=== PATIENT | female | born 1955 | race Caucasian/White ===

== ENCOUNTER → 2021-12-24 12:39 | Outpatient (CLI) | payer MEDICARE, OTHER, SELFPAY ==
--- NOTE | 2021-12-24 12:56 | US_ITS ---
FINAL REPORT CLINICAL HISTORY: VAGINAL BLEEDING FINDINGS: Transvaginal sonographic images of the pelvis were obtained. The uterus measures 6.5 x 4.0 x 3.1 cm. The endometrium measures 9 mm, which is abnormally thickened in a patient this age. No uterine mass is identified. The right ovary is not visualized. The left ovary measures 2.0 cm in length. Normal blood flow seen to the left ovary. There is no evidence of free fluid. IMPRESSION: Right ovary not identified. Abnormally thickened endometrium in a postmenopausal patient. Reviewed, Interpreted and Dictated by Ronny Randhawa III, MD Transcribed by Mansoor Hamilton Authenticated by Ronny Randhawa III, MD on 12/24/2021 02:38:50 PM [facility]
== END ==
PROVIDERS: PCP Family Medicine; Visit Provider Family Medicine
DX: N93.8 Other specified abnormal uterine and vaginal bleeding (principal); Z51.81 Encounter for therapeutic drug level monitoring; Z79.01 Long term (current) use of anticoagulants
CPT/HCPCS: 76830

== ENCOUNTER → 2022-01-28 08:55 | Outpatient (CLI) | payer MEDICARE, OTHER, SELFPAY ==
[2022-01-28 09:31] LABS: Basophils # 0.1 K/mm3 (0-0.2); Eosinophils # 0.2 K/mm3 (0.0-0.4); Eosinophils % 1.7 % (0.1-12.0); Hematocrit 46.6 % (37.0-47.0); Hemoglobin 14.5 g/dL (12.2-16.2); Lymphocytes # 2.5 K/mm3 (0.7-4.5); Lymphocytes % 20.8 % (10-50); Mean Corpuscular HGB Conc 31.2 g/dL (31.8-35.4); Mean Corpuscular Hemoglobin 23.7 pg (27.0-31.2); Mean Corpuscular Volume 75.9 fl (81-99); Mean Platelet Volume 9.2 fl (7.4-10.4); Monocytes # 0.6 K/mm3 (0.1-1.0); Monocytes % 4.8 % (1.7-9.3); Neutrophils # 8.7 K/mm3 (1.8-7.8); Neutrophils % 71.7 % (37.0-80.0); Platelet Count 472 K/mm3 (142-424); Red Blood Count 6.14 M/mm3 (4.20-5.40); Red Cell Distribution Width 18.2 % (11.5-17.5); White Blood Count 12.2 K/mm3 (4.8-10.8)
[2022-01-28 09:59] LABS: Chloride 100 mmol/L (98-107); Potassium 4.7 mmoL/L (3.5-5.1); Sodium 138 mmol/L (136-145)
[2022-01-28 10:01] LABS: Blood Urea Nitrogen 23 mg/dl (7-17); Estimated Glomerular Filt Rate 62 ml/min (>60); GFR (African American) 76 ML/MIN (>60)
[2022-01-28 10:02] LABS: Alanine Aminotransferase 26 U/L (12-78); Albumin Level 4.4 g/dl (3.5-5.0); Albumin/Globulin Ratio 1.2 (1.1-1.8); Alkaline Phosphatase 134 U/L (38-126); Anion Gap 16.7 mEq/L (5-15); Aspartate Amino Transferase 29 U/L (14-36); Bilirubin,Total 0.4 mg/dl (0.2-1.3); Calcium 9.5 mg/dl (8.4-10.2); Carbon Dioxide 26 mmol/L (22.0-30.0); Globulin 3.6 g/dL (1.3-3.2); Glucose 174 mg/dl (74-100)
== END ==
PROVIDERS: PCP Family Medicine; Visit Provider Obstetrics & Gynecology
DX: Z01.812 Encounter for preprocedural laboratory examination; Z20.822 Contact with and (suspected) exposure to COVID-19; N95.0 Postmenopausal bleeding
CPT/HCPCS: 36415; 80053; 85025; C9803; U0003; U0005

== ENCOUNTER 2022-01-30 06:02 | Day surgery (SDC) | payer MEDICARE, OTHER, SELFPAY ==
[2022-01-28 11:47] VITALS: BMI 53.2
[2022-01-30] VITALS (10 sets, daily range): BP systolic 92–146; BP diastolic 57–73; PULSE 107–132; RESP 17–22; TEMP 36.1–36.2; O2SAT 92–99
--- NOTE | 2022-01-30 07:06 | HMH.ANESCL ---
[facility] Anesthesia Checklist - Patient Identification Patient Identification: Arm Band - Structural Data Admitted From: Home Planned Operative Procedure/s: D/C, Hysteroscopy/Myosure Consent for Planned Operative Procedure(s) Verified: Yes - NPO Status Verified Time NPO: 00:00 - Additional verifications Anesthesia Reactions: No Hx Blood Transfusions: No Blood Transfusion Reaction: No - Airway Assessment C-Spine Mobility Assessed: Yes TMJ Mobility Assessed: Yes Dentition: Good Dentition - Neurological Assessment Level of Consciousness: Awake Hx Seizures: Yes (Last sz 2 years ago) Numbness or tingling in extremities: No - Anesthesia Plan Anesthesia Risk discussed: Yes Anesthesia Plan: Verified ASA Class: III Anesthesia Type: General [facility] History I have reviewed the patient's past medical history: Yes Medical History: Reports:: Atrial Fibrillation, Cerebrovascular Accident, Diabetes Mellitus Type 2, Gastroesophageal Reflux Disease(GERD), Hypertension, Seizures Denies:: Cancer, Diabetes Mellitus Type 1, Internal Pacemaker, MRSA *Have you ever received a pneumonia vaccine?: No *Have you received a flu vaccine this season?: Yes Other Medical History: Reports: Hypothyroidism. Denies: Blood Transfusion Reaction Anesthesia experience/problems:: None Other Surgeries: Yes: Cholecystectomy. No: Pacemaker Amputation: No Fractures: No - *Social History Last grade of school completed: High school graduate Smoking Status: Never smoker Alcohol Intake: never Substance Use Type: denies use *Occupational Status:: retired Housing: house Household Members: spouse *Travel in the last 8 weeks: None Family Hx:: Diabetes, Stroke
--- NOTE | 2022-01-30 08:52 | P.PN_ITS ---
[facility] Anesthesia Record Part I Intake, IV Amount: 800 Estimated blood loss (mL): 5 Urine output (mL): 0 Blood Pressure: 93/62 SaO2: 92 Pulse Rate: 108 Respiratory Rate: 17 Temperature: 97.1 F Patient is:: Drowsy, Oral/Nasal airway Stable to PACU at:: 08:48
[2022-01-30 09:29] LABS: POC Glucose,Bedside 184 (70-110)
--- NOTE | 2022-01-30 10:12 | HMH.OPNOTE ---
Date of procedure: 01/30/22 Pre-op Diagnosis:: 1. Postmenopausal bleeding 2. Thickened endometrium 3. Morbid obesity 4. Vulvar lesion Post-op Diagnosis:: Same Procedure performed:: 1. D&C Hysteroscopy 2. Myosure excision of endometrial mass 3. Punch biopsy x 2 left labia majora Surgeon:: Bruna Cam MD Termite Exterminator Helper(s):: None NOVELTY CHAIN MAKER:: Jeannette Springer Anesthesia: GETA Estimated blood loss (mL): 5 Operative findings:: bleeding lesion medial left labia majora plaque lesion lateral left labia majora polypoid mass endometrial cavity proliferative endometrium Operative note:: The patient was taken to the OR and general anesthesia administered without difficulty. She was prepped/draped in lithotomy position. The cervix was stenotic but dilated successfully with pediatric dilators. Hysteroscopic evaluation was performed. A large polypoid mass was visualized within the endometrial cavity protruding from the anterior wall. Proliferative endometrium was visualized throughout the uterine cavity. The Myosure was used to excise the mass and to sample endometrial tissue throughout the cavity. Once this was completed, all instruments were removed from her uterus and vagina. A 4mm punch biopsy was taken from the medial lesion on left labia majora and a 5mm punch biopsy was taken from the lateral lesion on left labia majora. Both biopsy sites were closed with 4-0 monocryl. Monsel's was placed over both biopsy sites because of chronic anticoagulation. She was taken out of lithotomy position, awakened from anesthesia and taken to the PACU in stable condition. All sponge, needle & instrument counts correct. EBL 5cc. Condition: stable Disposition: PACU Specimens:: 1. Endometrial curettings 2. Labial punch biopsy x 2 Complications:: None
[2022-01-30 14:05] LABS: POC Glucose,Bedside 165 (70-110)
[2022-02-05 08:21] VITALS: BP 113/59; PULSE 114; TEMP 36.1
--- NOTE | 2022-02-05 08:21 | HMH.ANESII ---
[facility] Anesthesia Record Part II Discharge Time: 09:18 Destination: Home PACU nurse assessment reviewed?: Yes Patient Condition:: Good Anesthesia Complications:: None Swallowing reflex intact?: Yes Cyanosis?: No Blood Pressure: 113/59 Pulse Rate: 114 Temperature: 97.0 F Mental Status: Alert & Oriented Pain level:: 0 Nausea and/or vomitting:: None Intake, IV Amount: 0
== END 2022-01-30 10:10 | disposition home or self-care (01) ==
LOC: OR 06:03
PROVIDERS: PCP Family Medicine; Visit Provider Obstetrics & Gynecology
DX: N95.0 Postmenopausal bleeding (principal); R93.89 Abnormal findings on diagnostic imaging of other specified body structures; E66.01 Morbid (severe) obesity due to excess calories; N90.89 Other specified noninflammatory disorders of vulva and perineum; E11.9 Type 2 diabetes mellitus without complications; K21.9 Gastro-esophageal reflux disease without esophagitis; I10 Essential (primary) hypertension; I48.91 Unspecified atrial fibrillation; E03.9 Hypothyroidism, unspecified
CPT/HCPCS: 56605; 56606; 58558; 82962; 88305; 88312; J2405

== ENCOUNTER 2022-04-29 13:04 | Outpatient (CLI) | payer MEDICARE, OTHER, SELFPAY ==
[2022-04-29 13:31] LABS: PHA INR Fingerstick 2.7 (0.9-1.1)
== END 2022-04-29 13:34 ==
LOC: LAB 13:07 → ACC 13:16
PROVIDERS: PCP Family Medicine; Visit Provider Family Medicine
DX: Z79.01 Long term (current) use of anticoagulants (principal); Z51.81 Encounter for therapeutic drug level monitoring; I48.91 Unspecified atrial fibrillation
CPT/HCPCS: 85610; G0463

== ENCOUNTER 2022-05-27 12:54 | Outpatient (CLI) | payer MEDICARE, OTHER, SELFPAY ==
[2022-05-27 15:23] LABS: PHA INR Fingerstick 3.2 (0.9-1.1)
== END 2022-05-27 15:28 ==
PROVIDERS: PCP Family Medicine; Visit Provider Family Medicine
DX: Z51.81 Encounter for therapeutic drug level monitoring (principal); Z79.01 Long term (current) use of anticoagulants
CPT/HCPCS: 85610; 99211; G0463

== ENCOUNTER 2022-08-05 11:55 | Outpatient (CLI) | payer MEDICARE, OTHER, SELFPAY ==
[2022-08-05 12:49] LABS: PHA INR Fingerstick 3.2 (0.9-1.1)
== END 2022-08-05 12:51 ==
LOC: ACC 11:56
PROVIDERS: PCP Family Medicine; Visit Provider Family Medicine
DX: Z51.81 Encounter for therapeutic drug level monitoring (principal); Z79.01 Long term (current) use of anticoagulants
CPT/HCPCS: 85610; 99211; G0463

== ENCOUNTER 2022-09-02 12:16 | Outpatient (CLI) | payer MEDICARE, OTHER, SELFPAY ==
[2022-09-02 13:28] LABS: PHA INR Fingerstick 2.2 (0.9-1.1)
== END 2022-09-02 13:30 ==
PROVIDERS: PCP Family Medicine; Visit Provider Family Medicine
DX: Z51.81 Encounter for therapeutic drug level monitoring (principal); Z79.01 Long term (current) use of anticoagulants
CPT/HCPCS: 85610; 99211; G0463

== ENCOUNTER 2022-10-14 12:18 | Outpatient (CLI) | payer MEDICARE, OTHER, SELFPAY ==
[2022-10-14 13:12] LABS: PHA INR Fingerstick 3.5 (0.9-1.1)
== END 2022-10-14 13:14 ==
PROVIDERS: PCP Family Medicine; Visit Provider Family Medicine
DX: Z51.81 Encounter for therapeutic drug level monitoring (principal); Z79.01 Long term (current) use of anticoagulants
CPT/HCPCS: 85610; 99211; G0463

== ENCOUNTER 2022-10-29 11:15 | Outpatient (CLI) | payer MEDICARE, OTHER, SELFPAY ==
[2022-10-29 11:35] LABS: PHA INR Fingerstick 2.1 (0.9-1.1)
== END 2022-10-29 11:36 ==
LOC: ACC 11:16
PROVIDERS: PCP Family Medicine; Visit Provider Family Medicine
DX: Z51.81 Encounter for therapeutic drug level monitoring (principal); Z79.01 Long term (current) use of anticoagulants
CPT/HCPCS: 85610; 99211; G0463

== ENCOUNTER 2022-12-17 11:34 | Outpatient (CLI) | payer MEDICARE, OTHER, SELFPAY ==
[2022-12-17 11:53] LABS: PHA INR Fingerstick 2.2 (0.9-1.1)
== END 2022-12-17 11:54 ==
LOC: ACC 11:35
PROVIDERS: PCP Family Medicine; Visit Provider Family Medicine
DX: Z51.81 Encounter for therapeutic drug level monitoring (principal); Z79.01 Long term (current) use of anticoagulants
CPT/HCPCS: 85610; 99211; G0463

== ENCOUNTER → 2022-12-26 10:53 | Outpatient (CLI) | payer MEDICARE, OTHER, SELFPAY ==
[2022-12-26 11:28] LABS: Hemoglobin A1C 6.9 % (4.0-6.0)
== END ==
PROVIDERS: PCP Family Medicine; Visit Provider Family Medicine
DX: E03.9 Hypothyroidism, unspecified (principal); E11.65 Type 2 diabetes mellitus with hyperglycemia; Z79.4 Long term (current) use of insulin
CPT/HCPCS: 36415; 83036; 84443

== ENCOUNTER 2023-08-12 12:20 | Outpatient (CLI) | payer MEDICARE, OTHER, SELFPAY | END 2023-08-12 23:59 | LOC: RT 12:21 | PROVIDERS: PCP Family Medicine; Visit Provider Nurse Practitioner Family | DX: E11.9 Type 2 diabetes mellitus without complications (principal); E78.5 Hyperlipidemia, unspecified; G47.33 Obstructive sleep apnea (adult) (pediatric); I10 Essential (primary) hypertension; I48.91 Unspecified atrial fibrillation; R00.2 Palpitations; R00.9 Unspecified abnormalities of heart beat; R06.00 Dyspnea, unspecified; R94.31 Abnormal electrocardiogram [ECG] [EKG]; Z79.84 Long term (current) use of oral hypoglycemic drugs | CPT/HCPCS: 93270 ==

== ENCOUNTER 2023-08-24 09:59 | Outpatient (CLI) | payer MEDICARE, OTHER, SELFPAY ==
[2023-08-24 10:23] LABS: PHA INR Fingerstick 2.7 (0.9-1.1)
== END 2023-08-24 10:24 ==
LOC: ACC 10:01
PROVIDERS: PCP Family Medicine; Visit Provider Family Medicine
DX: Z79.01 Long term (current) use of anticoagulants (principal); Z51.81 Encounter for therapeutic drug level monitoring
CPT/HCPCS: 85610; 99211; G0463

== ENCOUNTER 2023-08-27 06:13 | Outpatient (CLI) | payer MEDICARE, OTHER, SELFPAY ==
--- NOTE | 2023-08-27 06:22 | NM_ITS ---
APPROVED REPORT Exam: Nuclear Stress Test Indication: soa..fatigue Patient Location: Outpatient Stress Tech: Francesca Weinberg CT Tech:RACH Mascorro RT(R)(N) Ht: 5 ft 6 in Wt: 310 lbs Bra Size: 52dd HR: 125 bpm BP: 141/86 mmHg BSA: 2.41 m2 Rhythm: Atrial Fibrillation TID: 1.20 BMI: 50.0 History: soa..fatigue Procedure: Patient received 0.4 mg of intravenous Lexiscan, resting heart rate 125 bpm, resting blood pressure 141/86 mmHg, with Lexiscan maximum heart rate achieved was 144 bpm which is 85 % of the maximum predicted heart rate and blood pressure was 149/79 mmHg. With Lexiscan, patient denied any complaint of chest pain. The patient was not able to lay on her abdomen for prone images. Cardiac Stress and Resting SPECT Images: Cardiac Stress and Resting SPECT images were obtained using technetium 99m Myoview 32.6 mCi stress and 10.50 mCi at rest. The patient could not lie on her abdomen. Therefore, prone stress imaging could not be performed. This may affect the diagnostic interpretation of the study findings. Resting and stress imaging in supine positions demonstrate no evidence of fixed or reversible perfusion defects. Of note, the ransient ischemic dilation ratio is at the upper limit of normal (TID 1.20). Gated imaging demonstrates normal global and regional LV systolic function. LVEF is calculated at 57%. Conclusion: No evidence of fixed or reversible perfusion defects. Gated imaging demonstrates normal global and regional LV systolic function. LVEF is calculated at 57%. Of note, the patient's rhythm is AFib/RVR (HR 120s) at baseline prior to initiation of the stress test. She requires additional HR control. Electronically signed by : Donna Mendoza MD 08/29/2023 19:50:38
--- NOTE | 2023-08-27 06:28 | CA_ITS ---
APPROVED REPORT EXAM: Comprehensive 2D, Doppler, and color-flow Echocardiogram Pipeline Gang Supervisor: Yeny Walker CRT Ht: 5 ft 6 in Wt: 307lbs BSA: 2.40 BP: 196/98 mmHg Indications: Shortness of Breath, Diabetes, Palpitations, Hyperlipidemia, Hypertension/HDD 2D Dimensions LA Volume 28.50 mL LA Volume Index 11.60 mL/m2 (M/F) 16-34 M-Mode Dimensions RVDd 2.84 cm (0.9-2.6) LA Diam 3.81 cm (1.9-4.0) LVDd 4.34 cm (3.5-5.7) LVDs 3.03 cm (3.5-5.7) IVSd 1.94 cm (0.6-1.1) PWd 0.78 cm (0.6-1.1) EF (Teich) 57.70% FS 30.20% EDV (Teich) 84.90 mL TAPSE 1.57 (<1.7) ESV (Teich) 35.90 mL LV Diastology MED A' 2.80 cm/s LAT A' 3.30 cm/s Aortic Valve AO Peak GR. 4.90 mmHg Pulmonary Valve PV Peak Velocity 102.0 (50-150 cm/s) Tricuspid Valve TR P. Velocity 104.00 cm/s RAP Estimate 10.00 mmHg RVSP 14.40 mmHg Left Ventricle The left ventricle is normal size. The left ventricular systolic function is normal. The left ventricular ejection fraction is within the normal range. Proximal septal thickening is noted. There is normal LV segmental wall motion. Diastolic function is indeterminate. LVEF is 55%. Right Ventricle The right ventricle is mildly dilated. The right ventricular systolic function is normal. Atria The left atrium is moderately dilated. The right atrium is mildly dilated. The interatrial septum is not well-visualized. Aortic Valve The aortic valve is mildly thickened. There is no aortic valvular stenosis. No aortic regurgitation is present. Mitral Valve The mitral valve leaflets are mildly thickened. No evidence of mitral valve stenosis. Trace mitral regurgitation. Tricuspid Valve The tricuspid valve leaflets are thin and pliable. Trace tricuspid regurgitation. There is insufficient TR jet to estimate RVSP. Pulmonic Valve The pulmonary valve is normal in structure. Trace pulmonic regurgitation. Great Vessels The aortic root is normal in size. The ascending aorta is not well-visualized. IVC is normal in size and collapses >50% with inspiration. Pericardium There is no pericardial effusion. Other Information Study Quality: Fair Conclusion Normal biventricular systolic function. Mild RV dilation. No significant valvular stenosis or regurgitation. Electronically signed by : Donna Mendoza MD 08/30/2023 11:14:52
--- NOTE | 2023-08-27 08:36 | CA_ITS ---
APPROVED REPORT Exam: Pharmacologic Technologist: Francesca Anderson, Ht: 5 ft 6 in Wt: 307 lbs BSA: 2.40 m2 HR: 120 bpm BP: 141/86 mmHg Rhythm: Atrial Fibrillation Medical History Medications: Lisinopril,,,,, Levothyroxine,,,,, Warfarin,,,,, Metoprolol,,,,, Metformin,,,,, INSULIN,,,,, Lansoprazole,,,,, Trazodone,,,,, RoSUVASTATIN,,,,, Cariprazine,,,,, Furosemide,,,,, Levomefolate,,,,, Stress Test Details Test: LEXISCAN Reason for pharmacologic stress test: physical limitation. HR Resting HR: 125 bpm Max Heart Rate (APMHR): 152 bpm Max HR Achieved: 144 bpm Target HR (85% APMHR): 129 bpm % of APMHR: 95 Recovery HR: 110 bpm BP Resting BP: 141.0/86.0 mmHg Max BP: 149.0/79.0 mmHg Recovery BP: 145.0/87.0 mmHg ECG Resting ECG: Afib with RVR, RBBB Stress ECG: No significant ST changes Arrhythmia: None Clinical Exercise duration: 04:00 min Highest Stage Achieved: Exercise capacity: 1.0 METs Stress ECG Conclusion Symptoms: SOA, mild head discomfort. Arrhythmias/Ectopy: None ST-T Changes: No significant ST changes. Conclusion: The patient's rhythm was AFib/RVR at rest. Unremarkable Lexiscan stress. Myoview images reported separately. Test Summary REST . . . . . . . Resting REST 05:40 . . 125 . 141/ 86 . . Stage 1 01:00 . . 115 . . . . Stage 2 01:00 . . 132 . . . . Stage 3 01:00 . . 122 . 142/ 79 . . Stage 4 01:00 . . 114 . 149/ 79 . Stop exercise at 04:00 RECOVERY 01:00 . . 103 . 143/ 83 . . RECOVERY 02:00 . . 115 . 143/ 83 . . RECOVERY 03:00 . . 119 . 145/ 87 . . RECOVERY 03:19 . . 107 . 145/ 87 . . Electronically signed by : Donna Mendoza MD 08/29/2023 19:43:47
[2023-08-27] MEDS: SODIUM CHLORIDE 0.9% 10ML SYR (RAD ONLY) 10 ML IV ×2 (09:35)
[2023-08-27] MEDS: REGADENOSON 0.4MG/5ML SYRINGE 0.400000000000000022 MG IV (09:35)
[2023-08-27] MEDS: ISOTOPE MYOVIEW (PER STUDY) 1 DOSE IV (09:35)
== END 2023-08-27 23:59 ==
LOC: RAD 06:15
PROVIDERS: PCP Family Medicine; Visit Provider Nurse Practitioner Family
DX: E11.9 Type 2 diabetes mellitus without complications (principal); E78.5 Hyperlipidemia, unspecified; G47.33 Obstructive sleep apnea (adult) (pediatric); I10 Essential (primary) hypertension; I48.91 Unspecified atrial fibrillation; R00.2 Palpitations; R00.9 Unspecified abnormalities of heart beat; R06.00 Dyspnea, unspecified; R94.31 Abnormal electrocardiogram [ECG] [EKG]; Z79.4 Long term (current) use of insulin
CPT/HCPCS: 78452; 93017; 93018; 93306; A9502; J2785

== ENCOUNTER 2023-09-27 08:03 | Day surgery (SDC) | payer MEDICARE, OTHER, SELFPAY ==
[2023-09-24 11:02] VITALS: BMI 50.0
--- NOTE | 2023-09-27 08:17 | CA_ITS ---
APPROVED REPORT EXAM: Comprehensive 2D, Doppler, and color-flow Echocardiogram Compensation And Benefits Manager: Gina Ortega RVT Ht: 5 ft 6 in Wt: 306lbs BSA: 2.40 BP: 131/88 mmHg Indications: A-FIB,ABN EKG,HTN,HLD,DM,CARDIOVERSION Procedure After obtaining informed consent, patient underwent transesophageal echo in the [facility]. Type of Sedation : MAC Sedation was administered by Alex PepperR.N.AMiri Sedation start time: 09:50 Case end Time: 10:20 Sedation was achieved intravenously with: Propofol (450 mg) Transesophageal probe was inserted and advanced into esophagus without difficulty by Dr. Boubacar Mendoza. Echo enhancement indication: R/O Thrombus. Echo enhancement agent administered: Definity The VANESSA was performed without complications. Synchronized Cardioversion acheived with 150 Joules after 1 attempt(s). Rhythm following Synchronized Cardioversion: Sinus Bradycardia Throughout the procedure, the blood pressure, pulse oximetry, cardiac rhythm, and rate were monitored. The patient tolerated the procedure without adverse effects. Recovery from conscious sedation was uneventful and vital signs were stable. Left Ventricle The left ventricle is normal size. The left ventricular systolic function is normal. The left ventricular ejection fraction is within the normal range. There is increased LV wall thickness. There is normal LV segmental wall motion. LVEF is 55%. Right Ventricle The right ventricle is mildly dilated. The right ventricular systolic function is normal. Atria The left atrium is dilated. There is no thrombus in the left atrium or the left atrial appendage. Spontaneous contrast is noted in the left atrial appendage. Administration of ultrasound enhancing agent demonstrated no evidence of filling defects with full perfusion into the YUVAL distally. The right atrium is dilated. Interatrial septum is intact without evidence of ASD or PFO. Aortic Valve The aortic valve opens well. The aortic valve is trileaflet. There is no aortic valvular stenosis. Trace aortic regurgitation. Mitral Valve The mitral valve leaflets are mildly thickened. No evidence of mitral valve stenosis. Mild mitral regurgitation. Tricuspid Valve The tricuspid valve leaflets are thin and pliable. Mild tricuspid regurgitation. RVSP is normal. Pulmonic Valve The pulmonary valve is normal in structure. Trace pulmonic regurgitation. Great Vessels The aortic root is normal in size. The ascending aorta is normal in size. Pericardium There is no pericardial effusion. Conclusion Normal biventricular systolic function. Mild RV dilation. Mild MR. Mild TR. There is no thrombus in the left atrium or the left atrial appendage. Spontaneous contrast is noted in the left atrial appendage. Administration of ultrasound enhancing agent demonstrated no evidence of filling defects with full perfusion into the YUVAL distally. Following VANESSA and confirmation of absence of thrombus, the patient underwent 1 DCCV with 150 J, after which she successfully converted to sinus bradycardia (HR 50s). Electronically signed by : Donna Mendoza MD 09/27/2023 11:21:18
[2023-09-27 08:22] VITALS: BP 170/103; PULSE 97; RESP 19; TEMP 36.2; O2SAT 98
--- NOTE | 2023-09-27 08:22 | ECG_ITS ---
APPROVED REPORT Exam: Resting ECG HR:110 bpm ECG Measurements Heart Rate 110 AXES QRSd 145 QRS 11 QT 383 T -23 QTc 448 Conclusion ATRIAL FIBRILLATION WITH RAPID VENTRICULAR RESPONSE INDETERMINATE AXIS RIGHT BUNDLE BRANCH BLOCK [120+ ms QRS DURATION, UPRIGHT V1, 40+ ms S IN I/aVL/V4/V5/V6] MODERATE T-WAVE ABNORMALITY, CONSIDER ANTEROLATERAL ISCHEMIA [-0.1+ mV T-WAVE IN V3-V6] ABNORMAL ECG UNCONFIRMED REPORT Electronically signed by : Avinash Escoto MD 09/28/2023 20:12:58
[2023-09-27] MEDS: LACTATED RINGERS 1000ML 1,000 ML 25 ML IV (08:32)
[2023-09-27 08:39] LABS: Basophils # 0.1 K/mm3 (0-0.2); Basophils % 0.6 % (0.1-2.0); Eosinophils # 0.3 K/mm3 (0.0-0.4); Eosinophils % 2.9 % (0.1-12.0); Hematocrit 40.9 % (37.0-47.0); Hemoglobin 13.1 g/dL (12.2-16.2); Lymphocytes # 1.5 K/mm3 (0.7-4.5); Lymphocytes % 16.8 % (10-50); Mean Corpuscular HGB Conc 31.9 g/dL (31.8-35.4); Mean Corpuscular Hemoglobin 24.1 pg (27.0-31.2); Mean Corpuscular Volume 75.3 fl (81-99); Mean Platelet Volume 8.6 fl (7.4-10.4); Monocytes # 0.4 K/mm3 (0.1-1.0); Monocytes % 4.4 % (1.7-9.3); Neutrophils # 6.8 K/mm3 (1.8-7.8); Neutrophils % 75.3 % (37.0-80.0); Platelet Count 410 K/mm3 (142-424); Red Blood Count 5.43 M/mm3 (4.20-5.40); Red Cell Distribution Width 17.3 % (11.5-17.5)
[2023-09-27 08:42] LABS: POC Glucose,Bedside 129 (70-110)
[2023-09-27 08:48] LABS: Chloride 101 mmol/L (98-107); Potassium 4.4 mmoL/L (3.5-5.1); Sodium 140 mmol/L (136-145)
[2023-09-27 08:50] LABS: Alanine Aminotransferase 28 U/L (12-78); Aspartate Amino Transferase 31 U/L (14-36); Blood Urea Nitrogen 20 mg/dl (7-17); Creatinine Clearance Estimated 50 mL/min (50-200); Estimated Glomerular Filt Rate 55 ml/min (>60); GFR (African American) 67 ML/MIN (>60)
[2023-09-27 08:51] LABS: Albumin Level 4.3 g/dl (3.5-5.0); Alkaline Phosphatase 113 U/L (38-126); Anion Gap 12.4 mEq/L (5-15); Bilirubin,Total 0.4 mg/dl (0.2-1.3); Calcium 8.9 mg/dl (8.4-10.2); Carbon Dioxide 31 mmol/L (22.0-30.0); Globulin 4.1 g/dL (1.3-3.2); Glucose 141 mg/dl (74-100); Total Protein,Serum 8.4 g/dl (6.3-8.2)
[2023-09-27 08:53] LABS: INR 2.58 (0.9-1.1); Prothrombin Time 26.2 seconds (10.1-12.5)
--- NOTE | 2023-09-27 09:02 | P.PNANES_ITS ---
[facility] Disclaimer: The information contained in this section may have been updated after the patient was seen, as this information can be updated by other users. Medical History Abnormal electrocardiogram [ECG] [EKG] Atrial fibrillation Atrial fibrillation with RVR DM2 (diabetes mellitus, type 2) Dyspnea Elevated heart rate with elevated blood pressure and diagnosis of hypertension HLD (hyperlipidemia) HTN (hypertension) Hypertension TOPHER (obstructive sleep apnea) Palpitations Surgical History History of cholecystectomy Family History Other Family history of diabetes mellitus type II Family history of stroke Social History Smoking Status: Never smoker second hand exposure: No alcohol intake: never substance use type: denies use current occupational status: retired Travel in the last 8 weeks: None household members: spouse housing: house caffeine: Yes [facility] Anesthesia Checklist Patient Identification Patient Identification: Arm Band Structural Data Admitted From: Home Planned Operative Procedure/s: VANESSA/Cardioversion Consent for Planned Operative Procedure(s) Verified: Yes Verified Documents: Surgical Consent and History and Physical NPO Status Verified Time NPO: 00:00 Additional verifications Anesthesia Reactions: No Hx Blood Transfusions: No Blood Transfusion Reaction: No Airway Assessment Mallampati Score:: Class II C-Spine Mobility Assessed: Yes TMJ Mobility Assessed: Yes Dentition: Poor Dentition Neurological Assessment Level of Consciousness: Awake and Alert Anesthesia Plan Anesthesia Risk discussed: Yes Anesthesia Plan: Verified ASA Class: III Anesthesia Type: MAC
[2023-09-27 10:10] VITALS: BP 105/58; PULSE 61; RESP 16; TEMP 36.2; O2SAT 96
--- NOTE | 2023-09-27 10:19 | ECG_ITS ---
APPROVED REPORT Exam: Resting ECG HR:58 bpm ECG Measurements Heart Rate 58 AXES NJ 201 P 51 QRSd 130 QRS -22 QT 466 T -12 QTc 464 Conclusion SINUS BRADYCARDIA BORDERLINE LEFT AXIS DEVIATION [QRS AXIS < -20] RIGHT BUNDLE BRANCH BLOCK [120+ ms QRS DURATION, UPRIGHT V1, 40+ ms S IN I/aVL/V4/V5/V6] ABNORMAL ECG UNCONFIRMED REPORT Electronically signed by : Avinash Escoto MD 09/28/2023 20:11:56
[2023-09-27 10:20] VITALS: BP 104/60; PULSE 62; RESP 17; O2SAT 97
[2023-09-27] MEDS: DEFINITY US ECHO CONTRAST 2ML INJ 8 MG IV (10:21)
--- NOTE | 2023-09-27 10:23 | SUR.OPER ---
1005- cardioversion performed by dr. ramirez at 150j. shock was successful at this time. VSS
[2023-09-27 10:30] VITALS: BP 96/55; PULSE 59; RESP 17; O2SAT 96
[2023-09-27 10:40] VITALS: BP 98/52; PULSE 60; RESP 17; O2SAT 97
== END 2023-09-27 10:40 | disposition home or self-care (01) ==
PROVIDERS: PCP Family Medicine; Visit Provider Internal Medicine
DX: I48.20 Chronic atrial fibrillation, unspecified (principal); R94.31 Abnormal electrocardiogram [ECG] [EKG]; Z79.01 Long term (current) use of anticoagulants; Z79.899 Other long term (current) drug therapy; Z79.4 Long term (current) use of insulin; I10 Essential (primary) hypertension; E78.5 Hyperlipidemia, unspecified; E11.9 Type 2 diabetes mellitus without complications; G47.33 Obstructive sleep apnea (adult) (pediatric)
CPT/HCPCS: 80053; 82962; 85025; 85610; 92960; 93005; 93270; 93312; 93319; Q9957

== ENCOUNTER 2023-09-29 09:01 | Inpatient (IN) | payer MEDICARE, OTHER, SELFPAY ==
[2023-09-29] VITALS (11 sets, daily range): BP systolic 108–151; BP diastolic 53–84; PULSE 72–88; RESP 18–20; TEMP 36.4–36.7; O2SAT 2–99; BMI 49.8; BMI 49.7
--- NOTE | 2023-09-29 09:30 | PC.NURSE ---
placed patient on 2L nasal cannula due to patient o2 sats dropping to 88% on RA
--- NOTE | 2023-09-29 09:30 | XR_ITS ---
FINAL REPORT TECHNIQUE: Chest PA & Lateral CLINICAL HISTORY: recent instrumentation, new O2 req COMPARISON: None FINDINGS: 2 views of the chest were performed. The heart size is normal. The mediastinum is within normal limits. There are patchy perihilar airspace infiltrates consistent with acute pneumonia. There are no pleural effusions. There is no pneumothorax. The bony thorax appears intact. IMPRESSION: Acute pneumonia. Reviewed, Interpreted and Dictated by Jacob Garcia MD Transcribed by Josefina Chapman Authenticated and [facility]
--- NOTE | 2023-09-29 09:47 | ED_ITS ---
Discharge Plan Disposition Patient Disposition: Admitted Chief Complaint: Nausea/Vomiting/Diarrhea Prescriptions Prescriptions: No Action lansoprazole 15 mg capsule,delayed release(DR/EC) 15 mg PO DAILY levomefolate calcium 15 mg tablet 15 mg PO DAILY Fetzima 40 mg capsule,extended release 24 hr 40 mg PO DAILY oxcarbazepine 150 mg tablet 150 mg PO BID lisinopril 40 mg tablet 40 mg PO DAILY metformin 1,000 mg tablet 1,000 mg PO BID modafinil 200 mg tablet 200 mg PO DAILY furosemide 40 mg tablet 40 mg PO DAILY Vraylar 4.5 mg capsule 4.5 mg PO DAILY phenytoin sodium extended 100 mg capsule 100 mg PO TID insulin NPH and regular human 100 unit/mL (70-30) insulin pen 55 unit SQ DAILY Rx Instructions: 60 in am, 40 pm rosuvastatin 10 mg tablet 10 mg PO DAILY Patient Comments: TAKE 1 TABLET BY MOUTH DAILY Ozempic 0.25 mg or 0.5 mg (2 mg/3 mL) pen injector 0.25 mg SQ WEEKLY Jardiance 25 mg tablet 25 mg PO DAILY Patient Comments: TAKE 1 TABLET BY MOUTH DAILY warfarin 2 mg tablet 2 mg PO DAILY amiodarone 400 mg tablet 400 mg PO BID 30 Days Qty: 60 2RF (DME) pen needle, diabetic [BD Ultra-Fine Mini Pen Needle] 31 gauge x 3/16 needle See Rx Instructions .ROUTE .MEDSUPPLY Qty: 1200 Rx Instructions: As directed (DME) FreeStyle Jose 2 Sensor Kit See Rx Instructions .ROUTE .MEDSUPPLY Qty: 1 Rx Instructions: As directed levothyroxine 125 mcg tablet 125 mcg PO DAILY metoprolol succinate [Toprol XL] 200 mg tablet extended release 24 hr 200 mg PO BID Qty: 60 5RF Referrals Follow up/Referrals: Emely Sawant APRN [Primary Care Provider] - See instructions Clinical Impressions Clinical Impression: CHF exacerbation, Acute hypoxemic respiratory failure Instructions Patient Instructions: DI for Diarrhea and Traveler's Diarrhea -- Adult, DI for Diarrhea and Traveler's Diarrhea -- Child, DI for Nausea -- Adult, DI for Nausea -- Child Discharge ED Provider: Niko Crain General Adult HPI General Chief complaint: Nausea/Vomiting/Diarrhea Stated complaint: nausea and vomiting Time Seen by Provider: 09/29/23 09:10 Mode of Arrival: Wheelchair Source of Information: Patient Limitations: No Limitations Description of Symptoms (Recalled from ER Triage Doc. by RN): Patient states she had cardioversion performed here on Wednesday and on Wednesday she began to have nausea, vomiting, and epigastric pain states she called Dr Garcia office and was told to come in. They assessed and sent her to ER for evaluation. History of Present Illness HPI narrative: 67-year-old female history hyper centric, hyperlipidemia, with CO currently on warfarin, type 2 diabetes, obstructive sleep apnea not wearing oxygen or mask at night presenting with generalized complaints. Patient states that she had a cardioversion 2 days prior to this visit. She felt okay on Wednesday, on Wednesday, yesterday, she started having nausea vomiting and her abdomen and chest. Denies diaphoresis, worsening shortness of breath, lower extremity swelling, palpitations. Vomiting is nonbloody, nonbilious. She is having more difficulty lying flat secondary to shortness of breath. States that she has no history of lung disease or need for oxygen during the day. Related Data Home Medications Medication Instructions Recorded Confirmed cariprazine 4.5 mg capsule 4.5 mg PO DAILY bipolar 12/29/21 09/27/23 (Vraylar) furosemide 40 mg tablet 40 mg PO DAILY Fluid 12/29/21 09/27/23 insulin NPH-regular 70-30 U-100 55 unit SQ DAILY Diabetes 12/29/21 09/27/23 insulin 100 unit/mL subcutaneous pen lansoprazole 15 mg capsule,delayed 15 mg PO DAILY Reflux/Acid reflux 12/29/21 09/27/23 release levomefolate calcium 15 mg tablet 15 mg PO DAILY schizophrenia 12/29/21 09/27/23 levomilnacipran 40 mg capsule,24 40 mg PO DAILY Depression 12/29/21 09/27/23 hr,extended release (Fetzima) lisinopril 40 mg tablet 40 mg PO DAILY bp 12/29/21 09/27/23 metformin 1,000 mg tablet 1,000 mg PO BID Diabetes 12/29/21 09/27/23 modafinil 200 mg tablet 200 mg PO DAILY stimulant 12/29/21 09/27/23 oxcarbazepine 150 mg tablet 150 mg PO BID bipolar 12/29/21 09/27/23 phenytoin sodium extended 100 mg 100 mg PO TID siezures 12/29/21 09/27/23 capsule levothyroxine 125 mcg tablet 125 mcg PO DAILY tyroid 01/23/22 09/27/23 rosuvastatin 10 mg tablet 10 mg PO DAILY 08/12/23 09/27/23 semaglutide 0.25 mg or 0.5 mg (2 0.25 mg SQ WEEKLY 08/12/23 09/27/23 mg/3 mL) subcutaneous pen injector (Ozempic) empagliflozin 25 mg tablet 25 mg PO DAILY 09/09/23 09/27/23 (Jardiance) warfarin 2 mg tablet 2 mg PO DAILY 09/09/23 09/27/23 flash glucose sensor (FreeStyle #1 ea 09/29/23 09/29/23 Jose 2 Sensor kit) pen needle, diabetic 31 gauge x #1,200 ea 09/29/23 09/29/2310/22 (BD Ultra-Fine Mini Pen Needle) Previous Rx's Medication Instructions Recorded metoprolol succinate 200 mg 200 mg PO BID #60 tabs 08/18/23 tablet,extended release 24 hr (Toprol XL) amiodarone 400 mg tablet 400 mg PO BID 30 days #60 tabs 09/09/23 Allergies Allergy/AdvReac Type Severity Reaction Status Date / Time No Known Allergies Allergy Verified 09/29/23 08:36 [facility] Disclaimer: The information contained in this section may have been updated after the patient was seen, as this information can be updated by other users. Medical History Abnormal electrocardiogram [ECG] [EKG] Atrial fibrillation Atrial fibrillation with RVR DM2 (diabetes mellitus, type 2) Dyspnea Elevated heart rate with elevated blood pressure and diagnosis of hypertension HLD (hyperlipidemia) HTN (hypertension) Hypertension TOPHER (obstructive sleep apnea) Palpitations Surgical History History of cholecystectomy Family History Other Family history of diabetes mellitus type II Family history of stroke Social History Smoking Status: Never smoker second hand exposure: No alcohol intake: never substance use type: denies use current occupational status: retired Travel in the last 8 weeks: None household members: spouse housing: house caffeine: Yes ROS Obtained: Yes All systems reviewed & no additional complaints except as documented Physical Exam General General appearance: alert Neck Neck exam: Present trachea midline Chest Chest inspection: Present normal inspection and symmetric chest wall rise Respiratory Respiratory exam: Present normal lung sounds bilaterally; Absent respiratory distress, wheezes, stridor, accessory muscle use or prolonged expiratory phase Cardiovascular Cardiovascular exam: Present regular rate, normal rhythm and normal heart sounds Abdominal Exam Abdominal exam: Present soft; Absent distention, tenderness or guarding Extremities Exam Extremities exam: Absent edema Neurological Exam Neurological exam: Present alert, oriented X3 and CN II-XII intact Skin Skin exam: Present warm and dry; Absent cyanosis, diaphoresis or pallor Medical Decision Making Medical Records Medical records reviewed: Yes I reviewed the patient's medical records. [place] Inquiry Pt receiving controlled substance: No [place] was queried for this patient: No Vital Signs: 09/29/23 09:02 09/29/23 09:31 Temperature 98.1 F Temperature Source Oral Pulse Rate 88 Pulse Rate [Right] 78 Respiratory Rate 20 20 Blood Pressure 124/65 Blood Pressure [Right Arm] 121/60 Blood Pressure Mean 84 Blood Pressure Mean [Right Arm] 80 02 Sat by Pulse Oximetry 94 L 97 Oxygen Delivery Method Room Air Lab Data Lab Results 09/29/23 09:55: WBC 13.4 H D, RBC 5.02, Hgb 12.0 L, Hct 39.3, MCV 78.3 L, MCH 23.8 L, MCHC 30.5 L, RDW 17.0, Plt Count 396, MPV 7.5, Neut % (Auto) 82.4 H, Lymph % (Auto) 11.9, [place] % (Auto) 4.8, Eos % (Auto) 0.6, Baso % (Auto) 0.3, Neut # (Auto) 11.1 H, Lymph # (Auto) 1.6, [place] # (Auto) 0.7, Eos # (Auto) 0.1, Baso # (Auto) 0.0, PT 32.8 H, INR 3.28 H, APTT 55.7 H, Sodium 136, Potassium 3.9, Chloride 102, Carbon Dioxide 29, Anion Gap 8.9, BUN 21 H, Creatinine 1.10 H , Estimated Creat Clear 46, Estimated GFR 49 L, Est GFR ( Amer) 60, Glucose 185 H, Calcium 8.7, Total Bilirubin 0.7, AST 35, ALT 32, Alkaline Phosphatase 127 H, Troponin I 0.13 H, NT-Pro-B Natriuret Pep 6050 H, Total Protein 8.2, Albumin 4.1, Globulin 4.1 H, Albumin/Globulin Ratio 1.0 L 09/29/23 09:55 09/29/23 09:55 Orders (Tests/Meds): ED MEDICATIONS Generic Name Dose Route Start Last Admin Trade Name Freq PRN Reason Stop Dose Admin Ceftriaxone Sodium 2 gm/ 100 mls @ 200 mls/hr 09/29/23 11:15 Sodium Chloride IV 09/29/23 11:44 ONCE ONE Azithromycin 500 mg/ Sodium 250 mls @ 250 mls/hr 09/29/23 11:15 Chloride IV 10/09/23 11:14 Q24H BERNARDA Discontinued Medications Generic Name Dose Route Start Last Admin Trade Name Freq PRN Reason Stop Dose Admin Aspirin 325 mg 09/29/23 09:34 09/29/23 09:55 Aspirin 325mg Tablet PO 09/29/23 09:35 325 mg ONCE ONE Administration Furosemide 40 mg 09/29/23 10:36 09/29/23 10:54 Furosemide 40mg/4ml Vial IV 09/29/23 10:37 40 mg ONCE ONE Administration Ondansetron HCl 4 mg 09/29/23 10:35 09/29/23 10:54 Ondansetron 4mg/2ml Vial IV 09/29/23 10:36 4 mg ONCE ONE Administration ORDERS Category Date Time Status CXR 2 view (NOT portable) [XR chest 2V] Stat Exams 09/29/23 09:30 Completed POCUS Point of Care (ER Only) Stat Exams 09/29/23 10:16 Ordered Brain Natriuretic Peptide Stat Lab 09/29/23 09:55 Completed CBC w/Auto Diff [Complete Blood Count Auto Diff] Stat Lab 09/29/23 09:55 Completed CMP [Comprehensive Metabolic Panel] Stat Lab 09/29/23 09:55 Completed PT INR [Prothrombin Time INR] Stat Lab 09/29/23 09:55 Completed PTT [Activated Partial Thrombo Time] Stat Lab 09/29/23 09:55 Completed Trop I [Troponin I] Stat Lab 02/21/24 09:55 Completed Troponin I Q3H Lab 09/29/23 12:30 Ordered Troponin I Q3H Lab 09/29/23 15:30 Ordered CA echo doppler complete Stat Y 09/29/23 11:15 Ordered ECG initial [place] Routine Y 09/29/23 10:00 Completed HEART Score History (anamnesis): Slightly suspicious ECG: Non-specific disturbance Age: >65 years Risk factors: 3 or more risk factors Troponin: > 3x normal limit HEART Score: 7 Medical Decision Narrative: 67-year-old female history hyper centric, hyperlipidemia, with CO currently on warfarin, type 2 diabetes, obstructive sleep apnea not wearing oxygen or mask at night presenting with generalized complaints. Patient states that she had a cardioversion 2 days prior to this visit. She felt okay on Wednesday, on Wednesday, yesterday, she started having nausea vomiting and her abdomen and chest. Denies diaphoresis, worsening shortness of breath, lower extremity swelling, palpitations. Vomiting is nonbloody, nonbilious. She is having more difficulty lying flat secondary to shortness of breath. States that she has no history of lung disease or need for oxygen during the day. History was obtained via conversation with patient. On arrival, patient hemodynamically stable, alert, oriented x4, appropriate, GCS 15, moving all extremities spontaneously, pupils equal and reactive to light. Full physical exam performed and significant for well-appearing woman in no acute distress. She is hypoxemic to around 90% on room air at rest. Placed on 4 L nasal cannula. Saturating about 97 on night. Lungs are clear to auscultation bilaterally. No evidence of crepitus in the soft tissues. No extracardiac sounds. No lower extremity edema. Difficult to assess for JVD secondary to habitus. Abdomen is soft, nontender.. Differential includes CHF, ACS, MT, coronary artery dissection, pneumothorax, PE, dissection, pericarditis, myocarditis, pneumothorax, aortic aneurysm, pneumonia, bronchitis, among others. Patient was given 324 mg aspirin, supplemental oxygen for symptomatic management and correction of underlying abnormalities. Workup independently interpreted and significant for mild leukocytosis 13.4 with neutrophilic shift. Hemoglobin 12, platelets normal. INR 3.2, PTT also elevated at 55. Patient has mild HEIDI with creatinine 1.1 and BUN 21. BNP elevated at 6000, initial troponin 0.13. Chest x-ray with pulmonary venous congestion, edematous fissure, mild pulmonary edema. Also concern for right lower lobar pneumonia on lateral view. See radiology read for full review of final results. Independent interpretation of EKG shows normal sinus rhythm with no ST changes concerning for acute ischemia. Patient does have nondiagnostic T wave changes including inversions in V2, 1, aVL. Right bundle branch block morphology with prolonged QRS 114 ms. QT mildly prolonged with QTc 501 ms. Leftward axis. Repeat EKG here in the emergency department sinus rhythm 75 beats a minute with right bundle branch block morphology and T wave inversions V1 through V3. No reciprocal change. CO, QRS, QT intervals within normal limits. Borderline leftward axis. Heart score 7. On reevaluation, given concerns for leukocytosis and pneumonia, she was given ceftriaxone and azithromycin. Also given 40 mg IV Lasix for edematous x-ray and elevated BNP. Hospital medicine was contacted and case was discussed at length, recommended admission for follow-up echo in the setting of new normal sinus rhythm and new CHF. Given patient presentation, workup, history, this most likely represents acute CHF exacerbation in the setting of recent cardioversion with hypoxemic respiratory failure. Because patient high risk for clinical decompensation, deemed appropriate for inpatient admission. Results were relayed to patient who voiced understanding and patient was agreeable to inpatient admission and management. Patient was admitted to the hospital for further definitive management. Critical Care Critical Care Time Critical Care Time: Yes (CV) Attestation: On 09/29/23, the high probability of a clinically significant, sudden or life threatening deterioration of the following system(s) required my full and direct attention, intervention and personal management. The time I documented below is in addition to time spent performing reported procedures but includes the following listed in this critical care notation. Total Time Total Critical Care Time: 45
[2023-09-29] MEDS: ASPIRIN 325MG TABLET 325 MG PO (09:55)
--- NOTE | 2023-09-29 10:00 | ECG_ITS ---
APPROVED REPORT Exam: Resting ECG HR:75 bpm ECG Measurements Heart Rate 75 AXES WV 152 P 51 QRSd 119 QRS -26 QT 453 T 39 QTc 482 Conclusion SINUS RHYTHM BORDERLINE LEFT AXIS DEVIATION [QRS AXIS < -20] LOW QRS VOLTAGE IN PRECORDIAL LEADS [QRS DEFLECTION < 1.0 mV IN CHEST LEADS] RIGHT BUNDLE BRANCH BLOCK [120+ ms QRS DURATION, UPRIGHT V1, 40+ ms S IN I/aVL/V4/V5/V6] ABNORMAL ECG UNCONFIRMED REPORT Electronically signed by : Avinash Escoto MD 09/29/2023 20:35:04
--- NOTE | 2023-09-29 10:13 | PC.NURSE ---
Rounded on Pt to see if there were any needs. Pt had no needs at this time.
[2023-09-29 10:17] LABS: Basophils % 0.3 % (0.1-2.0); Eosinophils # 0.1 K/mm3 (0.0-0.4); Eosinophils % 0.6 % (0.1-12.0); Hematocrit 39.3 % (37.0-47.0); Lymphocytes # 1.6 K/mm3 (0.7-4.5); Lymphocytes % 11.9 % (10-50); Mean Corpuscular HGB Conc 30.5 g/dL (31.8-35.4); Mean Corpuscular Hemoglobin 23.8 pg (27.0-31.2); Mean Corpuscular Volume 78.3 fl (81-99); Mean Platelet Volume 7.5 fl (7.4-10.4); Monocytes # 0.7 K/mm3 (0.1-1.0); Monocytes % 4.8 % (1.7-9.3); Neutrophils # 11.1 K/mm3 (1.8-7.8); Neutrophils % 82.4 % (37.0-80.0); Platelet Count 396 K/mm3 (142-424); Red Blood Count 5.02 M/mm3 (4.20-5.40); White Blood Count 13.4 K/mm3 (4.8-10.8)
[2023-09-29 10:18] LABS: Activated Partial Thrombo Time 55.7 seconds (22.8-30.6); Chloride 102 mmol/L (98-107); INR 3.28 (0.9-1.1); Potassium 3.9 mmoL/L (3.5-5.1); Prothrombin Time 32.8 seconds (10.1-12.5); Sodium 136 mmol/L (136-145)
[2023-09-29 10:20] LABS: Alanine Aminotransferase 32 U/L (12-78); Aspartate Amino Transferase 35 U/L (14-36); Bilirubin,Total 0.7 mg/dl (0.2-1.3); Blood Urea Nitrogen 21 mg/dl (7-17); Creatinine Clearance Estimated 46 mL/min (50-200); Estimated Glomerular Filt Rate 49 ml/min (>60); GFR (African American) 60 ML/MIN (>60)
[2023-09-29 10:21] LABS: Albumin Level 4.1 g/dl (3.5-5.0); Alkaline Phosphatase 127 U/L (38-126); Anion Gap 8.9 mEq/L (5-15); Calcium 8.7 mg/dl (8.4-10.2); Carbon Dioxide 29 mmol/L (22.0-30.0); Globulin 4.1 g/dL (1.3-3.2); Glucose 185 mg/dl (74-100); Total Protein,Serum 8.2 g/dl (6.3-8.2)
[2023-09-29 10:30] LABS: NT Pro Brain Natriuretic Pep. 6050 pg/mL (0-125)
[2023-09-29 10:32] LABS: Troponin I 0.13 ng/ml (0.00-0.034)
[2023-09-29] MEDS: ONDANSETRON 4MG/2ML VIAL 4 MG IV (10:54)
[2023-09-29] MEDS: FUROSEMIDE 40MG/4ML VIAL 40 MG IV (10:54)
--- NOTE | 2023-09-29 11:11 | PC.NURSE ---
ON PHONE WITH HOSPITALIST
--- NOTE | 2023-09-29 11:15 | CA_ITS ---
APPROVED REPORT EXAM: Limited 2D, Doppler, and color-flow Echocardiogram Refrigeration Specialist: ASUNCION Paul, RVS Ht: 5 ft 5 in Wt: 309lbs BSA: 2.38 BP: 124/65 mmHg Indications: Pneumonia, Nausea & vomiting, S/P cardioversion 09/27/23 for Afib, DM, Obesity, HTN, SOA, Abnormal BNP Echo Enhancing Agent Comments: IVC collapses with inspiration 2D Dimensions IVSd 0.68 cm LVEF (Visual) 70.20 % PWd 0.91 cm LA Volume 98.50 mL LVDd 5.21 cm EF AP4 43.20 % LVDs 3.13 cm GL Strain -11.2 % Left Atrium 4.12 cm RVID Base (AP4) 4.34 cm (M/F) 2.5-4.1 M-Mode Dimensions RVDd 2.85 cm (0.9-2.6) LVDd 5.21 cm (3.5-5.7) Ao Diam 3.03 cm (2.0-3.7) LVDs 3.30 cm (3.5-5.7) IVSd 1.08 cm (0.6-1.1) PWd 0.80 cm (0.6-1.1) EF (Teich) 59.60% EPSs 0.36 cm FS 34.43% EDV (Teich) 109.10 mL ESV (Teich) 44.10 mL Other Information Study Quality: Fair Conclusion This is a limited TTE to evaluate for LVEF and acute complications following recent VANESSA/cardioversion. Limited windows were obtained. The left ventricle is normal in size. There is increased LV wall thickness. There is normal LV systolic function. LVEF is 60%. The right ventricle is mildly dilated. There is normal RV systolic function. No pericardial effusions are present. The IVC is small in size and fully collapsible with inspiration. Electronically signed by : Donna Mendoza MD 09/29/2023 12:18:37
--- NOTE | 2023-09-29 11:19 | P.HP_ITS ---
History of Present Illness *Admission Date: 09/29/23 *Reason for visit:: chest pressure, weakness, SOA *History of present illness: Mr. Mendez is a 67-year-old female with history of paroxysmal A-fib. Status post cardioversion on Wednesday with cardiology at [facility]. S wednesday she began to have some nausea, emesis, epigastric discomfort. Came into the cardiology clinic today for evaluation. Assessed her in clinic and sent her to the ER for further management. On arrival to the ER, EKG was obtained showing sinus rhythm. Workup consisting of labs and imaging concerning for CHF exacerbation with BNP greater than 6000, chest imaging concerning for right lower lobe pneumonia versus increased pulmonary vascular congestion. Medicine consulted for admission and further management. Patient treated with 40 mg Lasix in the ER x 1 and ceftriaxone 2 g and azithromycin 500 mg. On evaluation after arriving to the floor. Patient states she had nonbloody/nonbilious emesis yesterday. Denies any fever or chills. No significant shortness of breath. Found to be mildly hypoxic with exertion in the ER. Currently on 2 L nasal cannula oxygen. [facility] Disclaimer: The information contained in this section may have been updated after the patient was seen, as this information can be updated by other users. Medical History Abnormal electrocardiogram [ECG] [EKG] Atrial fibrillation Atrial fibrillation with RVR Bipolar 1 disorder, depressed CVA (cerebral vascular accident) DM2 (diabetes mellitus, type 2) Dyspnea Elevated heart rate with elevated blood pressure and diagnosis of hypertension HLD (hyperlipidemia) HTN (hypertension) Hypertension TOPHER (obstructive sleep apnea) Palpitations Seizures Surgical History History of cholecystectomy Family History Family history of stroke Family history of diabetes mellitus type II Social History Smoking Status: Never smoker second hand exposure: No alcohol intake: never substance use type: denies use current occupational status: retired Travel in the last 8 weeks: None household members: spouse housing: house caffeine: Yes Review of Systems Review of Systems Review of systems (narrative): 14 point review of systems performed, pertinent positives and negatives as per [facility] Meds Home Medications and Allergies Home Medications Medication Instructions Recorded Confirmed Type semaglutide 0.25 mg or 0.5 mg (2 0.5 mg SQ WEEKLY Diabetes 08/12/23 09/29/23 History mg/3 mL) subcutaneous pen injector (Ozempic) warfarin 2 mg tablet 1 mg PO MOWEFRSA Blood Thinner/Afib 09/09/23 09/29/23 History amiodarone 400 mg tablet 400 mg PO BID Heart Rate 09/29/23 09/29/23 History cariprazine 4.5 mg capsule 4.5 mg PO DAILY Mood 09/29/23 09/29/23 History (Vraylar) empagliflozin 25 mg tablet 25 mg PO DAILY Diabetes 09/29/23 09/29/23 History (Jardiance) flash glucose sensor (FreeStyle #1 ea 09/29/23 09/29/23 History Jose 2 Sensor kit) furosemide 40 mg tablet 40 mg PO DAILY Fluid 09/29/23 09/29/23 History insulin NPH-regular 70-30 U-100 35 unit SQ HS Diabetes 09/29/23 09/29/23 History insulin 100 unit/mL subcutaneous pen (Humulin 70/30 U-100 KwikPen) insulin NPH-regular 70-30 U-100 55 unit SQ DAILY Diabetes 09/29/23 09/29/23 History insulin 100 unit/mL subcutaneous pen (Humulin 70/30 U-100 KwikPen) lansoprazole 15 mg capsule,delayed 15 mg PO DAILY Acid Reflux 09/29/23 09/29/23 History release levomefolate calcium 15 mg tablet 15 mg PO DAILY 09/29/23 09/29/23 History levomilnacipran 40 mg capsule,24 40 mg PO DAILY Mood 09/29/23 09/29/23 History hr,extended release (Fetzima) levothyroxine 125 mcg tablet 125 mcg PO DAILY Thyroid 09/29/23 09/29/23 History lisinopril 40 mg tablet 40 mg PO DAILY High Blood Pressure 09/29/23 09/29/23 History melatonin 10 mg tablet 10 mg PO HS PRN Sleep 09/29/23 09/29/23 History metformin 1,000 mg tablet 1,000 mg PO BIDWMEAL 09/29/23 09/29/23 History metoprolol succinate 200 mg 200 mg PO BID Heart Rate 09/29/23 09/29/23 History tablet,extended release 24 hr modafinil 200 mg tablet 200 mg PO DAILY 09/29/23 09/29/23 History oxcarbazepine 150 mg tablet 150 mg PO BID Seizures 09/29/23 09/29/23 History pen needle, diabetic 31 gauge x #1,200 ea 09/29/23 09/29/23 History 3/16 (BD Ultra-Fine Mini Pen Needle) phenytoin sodium extended 100 mg 300 mg PO HS Seizures 09/29/23 09/29/23 History capsule rosuvastatin 10 mg tablet 10 mg PO HS Cholesterol 09/29/23 09/29/23 History sertraline 100 mg tablet 200 mg PO DAILY Mood 09/29/23 09/29/23 History warfarin 2 mg tablet 2 mg PO SUTUTH Blood Thinner/Afib 09/29/23 09/29/23 History New Prescriptions to Start Prescriptions: Allergies Allergy/AdvReac Type Severity Reaction Status Date / Time No Known Allergies Allergy Verified 09/29/23 08:36 Exam Data for Last 24 hours Vital signs and Labs for Last 24 Hours: Temp Pulse Resp BP Pulse Ox O2 Del Method 98.1 F 88 20 124/65 97 Room Air 09/29/23 09:02 09/29/23 09:31 09/29/23 09:31 09/29/23 09:31 09/29/23 09:31 09/29/23 09:02 Laboratory Results - last 24 hr 09/29/23 09:55: WBC 13.4 H D, RBC 5.02, Hgb 12.0 L, Hct 39.3, MCV 78.3 L, MCH 23.8 L, MCHC 30.5 L, RDW 17.0, Plt Count 396, MPV 7.5, Neut % (Auto) 82.4 H, Lymph % (Auto) 11.9, [place] % (Auto) 4.8, Eos % (Auto) 0.6, Baso % (Auto) 0.3, Neut # (Auto) 11.1 H, Lymph # (Auto) 1.6, [place] # (Auto) 0.7, Eos # (Auto) 0.1, Baso # (Auto) 0.0, PT 32.8 H, INR 3.28 H, APTT 55.7 H, Sodium 136, Potassium 3.9, Chloride 102, Carbon Dioxide 29, Anion Gap 8.9, BUN 21 H, Creatinine 1.10 H , Estimated Creat Clear 46, Estimated GFR 49 L, Est GFR ( Amer) 60, Glucose 185 H, Calcium 8.7, Total Bilirubin 0.7, AST 35, ALT 32, Alkaline Phosphatase 127 H, Troponin I 0.13 H, NT-Pro-B Natriuret Pep 6050 H, Total Protein 8.2, Albumin 4.1, Globulin 4.1 H, Albumin/Globulin Ratio 1.0 L I & O for Last 24 hours: Intake & Output 09/26/23 09/27/23 09/28/23 09/29/23 23:59 23:59 23:59 23:59 Weight 140.16 kg Constitutional Constitutional: no acute distress, morbidly obese, chronically ill appearing and cooperative *Routine HEENT Exam Head: Present normocephalic Eye: Present EOMI and PERRL ENT: Present mucous membranes moist *Routine Neck Exam Neck: Present supple; Absent lymphadenopathy *Routine Respiratory Exam Respiratory: Present CTA bilaterally; Absent rhonchi, wheezes or crackles *Routine Cardiovascular Exam Cardiovascular: Present RRR *Routine Abdominal Exam Abdominal: Present soft and normoactive bowel sounds; Absent tenderness *Routine Rectal Exam Rectal:: deferred *Routine Genitalia Exam Genitalia:: deferred *Routine Extremities Exam Extremities: Present edema (trace); Absent cyanosis or clubbing *Routine Skin Exam Skin: Present warm; Absent rash *Routine Neurological Exam Neurological: Present alert, oriented X3 and moving all extremities; Absent altered mental status Assessment and Plan *Assessment and plan (1) (HFpEF) heart failure with preserved ejection fraction: Status: Acute Category: Medical Code(s): I50.30 - Unspecified diastolic (congestive) heart failure (2) Type 2 GA (myocardial infarction): Status: Acute Category: Medical Code(s): I21.A1 - Myocardial infarction type 2 (3) Aspiration pneumonia: Status: Acute Category: Medical Code(s): J69.0 - Pneumonitis due to inhalation of food and vomit (4) DM2 (diabetes mellitus, type 2): Status: Acute Qualifiers: Diabetes mellitus complication status: without complication Diabetes mellitus chcf insulin use: with terminal operator use Qualified Code(s): E11.9 - Type 2 diabetes mellitus without complications; 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 Category: Medical Code(s): E11.9 - Type 2 diabetes mellitus without complications (5) HLD (hyperlipidemia): Status: Acute Qualifiers: Hyperlipidemia type: mixed hyperlipidemia Qualified Code(s): E78.2 - Mixed hyperlipidemia Category: Medical Code(s): E78.5 - Hyperlipidemia, unspecified (6) HTN (hypertension): Status: Acute Qualifiers: Hypertension type: primary hypertension Qualified Code(s): I10 - Essential (primary) hypertension Category: Medical Code(s): I10 - Essential (primary) hypertension (7) Bipolar 1 disorder: Status: Acute Category: Medical Code(s): F31.9 - Bipolar disorder, unspecified (8) TOPHER (obstructive sleep apnea): Status: Acute Category: Medical Code(s): G47.33 - Obstructive sleep apnea (adult) (pediatric) (9) Chronic anticoagulation: Status: Acute Category: Medical Code(s): 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 Presented with weakness, chest discomfort, nausea and vomiting. Admitted for NSTEMI and CHF exacerbation along with concern for concurrent pneumonia. Discussed case with ER physician, request admission for antibiotics, cardiology consult, treatment of pneumonia and CHF exacerbation. Medicine agreed to admit. Cardiology consulted to assist with care. Problems addressed as follows: type II NSTEMI Paroxysmal A-fib - Trending troponins. Cardiology consulted. Appreciate their recommendations. Will consider ischemic workup if patient improves clinically over the coming days. - Heart strain likely type II NSTEMI in the setting of hypoxia and pneumonia. - CT chest with contrast to further evaluate lung pathology. - Continue amiodarone 400 mg twice daily and metoprolol succinate 200 mg twice daily for paroxysmal A-fib. - Continue Lasix 40 mg IV daily - Continue lisinopril 40 mg daily for hypertension Pneumonia: - Chest imaging personally reviewed, concern for right lower lobe consolidation. Continue ceftriaxone 2 g daily and azithromycin 500 mg daily. CBC with elevation of white count at 13.4 K -Repeat CBC, CMP, magnesium ordered for the morning -Continue supplemental oxygen as needed, goal saturation greater 90%. Currently on 2 L. Type 2 diabetes: A1c pending. Continue sliding scale insulin with fingersticks ACHS. Continue home regimen of 70/30 twice daily. Continue Jardiance 25 mg daily Mood disorder: Continue Vraylar 4.5 mg daily, continue Fetzima 40 mg daily, Continue Zoloft 200 mg daily Seizure disorder: Continue oxcarbazepine 150 mg twice daily, phenytoin 300 milligrams nightly Hypothyroidism: Continue levothyroxine 125 mcg daily for thyroid. TSH pending. Class III obesity complicates all aspects of her care Full code Cardiac diet Coumadin, INR goal 2-3. INR 3.3 currently
--- NOTE | 2023-09-29 11:21 | PC.NURSE ---
vascular here for echo
[2023-09-29] MEDS: CEFTRIAXONE SODIUM 2 GM in 0.9 % SODIUM CHLORIDE 100 ML IV (11:41)
[2023-09-29] MEDS: AZITHROMYCIN 500 MG in 0.9 % SODIUM CHLORIDE 250 ML 250 MG IV (12:07)
--- NOTE | 2023-09-29 12:19 | PC.NURSE ---
Report called to JENNIFFER Gooden
--- NOTE | 2023-09-29 12:50 | PC.NURSE ---
pt arrived to floor at this time via stretcher from ED
--- NOTE | 2023-09-29 13:14 | CT_ITS ---
FINAL REPORT TECHNIQUE: Routine axial images were obtained from the lung apices to below the diaphragm following IV contrast administration. Individualized dose reduction techniques using automated exposure control or adjustment of the mA and/or kV according to the patient size were employed. CLINICAL HISTORY: SOA, CP, recent VANESSA COMPARISON: None FINDINGS: There are a few small scattered mediastinal nodes present. No significant hilar or axillary adenopathy is present. No acute lung disease is present. There are small bilateral pleural effusions present, greater on the right than on the left.. No mass lesion is present. There is a renal cyst present in the superior pole of the left kidney. IMPRESSION: Small bilateral pleural effusions are present, larger on the right than on the left. Reviewed, Interpreted and Dictated by Jacob Garcia MD Transcribed by Soheila Sampson Authenticated and [facility]
--- NOTE | 2023-09-29 13:59 | P.CONCA_ITS ---
History of Present Illness History of Present Illness Consult date: 09/29/23 Requesting physician: Deonte Alicea Consult reason: chest pain Chief complaint: chest pain History of present illness: 67-year-old white female established as a new patient with our practice in August of this year. Her history included chronic atrial fibrillation managed with Coumadin and metoprolol for approximately 6 years. She underwent 2D echo and stress test which were both low risk/normal. We discussed options for A-fib treatment and she underwent VANESSA cardioversion on September 27, 2 days ago. This was a successful procedure, no significant findings on VANESSA and she had successful conversion to sinus rhythm. The following day she developed nausea and had numerous rounds of vomiting throughout the day. Last night she had burning chest discomfort as she was trying to sleep at night. She was worked in for an evaluation in our clinic today. On arrival she was in sinus rhythm but having shortness of breath and cough. She was referred to the emergency room for workup. ED workup revealed questionable pneumonia on chest x-ray, white blood cell count 13,000, troponin 0.13, proBNP 6000. She was admitted for further workup. I am seeing her on second floor and she reports she is currently symptom-free although still feeling slightly short of breath over baseline. She denies any known aspiration episodes and denies blood in her emesis. [facility] Disclaimer: The information contained in this section may have been updated after the patient was seen, as this information can be updated by other users. Medical History Abnormal electrocardiogram [ECG] [EKG] Atrial fibrillation Atrial fibrillation with RVR Bipolar 1 disorder, depressed CVA (cerebral vascular accident) DM2 (diabetes mellitus, type 2) Dyspnea Elevated heart rate with elevated blood pressure and diagnosis of hypertension HLD (hyperlipidemia) HTN (hypertension) Hypertension TOPHER (obstructive sleep apnea) Palpitations Seizures Surgical History History of cholecystectomy Family History Other Family history of diabetes mellitus type II Family history of stroke Social History Smoking Status: Never smoker second hand exposure: No alcohol intake: never substance use type: denies use current occupational status: retired Travel in the last 8 weeks: None household members: spouse housing: house caffeine: Yes Review of Systems Constitutional Constitutional: Reports fatigue and Denies weakness Eyes Eyes: Denies loss of vision ENT Ears, Nose, Mouth, and Throat: Denies hearing loss and Denies vertigo *Cardiovascular Cardiovascular: Reports chest pain, Reports dyspnea and Denies syncope *Respiratory Respiratory: Reports cough and Reports dyspnea *Gastrointestinal Gastrointestinal: Denies change in stool character, Denies coffee ground emesis, Denies hematemesis, Denies hematochezia, Reports nausea and Denies vomiting Comments: vomiting *Musculoskeletal Musculoskeletal: Denies muscle weakness Integumentary/Breasts Skin/Breast: Denies changing lesions *Neurologic Neurologic: Denies loss of vision, Denies syncope, Denies vertigo and Denies weakness Endocrine Endocrine: Reports fatigue Exam Data for Last 24 hours Vital signs and Labs for Last 24 Hours: Temp Pulse Resp BP Pulse Ox O2 Del Method O2 Flow Rate 97.6 F 74 18 112/53 L 94 L Nasal Cannula 2 09/29/23 12:50 09/29/23 12:50 09/29/23 12:50 09/29/23 12:50 09/29/23 12:50 09/29/23 12:50 09/29/23 12:50 Laboratory Results - last 24 hr 09/29/23 09:55: WBC 13.4 H D, RBC 5.02, Hgb 12.0 L, Hct 39.3, MCV 78.3 L, MCH 23.8 L, MCHC 30.5 L, RDW 17.0, Plt Count 396, MPV 7.5, Neut % (Auto) 82.4 H, Lymph % (Auto) 11.9, [place] % (Auto) 4.8, Eos % (Auto) 0.6, Baso % (Auto) 0.3, Neut # (Auto) 11.1 H, Lymph # (Auto) 1.6, [place] # (Auto) 0.7, Eos # (Auto) 0.1, Baso # (Auto) 0.0, PT 32.8 H, INR 3.28 H, APTT 55.7 H, Sodium 136, Potassium 3.9, Chloride 102, Carbon Dioxide 29, Anion Gap 8.9, BUN 21 H, Creatinine 1.10 H , Estimated Creat Clear 46, Estimated GFR 49 L, Est GFR ( Amer) 60, Glucose 185 H, Calcium 8.7, Total Bilirubin 0.7, AST 35, ALT 32, Alkaline Phosphatase 127 H, Troponin I 0.13 H, NT-Pro-B Natriuret Pep 6050 H, Total Protein 8.2, Albumin 4.1, Globulin 4.1 H, Albumin/Globulin Ratio 1.0 L I & O for Last 24 hours: Intake & Output 09/26/23 09/27/23 09/28/23 09/29/23 23:59 23:59 23:59 23:59 Weight 309 lb 5 oz Constitutional Constitutional: no acute distress, morbidly obese, obese and cooperative *Routine HEENT Exam Eye: Present PERRL *Routine Respiratory Exam Respiratory: Present CTA bilaterally; Absent accessory muscle use, wheezes or crackles *Routine Cardiovascular Exam Cardiovascular: Present RRR, Normal S1 and Normal S2; Absent murmur, gallop or rubs *Routine Abdominal Exam Abdominal: Present soft; Absent tenderness Comments: Mild epigastric tenderness *Routine Extremities Exam Extremities: Present pulses intact; Absent cyanosis or edema *Routine Skin Exam Skin: Present intact; Absent erythema or wounds *Routine Neurological Exam Neurological: Present alert and oriented X3 Routine Psychiatric Exam Psychiatric: Present cooperative Meds Home Medications and Allergies Home Medications Medication Instructions Recorded Confirmed Type semaglutide 0.25 mg or 0.5 mg (2 0.5 mg SQ WEEKLY Diabetes 08/12/23 09/29/23 History mg/3 mL) subcutaneous pen injector (Ozempic) warfarin 2 mg tablet 1 mg PO MOWEFRSA Blood Thinner/Afib 09/09/23 09/29/23 History amiodarone 400 mg tablet 400 mg PO BID Heart Rate 09/29/23 09/29/23 History cariprazine 4.5 mg capsule 4.5 mg PO DAILY Mood 09/29/23 09/29/23 History (Vraylar) empagliflozin 25 mg tablet 25 mg PO DAILY Diabetes 09/29/23 09/29/23 History (Jardiance) flash glucose sensor (FreeStyle #1 ea 09/29/23 09/29/23 History Jose 2 Sensor kit) furosemide 40 mg tablet 40 mg PO DAILY Fluid 09/29/23 09/29/23 History insulin NPH-regular 70-30 U-100 35 unit SQ HS Diabetes 09/29/23 09/29/23 History insulin 100 unit/mL subcutaneous pen (Humulin 70/30 U-100 KwikPen) insulin NPH-regular 70-30 U-100 55 unit SQ DAILY Diabetes 09/29/23 09/29/23 History insulin 100 unit/mL subcutaneous pen (Humulin 70/30 U-100 KwikPen) lansoprazole 15 mg capsule,delayed 15 mg PO DAILY Acid Reflux 09/29/23 09/29/23 History release levomefolate calcium 15 mg tablet 15 mg PO DAILY 09/29/23 09/29/23 History levomilnacipran 40 mg capsule,24 40 mg PO DAILY Mood 09/29/23 09/29/23 History hr,extended release (Fetzima) levothyroxine 125 mcg tablet 125 mcg PO DAILY Thyroid 09/29/23 09/29/23 History lisinopril 40 mg tablet 40 mg PO DAILY High Blood Pressure 09/29/23 09/29/23 History melatonin 10 mg tablet 10 mg PO HS PRN Sleep 09/29/23 09/29/23 History metformin 1,000 mg tablet 1,000 mg PO BIDWMEAL 09/29/23 09/29/23 History metoprolol succinate 200 mg 200 mg PO BID Heart Rate 09/29/23 09/29/23 History tablet,extended release 24 hr modafinil 200 mg tablet 200 mg PO DAILY 09/29/23 09/29/23 History oxcarbazepine 150 mg tablet 150 mg PO BID Seizures 09/29/23 09/29/23 History pen needle, diabetic 31 gauge x #1,200 ea 09/29/23 09/29/23 History 3/16 (BD Ultra-Fine Mini Pen Needle) phenytoin sodium extended 100 mg 300 mg PO HS Seizures 09/29/23 09/29/23 History capsule rosuvastatin 10 mg tablet 10 mg PO HS Cholesterol 09/29/23 09/29/23 History sertraline 100 mg tablet 200 mg PO DAILY Mood 09/29/23 09/29/23 History warfarin 2 mg tablet 2 mg PO SUTUTH Blood Thinner/Afib 09/29/23 09/29/23 History New Prescriptions to Start Prescriptions: Allergies Allergy/AdvReac Type Severity Reaction Status Date / Time No Known Allergies Allergy Verified 09/29/23 08:36 Assessment and Plan *Assessment and plan (1) Type 2 WV (myocardial infarction): Status: Acute Category: Medical Code(s): I21.A1 - Myocardial infarction type 2 (2) Gastroenteritis: Status: Acute Category: Medical Code(s): K52.9 - Noninfective gastroenteritis and colitis, unspecified (3) Aspiration pneumonia: Status: Acute Category: Medical Code(s): J69.0 - Pneumonitis due to inhalation of food and vomit Plan Type II WV - pt has elevated troponin in the setting of hypoxia/aspiration PNA, but no anginal symptoms and low risk stress test here last month - will trend serial troponin - consider [facility] Aspiration PNA, presumed - vomiting followed by SOA, cough, hypoxia, leukocytosis, and questionable perihilar infiltrate on CXR - antibiotics per primary service - check CT chest with contrast PAF s/p VANESSA/DCCV 09/27 - successful and without complications - pt remains in SR - cont Coumadin, Metoprolol, Amio - check CT chest with contrast to r/o perf DM-II - cont Insulin and Ozempic Morbid Obesity, BMI 49 - complicates all aspects of care - recommend aggressive weight loss via diet/exercise/med therapy CV stable, trend troponin, treat pneumonia, will follow with you.
[2023-09-29] MEDS: IOPAMIDOL-370 (76%);100ML BOTTLE 75 ML IV (15:16)
[2023-09-29] MEDS: SODIUM CHLORIDE 0.9% 10ML SYR (RAD ONLY) 10 ML IV (15:16)
[2023-09-29] MEDS: WARFARIN 1 MG PO (16:39)
[2023-09-29] MEDS: METFORMIN 500MG TABLET 1000 MG PO (16:39)
[2023-09-29 17:15] LABS: POC Glucose,Bedside 168 (70-110)
[2023-09-29 17:28] LABS: Thyroid Stimulating Hormone 1.81 uIU/mL (0.465-4.68)
[2023-09-29 18:24] LABS: Hemoglobin A1C 7.7 % (4.0-6.0)
[2023-09-29 18:24] LABS: Coronavirus 19, PCR Not Detected (NotDetected); Influenza A, PCR Not Detected (NotDetected); Influenza B, PCR Not Detected (NotDetected)
--- NOTE | 2023-09-29 18:59 | PC.NURSE ---
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 PT DOING WELL AT THIS TIME. FAMILY AT BS
[2023-09-29] MEDS: humaLOG MIX 75/25 3ML FLEXPEN 35 UNIT SQ (20:43)
[2023-09-29] MEDS: METOPROLOL SUCCINATE XL 100MG TABLET 200 MG PO (20:44)
[2023-09-29] MEDS: PHENYTOIN 100MG CAPSULE 300 MG PO (20:44)
[2023-09-29] MEDS: PANTOPRAZOLE 40MG TABLET 40 MG PO (20:44)
[2023-09-29] MEDS: ATORVASTATIN 40MG TABLET 40 MG PO (20:45)
[2023-09-29] MEDS: AMIODARONE 200MG TABLET 400 MG PO (20:45)
[2023-09-30] VITALS (11 sets, daily range): BP systolic 112–130; BP diastolic 56–80; PULSE 60–72; RESP 16–19; TEMP 36.5–36.7; O2SAT 94–100; BMI 50.6
--- NOTE | 2023-09-30 04:50 | PC.NURSE ---
Pt is alert and oriented x4, and currently tolerating 2L of O2 and sating at 96%. Pt Pt has wore C-PAP while sleeping and has rested well this shift. No issues noted with rendon, urine is flowing freely. Pt denies pain and needs at this time.
[2023-09-30] MEDS: LEVOTHYROXINE 125MCG (0.125MG) TAB 125 MCG PO (06:31)
[2023-09-30] MEDS: METFORMIN 500MG TABLET 1000 MG PO (06:31)
[2023-09-30 06:40] LABS: Basophils % 0.4 % (0.1-2.0); Eosinophils # 0.3 K/mm3 (0.0-0.4); Hematocrit 36.3 % (37.0-47.0); Hemoglobin 11.1 g/dL (12.2-16.2); Lymphocytes % 19.1 % (10-50); Mean Corpuscular HGB Conc 30.5 g/dL (31.8-35.4); Mean Corpuscular Hemoglobin 23.5 pg (27.0-31.2); Mean Corpuscular Volume 76.8 fl (81-99); Mean Platelet Volume 8.2 fl (7.4-10.4); Monocytes # 0.6 K/mm3 (0.1-1.0); Monocytes % 5.7 % (1.7-9.3); Neutrophils # 7.3 K/mm3 (1.8-7.8); Neutrophils % 71.7 % (37.0-80.0); Platelet Count 352 K/mm3 (142-424); Red Blood Count 4.72 M/mm3 (4.20-5.40); Red Cell Distribution Width 17.5 % (11.5-17.5); White Blood Count 10.2 K/mm3 (4.8-10.8)
[2023-09-30 06:47] LABS: Chloride 104 mmol/L (98-107)
[2023-09-30 06:48] LABS: Potassium 4.1 mmoL/L (3.5-5.1); Sodium 135 mmol/L (136-145)
[2023-09-30 06:50] LABS: Alanine Aminotransferase 18 U/L (12-78); Aspartate Amino Transferase 24 U/L (14-36); Blood Urea Nitrogen 24 mg/dl (7-17); Creatinine Clearance Estimated 36 mL/min (50-200); Estimated Glomerular Filt Rate 37 ml/min (>60); GFR (African American) 45 ML/MIN (>60)
[2023-09-30 06:51] LABS: Albumin Level 3.6 g/dl (3.5-5.0); Alkaline Phosphatase 107 U/L (38-126); Anion Gap 6.1 mEq/L (5-15); Bilirubin,Total 0.3 mg/dl (0.2-1.3); Carbon Dioxide 29 mmol/L (22.0-30.0); Globulin 3.6 g/dL (1.3-3.2); Glucose 167 mg/dl (74-100); Magnesium 1.9 mg/dl (1.6-2.3); Total Protein,Serum 7.2 g/dl (6.3-8.2)
[2023-09-30 09:28] LABS: NT Pro Brain Natriuretic Pep. 5850 pg/mL (0-125)
[2023-09-30] MEDS: VRAYLAR 4.5 MG 4.5 EACH PO (09:33)
[2023-09-30] MEDS: AMIODARONE 200MG TABLET 400 MG PO (09:33)
[2023-09-30] MEDS: METOPROLOL SUCCINATE XL 100MG TABLET 200 MG PO ×2 (09:33→21:11)
[2023-09-30] MEDS: EMPAGLIFLOZIN 10MG TABLET 20 MG PO (09:33)
[2023-09-30] MEDS: MODAFINIL 200 MG 200 EACH PO (09:33)
[2023-09-30] MEDS: SERTRALINE 100MG TABLET 200 MG PO (09:33)
[2023-09-30] MEDS: LISINOPRIL 20MG TABLET 40 MG PO (09:33)
[2023-09-30] MEDS: FETZIMA 40 MG 40 EACH PO (09:33)
--- NOTE | 2023-09-30 09:34 | P.PN_ITS ---
Subjective Subjective Date: 09/30/23 Time: 09:34 Principal diagnosis: acute hypoxic respiratory failure Interval history: No events overnight, good urine output. She remains on 2 L O2 by nasal cannula. CT chest revealed bilateral small effusions. Vital stable. Exam Data for Last 24 hours Vital signs and Labs for Last 24 Hours: Temp Pulse Resp BP Pulse Ox O2 Del Method O2 Flow Rate 98.0 F 70 18 130/65 96 Nasal Cannula 2 09/30/23 07:39 09/30/23 08:00 09/30/23 07:39 09/30/23 07:39 09/30/23 07:39 09/30/23 08:58 09/30/23 08:58 Laboratory Results - last 24 hr 09/29/23 09:55: WBC 13.4 H D, RBC 5.02, Hgb 12.0 L, Hct 39.3, MCV 78.3 L, MCH 23.8 L, MCHC 30.5 L, RDW 17.0, Plt Count 396, MPV 7.5, Neut % (Auto) 82.4 H, Lymph % (Auto) 11.9, [place] % (Auto) 4.8, Eos % (Auto) 0.6, Baso % (Auto) 0.3, Neut # (Auto) 11.1 H, Lymph # (Auto) 1.6, [place] # (Auto) 0.7, Eos # (Auto) 0.1, Baso # (Auto) 0.0, PT 32.8 H, INR 3.28 H, APTT 55.7 H, Sodium 136, Potassium 3.9, Chloride 102, Carbon Dioxide 29, Anion Gap 8.9, BUN 21 H, Creatinine 1.10 H , Estimated Creat Clear 46, Estimated GFR 49 L, Est GFR ( Amer) 60, Glucose 185 H, Hemoglobin A1c 7.7 H, Calcium 8.7, Total Bilirubin 0.7, AST 35, ALT 32, Alkaline Phosphatase 127 H, Troponin I 0.13 H, NT-Pro-B Natriuret Pep 6050 H, Total Protein 8.2, Albumin 4.1, Globulin 4.1 H, Albumin/Globulin Ratio 1.0 L, TSH 1.81 09/29/23 13:23: Troponin I 0.10 H 09/29/23 15:42: SARS-CoV-2 (PCR) Not detected, Influenza A Untype (PCR) Not detected, Influenza Type B (PCR) Not detected 09/29/23 15:54: Troponin I 0.10 H 09/29/23 16:55: POC Glucose 168 H 09/30/23 06:00: WBC 10.2, RBC 4.72, Hgb 11.1 L, Hct 36.3 L, MCV 76.8 L, MCH 23.5 L, MCHC 30.5 L, RDW 17.5, Plt Count 352, MPV 8.2, Neut % (Auto) 71.7, Lymph % (Auto) 19.1, [place] % (Auto) 5.7, Eos % (Auto) 3.0, Baso % (Auto) 0.4, Neut # (Auto) 7.3, Lymph # (Auto) 2.0, [place] # (Auto) 0.6, Eos # (Auto) 0.3, Baso # (Auto) 0.0, Sodium 135 L, Potassium 4.1, Chloride 104, Carbon Dioxide 29, Anion Gap 6.1, BUN 24 H, Creatinine 1.40 H D, Estimated Creat Clear 36, Estimated GFR 37 L, Est GFR ( Amer) 45 L D, Glucose 167 H, Calcium 8.0 L, Magnesium 1.9, Total Bilirubin 0.3, AST 24 D, ALT 18 D, Alkaline Phosphatase 107, NT-Pro-B Natriuret Pep 5850 H, Total Protein 7.2, Albumin 3.6 D, Globulin 3.6 H , Albumin/Globulin Ratio 1.0 L I & O for Last 24 hours: Intake & Output 09/27/23 09/28/23 09/29/23 09/30/23 23:59 23:59 23:59 23:59 Intake Total 830 / 830 Output Total 450 / 450 500 / 500 Balance -450 / -90 330 / 330 Weight 309 lb 5 oz 315 lb 4.8 oz Constitutional Constitutional: no acute distress, morbidly obese and cooperative *Routine HEENT Exam Eye: Present PERRL *Routine Respiratory Exam Respiratory: Present CTA bilaterally; Absent accessory muscle use or wheezes Comments: Mild bilateral crackles *Routine Cardiovascular Exam Cardiovascular: Present RRR, Normal S1 and Normal S2; Absent murmur, gallop or rubs *Routine Abdominal Exam Abdominal: Present soft; Absent tenderness *Routine Extremities Exam Extremities: Present pulses intact; Absent cyanosis or edema *Routine Skin Exam Skin: Present intact; Absent erythema or wounds *Routine Neurological Exam Neurological: Present alert and oriented X3 Routine Psychiatric Exam Psychiatric: Present cooperative Progress Note: A&P Assessment and plan (1) (HFpEF) heart failure with preserved ejection fraction: Status: Acute (2) Type 2 RI (myocardial infarction): Status: Acute (3) Aspiration pneumonia: Status: Acute (4) DM2 (diabetes mellitus, type 2): Status: Acute (5) HLD (hyperlipidemia): Status: Acute (6) HTN (hypertension): Status: Acute (7) Bipolar 1 disorder: Status: Acute (8) TOPHER (obstructive sleep apnea): Status: Acute (9) Chronic anticoagulation: Status: Acute Assessment and Plan Assessment and Plan for All Diagnoses:: Acute HFpEF - pt presented with acute ÁLVAREZ, hypoxia on 2L/min, small bilateral effusions, and probnp 6k - her 2D ECHO 08/2023 was normal, her VANESSA 09/27 was normal, and her limited repeat ECHO in SR here yesterday was normal - she remains in SR - there is no left heart dysfunction at all that I can attribute to her clinical presentation of heart failure. - Ddx: Elevated EDP from Obesity and TOPHER, Ischemia, Amio toxicity - She is on SGLT-2, BB, Diuretics, GLP-1 - Cr rising from 1 to 1.4 but still hypoxic with pulm edema Plan: Cont current meds, recommend right and left heart cath today - check pulm cap wedge pressure and EDP Type II RI - pt has elevated troponin in the setting of hypoxia/aspiration PNA, but no anginal symptoms and low risk stress test here last month - troponin trend is flat 0.1 x3 - she has clinical heart failure with ProBNP 6k, Bilat effusions, acute hypoxia but normal ECHO here - no evidence of reversible ischemia on myoview here 08/2023 - Cont warfarin, statin, DM Control Plan: recommend C Aspiration PNA, presumed - vomiting followed by SOA, cough, hypoxia, leukocytosis, and questionable perihilar infiltrate on CXR - antibiotics per primary service - CT chest indicates small bilateral effusions, not pna - WBC improving, afebrile, only a mild itchy cough, no deep productive coughing Plan: Cont antibiotics, O2, check ProBNP PAF s/p VANESSA/DCCV 09/27 - successful and without complications - pt remains in SR - cont Coumadin, Metoprolol, Amio Plan: reduce Amio to 400 daily DM-II - cont Insulin Jardiance and Ozempic Morbid Obesity, BMI 50 - complicates all aspects of care - recommend aggressive weight loss via diet/exercise/med therapy
[2023-09-30 09:35] LABS: Procalcitonin 0.106 ng/mL (0.0-2.0)
[2023-09-30] MEDS: AZITHROMYCIN 500 MG in 0.9 % SODIUM CHLORIDE 250 ML 250 MG IV (10:26)
[2023-09-30 10:51] LABS: Prothrombin Time 35.8 seconds (10.1-12.5)
--- NOTE | 2023-09-30 11:14 | P.PN_ITS ---
Subjective *Date: 09/30/23 *Time: 14:05 Interval history: Patient feeling little better this morning. Room air sat in the mid 80s. Continues to require oxygen. No fever overnight. Denies any chest pain. Diuresing well. Cardiology evaluating this morning. Medical Exam Vital signs and Labs for Last 24 Hours: Vital Signs Temp Pulse Pulse Resp BP BP Pulse Ox 09/30/23 10:23 09/30/23 08:00 94 L 09/30/23 08:58 09/30/23 08:00 70 09/30/23 07:39 98.0 F 68 18 130/65 96 09/30/23 04:00 65 09/30/23 04:47 09/30/23 04:00 97.8 F 68 16 130/70 96 09/30/23 06:49 09/30/23 03:00 09/30/23 01:00 09/29/23 23:00 09/30/23 00:00 72 09/30/23 00:00 97.7 F 70 16 114/56 L 95 09/29/23 20:00 76 09/29/23 21:00 09/29/23 20:00 2 L 09/29/23 19:43 97.9 F 77 18 109/62 L 96 09/29/23 18:43 09/29/23 16:00 80 09/29/23 17:00 09/29/23 16:01 97.5 F L 75 18 108/53 L 99 09/29/23 12:50 97.6 F 74 18 112/53 L 94 L 09/29/23 12:48 98.1 F 78 20 111/65 O2 Del Method O2 Flow Rate 09/30/23 10:23 Nasal Cannula 2 09/30/23 08:00 Nasal Cannula 2 09/30/23 08:58 Nasal Cannula 2 09/30/23 08:00 09/30/23 07:39 Nasal Cannula 2 09/30/23 04:00 09/30/23 04:47 Room Air 09/30/23 04:00 Nasal Cannula 2 09/30/23 06:49 Nasal Cannula 2 09/30/23 03:00 Nasal Cannula 2 09/30/23 01:00 Nasal Cannula 2 09/29/23 23:00 Nasal Cannula 2 09/30/23 00:00 02/22/24 00:00 Nasal Cannula 2 09/29/23 20:00 09/29/23 21:00 Nasal Cannula 2 09/29/23 20:00 Nasal Cannula 09/29/23 19:43 Nasal Cannula 2 09/29/23 18:43 Nasal Cannula 2 09/29/23 16:00 09/29/23 17:00 Nasal Cannula 2 09/29/23 16:01 Nasal Cannula 2.5 09/29/23 12:50 Nasal Cannula 2 09/29/23 12:48 Nasal Cannula 2 Intake and Output 09/29/23 09/30/23 09/30/23 23:59 07:59 15:59 Intake Total 830 / 1080 250 / 1080 Output Total 450 / 450 500 / 500 0 / 500 Balance -450 / -90 330 / 580 250 / 580 Intake: Intake, Oral Amount 830 / 830 Intake, Total IV Amount 250 / 250 Azithromycin 500 mg In 0.9 % 250 / 250 Sodium Chloride 250 ml @ 250 mls/hr IV Q24H [facility] Rx#:[id number] Output: Output, Urine Amount 450 / 450 500 / 500 0 / 500 Other: Number of Voids 3 Number of Unmeasured Voids 3 0 0 Number of Bowel Movements 0 Weight 143.018 kg Patient Weight 09/30/23 23:59 Weight 143.018 kg Laboratory Results - last 24 hr 09/29/23 09:55: Hemoglobin A1c 7.7 H, TSH 1.81 09/29/23 13:23: Troponin I 0.10 H 09/29/23 15:42: SARS-CoV-2 (PCR) Not detected, Influenza A Untype (PCR) Not det ected, Influenza Type B (PCR) Not detected 09/29/23 15:54: Troponin I 0.10 H 09/29/23 16:55: POC Glucose 168 H 09/30/23 06:00: WBC 10.2, RBC 4.72, Hgb 11.1 L, Hct 36.3 L, MCV 76.8 L, MCH 23.5 L, MCHC 30.5 L, RDW 17.5, Plt Count 352, MPV 8.2, Neut % (Auto) 71.7, Lymph % (Auto) 19.1, [place] % (Auto) 5.7, Eos % (Auto) 3.0, Baso % (Auto) 0.4, Neut # (Auto) 7.3, Lymph # (Auto) 2.0, [place] # (Auto) 0.6, Eos # (Auto) 0.3, Baso # (Auto) 0.0, Sodium 135 L, Potassium 4.1, Chloride 104, Carbon Dioxide 29, Anion Gap 6.1, BUN 24 H, Creatinine 1.40 H D, Estimated Creat Clear 36, Estimated GFR 37 L, Est GFR ( Amer) 45 L D, Glucose 167 H, Calcium 8.0 L, Magnesium 1.9, Total Bilirubin 0.3, AST 24 D, ALT 18 D, Alkaline Phosphatase 107, NT-Pro-B Natriuret Pep 5850 H, Total Protein 7.2, Albumin 3.6 D, Globulin 3.6 H , Albumin/Globulin Ratio 1.0 L, Procalcitonin 0.106 09/30/23 10:31: PT 35.8 H, INR 3.60 H I & O for Labs for Last 24 Hours: Intake & Output 09/27/23 09/28/23 09/29/23 09/30/23 23:59 23:59 23:59 23:59 Intake Total 1080 / 1080 Output Total 450 / 450 500 / 500 Balance -450 / -90 580 / 580 Weight 140.302 kg 143.018 kg Constitutional: Present no acute distress, morbidly obese, chronically ill appearing and cooperative Head: Present atraumatic and normocephalic ENT: Present normal exam Neck: Present normal inspection Respiratory: Present crackles (Fine in bilateral bases) and normal respiratory effort; Absent rhonchi or wheezes Cardiac: Present Reg Rate and Rhythm GI: Present soft and normal bowel sounds; Absent distention or tenderness Extremities: Present normal inspection and full ROM; Absent tenderness or edema Skin: Present intact; Absent erythema Neuro: Present Grossly Intact, alert, awake, oriented x 3 and moves all extremities Assessment and Plan *Assessment and plan (1) (HFpEF) heart failure with preserved ejection fraction: Status: Acute Category: Medical Code(s): I50.30 - Unspecified diastolic (congestive) heart failure (2) Type 2 [place] (myocardial infarction): Status: Acute Category: Medical Code(s): I21.A1 - Myocardial infarction type 2 (3) Aspiration pneumonia: Status: Acute Category: Medical Code(s): J69.0 - Pneumonitis due to inhalation of food and vomit (4) DM2 (diabetes mellitus, type 2): Status: Acute Qualifiers: Diabetes mellitus long-term insulin use: with long term care administrator use Diabetes mellitus complication status: without complication Qualified Code(s): E11.9 - Type 2 diabetes mellitus without complications; Z79.4 - buttermaker continuous churn (current) use of insulin Category: Medical Code(s): E11.9 - Type 2 diabetes mellitus without complications (5) HLD (hyperlipidemia): Status: Acute Qualifiers: Hyperlipidemia type: mixed hyperlipidemia Qualified Code(s): E78.2 - Mixed hyperlipidemia Category: Medical Code(s): E78.5 - Hyperlipidemia, unspecified (6) HTN (hypertension): Status: Acute Qualifiers: Hypertension type: primary hypertension Qualified Code(s): I10 - Essential (primary) hypertension Category: Medical Code(s): I10 - Essential (primary) hypertension (7) Bipolar 1 disorder: Status: Acute Category: Medical Code(s): F31.9 - Bipolar disorder, unspecified (8) TOPHER (obstructive sleep apnea): Status: Acute Category: Medical Code(s): G47.33 - Obstructive sleep apnea (adult) (pediatric) (9) Chronic anticoagulation: Status: Acute Category: Medical Code(s): Z79.01 - buttermaker continuous churn (current) use of anticoagulants Plan 67-year-old female with recent cardioversion for paroxysmal A-fib. Presented with weakness, chest discomfort, nausea and vomiting. Admitted for NSTEMI and CHF exacerbation along with concern for concurrent pneumonia. Discussed case with ER physician, request admission for antibiotics, cardiology consult, treatment of pneumonia and CHF exacerbation. Medicine agreed to admit. Cardiology consulted to assist with care. Imaging reassuring the patient does not have pneumonia but does appear to have some CHF. Needs further evaluation. Continues to require inpatient management. Problems addressed as follows: type II NSTEMI Paroxysmal A-fib - Trending troponins. Cardiology consulted, recommends proceeding with right and left heart cath to evaluate heart function. Will hold Coumadin today and provide FFP with plan for heart cath in the morning. - Heart strain likely type II NSTEMI in the setting of hypoxia and pneumonia. - CT chest with contrast to further evaluate lung pathology. No focal consolidation but does have small effusions bilaterally. - Echo obtained on preliminary read of normal EF and no significant valvular disease or diastolic dysfunction. - Continue amiodarone 400 mg twice daily and metoprolol succinate 200 mg twice daily for paroxysmal A-fib. - Continue Lasix 40 mg IV daily - Continue lisinopril 40 mg daily for hypertension Acute hypoxemic respiratory failure: -Chest x-ray suspicious for pneumonia, CT with no pneumonia but does have effusions. Discontinue antibiotics. White cell count normalized at 10.2. Repeat CBC, CMP, magnesium ordered for the morning -Continue supplemental oxygen as needed, goal saturation greater 90%. Currently on 2 L. Type 2 diabetes: A1c 7.7. Continue sliding scale insulin with fingersticks ACHS. Continue home regimen of 70/30 twice daily. Continue Jardiance 25 mg daily Mood disorder: Continue Vraylar 4.5 mg daily, continue Fetzima 40 mg daily, Continue Zoloft 200 mg daily Seizure disorder: Continue oxcarbazepine 150 mg twice daily, phenytoin 300 milligrams nightly Hypothyroidism: Continue levothyroxine 125 mcg daily for thyroid. TSH pending. Class III obesity complicates all aspects of her care Full code Cardiac diet Holding coumadin. FFP x 4, INR 3.6, repeat INR in morning
--- NOTE | 2023-09-30 14:45 | PC.NURSE ---
Javid's office states patient is to get FFP'S one hour before catheterization. Procedure is scheduled for 11:00 am.
[2023-09-30] MEDS: FUROSEMIDE 40MG/4ML VIAL 40 MG IV (14:58)
[2023-09-30] MEDS: ATORVASTATIN 40MG TABLET 40 MG PO (21:11)
[2023-09-30] MEDS: PHENYTOIN 100MG CAPSULE 300 MG PO (21:11)
[2023-09-30] MEDS: PANTOPRAZOLE 40MG TABLET 40 MG PO (21:11)
[2023-10-01] VITALS (41 sets, daily range): BP systolic 110–190; BP diastolic 54–95; PULSE 58–73; RESP 15–24; TEMP 36.2–36.8; O2SAT 90–100; BMI 50.5
--- NOTE | 2023-10-01 | IR_ITS ---
APPROVED REPORT Patient Location: Inpatient Senior [employer] Plan Administrator: RACH Nix RT (R) PROCEDURES Right heart catheterization Left heart catheterization Left ventriculogram Selective coronary angiogram INDICATION New onset congestive heart failure, Pulmonary hypertension, Elevated troponin Informed consent was obtained prior to the procedure. COMPLICATIONS None Estimated Blood Loss: Less than 10 mls TECHNIQUE One percent lidocaine was used to anesthetize the right anterior aspect of the right wrist. The right radial artery was accessed via the Seldinger technique and a 6 [place] hydrophilic sheath was placed in the right radial artery. Following this one percent lidocaine was used to anesthetize the right anterior aspect of the right neck. The right internal jugular vein was accessed via the Seldinger technique and a 7 Dutch sheath was placed in the right internal jugular vein. Following this an arterial cocktail was administered using 5000U heparin, 2.5 mg verapamil, 1mg Lidocaine and 800mcg nitroglycerin into the right radial sheath. A papa catheter was used to perform left heart catheterization left ventriculogram and selective coronary angiography while a [place] catheter was used to perform right heart catheterization. Saturations were obtained in the pulmonary artery and right atrium. At the end of the procedure the arterial sheath was removed good hemostasis was achieved using Traclet band. Patient was transferred to the postop holding area in stable condition for venous sheath removal. ANGIOGRAPHIC RESULTS The left main artery Normal The left anterior descending artery Mild diffuse 10% luminal irregularities The circumflex artery Mild 10% diffuse luminal irregularities The right coronary artery Dominant with mild diffuse 10% luminal irregularities The [place] ventriculogram reveals Normal 65% The left ventricular end-diastolic pressure 25 mmHg Right atrial pressure 15 mmHg Right ventricular pressure 60/15 mmHg Pulmonary artery pressure 55/30 mmHg Pulmonary occlusion pressure 25 mmHg Right atrial saturation 57% Pulmonary artery saturation 56% Aortic saturation 96% Hemoglobin 11.5 Cardiac output 5 L/min Cardiac index 2.1 IMPRESSION Mild luminal irregularities all of which are nonflow limiting Normal ejection fraction Moderate to severe pulmonary hypertension Hemodynamics consistent with left-sided diastolic dysfunction with HFpEF PLAN 1. Recommend increasing diuresis 2. Treatment of HFpEF 3. Recommend sleep study 4. Consider outpatient cardiac MRI Electronically signed by : Abram Hua MD 10/01/2023 12:59:17
--- NOTE | 2023-10-01 04:22 | PC.NURSE ---
held HS insulin r/t NPO at midnight (fsbs 161 per CGM)
[2023-10-01] MEDS: LEVOTHYROXINE 125MCG (0.125MG) TAB 125 MCG PO (06:01)
[2023-10-01 06:47] LABS: Basophils # 0.1 K/mm3 (0-0.2); Basophils % 0.6 % (0.1-2.0); Eosinophils # 0.4 K/mm3 (0.0-0.4); Hemoglobin 11.5 g/dL (12.2-16.2); Lymphocytes # 1.5 K/mm3 (0.7-4.5); Lymphocytes % 17.7 % (10-50); Mean Corpuscular HGB Conc 30.3 g/dL (31.8-35.4); Mean Corpuscular Hemoglobin 23.4 pg (27.0-31.2); Mean Corpuscular Volume 77.3 fl (81-99); Mean Platelet Volume 7.9 fl (7.4-10.4); Monocytes # 0.4 K/mm3 (0.1-1.0); Monocytes % 5.1 % (1.7-9.3); Neutrophils # 6.2 K/mm3 (1.8-7.8); Neutrophils % 72.5 % (37.0-80.0); Platelet Count 326 K/mm3 (142-424); Red Blood Count 4.92 M/mm3 (4.20-5.40); Red Cell Distribution Width 17.5 % (11.5-17.5); White Blood Count 8.6 K/mm3 (4.8-10.8)
[2023-10-01 07:00] LABS: Chloride 103 mmol/L (98-107); Potassium 4.1 mmoL/L (3.5-5.1); Sodium 138 mmol/L (136-145)
[2023-10-01 07:02] LABS: Alanine Aminotransferase 25 U/L (12-78); Aspartate Amino Transferase 67 U/L (14-36); Blood Urea Nitrogen 25 mg/dl (7-17); Creatinine Clearance Estimated 46 mL/min (50-200); Estimated Glomerular Filt Rate 49 ml/min (>60); GFR (African American) 60 ML/MIN (>60)
[2023-10-01 07:03] LABS: Albumin Level 3.7 g/dl (3.5-5.0); Albumin/Globulin Ratio 0.9 (1.1-1.8); Alkaline Phosphatase 112 U/L (38-126); Anion Gap 10.1 mEq/L (5-15); Bilirubin,Total 0.5 mg/dl (0.2-1.3); Calcium 8.5 mg/dl (8.4-10.2); Carbon Dioxide 29 mmol/L (22.0-30.0); Globulin 3.9 g/dL (1.3-3.2); Glucose 179 mg/dl (74-100); INR 3.19 (0.9-1.1); Prothrombin Time 31.9 seconds (10.1-12.5); Total Protein,Serum 7.6 g/dl (6.3-8.2)
[2023-10-01] MEDS: FETZIMA 40 MG 40 EACH PO (07:55)
[2023-10-01] MEDS: MODAFINIL 200 MG 200 EACH PO (07:55)
[2023-10-01] MEDS: VRAYLAR 4.5 MG 4.5 EACH PO (07:55)
[2023-10-01] MEDS: AMIODARONE 200MG TABLET 400 MG PO (07:56)
[2023-10-01] MEDS: METOPROLOL SUCCINATE XL 100MG TABLET 200 MG PO ×2 (07:56→20:32)
[2023-10-01] MEDS: SERTRALINE 100MG TABLET 200 MG PO (07:56)
[2023-10-01] MEDS: LISINOPRIL 20MG TABLET 40 MG PO (07:57)
[2023-10-01] MEDS: FUROSEMIDE 40MG/4ML VIAL 40 MG IV ×2 (08:54→15:45)
--- NOTE | 2023-10-01 11:12 | PC.NURSE ---
COURTESY TECH NOTE; ASSISTED PT TO CHAIR FROM SHOWER, REAPPLIED TELEMETRY, ASSISTED PT TO GET DRESSED. NURSE NOTIFIED OF REDNESS IN PT PERINEAL AREA. CALL LIGHT WITHIN REACH, NO FURTHER REQUESTS AT THIS TIME Felicita EVANS, JENNIFER
[2023-10-01] MEDS: diphenhydrAMINE 50MG/ML VIAL 50 MG IV (12:18)
[2023-10-01] MEDS: VERAPAMIL 2.5MG/ML 2ML VIAL 2.5 MG IV (12:18)
[2023-10-01] MEDS: NITROGLYCERIN 800MCG/8ML SYR (CATH LAB) 800 MCG IA (12:18)
[2023-10-01] MEDS: LIDOCAINE 1% 10ML MDV 20 ML IJ (12:18)
[2023-10-01] MEDS: HEPARIN 1,000 UNITS/ML 10ML VIAL (CATH LAB) 10000 UNIT IV (12:19)
[2023-10-01] MEDS: 0.9 % SODIUM CHLORIDE 500 ML 25 ML IV (12:19)
[2023-10-01] MEDS: HEPARIN 1,000 UNITS/500ML NS (CATH LAB) 3000 UNIT IV (12:19)
[2023-10-01] MEDS: MIDAZOLAM HCL 1MG/1ML 5ML VIAL 1 MG IV (12:19)
[2023-10-01] MEDS: FENTANYL 100MCG/2ML VIAL 50 MCG IV (12:20)
[2023-10-01] MEDS: IOPAMIDOL-370 (76%);100ML BOTTLE 40 ML IV (13:20)
[2023-10-01 13:21] LABS: CATHL Arterial O2 SAT 56.2 % (90-100); CATHL Venous O2 SAT 57.1 % (75-80)
[2023-10-01 13:55] LABS: Hematocrit 31.9 % (37.0-47.0)
[2023-10-01 14:44] LABS: Hemoglobin 10.1 g/dL (12.2-16.2)
--- NOTE | 2023-10-01 17:14 | PC.NURSE ---
non adherent dressing and tegaderm placed to right wrist.
--- NOTE | 2023-10-01 18:14 | P.PN_ITS ---
Subjective *Date: 10/01/23 *Time: 18:14 Interval history: Did well overnight, weaned to room air this morning. N.p.o. for heart cath. INR still elevated but receiving FFP today. Cardiology assisting with care. No active bleeding. Denies any chest pain. Feeling somewhat better. Diuresing somewhat well. -1/2 L in the past 24 hours. Medical Exam Vital signs and Labs for Last 24 Hours: Vital Signs Temp Pulse Pulse Resp BP BP Pulse Ox 10/01/23 17:25 10/01/23 16:55 97.9 F 60 18 136/67 98 10/01/23 16:00 60 10/01/23 15:55 97.9 F 58 L 16 112/60 100 10/01/23 15:25 97.9 F 58 L 16 135/58 L 98 10/01/23 14:55 97.9 F 64 16 142/64 H 98 10/01/23 15:34 10/01/23 14:25 97.9 F 68 16 142/73 H 98 10/01/23 13:55 97.9 F 66 16 160/95 H 98 10/01/23 13:40 97.9 F 65 16 145/72 H 98 10/01/23 13:25 97.9 F 65 16 137/59 L 98 10/01/23 13:10 97.9 F 73 16 148/87 H 90 L 10/01/23 12:26 97.6 F 65 15 156/82 H 96 10/01/23 12:21 97.5 F L 68 15 139/81 96 10/01/23 12:16 97.6 F 67 15 137/78 95 10/01/23 12:11 97.4 F L 67 15 157/80 H 96 10/01/23 11:59 97.2 F L 62 15 170/89 H 99 10/01/23 11:53 97.3 F L 65 16 185/84 H 97 10/01/23 11:38 97.5 F L 64 15 190/84 H 96 10/01/23 11:33 97.3 F L 65 18 122/87 96 10/01/23 11:28 97.9 F 64 16 122/78 96 10/01/23 11:23 97.8 F 63 16 140/65 96 10/01/23 11:20 97.8 F 62 16 133/61 96 10/01/23 11:15 97.9 F 62 16 123/86 96 10/01/23 11:07 97.9 F 63 16 142/59 H 96 10/01/23 11:02 97.9 F 63 16 134/55 L 96 10/01/23 10:45 97.8 F 65 16 128/72 100 10/01/23 10:30 98.2 F 62 16 139/65 100 10/01/23 10:15 98.2 F 61 16 131/54 L 100 10/01/23 10:10 98.2 F 63 16 133/64 100 10/01/23 10:05 98.2 F 60 16 120/57 L 100 10/01/23 10:57 97.9 F 62 16 125/66 96 10/01/23 10:55 97.9 F 63 16 113/70 100 10/01/23 10:13 10/01/23 08:00 70 10/01/23 10:00 98.2 F 62 16 117/55 L 100 10/01/23 09:35 98.2 F 65 16 110/64 98 10/01/23 08:00 97.6 F 62 24 127/73 95 10/01/23 07:34 100 10/01/23 07:32 10/01/23 06:38 10/01/23 04:00 60 10/01/23 04:00 97.7 F 63 16 141/68 H 95 10/01/23 03:00 10/01/23 01:00 10/01/23 00:00 70 09/30/23 20:03 60 10/01/23 00:00 97.8 F 69 18 122/72 96 09/30/23 23:00 09/30/23 20:00 100 09/30/23 21:00 09/30/23 19:54 97.7 F 66 18 112/62 100 O2 Del Method O2 Flow Rate 10/01/23 17:25 Nasal Cannula 2 10/01/23 16:55 Nasal Cannula 2 10/01/23 16:00 10/01/23 15:55 Nasal Cannula 2 10/01/23 15:25 Nasal Cannula 2 10/01/23 14:55 Nasal Cannula 2 10/01/23 15:34 Nasal Cannula 2 10/01/23 14:25 Nasal Cannula 2 10/01/23 13:55 Nasal Cannula 2 10/01/23 13:40 Nasal Cannula 2 10/01/23 13:25 Room Air 10/01/23 13:10 Room Air 10/01/23 12:26 10/01/23 12:21 10/01/23 12:16 10/01/23 12:11 10/01/23 11:59 10/01/23 11:53 10/01/23 11:38 10/01/23 11:33 10/01/23 11:28 10/01/23 11:23 10/01/23 11:20 10/01/23 11:15 10/01/23 11:07 10/01/23 11:02 10/01/23 10:45 10/01/23 10:30 10/01/23 10:15 10/01/23 10:10 10/01/23 10:05 10/01/23 10:57 10/01/23 10:55 10/01/23 10:13 Room Air 10/01/23 08:00 10/01/23 10:00 10/01/23 09:35 10/01/23 08:00 Room Air 10/01/23 07:34 Nasal Cannula 1 10/01/23 07:32 Nasal Cannula 1 10/01/23 06:38 Room Air 10/01/23 04:00 10/01/23 04:00 Nasal Cannula 1 10/01/23 03:00 Nasal Cannula 1 10/01/23 01:00 Nasal Cannula 1 10/01/23 00:00 09/30/23 20:03 10/01/23 00:00 Nasal Cannula 1 09/30/23 23:00 Nasal Cannula 1 09/30/23 20:00 Nasal Cannula 1 09/30/23 21:00 Nasal Cannula 1 09/30/23 19:54 Nasal Cannula Intake and Output 10/01/23 10/01/23 10/01/23 07:59 15:59 23:59 Intake Total 120 / 1339 1219 / 1339 Output Total 925 / 925 Balance 120 / 414 294 / 414 Intake: Intake, Oral Amount 120 / 120 Intake (Blood Product) Amt 1219 / 1219 Fresh Frozen Plasma Unit 251 / 251 [id number] Fresh Frozen Plasma Unit 311 / 311 [id number] Fresh Frozen Plasma Unit 321 / 321 [id number] Fresh Frozen Plasma Unit 336 / 336 [id number] Output: Output, Urine Amount 925 / 925 Other: Number of Bowel Movements 1 1 Weight 142.791 kg Patient Weight 10/01/23 23:59 Weight 142.791 kg Laboratory Results - last 24 hr 09/30/23 13:58: Blood Type O Positive 10/01/23 06:30: WBC 8.6, RBC 4.92, Hgb 11.5 L, Hct 38.0, MCV 77.3 L, MCH 23.4 L, MCHC 30.3 L, RDW 17.5, Plt Count 326, MPV 7.9, Neut % (Auto) 72.5, Lymph % (Auto) 17.7, [facility] [facility] % (Auto) 5.1, Eos % (Auto) 4.0, Baso % (Auto) 0.6, Neut # (Auto) 6.2, Lymph # (Auto) 1.5, [facility] # (Auto) 0.4, Eos # (Auto) 0.4, Baso # (Auto) 0.1, PT 31.9 H, INR 3.19 H, Sodium 138, Potassium 4.1, Chloride 103, Carbon Dioxide 29, Anion Gap 10.1, BUN 25 H, Creatinine 1.10 H D, Estimated Creat Clear 46, Estimated GFR 49 L, Est GFR ( Amer) 60 D, Glucose 179 H, Calcium 8.5, Magnesium 2.0, Total Bilirubin 0.5, AST 67 H D, ALT 25 D, Alkaline Phosphatase 112, Total Protein 7.6, Albumin 3.7, Globulin 3.9 H, Albumin/Globulin Ratio 0.9 L 10/01/23 12:30: ABG O2 Sat (Measured) 56.2 L, POC VBG O2 Sat (Marcelino) 57.1 L 10/01/23 13:36: Hgb 10.1 L D, Hct 31.9 L I & O for Labs for Last 24 Hours: Intake & Output 09/28/23 09/29/23 09/30/23 10/01/23 23:59 23:59 23:59 23:59 Intake Total 1320 / 1440 1339 / 1339 Output Total 450 / 450 1400 / 1400 925 / 925 Balance -450 / -90 -80 / 40 414 / 414 Weight 140.302 kg 143.018 kg 142.791 kg Constitutional: Present no acute distress, morbidly obese, chronically ill appearing and cooperative Head: Present atraumatic and normocephalic ENT: Present normal exam Neck: Present normal inspection Respiratory: Present crackles (Fine in bilateral bases) and normal respiratory effort; Absent rhonchi or wheezes Cardiac: Present Reg Rate and Rhythm GI: Present soft and normal bowel sounds; Absent distention or tenderness Extremities: Present normal inspection and full ROM; Absent tenderness or edema Skin: Present intact; Absent erythema Neuro: Present Grossly Intact, alert, awake, oriented x 3 and moves all extremities Assessment and Plan *Assessment and plan (1) (HFpEF) heart failure with preserved ejection fraction: Status: Acute Category: Medical Code(s): I50.30 - Unspecified diastolic (congestive) heart failure (2) Type 2 WA (myocardial infarction): Status: Acute Category: Medical Code(s): I21.A1 - Myocardial infarction type 2 (3) Aspiration pneumonia: Status: Acute Category: Medical Code(s): J69.0 - Pneumonitis due to inhalation of food and vomit (4) DM2 (diabetes mellitus, type 2): Status: Acute Qualifiers: Diabetes mellitus intermediate insulin use: with assistant terminal manager use Diabetes mellitus complication status: without complication Qualified Code(s): E11.9 - Type 2 diabetes mellitus without complications; Z79.4 - long term care social worker (current) use of insulin Category: Medical Code(s): E11.9 - Type 2 diabetes mellitus without complications (5) HLD (hyperlipidemia): Status: Acute Qualifiers: Hyperlipidemia type: mixed hyperlipidemia Qualified Code(s): E78.2 - Mixed hyperlipidemia Category: Medical Code(s): E78.5 - Hyperlipidemia, unspecified (6) HTN (hypertension): Status: Acute Qualifiers: Hypertension type: primary hypertension Qualified Code(s): I10 - Essential (primary) hypertension Category: Medical Code(s): I10 - Essential (primary) hypertension (7) Bipolar 1 disorder: Status: Acute Category: Medical Code(s): F31.9 - Bipolar disorder, unspecified (8) TOPHER (obstructive sleep apnea): Status: Acute Category: Medical Code(s): G47.33 - Obstructive sleep apnea (adult) (pediatric) (9) Chronic anticoagulation: Status: Acute Category: Medical Code(s): Z79.01 - long term care social worker (current) use of anticoagulants Plan 67-year-old female with recent cardioversion for paroxysmal A-fib. Presented with weakness, chest discomfort, nausea and vomiting. Admitted for NSTEMI and CHF exacerbation along with concern for concurrent pneumonia. Discussed case with ER physician, request admission for antibiotics, cardiology consult, treatment of pneumonia and CHF exacerbation. Medicine agreed to admit. Cardiology consulted to assist with care. Imaging reassuring the patient does not have pneumonia but does appear to have some CHF. Cardiology evaluating with right and left heart cath today. Will need monitoring overnight for bleeding and to monitor INR. Problems addressed as follows: type II NSTEMI Paroxysmal A-fib Heart failure with preserved ejection fraction Pulmonary hypertension -Cardiology consulted. Discussed case this morning. Will proceed with left and right heart cath. Holding Coumadin and treating with FFP. Right heart cath showed elevated diastolic pressures. Concern for pulmonary hypertension. Continue diuresis. - Heart strain likely type II NSTEMI in the setting of hypoxia and heart strain - Echo obtained on preliminary read of normal EF and no significant valvular disease or diastolic dysfunction. - Continue amiodarone 400 mg twice daily and metoprolol succinate 200 mg twice daily for paroxysmal A-fib. - Continue Lasix 40 mg IV twice daily - Continue lisinopril 40 mg daily for hypertension Acute hypoxemic respiratory failure: -Chest x-ray suspicious for pneumonia, CT with no pneumonia but does have effusions. Discontinue antibiotics. White cell count normalized at 8.6. Repeat CBC, CMP, magnesium ordered for the morning -Continue supplemental oxygen as needed, goal saturation greater 90%. Currently on 2l Type 2 diabetes: A1c 7.7. Continue sliding scale insulin with fingersticks ACHS. Continue home regimen of 70/30 twice daily. Continue Jardiance 25 mg daily Mood disorder: Continue Vraylar 4.5 mg daily, continue Fetzima 40 mg daily, Continue Zoloft 200 mg daily Seizure disorder: Continue oxcarbazepine 150 mg twice daily, phenytoin 300 milligrams nightly Hypothyroidism: Continue levothyroxine 125 mcg daily for thyroid. TSH pending. Class III obesity complicates all aspects of her care Full code Cardiac diet Holding coumadin. INR 3.2. repeat INR in morning
--- NOTE | 2023-10-01 18:20 | PC.NURSE ---
Aox 4, up with assistance times one, right wrist non adherent and tegaderm dressing c/d/i, right chest dressing gauze and tegaderm c/d/i, got 4 units of FFP'S today.
[2023-10-01] MEDS: humaLOG 100 UNITS/ML 3ML VIAL (SSI) SQ (20:30)
[2023-10-01] MEDS: humaLOG MIX 75/25 3ML FLEXPEN 35 UNIT SQ (20:31)
[2023-10-01] MEDS: PANTOPRAZOLE 40MG TABLET 40 MG PO (20:32)
[2023-10-01] MEDS: ATORVASTATIN 40MG TABLET 40 MG PO (20:32)
[2023-10-01] MEDS: PHENYTOIN 100MG CAPSULE 300 MG PO (20:32)
[2023-10-01] MEDS: NYSTATIN TOPICAL POWDER 30GM TP (20:44)
[2023-10-02] VITALS: BP 121/57; PULSE 60; PULSE 61; RESP 18; TEMP 36.8; O2SAT 98
[2023-10-02 04:00] VITALS: BP 120/63; PULSE 60; PULSE 61; RESP 18; TEMP 36.9; O2SAT 95; BMI 51.0
--- NOTE | 2023-10-02 05:13 | PC.NURSE ---
radial and intrajugular post op cath site dsg c/d/i - no complications. weaned from 2LNC to RA
--- NOTE | 2023-10-02 05:30 | PC.NURSE ---
urinary catheter removed - patient ambulated to toilet to void and bm
[2023-10-02] MEDS: LEVOTHYROXINE 125MCG (0.125MG) TAB 125 MCG PO (06:34)
[2023-10-02] MEDS: humaLOG 100 UNITS/ML 3ML VIAL (SSI) SQ (06:34)
[2023-10-02 08:00] VITALS: BP 135/53; PULSE 60; PULSE 66; RESP 16; TEMP 36.8; O2SAT 98
[2023-10-02] MEDS: SERTRALINE 100MG TABLET 200 MG PO (08:09)
[2023-10-02] MEDS: EMPAGLIFLOZIN 10MG TABLET 20 MG PO (08:10)
[2023-10-02] MEDS: LISINOPRIL 20MG TABLET 40 MG PO (08:10)
[2023-10-02] MEDS: AMIODARONE 200MG TABLET 400 MG PO (08:10)
--- NOTE | 2023-10-02 08:10 | EXP.DC.SUM ---
General Admission date:: 09/29/23 Discharge date: 10/02/23 HPI HPI HPI: Mr. Mendez is a 67-year-old female with history of paroxysmal A-fib. Status post cardioversion on Wednesday with cardiology at [facility]. Starting Wednesday she began to have some nausea, emesis, epigastric discomfort. Came into the cardiology clinic today for evaluation. Assessed her in clinic and sent her to the ER for further management. On arrival to the ER, EKG was obtained showing sinus rhythm. Workup consisting of labs and imaging concerning for CHF exacerbation with BNP greater than 6000, chest imaging concerning for right lower lobe pneumonia versus increased pulmonary vascular congestion. Medicine consulted for admission and further management. Patient treated with 40 mg Lasix in the ER x 1 and ceftriaxone 2 g and azithromycin 500 mg. On evaluation after arriving to the floor. Patient states she had nonbloody/nonbilious emesis yesterday. Denies any fever or chills. No significant shortness of breath. Found to be mildly hypoxic with exertion in the ER. Currently on 2 L nasal cannula oxygen. Hospital Course Hospital Course Hospital Course: 67-year-old female with recent cardioversion for paroxysmal A-fib. Presented with weakness, chest discomfort, nausea and vomiting. Admitted for NSTEMI and CHF exacerbation along with concern for concurrent pneumonia. Discussed case with ER physician, request admission for antibiotics, cardiology consult, treatment of pneumonia and CHF exacerbation. Medicine agreed to admit. Cardiology consulted to assist with care. Imaging reassuring the patient does not have pneumonia but does appear to have some CHF. Cardiology performed right and left heart cath on 10/01. No stents needed, does have diastolic dysfunction however. Monitored overnight after procedure. Continue diuresis. Stable to discharge home on room air. Needs close follow-up with PCP and cardiology. Problems addressed during hospitalization as follows: type II NSTEMI Paroxysmal A-fib Heart failure with preserved ejection fraction Pulmonary hypertension -Cardiology consulted. Appreciate their assistance in care. Taken for left and right heart cath on 10/01. Found to have mild luminal irregularities with no flow-limiting disease. Normal ejection fraction. Moderate to severe pulmonary hypertension. Findings consistent with diastolic dysfunction and heart failure with preserved ejection fraction. Elevation in troponin likely type II NSTEMI in the setting of hypoxia and heart strain. Echocardiogram was also obtained confirming preserved ejection fraction and no significant valvular disease. Continue amiodarone 400mg twice daily, metoprolol succinate 200 mg twice daily for her paroxysmal A-fib. Remained in sinus rhythm during admission. Treated with Lasix 40 mg IV twice daily during admission, transition to 40 mg p.o. twice daily at discharge to continue to address fluid management given her diastolic dysfunction. Continue lisinopril 40 mg daily for hypertension. Will add spironolactone daily for additional diuretic benefit. Would additionally recommend outpatient sleep study as she has a history of sleep apnea and does not wear her CPAP currently. Will refer to pulmonology for further management and evaluation. Her sleep apnea complicates her diastolic dysfunction. Acute hypoxemic respiratory failure: -Chest x-ray suspicious for pneumonia, CT with no pneumonia but does have effusions. Discontinued antibiotics as her white cell count remained normal and she improved with diuresis. Weaned to room air by day of discharge. Type 2 diabetes: A1c 7.7. Continue sliding scale insulin with fingersticks ACHS during admission. Resume home regimen at discharge. Continue home regimen of 70/30 twice daily. Continue Jardiance 25 mg daily Mood disorder: Continue Vraylar 4.5 mg daily, continue Fetzima 40 mg daily, Continue Zoloft 200 mg daily Seizure disorder: Continue oxcarbazepine 150 mg twice daily, phenytoin 300 milligrams nightly Hypothyroidism: Continue levothyroxine 125 mcg daily for thyroid. TSH pending. Class III obesity complicates all aspects of her care Stable for discharge home. Spent 30 minutes in discharge counseling, documentation, chart review, and direct care with patient. Exam Data for Last 24 hours Vital signs and Labs for Last 24 Hours: Temp Pulse Resp BP Pulse Ox O2 Del Method O2 Flow Rate 98.4 F 61 18 120/63 95 Room Air 1 10/02/23 04:00 10/02/23 04:00 10/02/23 04:00 10/02/23 04:00 10/02/23 04:00 10/02/23 06:21 10/02/23 00:00 Laboratory Results - last 24 hr 09/30/23 13:58: Blood Type O Positive 10/01/23 12:30: ABG O2 Sat (Measured) 56.2 L, POC VBG O2 Sat (Marcelino) 57.1 L 10/01/23 13:36: Hgb 10.1 L D, Hct 31.9 L I & O for Last 24 hours: Intake & Output 09/29/23 09/30/23 10/01/23 10/02/23 23:59 23:59 23:59 23:59 Intake Total 1320 / 1440 1819 / 2059 240 / 240 Output Total 450 / 450 1400 / 1400 2425 / 2425 575 / 575 Balance -450 / -90 -80 / 40 -606 / -366 -335 / -335 Weight 140.302 kg 143.018 kg 142.791 kg 144.242 kg Constitutional Constitutional: no acute distress, morbidly obese, chronically ill appearing and cooperative *Routine HEENT Exam Head: Present normocephalic Eye: Present EOMI and PERRL ENT: Present mucous membranes moist *Routine Neck Exam Neck: Present supple; Absent lymphadenopathy Comments: Right IJ access site clean dry and intact. No active bleeding. *Routine Respiratory Exam Respiratory: Present CTA bilaterally; Absent rhonchi, wheezes or crackles *Routine Cardiovascular Exam Cardiovascular: Present RRR *Routine Abdominal Exam Abdominal: Present soft and normoactive bowel sounds; Absent tenderness *Routine Rectal Exam Patient deferred: visual exam *Routine Exam Patient deferred: external exam *Routine Extremities Exam Extremities: Present edema (Trace in ankles); Absent cyanosis or clubbing *Routine Skin Exam Skin: Present warm; Absent rash *Routine Neurological Exam Neurological: Present alert, oriented X3 and moving all extremities; Absent altered mental status Results Data Completed and Pending Labs on day of discharge: Labs from last 24 hours 10/01/23 10/01/23 09/30/23 13:36 12:30 13:58 Hgb 10.1 L D Hct 31.9 L ABG O2 Sat (Measured) 56.2 L POC VBG O2 Sat (Marcelino) 57.1 L Blood Type O Positive DS: Diagnosis Discharge Diagnosis (1) (HFpEF) heart failure with preserved ejection fraction: Status: Acute Code(s): I50.30 - Unspecified diastolic (congestive) heart failure (2) Type 2 FL (myocardial infarction): Status: Acute Code(s): I21.A1 - Myocardial infarction type 2 (3) Aspiration pneumonia: Status: Acute Code(s): J69.0 - Pneumonitis due to inhalation of food and vomit (4) DM2 (diabetes mellitus, type 2): Status: Acute Code(s): E11.9 - Type 2 diabetes mellitus without complications Qualifiers: Diabetes mellitus complication status: without complication Diabetes mellitus buttermaker insulin use: with buttermaker use Qualified Code(s): E11.9 - Type 2 diabetes mellitus without complications; Z79.4 - [facility] (current) use of insulin (5) HLD (hyperlipidemia): Status: Acute Code(s): E78.5 - Hyperlipidemia, unspecified Qualifiers: Hyperlipidemia type: mixed hyperlipidemia Qualified Code(s): E78.2 - Mixed hyperlipidemia (6) HTN (hypertension): Status: Acute Code(s): I10 - Essential (primary) hypertension Qualifiers: Hypertension type: primary hypertension Qualified Code(s): I10 - Essential (primary) hypertension (7) Bipolar 1 disorder: Status: Acute Code(s): F31.9 - Bipolar disorder, unspecified (8) TOPHER (obstructive sleep apnea): Status: Acute Code(s): G47.33 - Obstructive sleep apnea (adult) (pediatric) (9) Chronic anticoagulation: Status: Acute Code(s): Z79.01 - [facility] (current) use of anticoagulants Meds Home Medications and Allergies Home Medications Medication Instructions Recorded Confirmed Type semaglutide 0.25 mg or 0.5 mg (2 0.5 mg SQ WEEKLY Diabetes 08/12/23 09/29/23 History mg/3 mL) subcutaneous pen injector (Ozempic) warfarin 2 mg tablet 1 mg PO MOWEFRSA Blood Thinner/Afib 09/09/23 09/29/23 History amiodarone 400 mg tablet 400 mg PO BID Heart Rate 09/29/23 09/29/23 History cariprazine 4.5 mg capsule 4.5 mg PO DAILY Mood 09/29/23 09/29/23 History (Vraylar) empagliflozin 25 mg tablet 25 mg PO DAILY Diabetes 09/29/23 09/29/23 History (Jardiance) flash glucose sensor (FreeStyle #1 ea 09/29/23 09/29/23 History Jose 2 Sensor kit) insulin NPH-regular 70-30 U-100 35 unit SQ HS Diabetes 09/29/23 09/29/23 History insulin 100 unit/mL subcutaneous pen (Humulin 70/30 U-100 KwikPen) insulin NPH-regular 70-30 U-100 55 unit SQ DAILY Diabetes 09/29/23 09/29/23 History insulin 100 unit/mL subcutaneous pen (Humulin 70/30 U-100 KwikPen) lansoprazole 15 mg capsule,delayed 15 mg PO DAILY Acid Reflux 09/29/23 09/29/23 History release levomefolate calcium 15 mg tablet 15 mg PO DAILY 09/29/23 09/29/23 History levomilnacipran 40 mg capsule,24 40 mg PO DAILY Mood 09/29/23 09/29/23 History hr,extended release (Fetzima) levothyroxine 125 mcg tablet 125 mcg PO DAILY Thyroid 09/29/23 09/29/23 History lisinopril 40 mg tablet 40 mg PO DAILY High Blood Pressure 09/29/23 09/29/23 History melatonin 10 mg tablet 10 mg PO HS PRN Sleep 09/29/23 09/29/23 History metformin 1,000 mg tablet 1,000 mg PO BIDWMEAL 09/29/23 09/29/23 History metoprolol succinate 200 mg 200 mg PO BID Heart Rate 09/29/23 09/29/23 History tablet,extended release 24 hr modafinil 200 mg tablet 200 mg PO DAILY 09/29/23 09/29/23 History oxcarbazepine 150 mg tablet 150 mg PO BID Seizures 09/29/23 09/29/23 History pen needle, diabetic 31 gauge x #1,200 ea 09/29/23 09/29/23 History 3/16 (BD Ultra-Fine Mini Pen Needle) phenytoin sodium extended 100 mg 300 mg PO HS Seizures 09/29/23 09/29/23 History capsule rosuvastatin 10 mg tablet 10 mg PO HS Cholesterol 09/29/23 09/29/23 History sertraline 100 mg tablet 200 mg PO DAILY Mood 09/29/23 09/29/23 History warfarin 2 mg tablet 2 mg PO SUTUTH Blood Thinner/Afib 09/29/23 09/29/23 History furosemide 40 mg tablet 40 mg PO BIDL Fluid 30 days #60 10/02/23 Rx tabs spironolactone 25 mg tablet 25 mg PO DAILY 30 days #30 tabs 10/02/23 Rx New Prescriptions to Start Prescriptions: furosemide Deonte Alicea spironolactone Deonte Alicea Allergies Allergy/AdvReac Type Severity Reaction Status Date / Time No Known Allergies Allergy Verified 09/29/23 08:36 Discharge Plan Disposition Patient Disposition: Home, Self-Care Condition: Fair Discharge Order Discharge Orders: Discharge Order (Routine); Ordered 10/02/23 Ordered By: Deonte Alicea Follow up Plan Follow up with: Abram Hua MD [Staff Physician] - 10/07/23 2:30 pm Dang Wheatley MD [Physician] - Enter time for follow up Avinash Buck MD [Referring] - 10/07/23 11:15 am (arrive 15 early for paperwork) Prescriptions/Medication Reconciliation: New spironolactone 25 mg tablet 25 mg PO DAILY 30 Days Qty: 30 0RF Continued Ozempic 0.25 mg or 0.5 mg (2 mg/3 mL) pen injector 0.5 mg SQ WEEKLY warfarin 2 mg tablet 1 mg PO MOWEFRSA (DME) pen needle, diabetic [BD Ultra-Fine Mini Pen Needle] 31 gauge x 3/16 needle See Rx Instructions .ROUTE .MEDSUPPLY Qty: 1200 Rx Instructions: As directed (DME) FreeStyle Jose 2 Sensor Kit See Rx Instructions .ROUTE .MEDSUPPLY Qty: 1 Rx Instructions: As directed oxcarbazepine 150 mg tablet 150 mg PO BID Patient Comments: TAKE 1 TABLET BY MOUTH TWICE DAILY metoprolol succinate 200 mg tablet extended release 24 hr 200 mg PO BID Patient Comments: TAKE 1 TABLET BY MOUTH TWICE DAILY sertraline 100 mg tablet 200 mg PO DAILY Patient Comments: TAKE 2 TABLETS BY MOUTH DAILY phenytoin sodium extended 100 mg capsule 300 mg PO HS Patient Comments: TAKE 3 CAPSULES BY MOUTH EVERY NIGHT modafinil 200 mg tablet 200 mg PO DAILY Patient Comments: TAKE 1 TABLET BY MOUTH EVERY MORNING amiodarone 400 mg tablet 400 mg PO BID Patient Comments: TAKE 1 TABLET BY MOUTH TWICE DAILY levothyroxine 125 mcg tablet 125 mcg PO DAILY Patient Comments: TAKE 1 TABLET BY MOUTH DAILY lansoprazole 15 mg capsule,delayed release(DR/EC) 15 mg PO DAILY Patient Comments: TAKE 1 CAPSULE BY MOUTH DAILY lisinopril 40 mg tablet 40 mg PO DAILY Patient Comments: TAKE 1 TABLET BY MOUTH DAILY rosuvastatin 10 mg tablet 10 mg PO HS Patient Comments: TAKE 1 TABLET BY MOUTH DAILY Humulin 70/30 U-100 KwikPen 100 unit/mL (70-30) insulin pen 55 unit SQ DAILY Patient Comments: ADMINISTER 55UNITS UNDER THE SKIN IN THE MORNING AND 35UNITS IN THE EVENING Humulin 70/30 U-100 KwikPen 100 unit/mL (70-30) insulin pen 35 unit SQ HS Patient Comments: ADMINISTER 55UNITS UNDER THE SKIN IN THE MORNING AND 35UNITS IN THE EVENING Fetzima 40 mg capsule,extended release 24 hr 40 mg PO DAILY Patient Comments: TAKE 1 CAPSULE BY MOUTH DAILY Jardiance 25 mg tablet 25 mg PO DAILY Patient Comments: TAKE 1 TABLET BY MOUTH DAILY Vraylar 4.5 mg capsule 4.5 mg PO DAILY Patient Comments: TAKE 1 CAPSULE BY MOUTH DAILY warfarin 2 mg tablet 2 mg PO SUTUTH Patient Comments: TAKE 1 TABLET BY MOUTH ONCE DAILY levomefolate calcium 15 mg Tablet 15 mg PO DAILY melatonin 10 mg Tablet 10 mg PO HS PRN (Reason: Sleep) metformin 1,000 mg Tablet 1,000 mg PO BIDWMEAL Changed furosemide 40 mg tablet 40 mg PO BIDL 30 Days Qty: 60 0RF Patient Comments: TAKE 1 TABLET BY MOUTH DAILY Problem Reconciliation Problems Reviewed?: Yes Patient Discharge Instructions ACTIVITY: Continue current activity DIET: continue same diet Patient Instructions: DI for Heart Failure, DI for Aspiration Pneumonia, DI for Cardiac Catheterization, DI for Surgical Site Infection, Coumadin Vitamin K/ Diet, Catheter-Associated Urinary Tract Infection Providers Primary Care Provider: Emely Sawant Admit Provider: Deonte Alicea Attending Provider: Deonte Alicea
[2023-10-02] MEDS: METOPROLOL SUCCINATE XL 100MG TABLET 200 MG PO (08:11)
[2023-10-02] MEDS: FETZIMA 40 MG 40 EACH PO (08:12)
[2023-10-02] MEDS: MODAFINIL 200 MG 200 EACH PO (08:12)
[2023-10-02] MEDS: FUROSEMIDE 40MG/4ML VIAL 40 MG IV (08:12)
[2023-10-02] MEDS: VRAYLAR 4.5 MG 4.5 EACH PO (08:12)
[2023-10-02 08:13] LABS: Chloride 100 mmol/L (98-107)
[2023-10-02 08:14] LABS: Potassium 3.8 mmoL/L (3.5-5.1); Sodium 136 mmol/L (136-145)
[2023-10-02 08:16] LABS: Alanine Aminotransferase 25 U/L (12-78); Alkaline Phosphatase 113 U/L (38-126); Aspartate Amino Transferase 48 U/L (14-36); Bilirubin,Total 0.6 mg/dl (0.2-1.3); Blood Urea Nitrogen 25 mg/dl (7-17); Creatinine Clearance Estimated 50 mL/min (50-200); Estimated Glomerular Filt Rate 55 ml/min (>60); GFR (African American) 67 ML/MIN (>60)
[2023-10-02 08:17] LABS: Albumin Level 3.9 g/dl (3.5-5.0); Anion Gap 6.8 mEq/L (5-15); Calcium 8.4 mg/dl (8.4-10.2); Carbon Dioxide 33 mmol/L (22.0-30.0); Globulin 3.8 g/dL (1.3-3.2); Glucose 194 mg/dl (74-100); Total Protein,Serum 7.7 g/dl (6.3-8.2)
[2023-10-02 08:18] LABS: Magnesium 1.7 mg/dl (1.6-2.3)
[2023-10-02] MEDS: humaLOG MIX 75/25 3ML FLEXPEN 55 UNIT SQ (08:18)
[2023-10-02 08:20] LABS: INR 1.84 (0.9-1.1); Prothrombin Time 19.1 seconds (10.1-12.5)
[2023-10-02] MEDS: NYSTATIN TOPICAL POWDER 30GM TP (08:24)
[2023-10-02 08:53] LABS: Basophils % 0.2 % (0.1-2.0); Eosinophils # 0.4 K/mm3 (0.0-0.4); Eosinophils % 4.1 % (0.1-12.0); Hematocrit 35.2 % (37.0-47.0); Hemoglobin 10.9 g/dL (12.2-16.2); Lymphocytes # 1.4 K/mm3 (0.7-4.5); Lymphocytes % 15.7 % (10-50); Mean Corpuscular HGB Conc 30.8 g/dL (31.8-35.4); Mean Corpuscular Hemoglobin 23.9 pg (27.0-31.2); Mean Corpuscular Volume 77.5 fl (81-99); Mean Platelet Volume 8.9 fl (7.4-10.4); Monocytes # 0.5 K/mm3 (0.1-1.0); Monocytes % 5.4 % (1.7-9.3); Neutrophils # 6.7 K/mm3 (1.8-7.8); Neutrophils % 74.5 % (37.0-80.0); Platelet Count 329 K/mm3 (142-424); Red Blood Count 4.54 M/mm3 (4.20-5.40); Red Cell Distribution Width 17.6 % (11.5-17.5)
--- NOTE | 2023-10-04 14:38 | SW/DCPLANNER ---
Follow up phone call: patient stated that she is doing well at home just tired. I did receive an order from MD to resume home health services. Patient is agreeable w/ resuming home health services w/ [facility]. Patient information/order has been faxed at this time.
== END 2023-10-02 11:14 | disposition home health service (06) | DRG 177 ==
LOC: ER 11:22 → 2ND 12:56
PROVIDERS: Internal Medicine; Physician Assistant; Admitting Provider Internal Medicine Adolescent Medicine; Emergency Provider Emergency Medicine; PCP Nurse Practitioner; Visit Provider Internal Medicine Adolescent Medicine
PROC: 4A023N8 Measurement of Cardiac Sampling and Pressure, Bilateral, Percutaneous Approach (ICD-10-PCS; principal; 2023-10-01 10:30)
DX: J69.0 Pneumonitis due to inhalation of food and vomit (principal); I21.A1 Myocardial infarction type 2; I50.33 Acute on chronic diastolic (congestive) heart failure; J96.01 Acute respiratory failure with hypoxia; Z68.43 Body mass index [BMI] 50.0-59.9, adult; I11.0 Hypertensive heart disease with heart failure; E11.9 Type 2 diabetes mellitus without complications; Z79.4 Long term (current) use of insulin; G47.33 Obstructive sleep apnea (adult) (pediatric); E78.5 Hyperlipidemia, unspecified; Z86.73 Personal history of transient ischemic attack (TIA), and cerebral infarction without residual deficits; F31.9 Bipolar disorder, unspecified; Z79.01 Long term (current) use of anticoagulants; I48.0 Paroxysmal atrial fibrillation; Z79.85 Long-term (current) use of injectable non-insulin antidiabetic drugs; E66.9 Obesity, unspecified; E03.9 Hypothyroidism, unspecified
CPT/HCPCS: 36415; 51702; 71046; 71260; 80053; 82810; 82962; 83036; 83735; 83880; 84145; 84443; 84484; 85014; 85018; 85025; 85610; 85730; 86900; 86901; 87636; 93005; 93308; 93460; 99152; 99291; C1725; C1760; C1769; C1894; J0456; J0696; J1644; J2405; P9017; Q9967

== ENCOUNTER 2023-10-05 10:04 | Outpatient (CLI) | payer MEDICARE, OTHER, SELFPAY ==
[2023-10-05 11:04] LABS: PHA INR Fingerstick 3.4 (0.9-1.1)
== END 2023-10-05 11:11 ==
LOC: ACC 10:05
PROVIDERS: PCP Family Medicine; Visit Provider Family Medicine
DX: Z79.01 Long term (current) use of anticoagulants (principal); Z51.81 Encounter for therapeutic drug level monitoring; I48.91 Unspecified atrial fibrillation
CPT/HCPCS: 85610; 99211; G0463

== ENCOUNTER 2023-10-13 14:48 | Outpatient (CLI) | payer MEDICARE, OTHER, SELFPAY ==
[2023-10-13 15:24] LABS: INR 2.71 (0.9-1.1); Prothrombin Time 27.4 seconds (10.1-12.5)
[2023-10-13 15:36] LABS: Basophils # 0.1 K/mm3 (0-0.2); Basophils % 0.7 % (0.1-2.0); Eosinophils # 0.6 K/mm3 (0.0-0.4); Eosinophils % 5.6 % (0.1-12.0); Hematocrit 42.9 % (37.0-47.0); Hemoglobin 12.8 g/dL (12.2-16.2); Lymphocytes # 2.4 K/mm3 (0.7-4.5); Lymphocytes % 21.2 % (10-50); Mean Corpuscular Hemoglobin 23.5 pg (27.0-31.2); Mean Corpuscular Volume 78.4 fl (81-99); Mean Platelet Volume 8.3 fl (7.4-10.4); Monocytes # 0.4 K/mm3 (0.1-1.0); Monocytes % 3.7 % (1.7-9.3); Neutrophils # 7.8 K/mm3 (1.8-7.8); Neutrophils % 68.9 % (37.0-80.0); Platelet Count 393 K/mm3 (142-424); Red Blood Count 5.46 M/mm3 (4.20-5.40); Red Cell Distribution Width 17.7 % (11.5-17.5); White Blood Count 11.3 K/mm3 (4.8-10.8)
[2023-10-13 15:43] LABS: Anion Gap 18.3 mEq/L (5-15); Blood Urea Nitrogen 24 mg/dl (7-17); Calcium 9.1 mg/dl (8.4-10.2); Carbon Dioxide 28 mmol/L (22.0-30.0); Chloride 96 mmol/L (98-107); Estimated Glomerular Filt Rate 55 ml/min (>60); GFR (African American) 67 ML/MIN (>60); Glucose 182 mg/dl (74-100); Potassium 4.3 mmoL/L (3.5-5.1); Sodium 138 mmol/L (136-145)
== END 2023-10-13 23:59 ==
PROVIDERS: PCP Family Medicine; Visit Provider Internal Medicine
DX: I25.10 Atherosclerotic heart disease of native coronary artery without angina pectoris (principal); I27.20 Pulmonary hypertension, unspecified; I21.A1 Myocardial infarction type 2; I50.30 Unspecified diastolic (congestive) heart failure; I50.9 Heart failure, unspecified; I10 Essential (primary) hypertension; G47.33 Obstructive sleep apnea (adult) (pediatric); E11.9 Type 2 diabetes mellitus without complications; Z79.4 Long term (current) use of insulin; E78.2 Mixed hyperlipidemia; I48.20 Chronic atrial fibrillation, unspecified; R53.83 Other fatigue; Z79.899 Other long term (current) drug therapy
CPT/HCPCS: 36415; 80048; 85025; 85610

== ENCOUNTER 2023-10-27 09:11 | Outpatient (CLI) | payer MEDICARE, OTHER, SELFPAY ==
[2023-10-27 11:08] LABS: PHA INR Fingerstick 2.2 (0.9-1.1)
== END 2023-10-27 11:38 ==
LOC: ACC 09:12
PROVIDERS: PCP Family Medicine; Visit Provider Family Medicine
DX: Z51.81 Encounter for therapeutic drug level monitoring (principal); Z79.01 Long term (current) use of anticoagulants; I48.91 Unspecified atrial fibrillation
CPT/HCPCS: 85610; 99211; G0463

== ENCOUNTER → 2023-11-09 20:19 | Outpatient (CLI) | payer MEDICARE, OTHER, SELFPAY | PROVIDERS: PCP Family Medicine; Visit Provider Internal Medicine Pulmonary Disease | DX: R06.83 Snoring (principal); G47.30 Sleep apnea, unspecified | CPT/HCPCS: 95810 ==

== ENCOUNTER 2023-11-17 13:53 | Outpatient (CLI) | payer MEDICARE, OTHER, SELFPAY ==
[2023-11-17 14:10] LABS: Basophils # 0.1 K/mm3 (0-0.2); Basophils % 1.1 % (0.1-2.0); Eosinophils # 0.4 K/mm3 (0.0-0.4); Eosinophils % 4.8 % (0.1-12.0); Hematocrit 39.2 % (37.0-47.0); Hemoglobin 12.1 g/dL (12.2-16.2); Lymphocytes # 1.7 K/mm3 (0.7-4.5); Lymphocytes % 19.5 % (10-50); Mean Corpuscular HGB Conc 30.8 g/dL (31.8-35.4); Mean Corpuscular Hemoglobin 23.8 pg (27.0-31.2); Mean Corpuscular Volume 77.3 fl (81-99); Mean Platelet Volume 8.5 fl (7.4-10.4); Monocytes # 0.3 K/mm3 (0.1-1.0); Neutrophils # 6.1 K/mm3 (1.8-7.8); Neutrophils % 70.6 % (37.0-80.0); Platelet Count 336 K/mm3 (142-424); Red Blood Count 5.07 M/mm3 (4.20-5.40); Red Cell Distribution Width 17.9 % (11.5-17.5); White Blood Count 8.6 K/mm3 (4.8-10.8)
[2023-11-17 14:42] LABS: Chloride 98 mmol/L (98-107); Potassium 4.5 mmoL/L (3.5-5.1); Sodium 135 mmol/L (136-145)
[2023-11-17 14:44] LABS: Alanine Aminotransferase 20 U/L (12-78); Aspartate Amino Transferase 29 U/L (14-36); Bilirubin,Unconjugated 0.1 mg/dL (0.0-1.1); Blood Urea Nitrogen 32 mg/dl (7-17); Estimated Glomerular Filt Rate 41 ml/min (>60); GFR (African American) 49 ML/MIN (>60)
[2023-11-17 14:45] LABS: Albumin Level 3.9 g/dl (3.5-5.0); Alkaline Phosphatase 142 U/L (38-126); Anion Gap 13.5 mEq/L (5-15); Bilirubin,Direct 0.4 mg/dl (0.0-0.4); Bilirubin,Indirect 0.1 mg/dL (0.0-0.9); Bilirubin,Total 0.5 mg/dl (0.2-1.3); Calcium 8.9 mg/dl (8.4-10.2); Carbon Dioxide 28 mmol/L (22.0-30.0); Cholesterol 179 mg/dl (140-200); Glucose 183 mg/dl (74-100); Magnesium 2.2 mg/dl (1.6-2.3); Total Protein,Serum 7.2 g/dl (6.3-8.2); Triglycerides 115 mg/dl (30-150); VLDL Cholesterol 23 mg/dL (0-40)
[2023-11-17 14:46] LABS: Chol/HDL Ratio 1.7 (1-3.5); HDL Cholesterol 105 mg/dl (40-60)
[2023-11-17 14:57] LABS: Direct LDL Cholesterol 45.78 mg/dL (100-129)
[2023-11-17 14:58] LABS: Free T4 (Free Thyroxine) 1.75 ng/dl (0.78-2.19)
[2023-11-17 15:12] LABS: Thyroid Stimulating Hormone 2.14 uIU/mL (0.465-4.68)
== END 2023-11-17 23:59 | disposition home or self-care (01) ==
LOC: LAB 13:54
PROVIDERS: PCP Family Medicine; Visit Provider Internal Medicine
DX: R06.09 Other forms of dyspnea; R06.00 Dyspnea, unspecified; R00.1 Bradycardia, unspecified; R53.83 Other fatigue; I27.20 Pulmonary hypertension, unspecified; I25.10 Atherosclerotic heart disease of native coronary artery without angina pectoris; I21.A1 Myocardial infarction type 2; I50.9 Heart failure, unspecified; I10 Essential (primary) hypertension; G47.33 Obstructive sleep apnea (adult) (pediatric); E11.9 Type 2 diabetes mellitus without complications; Z79.4 Long term (current) use of insulin; E78.2 Mixed hyperlipidemia; I48.20 Chronic atrial fibrillation, unspecified; K21.9 Gastro-esophageal reflux disease without esophagitis
CPT/HCPCS: 36415; 80048; 80061; 80076; 83735; 84439; 84443; 85025

== ENCOUNTER 2023-12-06 11:00 | Outpatient (CLI) | payer MEDICARE, OTHER, SELFPAY ==
[2023-12-06 13:47] LABS: PHA INR Fingerstick 2.7 (0.9-1.1)
== END 2023-12-06 14:13 ==
LOC: ACC 11:02
PROVIDERS: PCP Family Medicine; Visit Provider Family Medicine
DX: Z79.01 Long term (current) use of anticoagulants (principal); I48.91 Unspecified atrial fibrillation; Z51.81 Encounter for therapeutic drug level monitoring
CPT/HCPCS: 85610; 99211; G0463

== ENCOUNTER 2023-12-29 14:45 | Outpatient (CLI) | payer MEDICARE, OTHER, SELFPAY ==
[2023-12-29 15:17] LABS: Basophils # 0.1 K/mm3 (0-0.2); Basophils % 0.8 % (0.1-2.0); Eosinophils # 0.2 K/mm3 (0.0-0.4); Eosinophils % 2.1 % (0.1-12.0); Hematocrit 36.8 % (37.0-47.0); Hemoglobin 11.3 g/dL (12.2-16.2); Lymphocytes # 1.6 K/mm3 (0.7-4.5); Lymphocytes % 14.6 % (10-50); Mean Corpuscular HGB Conc 30.6 g/dL (31.8-35.4); Mean Corpuscular Hemoglobin 23.3 pg (27.0-31.2); Mean Corpuscular Volume 76.2 fl (81-99); Mean Platelet Volume 8.5 fl (7.4-10.4); Monocytes # 0.4 K/mm3 (0.1-1.0); Neutrophils # 8.6 K/mm3 (1.8-7.8); Neutrophils % 78.4 % (37.0-80.0); Platelet Count 380 K/mm3 (142-424); Red Blood Count 4.82 M/mm3 (4.20-5.40); Red Cell Distribution Width 18.3 % (11.5-17.5)
[2023-12-29 16:40] LABS: Chloride 102 mmol/L (98-107); Sodium 135 mmol/L (136-145)
[2023-12-29 16:43] LABS: Blood Urea Nitrogen 30 mg/dl (7-17); Calcium 8.9 mg/dl (8.4-10.2); Carbon Dioxide 22 mmol/L (22.0-30.0); Estimated Glomerular Filt Rate 45 ml/min (>60); GFR (African American) 54 ML/MIN (>60); Glucose 141 mg/dl (74-100)
[2023-12-29 17:13] LABS: Thyroid Stimulating Hormone 3.15 uIU/mL (0.465-4.68)
== END 2023-12-29 23:59 | disposition home or self-care (01) ==
LOC: LAB 14:46
PROVIDERS: PCP Family Medicine; Visit Provider Internal Medicine
DX: R00.1 Bradycardia, unspecified (principal); R53.83 Other fatigue; I27.20 Pulmonary hypertension, unspecified; I25.10 Atherosclerotic heart disease of native coronary artery without angina pectoris; I21.A1 Myocardial infarction type 2; Z79.899 Other long term (current) drug therapy; Z51.81 Encounter for therapeutic drug level monitoring; Z79.01 Long term (current) use of anticoagulants; I48.91 Unspecified atrial fibrillation
CPT/HCPCS: 80048; 84443; 85025

== ENCOUNTER 2024-01-17 09:57 | Outpatient (CLI) | payer MEDICARE, OTHER, SELFPAY ==
[2024-01-17 11:29] LABS: PHA INR Fingerstick 2.4 (0.9-1.1)
== END 2024-01-17 11:31 ==
LOC: ACC 09:59
PROVIDERS: PCP Family Medicine; Visit Provider Family Medicine
DX: Z51.81 Encounter for therapeutic drug level monitoring (principal); Z79.01 Long term (current) use of anticoagulants; I48.91 Unspecified atrial fibrillation
CPT/HCPCS: 85610; 99211; G0463

== ENCOUNTER 2024-03-08 10:01 | Outpatient (CLI) | payer MEDICARE, OTHER, SELFPAY ==
[2024-03-08 10:47] LABS: PHA INR Fingerstick 2.1 (0.9-1.1)
== END 2024-03-08 10:49 ==
LOC: ACC 10:01
PROVIDERS: PCP Family Medicine; Visit Provider Family Medicine
DX: Z79.01 Long term (current) use of anticoagulants (principal); I48.91 Unspecified atrial fibrillation
CPT/HCPCS: 85610; 99211; G0463

== ENCOUNTER 2024-04-19 10:00 | Outpatient (CLI) | payer MEDICARE, OTHER, SELFPAY ==
[2024-04-19 13:14] LABS: PHA INR Fingerstick 1.9 (0.9-1.1)
[2024-04-19 15:05] LABS: Basophils # 0.1 K/mm3 (0-0.2); Basophils % 0.9 % (0.1-2.0); Eosinophils # 0.1 K/mm3 (0.0-0.4); Eosinophils % 0.7 % (0.1-12.0); Hematocrit 38.4 % (37.0-47.0); Hemoglobin 11.4 g/dL (12.2-16.2); Lymphocytes % 16.4 % (10-50); Mean Corpuscular HGB Conc 29.7 g/dL (31.8-35.4); Mean Corpuscular Hemoglobin 23.1 pg (27.0-31.2); Mean Platelet Volume 9.3 fl (7.4-10.4); Monocytes # 0.5 K/mm3 (0.1-1.0); Monocytes % 4.1 % (1.7-9.3); Neutrophils # 9.5 K/mm3 (1.8-7.8); Neutrophils % 77.9 % (37.0-80.0); Platelet Count 469 K/mm3 (142-424); Red Blood Count 4.92 M/mm3 (4.20-5.40); Red Cell Distribution Width 19.6 % (11.5-17.5); White Blood Count 12.1 K/mm3 (4.8-10.8)
[2024-04-19 15:46] LABS: Alanine Aminotransferase 39 U/L (12-78); Albumin Level 4.2 g/dl (3.5-5.0); Alkaline Phosphatase 149 U/L (38-126); Anion Gap 21.6 mEq/L (5-15); Aspartate Amino Transferase 35 U/L (14-36); Bilirubin,Direct 0.4 mg/dl (0.0-0.4); Bilirubin,Total 0.4 mg/dl (0.2-1.3); Blood Urea Nitrogen 48 mg/dl (7-17); Calcium 9.2 mg/dl (8.4-10.2); Carbon Dioxide 19 mmol/L (22.0-30.0); Chloride 103 mmol/L (98-107); Cholesterol 201 mg/dl (140-200); Estimated Glomerular Filt Rate 32 ml/min (>60); GFR (African American) 39 ML/MIN (>60); Glucose 200 mg/dl (74-100); Potassium 5.6 mmoL/L (3.5-5.1); Sodium 138 mmol/L (136-145); Total Protein,Serum 7.9 g/dl (6.3-8.2); Triglycerides 142 mg/dl (30-150); VLDL Cholesterol 28 mg/dL (0-40)
[2024-04-19 15:57] LABS: Chol/HDL Ratio 1.5 (1-3.5); HDL Cholesterol 131 mg/dl (40-60)
[2024-04-19 15:59] LABS: Direct LDL Cholesterol 38.29 mg/dL (100-129)
[2024-04-19 16:06] LABS: Free T4 (Free Thyroxine) 1.76 ng/dl (0.78-2.19)
[2024-04-19 16:21] LABS: Thyroid Stimulating Hormone 1.32 uIU/mL (0.465-4.68)
== END 2024-04-19 14:13 ==
LOC: ACC 10:03
PROVIDERS: Internal Medicine; PCP Family Medicine; Visit Provider Family Medicine
DX: Z79.01 Long term (current) use of anticoagulants (principal); I25.10 Atherosclerotic heart disease of native coronary artery without angina pectoris; I10 Essential (primary) hypertension; I48.91 Unspecified atrial fibrillation
CPT/HCPCS: 36415; 80048; 80061; 80076; 84439; 84443; 85025; 85610; 99211; G0463

== ENCOUNTER 2024-04-28 12:52 | Outpatient (CLI) | payer MEDICARE, OTHER, SELFPAY ==
[2024-04-28 13:25] LABS: Chloride 99 mmol/L (98-107); Potassium 5.1 mmoL/L (3.5-5.1); Sodium 136 mmol/L (136-145)
[2024-04-28 13:28] LABS: Blood Urea Nitrogen 54 mg/dl (7-17); Estimated Glomerular Filt Rate 32 ml/min (>60); GFR (African American) 39 ML/MIN (>60)
[2024-04-28 13:29] LABS: Anion Gap 23.1 mEq/L (5-15); Calcium 9.4 mg/dl (8.4-10.2); Carbon Dioxide 19 mmol/L (22.0-30.0); Glucose 200 mg/dl (74-100)
== END 2024-04-28 23:59 | disposition home or self-care (01) ==
LOC: LAB 12:54
PROVIDERS: PCP Family Medicine; Visit Provider Physician Assistant
DX: E87.5 Hyperkalemia (principal)
CPT/HCPCS: 36415; 80048

== ENCOUNTER 2024-05-19 10:56 | Outpatient (CLI) | payer MEDICARE, OTHER, SELFPAY ==
[2024-05-19 12:08] LABS: Chloride 107 mmol/L (98-107); Potassium 5.5 mmoL/L (3.5-5.1); Sodium 138 mmol/L (136-145)
[2024-05-19 12:10] LABS: Blood Urea Nitrogen 48 mg/dl (7-17)
[2024-05-19 12:11] LABS: Anion Gap 18.5 mEq/L (5-15); Calcium 9.6 mg/dl (8.4-10.2); Carbon Dioxide 18 mmol/L (22.0-30.0); Estimated Glomerular Filt Rate 34 ml/min (>60); GFR (African American) 42 ML/MIN (>60); Glucose 164 mg/dl (74-100)
[2024-05-19 14:22] LABS: PHA INR Fingerstick 1.6 (0.9-1.1)
== END 2024-05-19 15:00 ==
LOC: ACC 10:57
PROVIDERS: Internal Medicine; PCP Family Medicine; Visit Provider Family Medicine
DX: I25.10 Atherosclerotic heart disease of native coronary artery without angina pectoris (principal); Z79.01 Long term (current) use of anticoagulants; I48.91 Unspecified atrial fibrillation
CPT/HCPCS: 36415; 80048; 85610; 99211; G0463

== ENCOUNTER 2024-06-09 10:43 | Outpatient (CLI) | payer MEDICARE, OTHER, SELFPAY ==
[2024-06-09 12:08] LABS: PHA INR Fingerstick 2.2 (0.9-1.1)
== END 2024-06-09 23:59 | disposition home or self-care (01) ==
LOC: ACC 10:44
PROVIDERS: PCP Family Medicine; Visit Provider Family Medicine
DX: I48.91 Unspecified atrial fibrillation (principal); Z79.01 Long term (current) use of anticoagulants
CPT/HCPCS: 85610; 99211; G0463

== ENCOUNTER 2024-11-16 14:52 | Outpatient (CLI) | payer MEDICARE, OTHER, SELFPAY ==
[2024-11-16 16:11] LABS: Basophils # 0.1 K/mm3 (0-0.2); Basophils % 0.6 % (0.1-2.0); Eosinophils # 0.1 K/mm3 (0.0-0.4); Eosinophils % 0.8 % (0.1-12.0); Hematocrit 39.5 % (37.0-47.0); Hemoglobin 11.6 g/dL (12.2-16.2); Lymphocytes % 7.5 % (10-50); Mean Corpuscular HGB Conc 29.4 g/dL (31.8-35.4); Mean Corpuscular Hemoglobin 21.6 pg (27.0-31.2); Mean Corpuscular Volume 73.4 fl (81-99); Mean Platelet Volume 9.9 fl (7.4-10.4); Monocytes # 0.6 K/mm3 (0.1-1.0); Neutrophils # 11.9 K/mm3 (1.8-7.8); Neutrophils % 86.2 % (37.0-80.0); Nucleated Red Blood Cells # 0 10^3/uL; Nucleated Red Blood Cells % 0 %; Platelet Count 473 K/mm3 (142-424); Red Blood Count 5.38 M/mm3 (4.20-5.40); Red Cell Distribution Width 19.9 % (11.5-17.5); Red Cell Distribution Width-SD 51.1 fL; White Blood Count 13.8 K/mm3 (4.8-10.8)
[2024-11-16 16:35] LABS: Albumin Level 4.6 g/dl (3.5-5.0)
[2024-11-16 16:36] LABS: Chloride 101 mmol/L (98-107); Potassium 5.3 mmoL/L (3.5-5.1); Sodium 138 mmol/L (136-145)
[2024-11-16 16:38] LABS: Alanine Aminotransferase 75 U/L (12-78); Anion Gap 23.3 mEq/L (5-15); Aspartate Amino Transferase 77 U/L (14-36); Bilirubin,Unconjugated 0.2 mg/dL (0.0-1.1); Blood Urea Nitrogen 30 mg/dl (7-17); Carbon Dioxide 19 mmol/L (22.0-30.0); Estimated Glomerular Filt Rate 41 ml/min (>60); GFR (African American) 49 ML/MIN (>60)
[2024-11-16 16:39] LABS: Alkaline Phosphatase 180 U/L (38-126); Bilirubin,Direct 0.1 mg/dl (0.0-0.4); Bilirubin,Indirect 0.2 mg/dL (0.0-0.9); Bilirubin,Total 0.3 mg/dl (0.2-1.3); Calcium 9.9 mg/dl (8.4-10.2); Cholesterol 181 mg/dl (140-200); Glucose 238 mg/dl (74-100); Magnesium 1.8 mg/dl (1.6-2.3); Total Protein,Serum 8.4 g/dl (6.3-8.2); Triglycerides 150 mg/dl (30-150); VLDL Cholesterol 30 mg/dL (0-40)
[2024-11-16 16:51] LABS: Free T4 (Free Thyroxine) 1.41 ng/dl (0.78-2.19)
[2024-11-16 16:54] LABS: Chol/HDL Ratio 1.3 (1-3.5); Direct LDL Cholesterol < 30.00 mg/dL (100-129); HDL Cholesterol 136 mg/dl (40-60)
== END 2024-11-16 23:59 | disposition home or self-care (01) ==
LOC: RT 14:53
PROVIDERS: PCP Family Medicine; Visit Provider Internal Medicine
DX: R00.0 Tachycardia, unspecified (principal); I48.20 Chronic atrial fibrillation, unspecified; I10 Essential (primary) hypertension; I25.10 Atherosclerotic heart disease of native coronary artery without angina pectoris; R94.31 Abnormal electrocardiogram [ECG] [EKG]; R53.83 Other fatigue; E78.5 Hyperlipidemia, unspecified
CPT/HCPCS: 36415; 80048; 80061; 80076; 83735; 84439; 84443; 85025; 93270

== ENCOUNTER 2024-12-27 14:13 | Outpatient (CLI) | payer MEDICARE, OTHER, SELFPAY ==
--- NOTE | 2024-12-27 14:30 | CA_ITS ---
APPROVED REPORT EXAM: Comprehensive 2D, Doppler, and color-flow Echocardiogram Chemistry Intern: Gina Ortega RVT Ht: 5 ft 6 in Wt: 299lbs BSA: 2.37 BP: 161/93 mmHg Indications: ABN EKG,A-FIB,CAD,TOPHER,HTN,HLD,FATIGUE,ÁLVAREZ,DM 2D Dimensions IVSd 1.09 cm F: 0.6-1.0 LVEF (Visual) 69.20 % PWd 0.80 cm F: 0.6 - 1.0 LA Volume 60.10 mL LVDd 5.07 cm F: 3.9 - 5.3 LA Volume Index 25.25 mL/m2 (M/F) 16-34 LVDs 3.09 cm F: 2.2 - 3.5 M-Mode Dimensions LA Diam 3.94 cm (1.9-4.0) TAPSE 2.24 (<1.7) LV Diastology E Decel Time 210 (160-240 msec) E/A Ratio 0.9 Aortic Valve NOAH Index 0.86 cm2/m2 AoV Peak Chris. 219.0 (50-130 cm/s) AO Peak GR. 19.20 mmHg AO Mean GR. 11.00 (<5 mmHg) AO VTI 42.3 (18-25 cm) NOAH (VTI) 2.10 (2.5-4.5 cm2) Mitral Valve MV E Max Chris. 99.0 (40-130 cm/s) MV A Velocity 115.0 (40-130 cm/s) E/A Ratio 0.86 MV PHT 62.0 ms Pulmonary Valve PV Peak Velocity 181.0 (50-150 cm/s) Left Ventricle The left ventricle is normal size. The left ventricular systolic function is normal. The left ventricular ejection fraction is within the normal range. There is increased LV wall thickness. There is normal LV segmental wall motion. Diastolic function is indeterminate. LVEF is 60%. Right Ventricle Right ventricle is mildly dilated. The right ventricular systolic function is normal. Atria Left atrium is mildly dilated. Right atrium is mildly dilated. There is no Doppler evidence of interatrial shunt. Aortic Valve Aortic valve is mildly thickened. There is no hemodynamically significant aortic valvular stenosis. Trace aortic regurgitation. Mitral Valve The mitral valve is normal in structure. No evidence of mitral valve stenosis. Trace mitral regurgitation. Tricuspid Valve Tricuspid valve is grossly normal in structure and function. Trace tricuspid regurgitation. There is insufficient TR jet to estimate RVSP. Pulmonic Valve The pulmonary valve is normal in structure. Trace pulmonic regurgitation. Great Vessels The aortic root is not well-visualized. IVC is normal in size and collapses >50% with inspiration. Pericardium There is no pericardial effusion. Other Information Study Quality: Fair Conclusion Normal biventricular systolic function (LVEF 60%). Mild RV dilation. Mild biatrial dilation. No significant valvular stenosis or regurgitation. Electronically signed by : Donna Mendoza MD 01/04/2025 00:35:00
== END 2024-12-27 23:59 | disposition home or self-care (01) ==
LOC: RT 14:14
PROVIDERS: PCP Family Medicine; Visit Provider Internal Medicine
DX: I11.9 Hypertensive heart disease without heart failure (principal); I25.10 Atherosclerotic heart disease of native coronary artery without angina pectoris; R94.31 Abnormal electrocardiogram [ECG] [EKG]; I27.20 Pulmonary hypertension, unspecified; E78.5 Hyperlipidemia, unspecified; I48.91 Unspecified atrial fibrillation; G47.33 Obstructive sleep apnea (adult) (pediatric); E11.9 Type 2 diabetes mellitus without complications
CPT/HCPCS: 93306

== ENCOUNTER 2025-02-05 09:42 | Outpatient (CLI) | payer MEDICARE, OTHER, SELFPAY ==
--- NOTE | 2025-02-05 09:44 | MM_ITS ---
PROCEDURE INFORMATION: Exam: Bilateral Screening 3D Mammography Exam date and time: 02/05/2025 10:05 AM Age: 69 years old Clinical indication: Screening examination TECHNIQUE: Imaging protocol: Bilateral Screening tomosynthesis and 2D mammography including computer-aided detection (CAD) when performed. COMPARISON: No relevant prior studies available. FINDINGS: MAMMOGRAPHY: Breast composition: The breasts are almost entirely fatty. Mass: None. Architectural distortion: None. Calcifications: No suspicious calcifications. Asymmetric density: None. Skin thickening: None. Axillary adenopathy: None. IMPRESSION: No mammographic evidence of malignancy. Annual screening is recommended unless otherwise clinically indicated. ASSESSMENT: BI-RADS Category 1: Negative.
== END 2025-02-05 23:59 | disposition home or self-care (01) ==
LOC: RAD 09:43
PROVIDERS: PCP Family Medicine; Visit Provider Family Medicine
DX: Z12.31 Encounter for screening mammogram for malignant neoplasm of breast (principal); R92.313 Mammographic fatty tissue density, bilateral breasts
CPT/HCPCS: 77063; 77067

== ENCOUNTER 2025-02-05 13:52 | Outpatient (RCR) | payer MEDICARE, OTHER, SELFPAY | END 2025-02-05 23:59 | disposition home or self-care (01) | LOC: PT 13:52 | PROVIDERS: PCP Family Medicine; Visit Provider Family Medicine | DX: R26.89 Other abnormalities of gait and mobility (principal) | CPT/HCPCS: 97162 ==

== ENCOUNTER 2025-02-26 20:30 | Inpatient (IN) | payer MEDICARE, OTHER, SELFPAY ==
--- OUTSIDE RECORDS SUMMARY | 2025-01-11 09:00 | XMS_ITS | Encounter Summary ---
Author Organization [facility] Address [address] [place] [address] Care Team Providers Care Slate Handler Name Role Phone Avinash Buck MD Primary Care Provider + Reason for Referral * Diagnostic Imaging (Routine) - Authorized Specialty Diagnoses / Procedures Referred By Contac t Referred To Contact Diagnoses Encounter for screening mammogram for malignant neoplasm of breast Procedures Mammo Screening Digital Tomosynthesis Bilateral With CAD Avinash Buck MD [facility] [place] [address] Phone: tel: fax: [facility] [address] [address] Phone: tel: fax: Referral ID Status Reason Start Date Expiration Date V isits Requested Visits Authorized [id number] Authorized 01/11/2025 04/12/2026 1 1 * Physical Therapy (Routine) - Closed Specialty Diagnoses / Procedures Referred By Contac t Referred To Contact Physical Therapy Diagnoses Fall in home, initial encounter Functional gait abnormality Procedures MD OFFICE/OUTPATIENT NEW MODERATE MDM 45 MINUTES Avinash Buck MD [facility] [address] [place] [address] Phone: tel: fax: [facility] [address] [facility] [address] [place] [address] Phone: tel: fax: Referral ID Status Reason Start Date Expiration Date V isits Requested Visits Authorized [id number] Closed Specialty Services Required 01/11/2025 04/12/2026 1 1 Reason for Visit * Reason Comments Follow-up Diabetes Encounter Details Date Type Department Care Team (Late st Contact Info) Description 01/11/2025 9:00 AM EDT Office Visit [facility] [address] [place] [address] Avinash Buck MD [address] [place] [address] Type 2 diabetes mellitus with hyperglycemia, with long-term current use of insulin (Primary Dx); Essential hypertension; BMI 50.0-59.9, adult; Fall in home, initial encounter; Functional gait abnormality; Encounter for screening mammogram for malignant neoplasm of breast; Obstructive sleep apnea of adult Social History Tobacco Use Types Packs/Day Years Used Date Smoking Tobacco: Never Smokeless Tobacco: Never Alcohol Use Standard Drinks/Week Comments Never 0 (1 standard drink = 0.6 oz pur e alcohol) PHQ-2 Answer Date Recorded Retired PHQ-9: Brief Depression Severity Measure Score 18 07/05/2023 PHQ-2 Answer Date Recorded Patient Health Questionnaire-2 Score 0 10/13/2024 Comments Unknown Sex and Gender Information Value Date Recorded Sex Assigned at Female 10/03/2024 7:48 AM EST Legal Sex Female 11:07 AM EDT Gender Identity Not on file Sexual Orientation Not on file documented as of this encounter Last Filed Vital Signs Vital Sign Reading Time Taken Comments Blood Pressure 130/60 01/11/2025 8:59 AM EDT Pulse 74 01/11/2025 8:59 AM EDT Temperature 36.4 C (97.5 F) 01/11/2025 8:59 AM EDT Respiratory Rate 24 01/11/2025 8:59 AM EDT Oxygen Saturation 99% 01/11/2025 8:59 AM EDT Inhaled Oxygen Concentration - - Weight 141 kg (311 lb 6.4 oz) 01/11/2025 8:59 AM EDT Height 167.6 cm (5' 6 ) 01/11/2025 8:59 AM EDT Body Mass Index 50.26 01/11/2025 8:59 AM EDT documented in this encounter Progress Notes * Avinash Buck MD - 01/11/2025 9:00 AM EDT Images from the original note were not included. Chief Complaint Patient presents with Follow-up Diabetes Subjective Jodee Mendez is a 69 y.o. who presents for chronic care. She reports stable health. She did have 1 fall recently when she fell out of bed. Her has purchased a lift for these scenarios and was able to get her back to her feet without having to call EMS. Regarding her diabetes glucose log was reviewed today. Patient had 3 hypoglycemic event earlier in the week although she does not recall any specific change that may have led to these events. She is otherwise taking her medicines as prescribed. For her atrial fibrillation she is now on surveillance visits with [facility] cardiology every 6 months The following portions of the patient's history were reviewed and updated as appropriate: allergies, current medications, past family history, past medical history, past social history, past surgicalhistory, and problem list. Review of Systems Objective Vital Signs: BP 130/60 Pulse 74 Temp 97.5 ??F (36.4 ??C) Resp 24 Ht 167.6 cm (66 ) Wt (!) 141 kg (311 lb 6.4 oz) SpO2 99% BMI 50.26 kg/m?? Physical Exam Constitutional: Appearance: Normal appearance. HENT: Head: Normocephalic and atraumatic. Right Ear: Tympanic membrane and ear canal normal. Left Ear: Tympanic membrane and ear canal normal. Nose: Nose normal. Mouth/Throat: Mouth: Mucous membranes are moist. Pharynx: Oropharynx is clear. Eyes: Conjunctiva/sclera: Conjunctivae normal. Cardiovascular: Rate and Rhythm: Normal rate and regular rhythm. Heart sounds: Normal heart sounds. No murmur heard. Pulmonary: Effort: Pulmonary effort is normal. No respiratory distress. Breath sounds: Normal breath sounds. Musculoskeletal: Cervical back: Normal range of motion and neck supple. No tenderness. Lymphadenopathy: Cervical: No cervical adenopathy. Skin: General: Skin is warm and dry. Neurological: Mental Status: She is alert. Psychiatric: Mood and Affect: Mood normal. Result Review The following data was reviewed by: Avinash Buck MD on 01/11/2025: A1C Last 3 Results 07/04/2024 08:21 10/13/2024 11:21 01/11/2025 09:09 HGBA1C Last 3 Results Hemoglobin A1C 7.40 8.4 7.4 Data reviewed : Box Storage Worker notes [facility] Cardiology 01/09/25, Labs [facility]-11/16/24 CBC, CMP, TSH, LDL Assessment and Plan Diagnoses and all orders for this visit: 1. Type 2 diabetes mellitus with hyperglycemia, with long-term current use of insulin (Primary) Comments: Control has improved. Continue current medications without changes. Reassess in 3 months Orders: - POC Glycosylated Hemoglobin (Hb A1C) 2. Essential hypertension Comments: Stay well. No change in medications. Reassess every 3 months 3. BMI 50.0-59.9, adult 4. Fall in home, initial encounter Comments: Order for physical therapy Orders: - Ambulatory Referral to Physical Therapy for Evaluation & Treatment 5. Functional gait abnormality - Ambulatory Referral to Physical Therapy for Evaluation & Treatment 6. Encounter for screening mammogram for malignant neoplasm of breast Comments: Mammogram will be arranged Orders: - Mammo Screening Digital Tomosynthesis Bilateral With CAD; Future 7. Obstructive sleep apnea of adult Overview: On CPAP and Modafinil Orders: - modafinil (PROVIGIL) 200 MG tablet; Take 1 tablet by mouth Every Morning. Dispense: 90 tablet; Refill: 1 Follow Up Return in about 3 months (around 04/13/2025) for Next scheduled follow up. Patient was given instructions and counseling regarding her condition or for health maintenance advice. Please see specific information pulled into the AVS if appropriate. documented in this encounter Plan of Treatment Upcoming Encounters Date Type Department Care Team (Late st Contact Info) Description 05/01/2025 10:45 AM EDT Office Visit [facility] [address] [place] [address] Avinash Buck MD [address] [facility] [place] [address] documented as of this encounter Procedures Procedure Name Priority Date/Time Associated Diagnosis Comments POCT GLYCOSYLATED HEMOGLOBIN (HGB A1C) Routine 01/11/2025 9:09 AM EDT Type 2 diabetes mellitus with hyperglycemia, with long-term current use of insulin documented in this encounter Results * Mammo Screening Digital Tomosynthesis Bilateral With CAD (02/05/2025) Anatomical Region Laterality Modality Breast N/A Mammography Avinash Buck MD IMG MAMMOGRAPHY ORDERABL ES Final Result * (ABNORMAL) POC Glycosylated Hemoglobin (Hb A1C) (01/11/2025 9:09 AM EDT) Hemoglobin A1C 7.4(A) 4.5 - 5.7 % [facility] Lot Number [id number] [facility] Expiration Date 09/25/2026 [facility] Blood 01/11/2025 9:09 AM EDT Avinash Buck MD POINT OF CARE TEST ORDER SHAYE Final Result [facility]
[address] [place] [address], documented in this encounter Visit Diagnoses Diagnosis Type 2 diabetes mellitus with hyperglycemia, with long-term current use of insulin- Primary Essential hypertension Unspecified essential hypertension BMI 50.0-59.9, adult Fall in home, initial encounter Functional gait abnormality Encounter for screening mammogram for malignant neoplasm of breast Obstructive sleep apnea of adult documented in this encounter Care Teams Slate Handler Relationship Specialty Start Date End Date Avinash Buck MD [address] [place] [address] PCP - General Family Medicine 12/01/21 documented as of this encounter
--- OUTSIDE RECORDS SUMMARY | 2025-01-11 09:00 | XMS_ITS | Encounter Summary ---
Author Organization [facility] Address [address] [place] [address] Care Team Providers Care Key Account Executive Name Role Phone Avinash Buck MD Primary Care Provider + Reason for Referral * Diagnostic Imaging (Routine) - Authorized Specialty Diagnoses / Procedures Referred By Contac t Referred To Contact Diagnoses Encounter for screening mammogram for malignant neoplasm of breast Procedures Mammo Screening Digital Tomosynthesis Bilateral With CAD Avinash Buck MD [address] [address] Phone: tel: fax: [facility] [address] [address] Phone: tel: fax: Referral ID Status Reason Start Date Expiration Date V isits Requested Visits Authorized [id number] Authorized 01/11/2025 04/12/2026 1 1 * Physical Therapy (Routine) - Closed Specialty Diagnoses / Procedures Referred By Contac t Referred To Contact Physical Therapy Diagnoses Fall in home, initial encounter Functional gait abnormality Procedures ND OFFICE/OUTPATIENT NEW MODERATE MDM 45 MINUTES Avinash Buck MD [facility] [place] [address] Phone: tel: fax: [facility] [address] [facility] [address] [place] [address] Phone: tel: fax: Referral ID Status Reason Start Date Expiration Date V isits Requested Visits Authorized [id number] Closed Specialty Services Required 01/11/2025 04/12/2026 1 1 Reason for Visit * Reason Comments Follow-up Diabetes Encounter Details Date Type Department Care Team (Late st Contact Info) Description 01/11/2025 9:00 AM EDT Office Visit [facility] [address] [facility] [place] [address] Avinash Buck MD [address] [place] [address] Type 2 diabetes mellitus with hyperglycemia, [...] she is now on surveillance visits with [facility] cardiology every 6 months The following [...] A1C 7.40 8.4 7.4 Data reviewed : Commercial Credit Head notes [facility] Cardiology 01/09/25, Labs [facility]-11/16/24 CBC, CMP, TSH, LDL Assessment and Plan [...] Description 05/01/2025 10:45 AM EDT Office Visit [facility] [address] [facility] [place] [address] Avinash Buck MD [address] [facility] [address] documented as of this encounter [...] Hemoglobin A1C 7.4(A) 4.5 - 5.7 % [facility] Lot Number [id number] [facility] Expiration Date 09/25/2026 [facility] Blood 01/11/2025 9:09 AM EDT Avinash Buck MD POINT OF CARE TEST ORDER SHAYE Final Result [facility]
[address] [place] [address], documented in this encounter Visit Diagnoses Diagnosis Type 2 diabetes mellitus with hyperglycemia, with long-term current use of insulin- Primary Essential hypertension Unspecified essential hypertension BMI 50.0-59.9, adult Fall in home, initial encounter Functional gait abnormality Encounter for screening mammogram for malignant neoplasm of breast Obstructive sleep apnea of adult documented in this encounter Care Teams Key Account Executive Relationship Specialty Start Date End Date Avinash Buck MD [address] [place] [address] PCP - General Family Medicine 12/01/21 documented as of this encounter
--- OUTSIDE RECORDS SUMMARY | 2025-02-06 08:15 | XMS_ITS | Encounter Summary ---
Author Organization [facility] Address [address] [place] [phone] Care Team Providers Care Oral And Maxillofacial Surgery Resident Name Role Phone Avinash Buck MD Primary Care Provider + Reason for Visit * Reason Comments Restless Legs Syndrome Hypoglycemia At night Encounter Details Date Type Department Care Team (Late st Contact Info) Description 02/06/2025 8:15 AM EDT Office Visit [facility] [address] [facility] [place] [place] [address] Avinash Buck MD 210 [facility] [address] Restless legs syndrome (Primary Dx); Type 2 diabetes mellitus with hypoglycemia without coma, with long-term current use of insulin; Bipolar disorder, in partial remission, most recent episode hypomanic; Microcytic anemia Social History Tobacco Use Types Packs/Day Years [...] Sign Reading Time Taken Comments Blood Pressure 146/76 02/06/2025 8:09 AM EDT Pulse 80 02/06/2025 8:09 AM EDT Temperature 36.4 C (97.5 F) 02/06/2025 8:09 AM EDT Respiratory Rate 18 02/06/2025 8:09 AM EDT Oxygen Saturation - - Inhaled Oxygen Concentration - - Weight 142 kg (312 lb) 02/06/2025 8:09 AM EDT Height 167.6 cm (5' 6 ) 02/06/2025 8:09 AM EDT Body Mass Index 50.36 02/06/2025 8:09 AM EDT documented in this encounter Progress Notes * Avinash Buck MD - 02/06/2025 8:15 AM EDT Chief Complaint Patient presents with Restless Legs Syndrome Hypoglycemia At night Subjective Jodee Mendez is a 69 y.o. who presents for new onset of restless legs over the last month. Patient has a history of iron deficiency. Labs in November did show a microcytic anemia. Approximately 1month ago she also had Tiadylt ER added to her medication regimen. While she has a history of iron deficiency she does not recall restless leg symptoms being associated. She denies any abnormal movements noticeable during the day Patient takes Vraylar for bipolar disorder and her has noticed some breakthrough danielle symptoms such as increased talkativeness, excess spending, hyperactivity. Concerns also raised by both the patient and her regarding hypoglycemia that has been occurring at night Patient has also recently had dental work with more procedures planned to allow for proper fitting dentures. She is currently using Lovenox injections prescribed by her manager product marketing while Eliquis is being held. The following portions of the patient's history were reviewed and updated as appropriate: allergies, current medications, past family history, past medical history, past social history, past surgicalhistory, and problem list. Review of Systems Objective Vital Signs: BP 146/76 Pulse 80 Temp 97.5 ??F (36.4 ??C) Resp 18 Ht 167.6 cm (66 ) Wt (!) 142 kg (312 lb) BMI 50.36 kg/m?? Physical Exam Vitals reviewed. Constitutional: Appearance: Normal appearance. Neurological: General: No focal deficit present. Mental Status: She is alert. Result Review Assessment and Plan Diagnoses and all orders for this visit: 1. Restless legs syndrome (Primary) Comments: Rule out RICHARD as cause. May need reduction in Vraylar if ID is not present. TSH will also be monitored. Orders: - CBC (No Diff) - Iron Profile w/o Ferritin - Ferritin - TSH Rfx On Abnormal To Free T4 2. Type 2 diabetes mellitus with hypoglycemia without coma, with long-term current use of insulin Comments: Side effect of treatmen. Reducet nighttime dose of insulin to 20 units. Contact office for hypo or hyperglycemia 3. Bipolar disorder, in partial remission, most recent episode hypomanic Comments: Vraylar is decreased may require additional mood stabilizer versus closer monitoring for worsening danielle Orders: - TSH Rfx On Abnormal To Free T4 4. Microcytic anemia - CBC (No Diff) - Iron Profile w/o Ferritin - Ferritin Follow Up No follow-ups on file. Patient was given instructions and counseling regarding her condition or for health maintenance advice. Please see specific information pulled into the AVS if appropriate. documented in this encounter Plan of Treatment Upcoming Encounters Date Type Department Care Team (Late st Contact Info) Description 05/01/2025 10:45 AM EDT Office Visit [facility] [address] [facility] [place] [address] Avinash Buck MD 210 [facility] [place] [address] documented as of this encounter Procedures Procedure Name Priority Date/Time Associated Diagnosis Comments TSH RFX ON ABNORMAL TO FREE T4 Routine 02/06/2025 8:32 AM EDT Restless legs syndrome Bipolar disorder, in partial remission, most recent episode hypomanic IRON PROFILE Routine 02/06/2025 8:32 AM EDT Restless legs syndrome Microcytic anemia CBC (NO DIFF) Routine 02/06/2025 8:32 AM EDT Restless legs syndrome Microcytic anemia FERRITIN Routine 02/06/2025 8:32 AM EDT Restless legs syndrome Microcytic anemia documented in this encounter Results * TSH Rfx On Abnormal To Free T4 (02/06/2025 8:32 AM EDT) TSH 1.750 0.270 - 4.200 uIU/mL [facility] Blood 02/06/2025 8:32 AM EDT 02/06/2025 Narrative [facility] (AMBULATORY) - 02/07/2025 3:07 AM EDT Performed at: [address] [place] [id number] Senior J2Ee Developer: Ishmael Munoz MD, Phone: [phone] Patient Fasting: Y Avinash Buck MD LAB BLOOD ORDERABLES Fin al Result Performing Organization Address [facility] Co de Phone Number [facility] (AMBULATORY) [address] [place] [address], [facility] [address] [place] [address], [place] [phone] * Ferritin (02/06/2025 8:32 AM EDT) Pathologist [facility] Ferritin 19.20 13.00 - 150.00 ng/mL [facility] Comment:Results may be false ly decreased if patient taking Biotin. Blood 02/06/2025 8:32 AM EDT 02/06/2025 Narrative [facility] ([facility]ORY) - 02/07/2025 3:07 AM EDT Performed at: [address] [place] [address] [address] [place], [place] [id number] Senior J2Ee Developer: Ishmael Munoz MD, Phone: [phone] Patient Fasting: Y Avinash Buck MD LAB BLOOD ORDERABLES Fin al Result Performing Organization Address City/[facility]/ZIP Co de Phone Number [facility] (AMBULATORY) [address] [place] [address], [facility] [address] [place] [address], * (ABNORMAL) Iron Profile w/o Ferritin (02/06/2025 8:32 AM EDT) Pathologist [facility] TIBC 519 mcg/dL [facility] UIBC 498(H) 112 - 346 mcg/dL [facility] Iron 21(L) 37 - 145 mcg/dL [facility] Iron Saturation 4(L) 20 - 50 % [facility] Blood 02/06/2025 8:32 AM EDT 02/06/2025 Narrative [facility] (AM[facility]ORY) - 02/07/2025 3:07 AM EDT Performed at: [address] [place] [address] [id number] Senior J2Ee Developer: Ishmael Munoz MD, Phone: [phone] Patient Fasting: Y Avinash Buck MD LAB BLOOD ORDERABLES Fin al Result [facility] (AMBULATORY) [address] [place] [address], [facility] [address] [place] [address], * (ABNORMAL) CBC (No Diff) (02/06/2025 8:32 AM EDT) Pathologist [facility] WBC 9.97 3.40 - 10.80 10*3/mm3 [facility] RBC 4.36 3.77 - 5.28 10*6/mm3 [facility] Hemoglobin 9.0(L) 12.0 - 15.9 g/dL [facility] Hematocrit 32.2(L) 34.0 - 46.6 % [facility] MCV 73.9(L) 79.0 - 97.0 fL [facility] MCH 20.6(L) 26.6 - 33.0 pg [facility] MCHC 28.0(L) 31.5 - 35.7 g/dL [facility] RDW 17.3(H) 12.3 - 15.4 % [facility] Platelets 453(H) 140 - 450 10*3/mm3 [facility] Blood 02/06/2025 8:32 AM EDT 02/06/2025 Narrative [facility] ([facility]ORY) - 02/07/2025 3:07 AM EDT Performed at: [address] [place] [address] [place], [place] [id number] Senior J2Ee Developer: Ishmael Munoz MD, Phone: [phone] Patient Fasting: Y Avinash Buck MD LAB BLOOD ORDERABLES Fin al Result [facility] ([facility]ORY) [address] [place] [address], [facility] [address] [place] [address], documented in this encounter Visit Diagnoses Diagnosis Restless legs syndrome- Primary Restless legs syndrome (RLS) Type 2 diabetes mellitus with hypoglycemia without coma, with long-term current use of insulin Bipolar disorder, in partial remission, most recent episode hypomanic Microcytic anemia Unspecified iron deficiency anemia documented in this encounter Care Teams Oral And Maxillofacial Surgery Resident Relationship Specialty Start Date End Date Avinash Buck MD [address] [place] [address] PCP - General Family Medicine 12/01/21 documented as of this encounter
--- OUTSIDE RECORDS SUMMARY | 2025-02-06 08:15 | XMS_ITS | Encounter Summary ---
Author Organization [facility] Address [address] [place] [id number] Care Team Providers Care Supervisor Tank House Name Role Phone Avinash Buck MD Primary Care Provider + Reason for Visit * Reason Comments Restless Legs Syndrome Hypoglycemia At night Encounter Details Date Type Department Care Team (Late st Contact Info) Description 02/06/2025 8:15 AM EDT Office Visit [facility] [address] [facility] [place] [address] Avinash Buck MD [address] [place] [address] Restless legs syndrome (Primary Dx); [...] currently using Lovenox injections prescribed by her surveyor hydrographic while Eliquis is being held. The following [...] Description 05/01/2025 10:45 AM EDT Office Visit [facility] [address] [facility] [place] [address] Avinash Buck MD [address] [facility] [place] [address] documented as of [...] - 02/07/2025 3:07 AM EDT Performed at: [address] [place] [id number] Cardiac Catheterization Technician: Ishmael Munoz MD, Phone: [phone] Patient Fasting: Y Avinash Buck MD LAB BLOOD ORDERABLES Fin al Result Performing Organization Address [facility] Co de Phone Number [facility] (AMBULATORY) [address] [place] [address], [facility] [address] [place] [address], [place] [phone] * Ferritin (02/06/2025 8:32 AM EDT) Pathologist [facility] Ferritin 19.20 13.00 - 150.00 ng/mL [facility] Comment:Results may be false ly decreased if patient taking Biotin. Blood 02/06/2025 8:32 AM EDT 02/06/2025 Narrative [facility] ([facility]) - 02/07/2025 3:07 AM EDT Performed at: [address] [place] [address] [address] [place], [place] [id number] Cardiac Catheterization Technician: Ishmael Munoz MD, Phone: [phone] Patient Fasting: Y Avinash Buck MD LAB BLOOD ORDERABLES Fin al Result Performing Organization Address City/[facility]/ZIP Co de Phone Number [facility] (AMBULATORY) [address] [place] [address], [facility] [address] [place] [address], * (ABNORMAL) Iron Profile w/o Ferritin (02/06/2025 8:32 AM EDT) Pathologist [facility] TIBC 519 mcg/dL [facility] UIBC 498(H) 112 - 346 mcg/dL [facility] Iron 21(L) 37 - 145 mcg/dL [facility] Iron Saturation 4(L) 20 - 50 % [facility] Blood 02/06/2025 8:32 AM EDT 02/06/2025 Narrative [facility] (AMB[facility]ORY) - 02/07/2025 3:07 AM EDT Performed at: [address] [place] [id number] Cardiac Catheterization Technician: Ishmael Munoz MD, Phone: [phone] Patient Fasting: Y Avinash Buck MD LAB BLOOD ORDERABLES Fin al Result [facility] (AMBULATORY) [address] [place] [address], [facility] [address] [place] [address], * (ABNORMAL) CBC (No Diff) (02/06/2025 8:32 AM EDT) Pathologist [facility] WBC 9.97 3.40 - 10.80 10*3/mm3 [facility] [...] 02/07/2025 3:07 AM EDT Performed at: [address] [place] [address] [place], [place] [id number] Cardiac Catheterization Technician: Ishmael Munoz MD, Phone: [phone] Patient Fasting: Y Avinash Buck MD LAB BLOOD ORDERABLES Fin al Result [facility] ([facility]BUL[facility]ORY) [address] [place] [address], [facility] [address] [place] [address], documented in this encounter Visit Diagnoses Diagnosis Restless legs syndrome- Primary Restless legs syndrome (RLS) Type 2 diabetes mellitus with hypoglycemia without coma, with long-term current use of insulin Bipolar disorder, in partial remission, most recent episode hypomanic Microcytic anemia Unspecified iron deficiency anemia documented in this encounter Care Teams Supervisor Tank House Relationship Specialty Start Date End Date Avinash Buck MD [address] [place] [address] PCP - General Family Medicine 12/01/21 documented as of this encounter
[2025-02-26] VITALS (8 sets, daily range): BP systolic 101–161; BP diastolic 45–78; PULSE 85–138; RESP 16–28; TEMP 36.7; O2SAT 91–99; BMI 50.0
--- NOTE | 2025-02-26 21:23 | ECG_ITS ---
APPROVED REPORT Exam: Resting ECG HR:125 bpm ECG Measurements Heart Rate 125 AXES QRSd 140 QRS -53 QT 363 T -6 QTc 437 Conclusion ATRIAL FIBRILLATION WITH RAPID VENTRICULAR RESPONSE LEFT AXIS DEVIATION [QRS AXIS < -30] RIGHT BUNDLE BRANCH BLOCK [120+ ms QRS DURATION, UPRIGHT V1, 40+ ms S IN I/aVL/V4/V5/V6] ABNORMAL ECG UNCONFIRMED REPORT Electronically signed by : ARIES FLYNN, 02/28/2025 01:22:08
--- OUTSIDE RECORDS SUMMARY | 2025-02-26 21:29 | XMS_ITS | Encounter Summary ---
[facility] Organization [facility] Address [address] [place] [phone] Care Team Providers Care Veterinary Epidemiologist Name Role Phone Avinash Buck MD Primary Care Provider + Reason for Visit * Reason Onset Date Comments Med Refill 01/22/2025 Encounter Details Date Type Department Care Team (Late st Contact Info) Description 01/22/2025 Refill [facility] 210 [facility] [place] [address] Avinash Buck MD 210 [facility] [place] [address] Type 2 diabetes mellitus with hyperglycemia, with long-term current use of insulin Social History Tobacco Use Types Packs/Day Years [...] on file documented as of this encounter Plan of Treatment Upcoming Encounters Date Type Department Care Team (Late st Contact Info) Description 05/01/2025 10:45 AM EDT Office [facility] MED[facility] 210 [facility] [place] [address] Avinash Buck MD [address] [place] [address] documented as of this encounter Visit Diagnoses Diagnosis Type 2 diabetes mellitus with hyperglycemia, with long-term current use of insulin documented in this encounter Care Teams Veterinary Epidemiologist Relationship Specialty Start Date End Date Avinash Buck MD [address] [place] [address] PCP - General Family Medicine 12/01/21 documented as of this encounter
--- OUTSIDE RECORDS SUMMARY | 2025-02-26 21:29 | XMS_ITS | Encounter Summary ---
Author Organization [facility] Address [address] [place] [phone] Care Team Providers Care Facilities Manager Name Role Phone Avinash Buck MD Primary Care Provider + Encounter Details Date Type Department Care Team (Latest Contact Info) Description 01/11/2025 Travel Social History Tobacco Use Types Packs/Day Years [...] Description 05/01/2025 10:45 AM EDT Office Visit [facility] [address] [place] [address] Avinash Buck MD [address] [place] [address] documented as of this encounter Visit Diagnoses Not on filedocumented in this encounter Care Teams Facilities Manager Relationship Specialty Start Date End Date Avinash Buck MD [address] [place] [address] PCP - General Family Medicine 12/01/21 documented as of this encounter
--- OUTSIDE RECORDS SUMMARY | 2025-02-26 21:29 | XMS_ITS | Encounter Summary ---
[facility] Address [address] [place] [id number] Care Team Providers Care Narrative Writer Name Role Phone Avinash Buck MD Primary Care Provider + Reason for Visit * Reason Onset Date Comments Med Refill 01/19/2025 Encounter Details Date Type Department Care Team (Late st Contact Info) Description 01/19/2025 Refill [facility] 210 [facility] [place] [address] Avinash Buck MD 210 [facility] [place] [address] Type 2 diabetes mellitus with [...] Description 05/01/2025 10:45 AM EDT Office Visit [facility] MED[facility] 210 [facility] [place] [address] Avinash Buck MD [address] [place] [address] documented as of this encounter Visit Diagnoses Diagnosis Type 2 diabetes mellitus with hyperglycemia, with long-term current use of insulin documented in this encounter Care Teams Narrative Writer Relationship Specialty Start Date End Date Avinash Buck MD [address] [place] [address] PCP - General Family Medicine 12/01/21 documented as of this encounter
--- OUTSIDE RECORDS SUMMARY | 2025-02-26 21:29 | XMS_ITS | Encounter Summary ---
[facility] Address [address] [place] [address] Care Team Providers Care Manager Cath Lab Name Role Phone Avinash Buck MD Primary Care Provider + Reason for Visit * Reason Onset Date Comments Med Refill 02/19/2025 Encounter Details Date Type Department Care Team (Late st Contact Info) Description 02/19/2025 Refill [facility] MEDICINE 210 [facility] [place] [address] Avinash Buck MD 210 [facility] [place] [address] Seizure disorder Social History Tobacco Use Types Packs/Day Years [...] Description 05/01/2025 10:45 AM EDT Office Visit [facility] MEDICINE [address] [facility] [place] [address] Avinash Buck MD [address] [place] [address] documented as of this encounter Visit Diagnoses Diagnosis Seizure disorder Unspecified epilepsy without mention of intractable epilepsy documented in this encounter Care Teams Manager Cath Lab Relationship Specialty Start Date End Date Avinash Buck MD [address] [place] [address] PCP - General Family Medicine 12/01/21 documented as of this encounter
--- OUTSIDE RECORDS SUMMARY | 2025-02-26 21:29 | XMS_ITS | Encounter Summary ---
Author Organization [facility] Address [address] [place] [address] Care Team Providers Care Gas Systems Worker Name Role Phone Avinash Buck MD Primary Care Provider + Reason for Visit * Reason Onset Date Comments Med Refill 02/19/2025 Encounter Details Date Type Department Care Team (Late st Contact Info) Description 02/19/2025 Refill [facility] MEDICINE 210 [facility] [place] [address] Avinash Buck MD 210 [facility] [place] [address] Obstructive sleep apnea of adult Social History [...] Description 05/01/2025 10:45 AM EDT Office Visit [facility] MEDICINE [address] [facility] [place] [address] Avinash Buck MD [address] [place] [address] documented as of this encounter Visit Diagnoses Diagnosis Obstructive sleep apnea of adult documented in this encounter Care Teams Gas Systems Worker Relationship Specialty Start Date End Date Avinash Buck MD [address] [place] [address] PCP - General Family Medicine 12/01/21 documented as of this encounter
--- OUTSIDE RECORDS SUMMARY | 2025-02-26 21:29 | XMS_ITS | Encounter Summary ---
[facility] Organization [facility] Address [address] [place] [id number] Care Team Providers Care Corsage Maker Name Role Phone Avinash Buck MD Primary Care Provider + Encounter Details Date Type Department Care Team (Late Contact Info) Description 02/07/2025 Results Follow-Up [facility] MEDICINE [address] [facility] [place] [address] Avinash Buck MD [address] [place] [address] Social History Tobacco Use Types Packs/Day Years [...] Encounters Date Type Department Care Team (Late Contact Info) Description 05/01/2025 10:45 AM EDT Office Visit [facility] MEDICINE [address] [place] [place] [address] Avinash Buck MD [address] [place] [address] Scheduled Orders Name Type Priority Associated Diagnoses Orde r Schedule CBC (No Diff) Lab Routine Iron deficiency anemia, unspecified iron deficiency anemia type Expected: 03/23/2025 (Approximate), Expires: 05/10/2026 documented as of this encounter Visit Diagnoses Diagnosis Iron deficiency anemia, unspecified iron deficiency anemia type- Primary documented in this encounter Care Teams Corsage Maker Relationship Specialty Start Date End Date Avinash Buck MD [address] [place] [address] PCP - General Family Medicine 12/01/21 documented as of this encounter
--- OUTSIDE RECORDS SUMMARY | 2025-02-26 21:29 | XMS_ITS | Clinical Summary ---
Author Organization [facility] Address [address] [place] [address] Care Team Providers Care Collator Operator Name Role Phone Avinash Buck MD Primary Care Provider + Allergies No known active allergies Medications amiodarone (PACERONE) 200 MG tablet Take 0.5 tablets by mouth Daily. Active s-cldsixqgclcv-ba gae (DEPLIN) 15-90.314 MG capsule capsule Take 1 capsule by mouth Daily. 90 capsule 11 024 Active Continuous Glucose Sensor (FreeStyle Jose 2 Sensor) miscIndications:T ype 2 diabetes mellitus with hyperglycemia, with long-term current use of insulin,Long-term insulin use Use 1 each Every 14 (Fourteen) Days. 6 each 4 024 Active Fetzima 40 MG capsule sustained-release 24 hr Take 40 mg by mouth Daily. 30 capsule 11 024 Active lansoprazole (PREVACID) 30 MG capsuleIndication s:Gastroesophagea l reflux disease without esophagitis Take 1 capsule by mouth Daily. 90 capsule 3 024 Active apixaban (ELIQUIS) 5 MG tablet tabletIndications :Permanent atrial fibrillation Take 1 tablet by mouth Every 12 (Twelve) Hours. 180 tablet 3 024 Active rosuvastatin (CRESTOR) 10 MG tabletIndications :Hypercholesterol emia Take 1 tablet by mouth Daily. 90 tablet 3 025 Active traZODone (DESYREL) 50 MG tabletIndications :Type 2 diabetes mellitus with hyperglycemia, with long-term current use of insulin TAKE 1 TABLET BY MOUTH EVERY NIGHT 90 tablet 3 025 Active levothyroxine (SYNTHROID, LEVOTHROID) 125 MCG tabletIndications :Acquired hypothyroidism Take 1 tablet by mouth Daily. 90 tablet 3 025 Active B-D UF III MINI PEN NEEDLES 31G X 5 MM miscIndications:T ype 2 diabetes mellitus with hyperglycemia, with long-term current use of insulin,Long-term insulin use USE DIRECTED TWICE DAILY 100 each 3 025 Active Vraylar 4.5 MG capsule capsuleIndication s:Mood disorder TAKE 1 CAPSULE BY MOUTH DAILY 90 capsule 3 025 Active Jardiance 25 MG tablet tabletIndications :Type 2 diabetes mellitus with hyperglycemia, with long-term current use of insulin TAKE 1 TABLET BY MOUTH DAILY 90 tablet 2 025 Active lisinopril (PRINIVIL,ZESTRIL ) 40 MG tabletIndications :Essential hypertension TAKE 1 TABLET BY MOUTH DAILY 90 tablet 1 025 Active Tiadylt ER 120 MG 24 hr capsule Take 1 capsule by mouth Daily. 025 Active amLODIPine (NORVASC) 10 MG tablet Take 1 tablet by mouth Daily. Active phenytoin ER (DILANTIN) 100 MG capsuleIndication s:Seizure disorder TAKE 3 CAPSULES BY MOUTH EVERY NIGHT 90 capsule 3 025 Active HumuLIN 70/30 KwikPen (70-30) 100 UNIT/ML suspension pen-injectorIndic ations:Type 2 diabetes mellitus with hyperglycemia, with long-term current use of insulin ADMINISTER 55 UNITS IN THE MORNING, 20 UNITS AT NOON, 30 UNITS IN THE EVENING 30 mL 3 025 Active metFORMIN (GLUCOPHAGE) 1000 MG tabletIndications :Type 2 diabetes mellitus with hyperglycemia, with long-term current use of insulin Take 1 tablet by mouth 2 (Two) Times a Day. 180 tablet 3 025 Active ferrous sulfate 325 (65 FE) MG tabletIndications :Iron deficiency anemia, unspecified iron deficiency anemia type Take 1 tablet by mouth Daily With Breakfast. 90 tablet 025 Active torsemide (DEMADEX) 20 MG tablet TAKE 1 TABLET BY MOUTH DAILY 90 tablet 025 Active modafinil (PROVIGIL) 200 MG tabletIndications :Obstructive sleep apnea of adult Take 1 tablet by mouth Every Morning. 90 tablet 1 025 Active OXcarbazepine (TRILEPTAL) 150 MG tabletIndications :Seizure disorder Take 1 tablet by mouth 2 (Two) Times a Day. 180 tablet 3 025 Active sertraline (ZOLOFT) 100 MG tablet Take 2 tablets by mouth Daily. 180 tablet 3 025 Active sertraline (ZOLOFT) 100 MG tablet Take 2 tablets by mouth Daily. 180 tablet 3 024 2024 Discontinued(R eorder) OXcarbazepine (TRILEPTAL) 150 MG tabletIndications :Seizure disorder TAKE 1 TABLET BY MOUTH TWICE DAILY 180 tablet 3 025 2024 Discontinued(R eorder) torsemide (DEMADEX) 20 MG tablet TAKE 1 TABLET BY MOUTH DAILY 90 tablet 025 2024 Discontinued modafinil (PROVIGIL) 200 MG tabletIndications :Obstructive sleep apnea of adult Take 1 tablet by mouth Every Morning. 90 tablet 1 025 2024 Discontinued(R eorder) Active Problems Problem Noted Date Diagnosed Date Hammertoe of second toe of right foot 04/03/2024 History of cardioversion 10/07/2023 Type 2 diabetes mellitus wit h hyperglycemia, with long-term current use of insulin 12/01/2021 Assessment & Plan (10/13/2024 11:36 AM EST): Orders: POCT glycated hemoglobin, total POC Albumin/Creatinine Ratio Urine Lipid Panel Comprehensive Metabolic Panel Assessment & Plan (07/04/2024 9:52 AM EST): Control is improving. Assess A1c. If A1c is not at goal the midday dose of insulin will be increased. Reassess in 3 months. Declining renal function may require adjustment of other medications such as metformin and would reduce effectiveness of empagliflozin. Assessment & Plan (09/23/2023 2:04 PM EST): Diabetes is worsening. Continue current treatment regimen. Diabetes will be reassessed in 3 months No medication change will be made. With cardioversion patient should be able to tolerate activity better and plans for cardiac rehabilitation. Increase exercise should improve glycemic control. Reassess in 3 months Assessment & Plan (09/24/2022 10:35 AM EST): Diabetes is improving with treatment. Reminded to bring in blood sugar diary at next visit. Discussed foot care. Medication changes per orders. Decrease insulin dosing by 5 units in both the morning and nighttime dosing. Make gradual increases in Ozempic with goal to take 0.25 mg weekly Diabetes will be reassessed in 3 months. Assessment & Plan (07/16/2022 11:23 AM EST): Diabetes is unchanged. Medication changes per orders. Diabetes will be reassessed 6 weeks. Patient seems to be very sensitive to the Ozempic and her dose will be reduced further to approximately 0.125 mg (9 clicks on the Ozempic pen). This dosage adjustment will be made to try to reduce GI side effects as patient does seem to be responding to the medication. Continue use of CGM and if hypoglycemic events persist after 2 weeks on this new, lower dose of Ozempic we will have patient reduce her insulin. Return in 6 weeks Assessment & Plan (06/04/2022 11:37 AM EDT): Diabetes is worsening. Medication changes per orders. Diabetes will be reassessed 6 weeks.. Patient will start Ozempic. Discontinue Glyxambi. Start Jardiance 25 mg Assessment & Plan (03/04/2022 11:44 AM EDT): Diabetes is worsening. Continue current treatment regimen. Dietary recommendations for ADA diet. Cause Analyst referral. Diabetes will be reassessed in 3 months. intermediate designer current use of anticoagulant Assessment & Plan (10/13/2024 11:36 AM EST): Assessment & Plan (12/15/2021 9:31 AM EDT): INR if office was Obstructive sleep apnea of adult 12/01/2021 Overview (12/01/2021): On CPAP and Modafinil Assessment & Plan (10/13/2024 11:36 AM EST): GERD without esophagitis 12/01/2021 Acquired hypothyroidism 12/01/2021 Assessment & Plan (10/13/2024 11:36 AM EST): Orders: TSH Assessment & Plan (09/24/2022 10:35 AM EST): TSH ordered for surveillance Bipolar disorder in full remission 12/01/2021 Essential hypertension 12/01/2021 Assessment & Plan (10/13/2024 11:36 AM EST): Assessment & Plan (07/04/2024 9:53 AM EST): Patient was asked to check her blood pressure more frequently and her will send results of home monitoring Assessment & Plan (09/23/2023 2:04 PM EST): Hypertension is stable and controlled Continue current treatment regimen. Blood pressure will be reassessed in 3 months. Assessment & Plan (09/24/2022 10:36 AM EST): Hypertension is unchanged. Continue current treatment regimen. Blood pressure will be reassessed in 3 months Patient to monitor blood pressure at home daily. Assessment & Plan (03/04/2022 11:45 AM EDT): Hypertension is unchanged. Continue current treatment regimen. Dietary sodium restriction. Blood pressure will be reassessed in 3 months. Permanent atrial fibrillation 12/01/2021 Assessment & Plan (07/04/2024 9:53 AM EST): I have advised discussion of transition to DOAC with cardiology although made the patient and her aware these may be cost prohibitive depending on insurance coverage. Seizure disorder 12/01/2021 Overview (12/01/2021): Last Seizure 2018 Assessment & Plan (10/13/2024 11:36 AM EST): Assessment & Plan (09/24/2022 10:36 AM EST): Stable. Dilantin level ordered Morbid (severe) obesity due to excess calories 0 12/01/2021 Assessment & Plan (10/13/2024 1:04 PM EST): Patient's (Body mass index is 48.65 kg/m .) indicates that they are morbidly/severely obese (BMI > 40 or > 35 with obesity - related health condition) with health conditions that include obstructive sleep apnea, hypertension, and diabetes mellitus . Weight is improving with lifestyle modifications. BMI is above average; BMI management plan is completed. We discussed portion control and increasing exercise. Assessment & Plan (06/04/2022 11:36 AM EDT): Patient's (Body mass index is 52.48 kg/m .) indicates that they are morbidly obese (BMI > 40 or > 35 with obesity - related health condition) with health conditions that include hypertension and diabetes mellitus . Weight is unchanged. BMI is is above average; BMI management plan is completed. We discussed portion control, increasing exercise and pharmacologic options including Ozempic. Patient was given a sample of Ozempic to start and will return in 6 weeks BMI 50.0-59.9, adult 12/01/2021 Encounters Date Type Department Care Team Description 02/26/2025 [facility] FAMILY MEDICINE [address] [place] [address] Avinash Buck MD 02/19/2025 [facility] FAMILY MEDICINE [address] [place] [address] Avinash Buck MD Seizure disorder [facility] [address] [place] [address] Avinash Buck MD Obstructive sleep apnea of adult 02/16/2025 Telephone [facility] MEDICINE [address] [address] Avinash Buck MD 02/12/2025 Refill [facility] MEDICINE [address] [place] [address] Avinash Buck MD 02/08/2025 Results Follow-Up [facility] MEDICINE [address] [place], [place] [address] Avinash Buck MD 02/07/2025 Results Follow-Up [facility] MEDICINE [address] [place] [address] Avinash Buck MD 02/06/2025 8:15 AM EDT Office Visit [facility] MED[facility]INE [address] [place] [address] Avinash Buck MD Restless legs syndrome (Primary Dx); Type 2 diabetes mellitus with hypoglycemia without coma, with long-term current use of insulin; Bipolar disorder, in partial remission, most recent episode hypomanic; Microcytic anemia 02/06/2025 Travel 01/22/2025 Refill [facility] [address] [place] [address] Avinash Buck MD Type 2 diabetes mellitus with hyperglycemia, with long-term current use of insulin 01/19/2025 Refill [facility] [address] [place] [address] Avinash Buck MD Type 2 diabetes mellitus with hyperglycemia, with long-term current use of insulin 01/15/2025 Refill [facility] [address] [place] [address] Avinash Buck MD Seizure disorder 01/15/2025 Refill [facility] [address] [place] [address] Avinash Buck MD Seizure disorder 01/11/2025 9:00 AM EDT Office Visit [facility] [address] [place] [address] Avinash Buck MD Type 2 diabetes mellitus with hyperglycemia, with long-term current use of insulin (Primary Dx); Essential hypertension; BMI 50.0-59.9, adult; Fall in home, initial encounter; Functional gait abnormality; Encounter for screening mammogram for malignant neoplasm of breast; Obstructive sleep apnea of adult 01/11/2025 Travel 12/19/2024 Refill [facility] [address] [place] [address] Avinash Buck MD Type 2 diabetes mellitus with hyperglycemia, with long-term current use of insulin; Essential hypertension 11/30/2024 Telephone [facility] [address] [place] [address] Avinash Buck MD Prior Authorization (Modafinil ) 11/28/2024 Refill [facility] [address] [place] [address] Avinash Buck MD Mood disorder from Last 3 Months Immunizations Immunization Administration Dates Next Due Fluzone High-Dose 65+YRS 07/04/2024 Fluzone High-Dose 65+yrs 07/05/2023,06/04/2022 Pneumococcal Conjugate 20-Valent (PCV20) 022 Td (TDVAX) 06/27/1991 Family History Medical History Relation Name Comments Diabetes Brother Tiago Zenon Hyperlipidemia Brother Tiago Zenon Diabetes Father Deonte Zenon Stroke Father Deonte Zenon Depression Mother Christianne Zenon Diabetes Mother Christianne Zenon Hyperlipidemia Mother Christianne Zenon Stroke Mother Christianne Zenon Thyroid disease Mother Christianne Zenon Relation Name Status Comments Brother Tiago Zenon Father Deonte Zenon Mother Christianne Zenon Social History Tobacco Use Types Packs/Day Years Used Date Smoking Tobacco: Never Smokeless Tobacco: Never Tobacco Cessation:Counseling Given: Not Answered Alcohol Use Standard Drinks/Week Comments Never 0 [...] on file Sexual Orientation Not on file Last Filed Vital Signs Vital Sign Reading Time Taken Comments Blood Pressure 146/76 02/06/2025 8:09 AM EDT Pulse 80 02/06/2025 8:09 AM EDT Temperature 36.4 C (97.5 F) 02/06/2025 8:09 AM EDT Respiratory Rate 18 02/06/2025 8:09 AM EDT Oxygen Saturation 99% 01/11/2025 8:59 AM EDT Inhaled Oxygen Concentration - - Weight 142 kg (312 lb) 02/06/2025 8:09 AM EDT Height 167.6 cm (5' 6 ) 02/06/2025 8:09 AM EDT Body Mass Index 50.36 02/06/2025 8:09 AM EDT Plan of Treatment Upcoming Encounters Date Type Department Care Team (Late st Contact Info) Description 05/01/2025 10:45 AM EDT Office Visit [facility] [address] [facility] [place] [address] Avinash Buck MD [address] [facility] [place] [address] Health Maintenance Due Date Last Done Comments DXA SCAN 1954 COLOGUARD 01/01/2000 COLON CANCER SCREENING 5 YEA R SIGMOIDOSCOPY 01/01/2000 CT COLONOGRAPHY 01/01/2000 FECAL OCCULT BLOOD TEST 01/01/2000 FIT Testing (1 year) 01/01/2000 TDAP/TD VACCINES (2 - Tdap) 06/27/2001 06/27/1991 ZOSTER VACCINE (1 of 2) 2004 HEPATITIS C SCREENING 12/01/2021 COVID-19 Vaccine (1 - 2023-2 5 season) 2024 DIABETIC EYE EXAM 01/10/2025 01/11/2024, , 05/12/2021, Additional history exists INFLUENZA VACCINE 05/09/2025 07/04/2024, , 06/04/2022, Additional history exists HEMOGLOBIN A1C 07/13/2025 01/11/2025, 03/0 02/2025, 07/04/2024, Additional history exists ANNUAL WELLNESS VISIT 10/13/2025 10/13/2024 , 10/13/2024, 07/05/2023, Additional history exists LIPID PANEL 10/13/2025 10/13/2024, 04/09, 11/17/2023, Additional history exists URINE MICROALBUMIN-CREATININ E RATIO (uACR) 10/13/2025 10/13/2024 DIABETIC FOOT EXAM 01/25/2026 01/25/2025, 0 01/16/2025, 10/16/2024, Additional history exists COLONOSCOPY 08/10/2026 08/10/2016 COLORECTAL CANCER SCREENING 08/10/2026 MAMMOGRAM 02/05/2027 02/05/2025 Pneumococcal Vaccine 50+ Completed 06/04/2022 Procedures Procedure Name Priority Date/Time Associated Diagnosis Comments TSH RFX ON ABNORMAL TO FREE T4 Routine 02/06/2025 8:32 AM EDT Restless legs syndrome Bipolar disorder, in partial remission, most recent episode hypomanic FERRITIN Routine 02/06/2025 8:32 AM EDT Restless legs syndrome Microcytic anemia IRON PROFILE Routine 02/06/2025 8:32 AM EDT Restless legs syndrome Microcytic anemia CBC (NO DIFF) Routine 02/06/2025 8:32 AM EDT Restless legs syndrome Microcytic anemia MAMMO SCREENING DIGITAL TOMOSYNTHESIS BILATERAL W CAD Routine 02/05/2025 Encounter for screening mammogram for malignant neoplasm of breast SCANNED - FOOT EXAM 01/25/2025 SCANNED - FOOT EXAM 01/16/2025 POCT GLYCOSYLATED HEMOGLOBIN (HGB A1C) Routine 01/11/2025 9:09 AM EDT Type 2 diabetes mellitus with hyperglycemia, with long-term current use of insulin POC ALBUMIN/CREATININE RATIO Routine 10/13/2024 11:38 AM EST Type 2 diabetes mellitus with hyperglycemia, with long-term current use of insulin LIPID PANEL Routine 10/13/2024 11:37 AM EST Type 2 diabetes mellitus with hyperglycemia, with long-term current use of insulin from Last 3 Months or Most Recently Relevant to Health Maintenance Results * TSH Rfx On Abnormal To Free T4 (02/06/2025 8:32 AM EDT) TSH 1.750 0.270 - 4.200 uIU/mL [facility] Blood 02/06/2025 8:32 AM EDT 02/06/2025 Narrative [facility] (AMBULATORY) - 02/07/2025 3:07 AM EDT Performed at: [address] [place] [id number] Lump Room Supervisor: Ishmael Munoz MD, Phone: [phone] Patient Fasting: Y us Avinash Buck MD LAB BLOOD ORDERABLES Fin al Result [facility] (AMBULATORY) [address] [place] [address], [place] [phone] [facility] [address] [place] [address], [place] [phone] * (ABNORMAL) Iron Profile w/o Ferritin (02/06/2025 8:32 AM EDT) TIBC 519 mcg/dL [facility] UIBC 498(H) 112 - 346 mcg/dL [facility] Iron 21(L) 37 - 145 mcg/dL [facility] Iron Saturation 4(L) 20 - 50 % [facility] Blood 02/06/2025 8:32 AM EDT 02/06/2025 Narrative [facility] (AMBULATORY) - 02/07/2025 3:07 AM EDT Performed at: [address] [place] [address] [address] [place], [place] [id number] Lump Room Supervisor: Ishmael Munoz MD, Phone: [phone] Patient Fasting: Y Avinash Buck MD LAB BLOOD ORDERABLES Fin al Result Performing Organization Address [facility]/ZIP Co de Phone Number [facility] (AMBULATORY) [address] [place] [address], [place] [phone] [facility] [address] [place] [address], [place] [phone] * (ABNORMAL) CBC (No Diff) (02/06/2025 8:32 AM EDT) [facility] WBC 9.97 3.40 - 10.80 10*3/mm3 [facility] [...] - 02/07/2025 3:07 AM EDT Performed at: [address] [place] [address] [address] [place], [place] [id number] Lump Room Supervisor: Ishmael Munoz MD, Phone: [phone] Patient Fasting: Y Avinash Buck MD LAB BLOOD ORDERABLES Fin al Result Performing Organization Address City/[facility]/ZIP Co de Phone Number [facility] (AMBULATORY) [address] [place] [address], [place] [phone] [facility] [address] [place] [address], * Ferritin (02/06/2025 8:32 AM EDT) Ferritin 19.20 13.00 - 150.00 ng/mL [facility] Comment:Results may be false ly decreased if patient taking Biotin. Blood 02/06/2025 8:32 AM EDT 02/06/2025 Narrative [facility] (AMBULATORY) - 02/07/2025 3:07 AM EDT Performed at: [address] [place] [id number] Lump Room Supervisor: Ishmael Munoz MD, Phone: [phone] Patient Fasting: Y Avinash Buck MD LAB BLOOD ORDERABLES Fin al Result [facility] (AMBULATORY) [address] [place] [address], [facility] [address] [place] [address], * Mammo Screening Digital Tomosynthesis Bilateral With CAD (02/05/2025) Anatomical Region Laterality Modality Breast N/A Mammography Avinash Buck MD IMG MAMMOGRAPHY ORDERABL ES Final Result * FOOT EXAM SCANNED (01/25/2025) Avinash Buck MD CHART REVIEW TABS Fin al Result * FOOT EXAM SCANNED (01/16/2025) Avinash Buck MD CHART REVIEW TABS Fin al Result * (ABNORMAL) POC Glycosylated Hemoglobin (Hb A1C) (01/11/2025 9:09 AM EDT) Hemoglobin A1C 7.4(A) 4.5 - 5.7 % [facility] Lot Number [id number] [facility] Expiration Date 09/25/2026 [facility] Blood 01/11/2025 9:09 AM EDT Avinash Buck MD POINT OF CARE TEST ORDER SHAYE Final Result [facility]
[address] [place] [address], * (ABNORMAL) POC Albumin/Creatinine Ratio Urine (10/13/2024 11:38 AM EST) POC ALBUMIN, URINE 30 mg/L POC CREATININE, URINE 50 mg/dL POC Urine Albumin Creatinine Ratio 30-300 mg/g <30 Comment:abnormal Lot Number [id number] Expiration Date 05/08/2025 Urine 10/13/2024 11:3 8 AM EST Avinash Buck MD POINT OF CARE TEST ORDER SHAYE Final Result * Lipid Panel (10/13/2024 11:37 AM EST) Total Cholesterol 180 100 - 199 mg/dL [facility] Triglycerides 111 0 - 149 mg/dL [facility] HDL Cholesterol 113 >39 mg/dL [facility] VLDL Cholesterol Matt 19 5 - 40 mg/dL [facility] LDL Chol Calc (NIH) 48 0 - 99 mg/dL [facility] Blood 10/13/2024 11:3 7 AM EST 10/13/2024 Narrative [facility] (AM[facility]UL[facility]ORY) - 10/14/2024 9:10 AM EST Performed at: 01 - [address] [id number] Lump Room Supervisor: Jonathan Oh PhD, Phone: [phone] Patient Fasting: Y Avinash Buck MD LAB BLOOD ORDERABLES Fin al Result [facility] (AMBULATORY) [address] [place] [id number], [facility] [address] [place] [address], from Last 3 Months or Most Recently Relevant to Health Maintenance Insurance MEDICARE A & B Member Subscriber Plan / Payer ( fective 2019-Present) Name:Mary Mendeznn Alana Member ID:[id number] Relation to Subscriber:Self Name:Jodee Mendeze Subscriber ID:[id number] Payer ID:[id number] Group ID:Not on file Type:Not on file Address: [facility] [id number] COMMERCIAL Advance Directives Documents on File Type Date Recorded Patient Commercial Intern Expl anation LIVING WILL - SCAN 09/28/2023 12:24 PM DANIEL GORDON, 09/07/2023 Care Teams Collator Operator Relationship Specialty Start Date End Date Avinash Buck MD [address] [place] [address] PCP - General Family Medicine 12/01/21
--- OUTSIDE RECORDS SUMMARY | 2025-02-26 21:29 | XMS_ITS | Encounter Summary ---
[facility] Organization [facility] Address [address] [place] [address] Care Team Providers Care Hasher Operator Name Role Phone Avinash Buck MD Primary Care Provider + Reason for Visit * Reason Onset Date Comments Med Refill 01/07/2024 Encounter Details Date Type Department Care Team (Late st Contact Info) Description 01/07/2024 Refill [facility] MEDICINE [address] [facility] [address] Avinash Buck MD 210 [facility] [place] [address] Gastroesophageal reflux disease without esophagitis Social History Tobacco Use Types Packs/Day Years Used Date Smoking Tobacco: Never Smokeless Tobacco: Never Alcohol Use Standard Drinks/Week Comments Never 0 (1 standard drink = 0.6 oz pur e alcohol) PHQ-2 Answer Date Recorded Retired PHQ-9: Brief Depression Severity Measure Score 18 07/05/2023 PHQ-2 Answer Date Recorded Retired PHQ-9: Brief Depression Severity Measure Score 18 07/05/2023 Comments Unknown Sex and Gender Information Value Date Recorded Sex Assigned at Female 10/03/2024 7:48 AM EST Legal Sex Female 11:07 AM EDT Gender Identity Not on file Sexual Orientation Not on file documented as of this encounter Plan of Treatment Upcoming Encounters Date Type Department Care Team (Late st Contact Info) Description 05/01/2025 10:45 AM EDT Office Visit [facility] MED[facility] [address] [facility] [place] [address] Avinash Buck MD [address] [place] [address] documented as of this encounter Visit Diagnoses Diagnosis Gastroesophageal reflux disease without esophagitis Esophageal reflux documented in this encounter Additional Health Concerns Assessment Noted Time PHQ-2 Depression Total Score: 2 07/05/20 23 2:06 PM EST documented as of this encounter Care Teams Hasher Operator Relationship Specialty Start Date End Date Avinash Buck MD [address] [place] [address] PCP - General Family Medicine 12/01/21 documented as of this encounter
--- OUTSIDE RECORDS SUMMARY | 2025-02-26 21:29 | XMS_ITS | Encounter Summary ---
[facility] [address] [place] [id number] Care Team Providers Care Terrapin Fisher Name Role Phone Avinash Buck MD Primary Care Provider + Encounter Details Date Type Department Care Team (Late st Contact Info) Description 10/16/2024 Results Follow-Up [facility] MED[facility]INE [address] [facility] [place] [address] Avinash Buck MD [address] [place] [address] Social History Tobacco Use Types [...] Description 05/01/2025 10:45 AM EDT Office Visit [facility] [address] [place] [address] Avinash Buck MD [address] [place] [address] documented as of this encounter Visit Diagnoses Not on filedocumented in this encounter Care Teams Terrapin Fisher Relationship Specialty Start Date End Date Avinash Buck MD [address] [place] [address] PCP - General Family Medicine 12/01/21 documented as of this encounter
--- OUTSIDE RECORDS SUMMARY | 2025-02-26 21:29 | XMS_ITS | Encounter Summary ---
[facility] Address [address] [place] [id number] Care Team Providers Care General Intern Name Role Phone Avinash Buck MD Primary Care Provider + Reason for Visit * Reason Onset Date Comments Med Refill 02/26/2025 Encounter Details Date Type Department Care Team (Late st Contact Info) Description 02/26/2025 Refill [facility] [address] [facility] [place] [address] Avinash Buck MD [address] [facility] [place] [place] [address] Social History Tobacco Use Types [...] Description 05/01/2025 10:45 AM EDT Office Visit [facility] [address] [place] [address] Avinash Buck MD [address] [place] [facility] [address] documented as of this encounter Visit Diagnoses Not on filedocumented in this encounter Care Teams General Intern Relationship Specialty Start Date End Date Avinash Buck MD [address] [place] [address] PCP - General Family Medicine 12/01/21 documented as of this encounter
--- OUTSIDE RECORDS SUMMARY | 2025-02-26 21:29 | XMS_ITS | Encounter Summary ---
[facility] [address] [place] [phone] Care Team Providers Care Environmental Department Manager Name Role Phone Avinash Buck MD Primary Care Provider + Reason for Visit * Reason Comments Med Refill Encounter Details Date Type Department Care Team (Late Contact Info) Description 01/15/2025 Refill [facility] MEDICINE [address] [place] [address] Avinash Buck MD [address] [place] [address] Seizure disorder Social History Tobacco Use [...] Description 05/01/2025 10:45 AM EDT Office Visit [facility] MEDICINE [address] [place] [address] Avinash Buck MD [address] [place] [address] documented as of this encounter Visit Diagnoses Diagnosis Seizure disorder Unspecified epilepsy without mention of intractable epilepsy documented in this encounter Care Teams Environmental Department Manager Relationship Specialty Start Date End Date Avinash Buck MD [address] [place] [address] PCP - General Family Medicine 12/01/21 documented as of this encounter
--- OUTSIDE RECORDS SUMMARY | 2025-02-26 21:29 | XMS_ITS | Encounter Summary ---
[facility] Address [address] [place] [address] Care Team Providers Care Keeper Head Name Role Phone Avinash Buck MD Primary Care Provider + Reason for Visit * Reason Onset Date Comments Med Refill 01/15/2025 Encounter Details Date Type Department Care Team (Late st Contact Info) Description 01/15/[address] [facility] MED[facility] [address] [facility] [place] [address] Avinash Buck MD 210 [facility] [place] [address] Seizure disorder Social History Tobacco [...] Visit [facility] [address] [facility] [place] [address] Avinash Buck MD [address] [place] [address] documented as of this encounter Visit Diagnoses Diagnosis Seizure disorder Unspecified epilepsy without mention of intractable epilepsy documented in this encounter Care Teams Keeper Head Relationship Specialty Start Date End Date Avinash Buck MD [address] [place] [address] PCP - General Family Medicine 12/01/21 documented as of this encounter
--- OUTSIDE RECORDS SUMMARY | 2025-02-26 21:30 | XMS_ITS | Encounter Summary ---
[facility] Address [address] [place] [phone] Care Team Providers Care Client Relationship Manager Name Role Phone Avinash Buck MD Primary Care Provider + Encounter Details Date Type Department Care Team (Late st Contact Info) Description 02/16/[address] [facility] [address] [place] [address] Avinash Buck MD [address] [place] [address] Social History Tobacco Use Types [...] on file documented as of this encounter Miscellaneous Notes * Telephone Encounter - Leticia Garibay MA - 02/16/2025 4:56 PM EDT We have faxed this before but it needs to be reprinted and signed with a wet signature and refaxed. * Telephone Encounter - Kourtney Lozano RegSched Rep - 02/16/2025 4:00 PM EDT Caller: [facility] - [phone] - [phone] FX Relationship: Pharmacy Best call back number: [phone] What is the best time to reach you: ANYTIME Who are you requesting to speak with (clinical staff, provider, specific staff member): CLINICAL STAFF What was the call regarding: CLINIC PHARMACY SAYS THAT THEY DID NOT RECEIVE THE DIABETES MANAGEMENTEXAM NOTE. THEY WOULD LIKE TO HAVE THIS BE SENT TO THEM. Is it okay if the provider responds through MyChart: NO documented in this encounter Plan of Treatment Upcoming Encounters Date Type Department Care Team (Late st Contact Info) Description 05/01/2025 10:45 AM EDT Office Visit [facility] [address] [place] [phone] Avinash Buck MD [address] [place] [address] documented as of this encounter Visit Diagnoses Not on filedocumented in this encounter Care Teams Client Relationship Manager Relationship Specialty Start Date End Date Avinash Buck MD [address] [place] [address] PCP - General Family Medicine 12/01/21 documented as of this encounter
--- OUTSIDE RECORDS SUMMARY | 2025-02-26 21:30 | XMS_ITS | Encounter Summary ---
Author Organization [facility] Address [address] [place] [phone] Care Team Providers Care Hay Chopper Name Role Phone Avinash Buck MD Primary Care Provider + Encounter Details Date Type Department Care Team (Latest Contact Info) Description 02/06/2025 Travel Social History Tobacco Use Types Packs/Day [...] 10:45 AM EDT Office Visit [facility] [address] [place] [address] Avinash Buck MD [address] [place] [address] documented as of this encounter Visit Diagnoses Not on filedocumented in this encounter Care Teams Hay Chopper Relationship Specialty Start Date End Date Avinash Buck MD [address] [place] [address] PCP - General Family Medicine 12/01/21 documented as of this encounter
--- OUTSIDE RECORDS SUMMARY | 2025-02-26 21:30 | XMS_ITS | Encounter Summary ---
[facility] [address] [place] [phone] Care Team Providers Care Hotel Baggage Handler Name Role Phone Avinash Buck MD Primary Care Provider + Reason for Visit * Reason Comments Med Refill Encounter Details Date Type Department Care Team (Late st Contact Info) Description 02/12/2025 Refill [facility] MEDICINE [address] [place] [address] Avinash Buck MD [address] [place] [address] Social History Tobacco Use Types Packs/Day [...] Description 05/01/2025 10:45 AM EDT Office Visit [facility] MEDICINE [address] [place] [address] Avinash Buck MD [address] [place] [address] documented as of this encounter Visit Diagnoses Not on filedocumented in this encounter Care Teams Hotel Baggage Handler Relationship Specialty Start Date End Date Avinash Buck MD [address] [place] [address] PCP - General Family Medicine 12/01/21 documented as of this encounter
--- OUTSIDE RECORDS SUMMARY | 2025-02-26 21:30 | XMS_ITS | Encounter Summary ---
[facility] Address [address] [place] [phone] Care Team Providers Care Bundle Helper Name Role Phone Avinash Buck MD Primary Care Provider + Encounter Details Date Type Department Care Team (Late Contact Info) Description 02/08/2025 Results Follow-Up [facility] MEDICINE [address] [facility] [place] [address] Avinash Buck MD [address] [place] [address] Social History Tobacco Use Types [...] Description 05/01/2025 10:45 AM EDT Office Visit [facility] MEDICINE [address] [place] [address] Avinash Buck MD [address] [place] [address] documented as of this encounter Visit Diagnoses Not on filedocumented in this encounter Care Teams Bundle Helper Relationship Specialty Start Date End Date Avinash Buck MD [address] [place] [address] PCP - General Family Medicine 12/01/21 documented as of this encounter
--- NOTE | 2025-02-26 22:22 | CT_ITS ---
PROCEDURE INFORMATION: Exam: CTA Abdomen and Pelvis With Contrast Exam date and time: 02/26/2025 10:48 PM Age: 69 years old Clinical indication: Injury or trauma; Additional info: Fall on anticoagulants back pain TECHNIQUE: Imaging protocol: Computed tomographic angiography of the abdomen and pelvis with contrast. Exam focused on the arteries. 3D rendering (Not supervised by radiologist): MIP and/or 3D reconstructed images were created by the technologist. Radiation optimization: All CT scans at this facility use at least one of these dose optimization techniques: automated exposure control; mA and/or kV adjustment per patient size (includes targeted exams where dose is matched to clinical indication); or iterative reconstruction. Contrast material: ISOVUE; Contrast volume: 80 ml; Contrast route: INTRAVENOUS (IV); COMPARISON: CT BONY PELVIS 02/26/2025 10:43 PM FINDINGS: Diaphragm: Small hiatal hernia Aorta: No abdominal aortic aneurysm or dissection. Celiac trunk and mesenteric arteries: Patent proximal NASIR. Patent SMA. Patent celiac trunk Renal arteries: Patent renal arteries Right iliac arteries: Patent right iliac arteries. Left iliac arteries: Patent left iliac arteries. Veins: Patent IVC Liver: See Spleen finding. Gallbladder and biliary ducts: Cholecystectomy Pancreas: No ductal dilation. Spleen: Calcified granulomas spleen and liver Adrenal glands: Bilateral adrenal thickening Kidneys and ureters: Renal scarring. Several renal cysts and too small to characterize renal hypodensities. Nonobstructing nephrolithiasis. Stomach and bowel: Large amount of stool in the colon. Appendix: The appendix is not identified, but there is no pericecal inflammatory changes. Intraperitoneal space: No evidence of pneumoperitoneum. Lymph nodes: No lymphadenopathy by size criteria Urinary bladder: Fluid in the urinary bladder. Reproductive: The uterus is present. Bones/joints: Degenerative changes. Soft tissues: Mild subcutaneous edema predominantly posteriorly. IMPRESSION: Large amount of stool in the colon. No evidence of acute traumatic injury in the abdomen/pelvis.
--- NOTE | 2025-02-26 22:22 | CT_ITS ---
PROCEDURE INFORMATION: Exam: CT Lumbar Spine Without Contrast Exam date and time: 02/26/2025 10:41 PM Age: 69 years old Clinical indication: Injury or trauma; Additional info: Fall midline tender TECHNIQUE: Imaging protocol: Computed tomography of the lumbar spine without contrast. Radiation optimization: All CT scans at this facility use at least one of these dose optimization techniques: automated exposure control; mA and/or kV adjustment per patient size (includes targeted exams where dose is matched to clinical indication); or iterative reconstruction. COMPARISON: CT LUMBAR SPINE WO CON 02/26/2025 10:41 PM FINDINGS: Bones/joints: Visualized vertebral body heights are preserved. Soft tissues: Please refer to separate CT abdomen/pelvis report for additional findings. IMPRESSION: Visualized vertebral body heights are preserved. If symptoms persist or spinal cord compression or nerve root compression is a concern clinically, correlation with MRI is necessary.
--- NOTE | 2025-02-26 22:22 | CT_ITS ---
PROCEDURE INFORMATION: Exam: CT Pelvis Without Contrast, Skeleton Exam date and time: 02/26/2025 10:43 PM Age: 69 years old Clinical indication: Injury or trauma; Additional info: Fall low spine and si tender b/l TECHNIQUE: Imaging protocol: Computed tomography of the pelvis without contrast. Exam focused on the skeleton. Radiation optimization: All CT scans at this facility use at least one of these dose optimization techniques: automated exposure control; mA and/or kV adjustment per patient size (includes targeted exams where dose is matched to clinical indication); or iterative reconstruction. COMPARISON: CT LUMBAR SPINE WO CON 02/26/2025 10:41 PM FINDINGS: Reproductive: The uterus is present. Urinary bladder: Fluid in the urinary bladder. Bones/joints: Old appearing deformity of the right inferior pubic ramus Soft tissues: Unremarkable. IMPRESSION: No evidence of acute fracture.
--- NOTE | 2025-02-26 22:22 | CT_ITS ---
PROCEDURE INFORMATION: Exam: CT Thoracic Spine Without Contrast Exam date and time: 02/26/2025 10:37 PM Age: 69 years old Clinical indication: Injury or trauma; Additional info: Low t spine tender fall TECHNIQUE: Imaging protocol: Computed tomography of the thoracic spine without contrast. Radiation optimization: All CT scans at this facility use at least one of these dose optimization techniques: automated exposure control; mA and/or kV adjustment per patient size (includes targeted exams where dose is matched to clinical indication); or iterative reconstruction. COMPARISON: CT THORACIC SPINE WO CON 02/26/2025 10:37 PM FINDINGS: Bones/joints: Visualized vertebral body heights are preserved. Soft tissues: Please refer to separate CT chest report for additional findings. IMPRESSION: Visualized vertebral body heights are preserved. If symptoms persist or spinal cord compression or nerve root compression is a concern clinically, correlation with MRI is necessary.
--- NOTE | 2025-02-26 22:25 | HMH.EDGENADL ---
Discharge Plan Disposition Patient Disposition: Admitted Clinical Impressions Clinical Impression: Atrial fibrillation with rapid ventricular response Discharge ED Provider: Ike Zhang General Adult HPI <Wil Waldron MD - Last Filed: 02/26/25 23:31> General Chief complaint: Back Pain/Injury Stated complaint: AO 02/26/251909 Injury back,SOA,Fast Heart Rate Time Seen by Provider: 02/26/25 21:30 Mode of Arrival: Wheelchair Source of Information: Patient and Relative Description of Symptoms (Recalled from ER Triage Doc. by RN): patient states she fell walking out of the bathroom tonight and hurt her lower back. denies hitting her head or LOC. Heart rate is elevated. History of Present Illness HPI narrative: Patient is 6-year-old female past medical history of paroxysmal atrial fibrillation on anticoagulation who presents emergency department for evaluation of traumatic injury sustained in a fall. Patient slipped in her bathroom falling on her lower back complaining of low back pain and sacral pain. Denies hitting her head, no chest pain no abdominal pain, no extremity pain. No neck pain. Patient does have slight shortness of breath without cough or other infectious symptoms. Please note that above description of symptoms, in this electronic medical record under categorization of recalled from ER triage doctor by RN are reflective of an initial nursing assessment, however, is not reflective of my full history and physical exam that was personally taken and clarified. Consequentially, this preceding description of symptoms, which may include the patient's categorized chief complaint in the EMR, do not reflect my personal clinical impression, and the ultimate description of history of present illness and patient stated complaints should be deferred to this section of the note. Unless stated otherwise or congruent with this section of the note, additional signs, symptoms, or incongruence should be interpreted as inaccurate with my clinical impression. Related Data Home Medications ?Medication ?Instructions ?Recorded ?Confirmed cariprazine 4.5 mg capsule 4.5 mg PO DAILY Mood 09/29/23 02/27/25 (Vraylar) empagliflozin 25 mg tablet 25 mg PO DAILY Diabetes 09/29/23 02/27/25 (Jardiance) flash glucose sensor (FreeStyle #1 ea 09/29/23 02/27/25 Jose 2 Sensor kit) insulin NPH-regular 70-30 U-100 55 unit SQ HS Diabetes 09/29/23 02/27/25 insulin 100 unit/mL subcutaneous pen (Humulin 70/30 U-100 KwikPen) levomefolate calcium 15 mg tablet 15 mg PO DAILY 09/29/23 02/27/25 levomilnacipran 40 mg capsule,24 40 mg PO DAILY Mood 09/29/23 02/27/25 hr,extended release (Fetzima) levothyroxine 125 mcg tablet 125 mcg PO DAILY Thyroid 09/29/23 02/27/25 lisinopril 40 mg tablet 40 mg PO DAILY High Blood Pressure 09/29/23 02/27/25 metformin 1,000 mg tablet 1,000 mg PO BIDWMEAL 09/29/23 02/27/25 modafinil 200 mg tablet 200 mg PO DAILY 09/29/23 02/27/25 oxcarbazepine 150 mg tablet 150 mg PO BID Seizures 09/29/23 02/27/25 pen needle, diabetic 31 gauge x #1,200 ea 09/29/23 02/27/2510/22 (BD Ultra-Fine Mini Pen Needle) phenytoin sodium extended 100 mg 300 mg PO HS Seizures 09/29/23 02/27/25 capsule rosuvastatin 10 mg tablet 10 mg PO HS Cholesterol 09/29/23 02/27/25 sertraline 100 mg tablet 200 mg PO BID Mood 09/29/23 02/27/25 lansoprazole 30 mg capsule,delayed 30 mg PO DAILY 10/13/23 02/27/25 release insulin NPH-regular 70-30 U-100 20 unit SQ .Lunch 12/29/23 02/27/25 insulin 100 unit/mL subcutaneous pen (Humulin 70/30 U-100 KwikPen) insulin NPH-regular 70-30 U-100 20 unit SQ QPM Diabetes 04/19/24 02/27/25 insulin 100 unit/mL subcutaneous pen (Humulin 70/30 U-100 KwikPen) trazodone 50 mg tablet 50 mg PO HS PRN Sleep 04/19/24 02/27/25 apixaban 5 mg tablet (Eliquis) 5 mg PO BID 10/17/24 02/27/25 diltiazem HCl 120 mg capsule,24 120 mg PO DAILY 02/27/25 02/27/25 hr,extended release (Tiadylt ER) ferrous sulfate 325 mg (65 mg 325 mg PO DAILY 02/27/25 02/27/25 iron) tablet (FeroSul) torsemide 20 mg tablet 20 mg PO DAILY 02/27/25 02/27/25 Previous Rx's ?Medication ?Instructions ?Recorded amiodarone 100 mg tablet 100 mg PO DAILY #30 tabs 10/17/24 amlodipine 5 mg tablet (Norvasc) 5 mg PO DAILY #30 tabs 02/13/25 Allergies Allergy/AdvReac Type Severity Reaction Status Date / Time No Known Allergies Allergy Verified 01/16/25 10:57 [facility] <Wil Waldron MD - Last Filed: 02/26/25 23:31> [facility] Disclaimer: The information contained in this section may have been updated after the patient was seen, as this information can be updated by other users. Medical History (Updated 02/27/25 @ 03:45 by Ike Zhang MD) Morbid obesity Abnormal electrocardiogram [ECG] [EKG] Tachycardia Hyperkalemia Encounter for pre-operative cardiovascular clearance Daytime somnolence Dyspnea Pulmonary hypertension Coronary artery disease CVA (cerebral vascular accident) Seizures Bipolar 1 disorder, depressed Hypertension Atrial fibrillation with RVR TOPHER (obstructive sleep apnea) Elevated heart rate with elevated blood pressure and diagnosis of hypertension Palpitations DM2 (diabetes mellitus, type 2) HLD (hyperlipidemia) HTN (hypertension) Atrial fibrillation Vulvar lesion Post-menopausal bleeding Vulvar bleeding Surgical History History of cholecystectomy Family History Other Family history of diabetes mellitus type II Family history of stroke Social History Smoking Status: Never smoker second hand exposure: No alcohol intake: never substance use type: denies use current occupational status: retired Travel in the last 8 weeks?: None household members: spouse housing: house caffeine: Yes Have you lived/traveled outside [place] in past 30 days?: No Contact w/someone who lives/traveled outside US past 30 days?: No Exposure to someone with infectious disease in past 14 days?: No Do you have a fever (greater than 100.4 F or 38 C)?: No Have you tested positive for COVID-19?: No Exposed to someone with COVID-19 in past 14 days?: No Do you have a sore throat?: No Do you have a cough?: No Do you have any weakness?: No Do you have any diarrhea?: No Are you experiencing any unusual bleeding?: No Do you have any muscle aches/pain?: No Do you have any abdominal pain?: No Are you experiencing loss of taste or smell?: No Other Medical History Have you received the Flu Vaccine for this season: No Have you received the Pneumonia Vaccine: Yes <Wil Waldron MD - Last Filed: 02/26/25 23:31> ROS Obtained: Yes Systems reviewed as appropriate & no additional complaints except as documented Physical Exam <Wil Waldron MD - Last Filed: 02/26/25 23:31> General General appearance: alert and in no apparent distress Head Head exam: atraumatic and normocephalic Eye Eye exam: Present PERRL and EOMI ENT ENT exam: Present mucous membranes moist Neck Neck exam: Present normal inspection Chest Chest inspection: Present normal inspection and symmetric chest wall rise Respiratory Respiratory exam: Present normal lung sounds bilaterally; Absent respiratory distress Cardiovascular Cardiovascular exam: Present tachycardia and irregular rhythm Abdominal Exam Abdominal exam: Present soft; Absent tenderness Extremities Exam Extremities exam: Present normal inspection Back Exam Back exam: Present other (Midline low thoracic tenderness, midline lumbar tenderness, bilateral sacroiliac tenderness.) Neurological Exam Neurological exam: Present alert Psychiatric Psychiatric exam: Present normal affect Skin Skin exam: Present warm and dry Medical Decision Making <Wil Waldron MD - Last Filed: 02/26/25 23:31> Medical Records Screening: Per USPSTF and CDC recommendations, given the prevalence of disease in our region, it is our hospital?s policy to screen for HIV and viral Hepatitis for all patients aged 18 and over and those with ongoing risk factors. [place] Inquiry Pt receiving controlled substance: No Vital Signs: 02/26/25 21:17 02/26/25 21:20 02/26/25 21:31 Temperature 98.1 F Temperature Source Oral Pulse Rate 128 H 116 H Pulse Rate [Left] 125 H Respiratory Rate 18 20 Blood Pressure 161/64 H 139/62 Blood Pressure [Right Arm] 161/64 H Blood Pressure Mean 72 67 Blood Pressure Mean [Right Arm] 96 Blood Pressure Source Blood Pressure Source [Right Arm] Automatic Cuff Blood Pressure Position [Right Arm] Sitting 02 Sat by Pulse Oximetry 98 98 97 Oxygen Delivery Method Room Air Room Air Room Air 02/26/25 22:00 02/26/25 22:15 02/26/25 22:57 Temperature Temperature Source Pulse Rate 85 126 H 138 H Pulse Rate [Left] Respiratory Rate 16 16 28 H Blood Pressure 101/70 L 129/78 Blood Pressure [Right Arm] Blood Pressure Mean 80 90 Blood Pressure Mean [Right Arm] Blood Pressure Source Blood Pressure Source [Right Arm] Blood Pressure Position [Right Arm] 02 Sat by Pulse Oximetry 98 99 97 Oxygen Delivery Method 02/26/25 23:01 02/26/25 23:31 02/27/25 00:01 Temperature Temperature Source Pulse Rate 131 H 108 H 119 H Pulse Rate [Left] Respiratory Rate 19 19 17 Blood Pressure 109/45 L 102/54 L 117/66 Blood Pressure [Right Arm] Blood Pressure Mean 66 76 Blood Pressure Mean [Right Arm] Blood Pressure Source Blood Pressure Source [Right Arm] Blood Pressure Position [Right Arm] 02 Sat by Pulse Oximetry 94 L 91 L Oxygen Delivery Method 02/27/25 00:26 02/27/25 00:32 02/27/25 01:00 Temperature Temperature Source Pulse Rate 127 H 119 H 118 H Pulse Rate [Left] Respiratory Rate 20 17 20 Blood Pressure 134/54 L 134/54 L Blood Pressure [Right Arm] Blood Pressure Mean Blood Pressure Mean [Right Arm] Blood Pressure Source Automatic Cuff Blood Pressure Source [Right Arm] Blood Pressure Position [Right Arm] 02 Sat by Pulse Oximetry 98 96 Oxygen Delivery Method Room Air Room Air 02/27/25 01:20 02/27/25 02:41 Temperature 98.5 F Temperature Source Oral Pulse Rate 124 H 114 H Pulse Rate [Left] Respiratory Rate 20 18 Blood Pressure 119/67 123/69 Blood Pressure [Right Arm] Blood Pressure Mean Blood Pressure Mean [Right Arm] Blood Pressure Source Automatic Cuff Blood Pressure Source [Right Arm] Blood Pressure Position [Right Arm] 02 Sat by Pulse Oximetry 98 Oxygen Delivery Method Room Air Room Air Lab Data Lab Results 02/26/25 21:47: WBC 13.4 H, RBC 5.59 H, Hgb 11.4 L, Hct 40.0, MCV 71.6 L, MCH 20.4 L, MCHC 28.5 L, RDW 19.6 H, Plt Count 485 H, MPV 10.8 H, Neut % (Auto) 85.4 H, Lymph % (Auto) 7.9 L, [place] % (Auto) 4.6, Eos % (Auto) 0.1, Baso % (Auto) 0.7, Neut # (Auto) 11.4 H, Lymph # (Auto) 1.1, [place] # (Auto) 0.6, Eos # (Auto) 0.0, Baso # (Auto) 0.1, Sodium 138, Potassium 4.3, Chloride 99, Carbon Dioxide 19 L, Anion Gap 24.3 H, BUN 38 H, Creatinine 1.50 H, Estimated Creat Clear 33, Estimated GFR 34 L, Est GFR ( Amer) 42 L, Glucose 249 H, Calcium 10.3 H, Total Bilirubin 0.6, AST 58 H, ALT 57, Alkaline Phosphatase 128 H, Total Protein 9.6 H, Albumin 5.3 H, Globulin 4.3 H, Albumin/Globulin Ratio 1.2 02/27/25 00:44: VBG pH 7.25 L, VBG pCO2 50.4, VBG pO2 43.5 H, VBG HCO3 21.8 L, VBG Total CO2 23.3, VBG O2 Saturation 74.1 H, VBG Base Excess -5.5 L, VBG Lactic Acid 3.3 H 02/26/25 21:47 02/26/25 21:47 Orders (Tests/Meds): ED MEDICATIONS Generic Name Dose Route Start Last Admin Trade Name Freq PRN Reason Stop Dose Admin Acetaminophen 650 mg 02/27/25 02:28 Acetaminophen 325mg Tab PO 03/29/25 02:27 Q4HP PRN Fever or Mild Pain (1-3) Enoxaparin Sodium 40 mg 02/27/25 09:00 Enoxaparin 40mg/0.4ml Syringe SUBCUT 03/29/25 08:59 DAILY BERNARDA Insulin Human Lispro 0 unit 02/27/25 06:00 Humalog 100 Units/Ml 10ml Vial (Ssi) SUBCUT 03/29/25 05:59 ACHS BERNARDA Protocol Morphine Sulfate 4 mg 02/27/25 03:11 Morphine 4mg/Ml Syringe IV 03/29/25 03:10 Q2HP PRN Chest Pain Ondansetron HCl 4 mg 02/27/25 02:28 Ondansetron 4mg/2ml Vial IV 03/29/25 02:27 Q8HP PRN Nausea Pantoprazole Sodium 40 mg 02/27/25 21:00 Pantoprazole 40mg Tablet PO 03/29/25 20:59 HS BERNARDA Discontinued Medications Generic Name Dose Route Start Last Admin Trade Name Belkis PRN Reason Stop Dose Admin Acetaminophen 1,000 mg 02/26/25 22:22 02/26/25 22:55 Acetaminophen 500mg Tab PO 02/26/25 22:23 1,000 mg ONCE ONE Administration Amlodipine Besylate 5 mg 02/27/25 00:17 02/27/25 00:23 Amlodipine 5mg Tablet PO 02/27/25 00:18 5 mg ONCE ONE Administration Diltiazem HCl 120 mg 02/27/25 00:17 02/27/25 00:23 Diltiazem Er 120mg Capsule PO 02/27/25 00:18 120 mg ONCE ONE Administration Diltiazem HCl 20 mg 02/27/25 01:16 02/27/25 01:24 Diltiazem 25mg/5ml Vial IV 02/27/25 01:17 20 mg ONCE ONE Administration Lactated Ringer's 500 mls @ 999 mls/hr 02/27/25 00:18 02/27/25 00:23 Lactated Ringer's 500ml IV 02/27/25 00:48 999 mls/hr .Q31M ONE Administration Iopamidol 80 ml 02/26/25 22:55 02/26/25 22:57 Iopamidol-370 (76%);100ml Bottle IV 02/26/25 22:56 80 ml ONCE ONE Administration Methocarbamol 1,000 mg 02/26/25 22:24 02/26/25 22:55 Methocarbamol 500mg Tablet PO 02/26/25 22:25 1,000 mg ONCE ONE Administration Morphine Sulfate 4 mg 02/26/25 22:22 02/26/25 22:56 Morphine 4mg/Ml Syringe IV 02/26/25 22:23 4 mg ONCE ONE Administration Ondansetron HCl 4 mg 02/26/25 22:22 02/26/25 22:56 Ondansetron 4mg/2ml Vial IV 02/26/25 22:23 4 mg ONCE ONE Administration Oxycodone HCl 5 mg 02/26/25 23:25 02/26/25 23:29 Oxycodone 5mg Immediate Release Tablet PO 02/26/25 23:26 5 mg ONCE ONE Administration Sodium Chloride 50 ml 02/26/25 22:55 02/26/25 22:57 0.9 % Sodium Chloride 50 Ml Vial IV 02/26/25 22:56 50 ml ONCE ONE Administration Sodium Chloride 10 ml 02/26/25 22:55 02/26/25 22:57 Sodium Chloride 0.9% 10ml Syr (Rad Only) IV 02/26/25 22:56 10 ml ONCE ONE Administration ORDERS Category Date Time Status CT angio abd/pel - TRAUMA Stat Cat Scan 02/26/25 22:[address] bony pelvis Stat Cat Scan 02/26/25 22:[address] chest wo con Stat Cat Scan 02/26/25 22:[address] lumbar spine wo con Stat Cat Scan 02/26/25 22:[address] thoracic spine wo con Stat Cat Scan 02/26/25 22:22 Completed CBC w/Auto Diff [Complete Blood Count Auto Diff] Stat Lab 02/26/25 21:47 Completed CMP [Comprehensive Metabolic Panel] Stat Lab 02/26/25 21:47 Completed VBG [Venous Blood Gas] Stat RT 02/27/25 00:44 Completed ECG Data Tracing #1: Independently interpreted by me rate is 125, rhythm is irregular, axis is leftward deviated, no ST elevation in anatomical contiguous leads, right bundle branch block. QTc 437 Medical Decision Narrative: In summary patient is 6-year-old female past medical history described above who presents emergency department for evaluation of traumatic injury sustained in a fall. Patient is hemodynamically stable nontoxic-appearing arrival, afebrile. Patient does have waxing waning heart rate with atrial fibrillation which is known to her with intermittent rapid ventricular response which I suspect may be due to secondary to pain therefore acute rate control medications were considered but will be deferred at this time. Workup from a trauma survey will be conducted with hematologic labs, CT of the chest without contrast, CT T and L-spine as well as bony pelvis. Initial inventions include multimodal pain control. CT imaging pending at time of transfer of care to the oncoming physician, Dr. Zhang. <Ike Zhang MD - Last Filed: 02/27/25 03:45> Vital Signs: 02/26/25 21:17 02/26/25 21:20 02/26/25 21:31 Temperature 98.1 F Temperature Source Oral Pulse Rate 128 H 116 H Pulse Rate [Left] 125 H Respiratory Rate 18 20 Blood Pressure 161/64 H 139/62 Blood Pressure [Right Arm] 161/64 H Blood Pressure Mean 72 67 Blood Pressure Mean [Right Arm] 96 Blood Pressure Source Blood Pressure Source [Right Arm] Automatic Cuff Blood Pressure Position [Right Arm] Sitting 02 Sat by Pulse Oximetry 98 98 97 Oxygen Delivery Method Room Air Room Air Room Air 02/26/25 22:00 02/26/25 22:15 02/26/25 22:57 Temperature Temperature Source Pulse Rate 85 126 H 138 H Pulse Rate [Left] Respiratory Rate 16 16 28 H Blood Pressure 101/70 L 129/78 Blood Pressure [Right Arm] Blood Pressure Mean 80 90 Blood Pressure Mean [Right Arm] Blood Pressure Source Blood Pressure Source [Right Arm] Blood Pressure Position [Right Arm] 02 Sat by Pulse Oximetry 98 99 97 Oxygen Delivery Method 02/26/25 23:01 02/26/25 23:31 02/27/25 00:01 Temperature Temperature Source Pulse Rate 131 H 108 H 119 H Pulse Rate [Left] Respiratory Rate 19 19 17 Blood Pressure 109/45 L 102/54 L 117/66 Blood Pressure [Right Arm] Blood Pressure Mean 66 76 Blood Pressure Mean [Right Arm] Blood Pressure Source Blood Pressure Source [Right Arm] Blood Pressure Position [Right Arm] 02 Sat by Pulse Oximetry 94 L 91 L Oxygen Delivery Method 02/27/25 00:26 02/27/25 00:32 02/27/25 01:00 Temperature Temperature Source Pulse Rate 127 H 119 H 118 H Pulse Rate [Left] Respiratory Rate 20 17 20 Blood Pressure 134/54 L 134/54 L Blood Pressure [Right Arm] Blood Pressure Mean Blood Pressure Mean [Right Arm] Blood Pressure Source Automatic Cuff Blood Pressure Source [Right Arm] Blood Pressure Position [Right Arm] 02 Sat by Pulse Oximetry 98 96 Oxygen Delivery Method Room Air Room Air 02/27/25 01:20 02/27/25 02:41 Temperature 98.5 F Temperature Source Oral Pulse Rate 124 H 114 H Pulse Rate [Left] Respiratory Rate 20 18 Blood Pressure 119/67 123/69 Blood Pressure [Right Arm] Blood Pressure Mean Blood Pressure Mean [Right Arm] Blood Pressure Source Automatic Cuff Blood Pressure Source [Right Arm] Blood Pressure Position [Right Arm] 02 Sat by Pulse Oximetry 98 Oxygen Delivery Method Room Air Room Air Lab Data Lab Results 02/26/25 21:47: WBC 13.4 H, RBC 5.59 H, Hgb 11.4 L, Hct 40.0, MCV 71.6 L, MCH 20.4 L, MCHC 28.5 L, RDW 19.6 H, Plt Count 485 H, MPV 10.8 H, Neut % (Auto) 85.4 H, Lymph % (Auto) 7.9 L, [place] % (Auto) 4.6, Eos % (Auto) 0.1, Baso % (Auto) 0.7, Neut # (Auto) 11.4 H, Lymph # (Auto) 1.1, [place] # (Auto) 0.6, Eos # (Auto) 0.0, Baso # (Auto) 0.1, Sodium 138, Potassium 4.3, Chloride 99, Carbon Dioxide 19 L, Anion Gap 24.3 H, BUN 38 H, Creatinine 1.50 H, Estimated Creat Clear 33, Estimated GFR 34 L, Est GFR ( Amer) 42 L, Glucose 249 H, Calcium 10.3 H, Total Bilirubin 0.6, AST 58 H, ALT 57, Alkaline Phosphatase 128 H, Total Protein 9.6 H, Albumin 5.3 H, Globulin 4.3 H, Albumin/Globulin Ratio 1.2 02/27/25 00:44: VBG pH 7.25 L, VBG pCO2 50.4, VBG pO2 43.5 H, VBG HCO3 21.8 L, VBG Total CO2 23.3, VBG O2 Saturation 74.1 H, VBG Base Excess -5.5 L, VBG Lactic Acid 3.3 H Orders (Tests/Meds): ED MEDICATIONS Generic Name Dose Route Start Last Admin Trade Name Freq PRN Reason Stop Dose Admin Acetaminophen 650 mg 02/27/25 02:28 Acetaminophen 325mg Tab PO 03/29/25 02:27 Q4HP PRN Fever or Mild Pain (1-3) Enoxaparin Sodium 40 mg 02/27/25 09:00 Enoxaparin 40mg/0.4ml Syringe SUBCUT 03/29/25 08:59 DAILY [facility] Insulin Human Lispro 0 unit 02/27/25 06:00 Humalog 100 Units/Ml 10ml Vial (Ssi) SUBCUT 03/29/25 05:59 ACHS BERNARDA Protocol Morphine Sulfate 4 mg 02/27/25 03:11 Morphine 4mg/Ml Syringe IV 03/29/25 03:10 Q2HP PRN Chest Pain Ondansetron HCl 4 mg 02/27/25 02:28 Ondansetron 4mg/2ml Vial IV 03/29/25 02:27 Q8HP PRN Nausea Pantoprazole Sodium 40 mg 02/27/25 21:00 Pantoprazole 40mg Tablet PO 03/29/25 20:59 HS BERNARDA Discontinued Medications Generic Name Dose Route Start Last Admin Trade Name Freq PRN Reason Stop Dose Admin Acetaminophen 1,000 mg 02/26/25 22:22 02/26/25 22:55 Acetaminophen 500mg Tab PO 02/26/25 22:23 1,000 mg ONCE ONE Administration Amlodipine Besylate 5 mg 02/27/25 00:17 02/27/25 00:23 Amlodipine 5mg Tablet PO 02/27/25 00:18 5 mg ONCE ONE Administration Diltiazem HCl 120 mg 02/27/25 00:17 02/27/25 00:23 Diltiazem Er 120mg Capsule PO 02/27/25 00:18 120 mg ONCE ONE Administration Diltiazem HCl 20 mg 02/27/25 01:16 02/27/25 01:24 Diltiazem 25mg/5ml Vial IV 02/27/25 01:17 20 mg ONCE ONE Administration Lactated Ringer's 500 mls @ 999 mls/hr 02/27/25 00:18 02/27/25 00:23 Lactated Ringer's 500ml IV 02/27/25 00:48 999 mls/hr .Q31M ONE Administration Iopamidol 80 ml 02/26/25 22:55 02/26/25 22:57 Iopamidol-370 (76%);100ml Bottle IV 02/26/25 22:56 80 ml ONCE ONE Administration Methocarbamol 1,000 mg 02/26/25 22:24 02/26/25 22:55 Methocarbamol 500mg Tablet PO 02/26/25 22:25 1,000 mg ONCE ONE Administration Morphine Sulfate 4 mg 02/26/25 22:22 02/26/25 22:56 Morphine 4mg/Ml Syringe IV 02/26/25 22:23 4 mg ONCE ONE Administration Ondansetron HCl 4 mg 02/26/25 22:22 02/26/25 22:56 Ondansetron 4mg/2ml Vial IV 02/26/25 22:23 4 mg ONCE ONE Administration Oxycodone HCl 5 mg 02/26/25 23:25 02/26/25 23:29 Oxycodone 5mg Immediate Release Tablet PO 02/26/25 23:26 5 mg ONCE ONE Administration Sodium Chloride 50 ml 02/26/25 22:55 02/26/25 22:57 0.9 % Sodium Chloride 50 Ml Vial IV 02/26/25 22:56 50 ml ONCE ONE Administration Sodium Chloride 10 ml 02/26/25 22:55 02/26/25 22:57 Sodium Chloride 0.9% 10ml Syr (Rad Only) IV 02/26/25 22:56 10 ml ONCE ONE Administration ORDERS Category Date Time Status CT angio abd/pel - TRAUMA Stat Cat Scan 02/26/25 22:[address] bony pelvis Stat Cat Scan 02/26/25 22:[address] chest wo con Stat Cat Scan 02/26/25 22:[address] lumbar spine wo con Stat Cat Scan 02/26/25 22:[address] thoracic spine wo con Stat Cat Scan 02/26/25 22:22 Completed CBC w/Auto Diff [Complete Blood Count Auto Diff] Stat Lab 02/26/25 21:47 Completed CMP [Comprehensive Metabolic Panel] Stat Lab 02/26/25 21:47 Completed VBG [Venous Blood Gas] Stat RT 02/27/25 00:44 Completed Medical Decision Narrative: In summary patient is 69-year-old female past medical history described above who presents emergency department for evaluation of traumatic injury sustained in a fall. Patient is hemodynamically stable nontoxic-appearing arrival, afebrile. Patient does have waxing waning heart rate with atrial fibrillation which is known to her with intermittent rapid ventricular response which I suspect may be due to secondary to pain therefore acute rate control medications were considered but will be deferred at this time. Workup from a trauma survey will be conducted with hematologic labs, CT of the chest without contrast, CT T and L-spine as well as bony pelvis. Initial inventions include multimodal pain control. CT imaging pending at time of transfer of care to the oncoming physician, Dr. Zhang. Leatha VILLEGAS: I assumed care of the patient at the time of handoff from the prior provider. On reassessment patient remains in A-fib with RVR. Rate is anywhere between 110 and 135. In speaking with the family, they report that she has been more weak and feeling bad over the last week or so. No specific fever, cough, urinary symptoms. Laboratory results were independently interpreted by me, white count of 13.4, metabolic acidosis noted on VBG with mildly elevated lactate. Patient does have an elevated anion gap, though it has been elevated every time she has been seen here in the last year. Renal function at baseline. Mildly elevated LFTs. CT imaging was independently interpreted by me and showed no evidence of acute traumatic injuries, specifically no spinal fracture, no intra-abdominal bleeding etc. Patient was initiated on IV fluids, home rate control medications and IV diltiazem to see if we could get her rate improved. We were unsuccessful. I had an interactive discussion with the hospitalist regarding admission. We discussed the possibility of DKA, the patient was not started on the DKA protocol in the ER. Critical Care <Wil Waldron MD - Last Filed: 02/26/25 23:31> Critical Care Time Critical Care Time: No
[2025-02-26 22:29] LABS: Hematocrit 40.0 % (37.0-47.0); Hemoglobin 11.4 g/dL (12.2-16.2); Immature Granulocytes % 1.3 %; Mean Corpuscular HGB Conc 28.5 g/dL (31.8-35.4); Mean Corpuscular Hemoglobin 20.4 pg (27.0-31.2); Mean Corpuscular Volume 71.6 fl (81-99); Nucleated Red Blood Cells % 0 %; Platelet Count 485 K/mm3 (142-424); Red Blood Count 5.59 M/mm3 (4.20-5.40); Red Cell Distribution Width-SD 48.0 fL; White Blood Count 13.4 K/mm3 (4.8-10.8)
--- NOTE | 2025-02-26 22:33 | CT_ITS ---
PROCEDURE INFORMATION: Exam: CT Chest Without Contrast; Diagnostic Exam date and time: 02/26/2025 10:39 PM Age: 69 years old Clinical indication: Injury or trauma; Additional info: Fall posterior trauma TECHNIQUE: Imaging protocol: Diagnostic computed tomography of the chest without contrast. Radiation optimization: All CT scans at this facility use at least one of these dose optimization techniques: automated exposure control; mA and/or kV adjustment per patient size (includes targeted exams where dose is matched to clinical indication); or iterative reconstruction. COMPARISON: CT CHEST W CON 09/29/2023 2:13 PM FINDINGS: Thyroid: Several thyroid nodules including 1.4 cm nodule on the left and 0.7 cm partially calcified nodule on the right. Lungs: Probable atelectatic changes. Pleural spaces: No pneumothorax. Heart: No pericardial effusion. Lymph nodes: No lymphadenopathy by size criteria. Vasculature: No thoracic aortic aneurysm. MildCoronary artery calcifications. Diaphragm: Small hiatal hernia Bones/joints: No acute fracture. Soft tissues: Grossly unremarkable. Upper abdomen: Please refer to separate CT abdomen/pelvis report for additional findings. IMPRESSION: 1. No pneumothorax. 2. Several thyroid nodules including 1.4 cm nodule on the left and 0.7 cm partially calcified nodule on the right. Recommend sonographic correlation. COMMENTS: Consistent with the [employer]'s Incidental Findings Committee white paper (J Am Bobby Radiol 2015): In patients aged 35 years and older with an incidental thyroid nodule equal to or greater than 1.[address], MRI or extrathyroidal US, further evaluation with dedicated thyroid US is recommended for patients with normal life expectancy and without comorbidities. For smaller nodules without suspicious features, no further evaluation or follow up is recommended.
[2025-02-26 22:37] LABS: Alanine Aminotransferase 57 U/L (12-78); Albumin Level 5.3 g/dl (3.5-5.0); Albumin/Globulin Ratio 1.2 (1.1-1.8); Alkaline Phosphatase 128 U/L (38-126); Anion Gap 24.3 mEq/L (5-15); Aspartate Amino Transferase 58 U/L (14-36); Bilirubin,Total 0.6 mg/dl (0.2-1.3); Blood Urea Nitrogen 38 mg/dl (7-17); Calcium 10.3 mg/dl (8.4-10.2); Carbon Dioxide 19 mmol/L (22.0-30.0); Chloride 99 mmol/L (98-107); Creatinine Clearance Estimated 33 mL/min (50-200); Creatinine,Serum 1.50 mg/dl (0.52-1.04); Estimated Glomerular Filt Rate 34 ml/min (>60); GFR (African American) 42 ML/MIN (>60); Globulin 4.3 g/dL (1.3-3.2); Glucose 249 mg/dl (74-100); Potassium 4.3 mmoL/L (3.5-5.1); Sodium 138 mmol/L (136-145); Total Protein,Serum 9.6 g/dl (6.3-8.2)
[2025-02-26] MEDS: ACETAMINOPHEN 500MG TAB 1000 MG PO (22:55)
[2025-02-26] MEDS: METHOCARBAMOL 500MG TABLET 1000 MG PO (22:55)
[2025-02-26] MEDS: ONDANSETRON 4MG/2ML VIAL 4 MG IV (22:56)
[2025-02-26] MEDS: MORPHINE 4MG/ML SYRINGE 4 MG IV (22:56)
[2025-02-26] MEDS: IOPAMIDOL-370 (76%);100ML BOTTLE 80 ML IV (22:57)
[2025-02-26] MEDS: 0.9 % SODIUM CHLORIDE 50 ML VIAL IV (22:57)
[2025-02-26] MEDS: SODIUM CHLORIDE 0.9% 10ML SYR (RAD ONLY) 10 ML IV (22:57)
[2025-02-26] MEDS: OXYCODONE 5MG IMMEDIATE RELEASE TABLET 5 MG PO (23:29)
[2025-02-27] VITALS (13 sets, daily range): BP systolic 97–147; BP diastolic 54–69; PULSE 110–127; RESP 16–24; TEMP 36.3–36.9; O2SAT 93–98; BMI 48.1; BMI 47.6
[2025-02-27] MEDS: RINGERS SOLUTION,LACTATED 500 ML 999 ML IV (00:23)
[2025-02-27] MEDS: dilTIAZem ER 120MG CAPSULE 120 MG PO (00:23)
[2025-02-27] MEDS: AMLODIPINE 5MG TABLET 5 MG PO (00:23)
[2025-02-27 01:19] LABS: VBG PH 7.25 mmol/L (7.31-7.41)
[2025-02-27 01:20] LABS: VBG HCO3 21.8 mmol/L (23-30); VBG PCO2 50.4 mmol/L (35-51); VBG PO2 43.5 mmol/L (28-40)
[2025-02-27 01:21] LABS: Lactate Venous 3.3 mmol/L (0.4-2.0)
--- NOTE | 2025-02-27 02:35 | CA_ITS ---
APPROVED REPORT EXAM: Limited 2D Echocardiogram Neurosurgical Nurse Practitioner: Nathaly Martinez RCS, RVS Ht: 5 ft 6 in Wt: 310lbs BSA: 2.41 BP: 123/69 mmHg Indications: Afib w/ RVR, DM, HTN, HLD, SOA, History of CVA 2D Dimensions LA Volume 73.90 mL LA Volume Index 29.90 mL/m2 (M/F) 16-34 M-Mode Dimensions RVDd 2.48 cm (0.9-2.6) LA Diam 6.09 cm (1.9-4.0) LVDd 4.51 cm (3.5-5.7) LVDs 2.78 cm (3.5-5.7) IVSd 1.24 cm (0.6-1.1) PWd 1.24 cm (0.6-1.1) EF (Teich) 68.80% EPSs 0.28 cm FS 38.40% EDV (Teich) 92.90 mL ESV (Teich) 29.00 mL Other Information Study Quality: Fair Conclusion This is a limited TTE to evaluate for LV systolic function. Millimeters were obtained. The left ventricle is normal in size. There is increased LV wall thickness. There is normal global LV systolic function. LVEF is 60%. The right ventricle is mildly dilated with normal RV function. Biatrial dilation is present. No evidence of pericardial effusion. Electronically signed by : Donna Mendoza MD 02/27/2025 23:27:36
--- NOTE | 2025-02-27 03:13 | P.HP_ITS ---
<Statement entered by Deonte Alicea MD - 02/27/25 15:50> Rounded on patient after nurse practitioner. Personally examined and interviewed patient. Agree with exam findings and care plan as documented. Morning labs showed white count of 9.4, hemoglobin stable at 10.2. Kidney function with slight bump, BUN 43, creatinine 1.9. A1c 2 months ago of 7.4 per review from patient's MyChart microphone. Discussed case with cardiology, recommend increasing amiodarone to 200 mg daily. Will monitor for improved rate control. If not improved by morning, consider cardioversion. Discussed case at length cardiology today. Repeat CBC, CMP, magnesium for the morning. Patient hemodynamically stable at this time. Resumed home meds for extensive psych conditions. History of Present Illness *Admission Date: 02/27/25 *Reason for visit:: Falling at home found to be in A-fib RVR *History of present illness: This 69-year-old woman comes in after falling at home.. Patient and family are unsure if she fell from weakness or just slipping /catching her foot. Patient was found to be in atrial fibs RVR upon arrival. She gives a history of being in atrial for about 2 years ago and requiring an ablation.. Patient is also noted to being diabetic and has the Results Scorecard jose 2 sensor kit. She notes that there has been many changes in her medications over the past 3 weeks. That her doctor was attempting to control blood pressure because she felt heart rate. Patient was noted to be on anticoagulation at home. Review of old records found that patient has coronary artery disease, normal ejection fraction on the last echo, pulmonary hypertension. Also noting that the patient has listed 2 seizure medications. Presently patient has a slightly elevated white count mild anemia. Patient has impressive list of home medications, very extensive. After speaking with the ER provider do agree to place the patient into monitor tonight and have cardiology consult, evaluate atrial fibs with his rapid ventricular response. Evaluate all the medications she is on plan to what she needs to be able to return home. [facility] Disclaimer: The information contained in this section may have been updated after the patient was seen, as this information can be updated by other users. Medical History (Updated 02/27/25 @ 12:24 by Cassie Liz APRN) Chronic heart failure with preserved ejection fraction (HFpEF) Morbid obesity Abnormal electrocardiogram [ECG] [EKG] Tachycardia Hyperkalemia Encounter for pre-operative cardiovascular clearance Daytime somnolence Dyspnea Pulmonary hypertension Coronary artery disease CVA (cerebral vascular accident) Seizures Bipolar 1 disorder, depressed Hypertension Atrial fibrillation with RVR TOPHER (obstructive sleep apnea) Elevated heart rate with elevated blood pressure and diagnosis of hypertension Palpitations DM2 (diabetes mellitus, type 2) HLD (hyperlipidemia) HTN (hypertension) Atrial fibrillation Vulvar lesion Post-menopausal bleeding Vulvar bleeding Surgical History History of cholecystectomy Family History Other Family history of diabetes mellitus type II Family history of stroke Social History Smoking Status: Never smoker second hand exposure: No alcohol intake: never substance use type: denies use current occupational status: retired Travel in the last 8 weeks?: None household members: spouse housing: house caffeine: Yes Have you lived/traveled outside US in past 30 days?: No Contact w/someone who lives/traveled outside US past 30 days?: No Exposure to someone with infectious disease in past 14 days?: No Do you have a fever (greater than 100.4 F or 38 C)?: No Have you tested positive for COVID-19?: No Exposed to someone with COVID-19 in past 14 days?: No Do you have a sore throat?: No Do you have a cough?: No Do you have any weakness?: No Do you have any diarrhea?: No Are you experiencing any unusual bleeding?: No Do you have any muscle aches/pain?: No Do you have any abdominal pain?: No Are you experiencing loss of taste or smell?: No Other Medical History Have you received the Flu Vaccine for this season: No Have you received the Pneumonia Vaccine: No Review of Systems Review of Systems Review of systems:: pertinent systems reviewed and negative unless documented below Constitutional Constitutional: Reports as per HPI Eyes Eyes: Reports as per HPI Comments: Patient denies any changes in vision ENT Ears, Nose, Mouth, and Throat: Reports as per HPI *Cardiovascular Cardiovascular: Reports as per HPI Comments: Patient denies any chest pain or shortness of breath *Respiratory Respiratory: Reports as per HPI *Gastrointestinal Gastrointestinal: Reports as per HPI *Genitourinary Genitourinary: Reports as per HPI *Musculoskeletal Musculoskeletal: Reports as per HPI Comments: Fell at home in the bathroom Integumentary/Breasts Skin/Breast: Reports as per HPI Comments: Noted old scar to anterior aspect of right lower storm *Neurologic Neurologic: Reports as per HPI Comments: Per patient and family patient is at her baseline no signs of neurologic deficit Endocrine Endocrine: Reports as per HPI Hematologic/Lymphatic Hematologic/Lymphatic: Reports as per HPI Allergic/Immunologic Allergic/Immunologic: Reports as per HPI Meds Home Medications and Allergies Home Medications ?Medication ?Instructions ?Recorded ?Confirmed ?Type cariprazine 4.5 mg capsule 4.5 mg PO DAILY 09/29/23 History (Vraylar) empagliflozin 25 mg tablet 25 mg PO DAILY 09/29/23 History (Jardiance) flash glucose sensor (FreeStyle #1 ea 09/29/23 5 History Jose 2 Sensor kit) insulin NPH-regular 70-30 U-100 55 unit SQ HS Diabetes 09/29/23 02/27/25 History insulin 100 unit/mL subcutaneous pen (Humulin 70/30 U-100 KwikPen) levomefolate calcium 15 mg tablet 15 mg PO DAILY 09/2902/27/25 History levomilnacipran 40 mg capsule,24 40 mg PO DAILY 02/27/25 History hr,extended release (Fetzima) levothyroxine 125 mcg tablet 125 mcg PO DAILY 09/29/23 02/27/25 History lisinopril 40 mg tablet 40 mg PO DAILY 09/29/2302/07 History metformin 1,000 mg tablet 1,000 mg PO BIDWMEAL 4 02/27/25 History modafinil 200 mg tablet 200 mg PO DAILY 09/29/23 History oxcarbazepine 150 mg tablet 150 mg PO BID Seizures 02/27/25 History pen needle, diabetic 31 gauge x #1,200 ea 09/29/23 History 3/16 (BD Ultra-Fine Mini Pen Needle) phenytoin sodium extended 100 mg 300 mg PO HS Seizures 09/29/23 02/27/25 History capsule rosuvastatin 10 mg tablet 10 mg PO HS Cholesterol 09/1002/27/25 History sertraline 100 mg tablet 200 mg PO BID 09/29/2302/27 History lansoprazole 30 mg capsule,delayed 30 mg PO DAILY 01/3002/27/25 History release insulin NPH-regular 70-30 U-100 20 unit SQ .Lunch 12/0802/27/25 History insulin 100 unit/mL subcutaneous pen (Humulin 70/30 U-100 KwikPen) insulin NPH-regular 70-30 U-100 20 unit SQ QPM Diabete s 04/19/24 02/27/25 History insulin 100 unit/mL subcutaneous pen (Humulin 70/30 U-100 KwikPen) trazodone 50 mg tablet 50 mg PO HS PRN Sleep 02/27/25 History amiodarone 100 mg tablet 100 mg PO DAILY #30 tabs 07/0302/27/25 Rx apixaban 5 mg tablet (Eliquis) 5 mg PO BID 10/17/24 History amlodipine 5 mg tablet (Norvasc) 5 mg PO DAILY #30 tab s 02/13/25 02/27/25 Rx diltiazem HCl 120 mg capsule,24 120 mg PO DAILY 02/27/25 History hr,extended release (Tiadylt ER) ferrous sulfate 325 mg (65 mg 325 mg PO DAILY 02/27/25 02/27/25 History iron) tablet (FeroSul) torsemide 20 mg tablet 20 mg PO DAILY 02/27/2502/07 History New Prescriptions to Start Prescriptions: Allergies Allergy/AdvReac Type Severity Reaction Status Date / Time No Known Allergies Allergy Verified 01/16/25 10:57 Exam Data for Last 24 hours Vital signs and Labs for Last 24 Hours: Temp Pulse Resp BP Pulse Ox O2 Del Method 98.5 F 114 H 18 123/69 98 Room Air 02/27/25 02:41 02/27/25 02:41 02/27/25 02:41 02/27/25 02:41 02/27/25 01:20 02/27/25 02:41 Laboratory Results - last 24 hr 02/26/25 21:47: WBC 13.4 H, RBC 5.59 H, Hgb 11.4 L, Hct 40.0, MCV 71.6 L, MCH 20.4 L, MCHC 28.5 L, RDW 19.6 H, Plt Count 485 H, MPV 10.8 H, Neut % (Auto) 85.4 H, Lymph % (Auto) 7.9 L, Overton % (Auto) 4.6, Eos % (Auto) 0.1, Baso % (Auto) 0.7, Neut # (Auto) 11.4 H, Lymph # (Auto) 1.1, Overton # (Auto) 0.6, Eos # (Auto) 0.0, Baso # (Auto) 0.1, Sodium 138, Potassium 4.3, Chloride 99, Carbon Dioxide 19 L, Anion Gap 24.3 H, BUN 38 H, Creatinine 1.50 H, Estimated Creat Clear 33, Estimated GFR 34 L, Est GFR ( Amer) 42 L, Glucose 249 H, Calcium 10.3 H, Total Bilirubin 0.6, AST 58 H, ALT 57, Alkaline Phosphatase 128 H, Total Protein 9.6 H, Albumin 5.3 H, Globulin 4.3 H, Albumin/Globulin Ratio 1.2 02/27/25 00:44: VBG pH 7.25 L, VBG pCO2 50.4, VBG pO2 43.5 H, VBG HCO3 21.8 L, VBG Total CO2 23.3, VBG O2 Saturation 74.1 H, VBG Base Excess -5.5 L, VBG Lactic Acid 3.3 H I & O for Last 24 hours: Intake & Output 02/24/25 02/25/25 02/26/25 02/27/25 05:59 05:59 05:59 05:59 Weight 310 lb Radiology Reports for the Last 24 Hours: Thyroid: Several thyroid nodules including 1.4 cm nodule on the left and 0.7 cm partially calcified nodule on the right. Lungs: Probable atelectatic changes. Pleural spaces: No pneumothorax. Heart: No pericardial effusion. Lymph nodes: No lymphadenopathy by size criteria. Vasculature: No thoracic aortic aneurysm. MildCoronary artery calcifications. Diaphragm: Small hiatal hernia Bones/joints: No acute fracture. Soft tissues: Grossly unremarkable. Constitutional Constitutional: mild distress, morbidly obese, chronically ill appearing and cooperative *Routine HEENT Exam Head: Present normocephalic and atraumatic Eye: Present EOMI, PERRL and normal accommodation ENT: Present mucous membranes moist *Routine Neck Exam Neck: Present supple and full ROM Comments: Patient had fallen at home but there is no sign of injury to back pelvis neck at this time *Routine Respiratory Exam Respiratory: Present decreased breath sounds, CTA bilaterally, normal respiratory effort, able to speak in complete sentences and symmetric chest movement *Routine Cardiovascular Exam Cardiovascular: Present RRR, Normal S1 and irregularly irregular *Routine Abdominal Exam Abdominal: Present soft and normoactive bowel sounds Comments: No tenderness upon palpation of the abdomen *Routine Rectal Exam Rectal:: deferred *Routine Genitalia Exam Genitalia:: deferred *Routine Extremities Exam Extremities: Present normal capillary refill Comments: Normal capillary refill to all extremities is able to move arms and legs without any difficulty. Noting old scarring to anterior storm right side but no signs of abnormal bruising found.. *Routine Skin Exam Skin: Present intact, dry and warm Comments: No abnormal ecchymosis found *Routine Neurological Exam Neurological: Present alert, oriented X3, CN II-XII intact, normal tone, vision grossly intact and hearing grossly intact Comments: There is no unilateral weakness or any other obvious neurological deficit H&P: Result Impressions 1. Atrial fibs with RVR, has had this by history unsure when has been back in atrial fibs compared to normal sinus 2. Fell at home question slipped in bathroom versus fell because of weakness unknown 3. Polypharmacy, multiple medications that the patient is on with information that medication dosages have been being adjusted over the past 3 weeks Imaging and Cardiology CT scan - chest: Status: image reviewed by me Additional comments: Thyroid: Several thyroid nodules including 1.4 cm nodule on the left and 0.7 cm partially calcified nodule on the right. Lungs: Probable atelectatic changes. Pleural spaces: No pneumothorax. Heart: No pericardial effusion. Lymph nodes: No lymphadenopathy by size criteria. Vasculature: No thoracic aortic aneurysm. MildCoronary artery calcifications. Diaphragm: Small hiatal hernia Bones/joints: No acute fracture. Soft tissues: Grossly unremarkable. Assessment and Plan *Assessment and plan (1) Atrial fibrillation with rapid ventricular response: Status: Acute Category: Medical Code(s): I48.91 - Unspecified atrial fibrillation (2) DKA (diabetic ketoacidosis): Qualifiers: Diabetes mellitus complication detail: without coma Diabetes mellitus type: type 2 Qualified Code(s): E11.10 - Type 2 diabetes mellitus with ketoaci dosis without coma Category: Medical Code(s): E11.10 - Type 2 diabetes mellitus with ketoacidosis without coma (3) Fall: Status: Acute Qualifiers: Encounter type: initial encounter Qualified Code(s): W19.XXXA - Unspecified fall, initial encounter Category: Medical Code(s): W19.XXXA - Unspecified fall, initial encounter (4) Tachycardia: Status: Acute Category: Medical Code(s): R00.0 - Tachycardia, unspecified (5) TOPHER (obstructive sleep apnea): Status: Acute Category: Medical Code(s): G47.33 - Obstructive sleep apnea (adult) (pediatric) (6) Morbid obesity: Status: Acute Category: Medical Code(s): E66.01 - Morbid (severe) obesity due to excess calories Plan 1. Patient will be placed on the floor continue to on raisin separator operator and also O2 sat monitoring., Will check with family to see if she uses CPAP at home if so would continue here patient continues in atrial fibs she is on chronic anticoagulation at home plan to continue present dose. Cardiology consult for evaluation of atrial fibs with the RVR and recent adjustments in medication per family and patient. 2. Status post fall that does not appear to have caused any fractures or head injury. But will continue to monitor for any change in mentation. 3. Diabetes mellitus will continue to try to adjust medications as needed to keep blood sugars in a reasonable level. 4. Morbid obesity weight greater than 300 pounds, will continue diabetic diet
--- NOTE | 2025-02-27 04:00 | P.EN_ITS ---
Problem: Patient lying in bed. Noticing O2 saturations below 90. On room air talked with patient about this been CPAP she says she is supposed to be on it but just does not wear it. Also noting heart rate sometimes getting above 120. Have ordered Cardizem IV 20 mg to be repeated since it was given in the ER Exam: Patient is awake and alert but is a poor historian. As far as her m edications he is in no distress at this time O2 saturations going from 89 up to 9495 while I am speaking with her. Noting that blood pressure though has decreased to was systolic below 100 after the patient was left alone and resting. Plan: Was going to give Cardizem 20 mg IV but with the blood pressure being soft and the systolic dropping below 100 at times we will hold on that right now. Heart rate settling down around 110. Patient has received an extended release Cardizem in the ER will give that time to see if will help keep the heart rate down. Patient is able to talk some about her medicine but she is does not have full control of what her medicines are for she knows that she is on Eliquis for as a blood thinner.. Also noting patient on multiple theatric meds including antiseizure medication that I believe is for mood stabilization as I can find no history of seizure in the patient. Presently will hold medications at this time as long as heart rate remains below 130. And blood pressure remained stable. Oxygen has been added to the patient to help keep her O2 sats up if she goes to sleep.
[2025-02-27 04:44] LABS: Reflex Lactic Add Lactic Reflex
--- NOTE | 2025-02-27 05:17 | PC.NURSE ---
patient home medications are in the [facility] wardrobe manager office to be packaged by pharmacy - patient reports no bm since 02/22, states she takes a fiber tablet at home, hospitalist notified - patient was placed on 1L NC by SAHRA Macias r/t desat 89% while asleep (hx TOPHER), otherwise room air at baseline - BA placed on patient r/t fall at home tonight. A&Ox4. afib 110-120's, Gilberto ordered dilt IVP, this rn checked pt BP 96/55 notified hospitalist before proceeding, ordered to hold dilt for now.
--- NOTE | 2025-02-27 05:25 | PC.NURSE ---
medication verified by pharmacy bottles and patient's and daughter at bedside
[2025-02-27 05:51] LABS: Lactic Acid Follow Up (RFLX 1) 1.6 mmol/L (0.7-2.1)
[2025-02-27] MEDS: humaLOG 100 UNITS/ML 10ML VIAL (SSI) SUBCUT ×3 (05:59→21:51)
[2025-02-27 06:46] LABS: POC Glucose,Bedside 198 (70-110)
--- OUTSIDE RECORDS SUMMARY | 2025-02-27 07:35 | XMS_ITS | Encounter Summary ---
Author Organization [facility] Address [address] [id number] Care Team Providers Care Chemical Analytical Sampler Name Role Phone Avinash Buck MD Primary Care Provider + Reason for Visit * Reason Onset Date Comments Med Refill 02/26/2025 Encounter Details Date Type Department Care Team (Late st Contact Info) Description 02/26/2025 Refill [facility] [address] [facility] [place] [address] Avinash Buck MD [address] [facility] [place] [address] Social History Tobacco Use Types [...] Description 05/01/2025 10:45 AM EDT Office Visit [facility] [address] [place] [address] Avinash Buck MD [address] [place] [address] documented as of this encounter Visit Diagnoses Not on filedocumented in this encounter Care Teams Chemical Analytical Sampler Relationship Specialty Start Date End Date Avinash Buck MD [address] [place] [address] PCP - General Family Medicine 12/01/21 documented as of this encounter
--- OUTSIDE RECORDS SUMMARY | 2025-02-27 07:35 | XMS_ITS | Encounter Summary ---
[facility] Address [address] [place] [id number] Care Team Providers Care Distribution District Supervisor Name Role Phone Avinash Buck MD Primary Care Provider + Reason for Visit * Reason Onset Date Comments Med Refill 01/22/2025 Encounter Details Date Type Department Care Team (Late st Contact Info) Description 01/22/2025 Refill [facility] [address] [facility] [place] [address] Avinash Buck MD [address] [facility] [place] [address] Type 2 diabetes mellitus with [...] Description 05/01/2025 10:45 AM EDT Office Visit [facility] [address] [facility] [place] [address] Avinash Buck MD [address] [place] [address] documented as of this encounter Visit Diagnoses Diagnosis Type 2 diabetes mellitus with hyperglycemia, with long-term current use of insulin documented in this encounter Care Teams Distribution District Supervisor Relationship Specialty Start Date End Date Avinash Buck MD [address] [place] [address] PCP - General Family Medicine 12/01/21 documented as of this encounter
--- OUTSIDE RECORDS SUMMARY | 2025-02-27 07:35 | XMS_ITS | Encounter Summary ---
Author Organization [facility] Address [address] [place] [id number] Care Team Providers Care Casing Operator Name Role Phone Avinash Buck MD [...] 05/01/2025 10:45 [address] EDT [address] [facility] [address] [place] [address] Avinash Buck MD [address] [place] [address] documented as of this encounter Visit Diagnoses Not on filedocumented in this encounter Care Teams Casing Operator Relationship Specialty Start Date End Date Avinash Buck MD [address] [place] [address] PCP - General Family Medicine 12/01/21 documented as of this encounter
--- OUTSIDE RECORDS SUMMARY | 2025-02-27 07:35 | XMS_ITS | Encounter Summary ---
[facility] Address [address] [place] [address] Care Team Providers Care Preschool Director Name Role Phone Avinash Buck MD Primary Care Provider + Reason for Visit * Reason Onset Date Comments Med Refill 01/15/2025 Encounter Details Date Type Department Care Team (Late st Contact Info) Description 01/15/2025 Refill [facility] [address] [facility] [place] [address] Avinash Buck MD [address] [facility] [place] [address] Seizure disorder Social History Tobacco [...] Visit [facility] [address] [facility] [place] [address] Avinash Buck MD [address] [place] [address] documented as of this encounter Visit Diagnoses Diagnosis Seizure disorder Unspecified epilepsy without mention of intractable epilepsy documented in this encounter Care Teams Preschool Director Relationship Specialty Start Date End Date Avinash Buck MD [address] [place] [address] PCP - General Family Medicine 12/01/21 documented as of this encounter
--- OUTSIDE RECORDS SUMMARY | 2025-02-27 07:35 | XMS_ITS | Clinical Summary ---
Author Organization [facility] Address [address] [place] [address] Care Team Providers Care Ceramic Chemist Name Role Phone Avinash Buck MD Primary Care Provider + Allergies No known active allergies Medications amiodarone (PACERONE) 200 MG tablet Take 0.5 tablets by mouth Daily. Active d-cibamxdrhntn-hk gae (DEPLIN) 15-90.314 MG capsule capsule Take [...] treatment regimen. Dietary recommendations for ADA diet. Gym Instructor referral. Diabetes will be reassessed in 3 months. 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 Assessment & Plan [...] Date Type Department Care Team Description 02/26/2025 [facility] FAMILY MEDICINE [address] [place] [address] Avinash Buck MD 02/19/2025 [facility] FAMILY MEDICINE [address] [address] Avinash Buck MD Seizure disorder [facility] [address] [address] Avinash Buck MD Obstructive sleep apnea of adult 02/16/2025 Telephone [facility] FAMILY MEDICINE [address] [address] Avinash Buck MD 02/12/2025 Refill [facility] FAMILY MEDICINE [address] [place] [address] Avinash Buck MD 02/08/2025 Results Follow-Up [facility] FAMILY MEDICINE [address] [place], [place] [address] Avinash Buck MD 02/07/2025 Results Follow-Up [facility] FAMILY MEDICINE [address] [place] [address] Avinash Buck MD 02/06/2025 8:15 AM EDT Office Visit [facility] FAMILY MEDICINE [address] [place] [address] Avinash Buck MD Restless legs syndrome (Primary Dx); Type 2 diabetes mellitus with hypoglycemia without coma, with long-term current use of insulin; Bipolar disorder, in partial remission, most recent episode hypomanic; Microcytic anemia 02/06/2025 Travel 01/22/2025 Refill [facility] FAMILY MEDICINE [address] [place] [address] Avinash Buck MD Type 2 diabetes mellitus with hyperglycemia, with long-term current use of insulin 01/19/2025 Refill [facility] FAMILY MEDICINE [address] [place] [address] Avinash Buck MD Type 2 diabetes mellitus with hyperglycemia, with long-term current use of insulin 01/15/2025 Refill [facility] FAMILY MEDICINE [address] [address] Avinash Buck MD Seizure disorder 01/15/2025 Refill [facility] FAMILY MEDICINE [address] [address] Avinash Buck MD Seizure disorder 01/11/2025 9:00 AM EDT Office Visit [facility] FAMILY MEDICINE [address] [place], [place] [address] Avinash Buck MD Type 2 diabetes mellitus with hyperglycemia, with long-term current use of insulin (Primary Dx); Essential hypertension; BMI 50.0-59.9, adult; Fall in home, initial encounter; Functional gait abnormality; Encounter for screening mammogram for malignant neoplasm of breast; Obstructive sleep apnea of adult 01/11/2025 Travel 12/19/2024 Refill [facility] FAMILY MEDICINE [address] [place], [place] [address] Avinash Buck MD Type 2 diabetes mellitus with hyperglycemia, with long-term current use of insulin; Essential hypertension 11/30/2024 Telephone [facility] FAMILY MEDICINE [address] [place] [address] Avinash Buck MD Prior Authorization (Modafinil ) 11/28/2024 Refill [facility] FAMILY MEDICINE [address] [place] [address] Avinash Buck MD Mood disorder from Last [...] Description 05/01/2025 10:45 AM EDT Office Visit [facility] FAMILY MEDICINE 210 [facility] [place] [address] Avinash Buck MD 210 [facility] [place] [address] Health Maintenance Due Date Last [...] 02/06/2025 8:32 AM EDT 02/06/2025 Narrative [facility] [employer] (AMBULATORY) - 02/07/2025 3:07 AM EDT Performed at: [address] [place] [address] [id number] Railcar Mechanic: Ishmael Munoz MD, Phone: [phone] Patient Fasting: Y us Avinash Buck MD LAB BLOOD ORDERABLES Fin al Result [facility] [employer] (AMBULATORY) [address] [place] [address], [place] [phone] [facility] [address] [place] [address], [place] [phone] * (ABNORMAL) Iron Profile w/o Ferritin (02/06/2025 8:32 AM EDT) TIBC 519 mcg/dL [facility] UIBC 498(H) 112 - 346 mcg/dL [facility] Iron 21(L) 37 - 145 mcg/dL [facility] Iron Saturation 4(L) 20 - 50 % [facility] Blood 02/06/2025 8:32 AM EDT 02/06/2025 Narrative [facility] (AMBULATORY) - 02/07/2025 3:07 AM EDT Performed at: [address] [place] [address] [address] [place], [place] [phone] Railcar Mechanic: Ishmael Munoz MD, Phone: [phone] Patient Fasting: Y Avinash Buck MD LAB BLOOD ORDERABLES Fin al Result Performing Organization Address [facility]/ZIP Co de Phone Number [facility] (AMBULATORY) [address] [place] [address], [place] [phone] [facility] [address] [place] [address], [place] [phone] * (ABNORMAL) CBC (No Diff) (02/06/2025 8:32 AM EDT) [facility] WBC 9.97 3.40 - 10.80 10*3/mm3 [...] - 02/07/2025 3:07 AM EDT Performed at: [address] [place] [address] [address] [place], [place] [id number] Railcar Mechanic: Ishmael Munoz MD, Phone: [phone] Patient Fasting: Y Avinash Buck MD LAB BLOOD ORDERABLES Fin al Result Performing Organization Address [facility]/ZIP Co de Phone Number [facility] (AMBULATORY) [address] [place] [address], [place] [phone] [facility] [address] [place] [address], * Ferritin (02/06/2025 8:32 AM EDT) Ferritin 19.20 13.00 - 150.00 ng/mL [facility] Comment:Results may be false ly decreased if patient taking Biotin. Blood 02/06/2025 8:32 AM EDT 02/06/2025 Narrative [facility] (AMBULATORY) - 02/07/2025 3:07 AM EDT Performed at: [address] [place] [address] [id number] Railcar Mechanic: Ishmael Munoz MD, Phone: [phone] Patient Fasting: Y Avinash Buck MD LAB BLOOD ORDERABLES Fin al Result [facility] (AMBULATORY) [address] [place] [address], [facility] [address] [place] [address], * Mammo Screening Digital Tomosynthesis Bilateral With [...] Hemoglobin A1C 7.4(A) 4.5 - 5.7 % [facility] Lot Number [id number] [facility] Expiration Date 09/25/2026 [facility] Blood 01/11/2025 9:09 AM EDT Avinash Buck MD POINT OF CARE TEST ORDER SHAYE Final Result [facility]
[address] [place] [address], * (ABNORMAL) POC Albumin/Creatinine Ratio Urine (10/13/2024 [...] 9:10 AM EST Performed at: 01 - [address] [id number] Railcar Mechanic: Jonathan Oh PhD, Phone: [phone] Patient Fasting: Y Avinash Buck MD LAB BLOOD ORDERABLES Fin al Result [facility] (AMBULATORY) [address] [place] [address], [facility] [address] [place] [address], from Last 3 Months or Most Recently Relevant to Health Maintenance Insurance MEDICARE A & B Member Subscriber Plan / Payer ( fective 2019-Present) Name:Mary Mendeznn Alana Member ID:[id number] Relation to Subscriber:Self Name:Jodee Mendeze Subscriber ID:[id number] Payer ID:[id number] Group ID:Not on file Type:Not on file Address: [facility] [id number] COMMERCIAL Advance Directives Documents on File Type Date Recorded Patient Distillery Supervisor Expl anation LIVING WILL - SCAN 09/28/2023 12:24 PM DANIEL GORDON, 09/07/2023 Care Teams Ceramic Chemist Relationship Specialty Start Date End Date Avinash Buck MD [address] [place] [address] PCP - General Family Medicine 12/01/21
--- OUTSIDE RECORDS SUMMARY | 2025-02-27 07:35 | XMS_ITS | Encounter Summary ---
[facility] Organization [facility] Address [address] [place] [address] Care Team Providers Care Online Advertising Director Name Role Phone Avinash Buck MD Primary Care Provider + Reason for Visit * Reason Onset Date Comments Med Refill 01/07/2024 Encounter Details Date Type Department Care Team (Late st Contact Info) Description 01/07/2024 Refill [facility] MEDICINE 210 [facility] [place] [address] Avinash Buck MD 210 [facility] [place] [address] Gastroesophageal reflux disease without esophagitis [...] Visit [facility] MEDICINE 210 [facility] [place] [address] Avinash Buck MD [address] [place] [address] documented as of this encounter Visit Diagnoses Diagnosis Gastroesophageal reflux disease without esophagitis Esophageal reflux documented in this encounter Additional Health Concerns Assessment Noted Time PHQ-2 Depression Total Score: 2 07/05/20 23 2:06 PM EST documented as of this encounter Care Teams Online Advertising Director Relationship Specialty Start Date End Date Avinash Buck MD [address] [place] [address] PCP - General Family Medicine 12/01/21 documented as of this encounter
--- OUTSIDE RECORDS SUMMARY | 2025-02-27 07:35 | XMS_ITS | Encounter Summary ---
[facility] Organization [facility] Address [address] [id number] Care Team Providers Care Finance Teacher Name Role Phone Avinash Buck MD Primary Care Provider + Reason for Visit * Reason Comments Med Refill Encounter Details Date Type Department Care Team (Late Contact Info) Description 01/15/2025 Refill [facility] MEDICINE [address] [place] [address] Avinash Buck MD [address] [place] [address] Seizure disorder Social History Tobacco Use [...] 05/01/2025 10:45 AM EDT Office Visit [facility] MEDICINE [address] [place] [address] Avinash Buck MD [address] [place] [address] documented as of this encounter Visit Diagnoses Diagnosis Seizure disorder Unspecified epilepsy without mention of intractable epilepsy documented in this encounter Care Teams Finance Teacher Relationship Specialty Start Date End Date Avinash Buck MD [address] [place] [address] PCP - General Family Medicine 12/01/21 documented as of this encounter
--- OUTSIDE RECORDS SUMMARY | 2025-02-27 07:35 | XMS_ITS | Encounter Summary ---
[facility] Address [address] [place] [id number] Care Team Providers Care Operating Room Surgical Technologist Name Role Phone Avinash Buck MD Primary Care Provider + Reason for Visit * Reason Onset Date Comments Med Refill 01/19/2025 Encounter Details Date Type Department Care Team (Late st Contact Info) Description 01/19/2025 Refill [facility] FAMILY MEDICINE 210 [facility] [place] [address] Avinash Buck MD 210 [facility] [place] [address] Type 2 diabetes mellitus with [...] Description 05/01/2025 10:45 AM EDT Office Visit [facility] MEDICINE 210 [facility] [place] [address] Avinash Buck MD [address] [place] [address] documented as of this encounter Visit Diagnoses Diagnosis Type 2 diabetes mellitus with hyperglycemia, with long-term current use of insulin documented in this encounter Care Teams Operating Room Surgical Technologist Relationship Specialty Start Date End Date Avinash Buck MD [address] [place] [address] PCP - General Family Medicine 12/01/21 documented as of this encounter
--- OUTSIDE RECORDS SUMMARY | 2025-02-27 07:35 | XMS_ITS | Encounter Summary ---
[facility] Organization [facility] Address [address] [place] [phone] Care Team Providers Care Gas Examiner Name Role Phone Avinash Buck MD Primary Care Provider + Encounter Details Date Type Department Care Team (Late Contact Info) Description 02/07/2025 Results Follow-Up [facility] MEDICINE 210 [facility] [place] [address] Avinash Buck MD [address] [place] [address] Social History Tobacco Use Types [...] Description 05/01/2025 10:45 AM EDT Office Visit [facility] MEDICINE [address] [place] [address] Avinash Buck MD [address] [place] [address] Scheduled Orders Name Type Priority Associated Diagnoses Orde r Schedule CBC (No Diff) Lab Routine Iron deficiency anemia, unspecified iron deficiency anemia type Expected: 03/23/2025 (Approximate), Expires: 05/10/2026 documented as of this encounter Visit Diagnoses Diagnosis Iron deficiency anemia, unspecified iron deficiency anemia type- Primary documented in this encounter Care Teams Gas Examiner Relationship Specialty Start Date End Date Avinash Buck MD [address] [place] [address] PCP - General Family Medicine 12/01/21 documented as of this encounter
--- OUTSIDE RECORDS SUMMARY | 2025-02-27 07:35 | XMS_ITS | Encounter Summary ---
[facility] Address [address] [place] [phone] Care Team Providers Care Taping Machine Operator Name Role Phone Avinash Buck MD Primary Care Provider + Encounter Details Date Type Department Care Team (Late st Contact Info) Description 10/16/2024 Results Follow-Up [facility] MED[facility]INE 210 [facility] [place] [address] Avinash Buck MD [address] [place] [address] Social History Tobacco Use Types [...] Description 05/01/2025 10:45 AM EDT Office Visit [facility] [address] [place] [address] Avinash Buck MD [address] [place] [address] documented as of this encounter Visit Diagnoses Not on filedocumented in this encounter Care Teams Taping Machine Operator Relationship Specialty Start Date End Date Avinash Buck MD [address] [place] [address] PCP - General Family Medicine 12/01/21 documented as of this encounter
--- OUTSIDE RECORDS SUMMARY | 2025-02-27 07:36 | XMS_ITS | Encounter Summary ---
Author Organization [facility] Address [address] [place] [address] Care Team Providers Care Wall Cleaner Name Role Phone Avinash Buck MD Primary Care Provider + Reason for Visit * Reason Onset Date Comments Med Refill 02/19/2025 Encounter Details Date Type Department Care Team (Late st Contact Info) Description 02/19/2025 Refill [facility] MEDICINE 210 [facility] [place] [address] Avinash Buck MD 210 [facility] [place] [address] Obstructive sleep apnea of adult [...] Description 05/01/2025 10:45 AM EDT Office Visit [facility] MEDICINE 210 [facility] [place] [address] Avinash Buck MD [address] [place] [address] documented as of this encounter Visit Diagnoses Diagnosis Obstructive sleep apnea of adult documented in this encounter Care Teams Wall Cleaner Relationship Specialty Start Date End Date Avinash Buck MD [address] [place] [address] PCP - General Family Medicine 12/01/21 documented as of this encounter
--- OUTSIDE RECORDS SUMMARY | 2025-02-27 07:36 | XMS_ITS | Encounter Summary ---
Author Organization [facility] Address [address] [place] [phone] Care Team Providers Care Dental Floss Packer Name Role Phone Avinash Buck MD Primary Care Provider + Encounter Details Date Type Department Care Team (Late st Contact Info) Description 02/16/[address] [facility] FAMILY MEDICINE [address] [place] [address] Avinash Buck MD 210 [place] [address] Social History Tobacco Use Types [...] Caller: [facility] [address] - [phone] FX Relationship: Pharmacy Best call back number: [phone] What is the best time to reach [...] [facility] [address] [place] [address] Avinash Buck MD [address] [place] [address] documented as of this encounter Visit Diagnoses Not on filedocumented in this encounter Care Teams Dental Floss Packer Relationship Specialty Start Date End Date Avinash Buck MD [address] [place] [address] PCP - General Family Medicine 12/01/21 documented as of this encounter
--- OUTSIDE RECORDS SUMMARY | 2025-02-27 07:36 | XMS_ITS | Encounter Summary ---
Author Organization [facility] Address [address] [place] [phone] Care Team Providers Care Bitumen Plant Operator Name Role Phone Avinash Buck MD Primary Care Provider + Reason for Visit * Reason Comments Med Refill Encounter Details Date Type Department Care Team (Late st Contact Info) Description 02/12/2025 Refill [facility] MEDICINE 210 [facility] [place] [address] Avinash Buck MD [address] [place] [address] Social History Tobacco Use Types Packs/Day [...] EDT Office Visit [facility] MEDICINE [address] [place] [address] Avinash Buck MD [address] [place] [address] documented as of this encounter Visit Diagnoses Not on filedocumented in this encounter Care Teams Bitumen Plant Operator Relationship Specialty Start Date End Date Avinash Buck MD [address] [place] [address] PCP - General Family Medicine 12/01/21 documented as of this encounter
--- OUTSIDE RECORDS SUMMARY | 2025-02-27 07:36 | XMS_ITS | Encounter Summary ---
[facility] Organization [facility] Address [address] [place] [phone] Care Team Providers Care Locksmith Helper Name Role Phone Avinash Buck MD Primary Care Provider + Encounter Details Date Type Department Care Team (Late Contact Info) Description 02/08/2025 Results Follow-Up [facility] MEDICINE 210 [facility] [place] [address] Avinash Buck MD [address] [place] [address] Social History Tobacco Use Types [...] Description 05/01/2025 10:45 AM EDT Office Visit [facility] MEDICINE [address] [place] [address] Avinash Buck MD [address] [place] [address] documented as of this encounter Visit Diagnoses Not on filedocumented in this encounter Care Teams Locksmith Helper Relationship Specialty Start Date End Date Avinash Buck MD [address] [place] [address] PCP - General Family Medicine 12/01/21 documented as of this encounter
--- OUTSIDE RECORDS SUMMARY | 2025-02-27 07:36 | XMS_ITS | Encounter Summary ---
[facility] Address [address] [place] [address] Care Team Providers Care Economic Manager Name Role Phone Avinash Buck MD Primary Care Provider + Reason for Visit * Reason Onset Date Comments Med Refill 02/19/2025 Encounter Details Date Type Department Care Team (Late st Contact Info) Description 02/19/2025 Refill [facility] MEDICINE 210 [facility] [place] [address] Avinash Buck MD 210 [facility] [place] [address] Seizure disorder Social History Tobacco [...] Description 05/01/2025 10:45 AM EDT Office Visit [facility] MEDICINE 210 [facility] [place] [address] Avinash Buck MD [address] [place] [address] documented as of this encounter Visit Diagnoses Diagnosis Seizure disorder Unspecified epilepsy without mention of intractable epilepsy documented in this encounter Care Teams Economic Manager Relationship Specialty Start Date End Date Avinash Buck MD [address] [place] [address] PCP - General Family Medicine 12/01/21 documented as of this encounter
--- OUTSIDE RECORDS SUMMARY | 2025-02-27 07:36 | XMS_ITS | Encounter Summary ---
Author Organization [facility] Address [address] [place] [phone] Care Team Providers Care Industrial Psychology Professor Name Role Phone Avinash Buck MD Primary [...] EDT Office Visit [facility] FAMILY MEDICINE [address] [place] [address] Avinash Buck MD [address] [place] [address] documented as of this encounter Visit Diagnoses Not on filedocumented in this encounter Care Teams Industrial Psychology Professor Relationship Specialty Start Date End Date Avinash Buck MD [address] [place] [address] PCP - General Family Medicine 12/01/21 documented as of this encounter
--- NOTE | 2025-02-27 08:07 | HMH.PHAINT1 ---
Pharmacy Intervention Comments: HOME MEDICATION LIST VERIFIED USING LIST FROM OUTPATIENT PHARMACY AND PRESCRIPTION BOTTLES PROVIDED BY PATIENT
[2025-02-27] MEDS: DILTIAZEM 120 MG PO (08:57)
[2025-02-27] MEDS: LEVOTHYROXINE 125 MCG PO (08:57)
[2025-02-27] MEDS: VRAYLAR 4.5 MG 4.5 EACH PO (08:57)
[2025-02-27] MEDS: APIXABAN 5 MG PO ×2 (08:57→21:46)
[2025-02-27 09:10] LABS: NT Pro Brain Natriuretic Pep. 1120 pg/mL (0-125)
[2025-02-27 09:45] LABS: Hematocrit 35.8 % (37.0-47.0); Immature Granulocytes % 0.7 %; Mean Corpuscular HGB Conc 28.5 g/dL (31.8-35.4); Mean Corpuscular Hemoglobin 20.4 pg (27.0-31.2); Mean Corpuscular Volume 71.7 fl (81-99); Nucleated Red Blood Cells % 0 %; Platelet Count 472 K/mm3 (142-424); Red Blood Count 4.99 M/mm3 (4.20-5.40); Red Cell Distribution Width-SD 48.5 fL; White Blood Count 9.4 K/mm3 (4.8-10.8)
[2025-02-27 09:51] LABS: Magnesium 2.0 mg/dl (1.6-2.3)
[2025-02-27 09:52] LABS: Alanine Aminotransferase 79 U/L (12-78); Albumin Level 4.6 g/dl (3.5-5.0); Albumin/Globulin Ratio 1.4 (1.1-1.8); Alkaline Phosphatase 138 U/L (38-126); Anion Gap 19.4 mEq/L (5-15); Aspartate Amino Transferase 149 U/L (14-36); Bilirubin,Total 0.9 mg/dl (0.2-1.3); Blood Urea Nitrogen 43 mg/dl (7-17); Calcium 9.6 mg/dl (8.4-10.2); Carbon Dioxide 21 mmol/L (22.0-30.0); Chloride 99 mmol/L (98-107); Creatinine Clearance Estimated 26 mL/min (50-200); Creatinine,Serum 1.90 mg/dl (0.52-1.04); Estimated Glomerular Filt Rate 26 ml/min (>60); GFR (African American) 32 ML/MIN (>60); Globulin 3.4 g/dL (1.3-3.2); Glucose 229 mg/dl (74-100); Potassium 5.4 mmoL/L (3.5-5.1); Sodium 134 mmol/L (136-145); Total Protein,Serum 8.0 g/dl (6.3-8.2)
--- NOTE | 2025-02-27 09:53 | HMH.OTEV ---
OT Inpatient Evaluation Rehab OT IP Evaluation Start: 02/27/25 03:11 Freq: ONCE Status: Active Protocol: Document 02/27/25 09:47 [facility] (Rec: 02/27/25 09:52 [facility] [id number]) Rehab OT IP Assessment Subjective History Pt oriented x 3 on arrival. Pt agreeable to engage in therapy evaluation. Pt admitted on 02/27/25 due to fall at home and A-fib. History and physical: This 69-year-old woman comes in after falling at home.. Patient and family are unsure if she fell from weakness or just slipping /catching her foot. Patient was found to be in atrial fibs RVR upon arrival. She gives a history of being in atrial for about 2 years ago and requiring an ablation.. Patient is also noted to being diabetic and has the [employer] shruthi 2 sensor kit. She notes that there has been many changes in her medications over the past 3 weeks. That her doctor was attempting to control blood pressure because she felt heart rate. Patient was noted to be on anticoagulation at home. Review of old records found that patient has coronary artery disease, normal ejection fraction on the last echo, pulmonary hypertension. Also noting that the patient has listed 2 seizure medications. Presently patient has a slightly elevated white count mild anemia. Patient has impressive list of home medications, very extensive. After speaking with the ER provider do agree to place the patient into monitor tonight and have cardiology consult, evaluate atrial fibs with his rapid ventricular response. Evaluate all the medications she is on plan to what she needs to be able to return home . Subjective Prior to being in the hospital, pt lived at home with her . Pt claims she is normally independent with ADLs, but is dependent upon her for completion of IADLs. Pt uses a rollator during functional transfers and is able to complete short distance transfers. Pt no longer drives. Objective Patient Orientation Person,Place,Birthday Right Upper WFL Extremity Gross ROM Left Upper Extremity WFL Gross ROM Bed Mobility bed mobility-scooting,bed mobility - supine/sit Assist Level Contact Guard/Hand Hold Transfer Training Sit/Stand Transfer Assist Level Contact Guard/Hand Hold Chair Transfer Contact Guard/Hand Hold Ability Chair Transfer Sit to/from Ambulatory Technique Chair Transfer Rolling Walker Assistive Devices Rehab OT IP prob,goals,plan Problems Date of Evaluation: 07/22/25 OT IP Problems Bed Mobility,Transfers,Balance,Self care,Safety Rehab Potential Rehab Potential Good Equipment Needs Assistive Devices Rolling / Wheeled Walker Plan OT intervention Plan Bed Mobility,Transfers,Balance,Self care,Safety, Therapeutic Exercise OT Plan Frequency Daily Duration LOS Discharge Goals Bed Mobility Ability Standby Assistance Sit to Stand Chair Supervision/Stand by Transfer Ability Chair Transfer Supervision/Stand by Ability Chair Transfer Sit to/from Ambulatory Technique Chair Transfer Rolling Walker Assistive Devices Lower Body Dressing Contact Guard Ability Performing Toilet Standby Assistance Hygiene Ability Overall Commode/ Standby Assistance Toilet Transfer Ability Commode/Toilet Sit to/from Ambulatory Transfer Technique Discharge Plan OT Discharge Plan Pt will continue to be seen for OT services while at [facility]. Pt can return home with family assistance once she is medically stable per physician. Therapist recommends OT evaluation upon returning home for continued skilled therapy services. Pt and family agreeable. Eval Complexity Eval Charge Codes 05219 - Moderate Complexity PHYSICIAN CERTIFICATION: I certify the specified therapy services for Jodee Mendez are required, authorized, and reviewed every 30 days.
--- NOTE | 2025-02-27 10:24 | HMH.PTEV ---
Physical Therapy Evaluation Rehab PT IP Evaluation Start: 02/27/25 03:11 Freq: .once Status: Active Protocol: Document 02/27/25 09:30 [facility] (Rec: 02/27/25 10:24 [facility] [id number]) Subjective/History History History 69-year-old woman comes in after falling at home.. Patient and family are unsure if she fell from weakness or just slipping /catching her foot. Patient was found to be in atrial fibs RVR upon arrival. She gives a history of being in atrial for about 2 years ago and requiring an ablation.. Patient is also noted to being diabetic and has the [employer] shruthi 2 sensor kit. She notes that there has been many changes in her medications over the past 3 weeks. Pt reports she lives with her , has a ramp to enter the home, and uses a RW or quad cane for ambulation in the home. reports, She really only goes out for doctor appointments. Subjective Subjective Pt has no c//o pain at this time, mild lightheadedness upon initial standing, but relieved after several minutes rest. Pt agrees to mobility assessment. [facility] How much help from another person do you currently need... Turning from your None back to your side while in a flat bed without using bedrails? Moving from lying on None back to sitting on the side of a flat bed without using bedrails? Moving to and from a None bed to a chair ( including a wheelchair)? Standing up from a None chair using your arms? (e.g., wheelchair, bedside chair) Walking in hospital None room? Climbing 3-5 steps A little with a railing? Mobility Score 23 Mobility Level [facility] Mobility 7 Walk 25 feet or more Mobility Calculator Rehab PT IP Eval Objective Appearance Patient Behavior Appropriate Patient Orientation Person,Place,Time Difficulty following none instructions Speech Pattern Clear Ambulation Patient Able to Yes Ambulate Ambulation Observation IP General Gait Shuffling Step Pattern Observation Ambulation Distance 30 (feet) Ambulation Assistive Rolling Walker Device Ambulation Ability Supervision/Stand by Balance Ability to Arise Able, uses arms to help Sitting Balance Steady, safe Standing Balance Steady, wide stance Dynamic Sitting Good Balance Ability Dynamic Standing Fair Balance Ability Transfers Bed Transfer Ability Supervision/Stand by Chair Transfer Supervision/Stand by Ability Sit to Stand Bed Supervision/Stand by Transfer Ability Sit to Stand Chair Supervision/Stand by Transfer Ability ROM All Extremities PT ROM Status WFL Rehab PT IP prob,goals,plan Problems Date of Evaluation: 02/27/25 Discharge Plan PT Discharge Plan Pt is currently appropriate to return home once medically stable for d/c. No current needs for skilled acute therapy services. Recommend home health vs outpatient therapy. Eval Complexity Eval Charge Codes 48278 - High Complexity PHYSICIAN CERTIFICATION: I certify the specified therapy services for Jodee Mendez are required, authorized, and reviewed every 30 days.
--- NOTE | 2025-02-27 10:35 | SW/DCPLANNER ---
Addendum entered by Jenelle Verdugo 02/27/25 11:34: [facility] has accepted patient for home health. Original Note: Spoke with patient regarding discharge plans. Patient is agreeable to home health and has no preference to an agency. Patient was with family during visit and lives at home with her . Patient had no questions or concerns. Will send information to [facility].
--- NOTE | 2025-02-27 10:57 | SW/DCPLANNER ---
Current Medications Acetaminophen (Acetaminophen 325mg Tab) 650 mg PO Q4HP PRN PRN Reason: Fever or Mild Pain (1-3) Stop: 03/29/25 02:27 Amiodarone HCl (Amiodarone 100mg Tablet) 200 mg PO DAILY [facility] Stop: 03/29/25 08:59 Last Admin: 02/27/25 08:57 Dose: 200 mg Apixaban (Pt Own MedsApixaban 5mg Tablet) 5 mg PO BID [facility] Stop: 03/29/25 08:59 Last Admin: 02/27/25 08:57 Dose: 5 mg Bisacodyl (Bisacodyl 5mg Tablet) 10 mg PO HSP PRN PRN Reason: Constipation Stop: 03/29/25 05:13 Diltiazem HCl (Pt Own MedDiltiazem Er 120mg Capsule) 120 mg PO DAILY [facility] Stop: 03/29/25 08:59 Last Admin: 02/27/25 08:57 Dose: 120 mg Insulin Human Lispro (Humalog 100 Units/Ml 10ml Vial ([facility])) 0 unit [facility]; Protocol Stop: 03/29/25 05:59 Last Admin: 02/27/25 05:59 Dose: 5 unit Levothyroxine Sodium (Pt Own MedLevothyroxine 125mcg (0.125mg) Tab) 125 mcg PO DAILYDM [facility] Stop: 03/29/25 08:59 Last Admin: 02/27/25 08:57 Dose: 125 mcg Morphine Sulfate (Morphine 4mg/Ml Syringe) 4 mg IV Q2HP PRN PRN Reason: Chest Pain Stop: 03/29/25 03:10 Pt's Home Med (Vraylar 4.5mg Cap) 4.5 mg PO DAILY [facility] Stop: 03/29/25 08:59 Last Admin: 02/27/25 08:57 Dose: 4.5 mg Ondansetron HCl (Ondansetron 4mg/2ml Vial) 4 mg IV Q8HP PRN PRN Reason: Nausea Stop: 03/29/25 02:27 Pantoprazole Sodium (Pantoprazole 40mg Tablet) 40 mg PO HS [facility] Stop: 03/29/25 20:59
--- NOTE | 2025-02-27 10:58 | SW/DCPLANNER ---
Laboratory Results - last 24 hr 02/26/25 21:47: WBC 13.4 H, RBC 5.59 H, Hgb 11.4 L, Hct 40.0, MCV 71.6 L, MCH 20.4 L, MCHC 28.5 L, RDW 19.6 H, Plt Count 485 H, MPV 10.8 H, Neut % (Auto) 85.4 H, Lymph % (Auto) 7.9 L, Laurel % (Auto) 4.6, Eos % (Auto) 0.1, Baso % (Auto) 0.7, Neut # (Auto) 11.4 H, Lymph # (Auto) 1.1, Laurel # (Auto) 0.6, Eos # (Auto) 0.0, Baso # (Auto) 0.1, Sodium 138, Potassium 4.3, Chloride 99, Carbon Dioxide 19 L, Anion Gap 24.3 H, BUN 38 H, Creatinine 1.50 H, Estimated Creat Clear 33, Estimated GFR 34 L, Est GFR ( Amer) 42 L, Glucose 249 H, Calcium 10.3 H, Total Bilirubin 0.6, AST 58 H, ALT 57, Alkaline Phosphatase 128 H, Total Protein 9.6 H, Albumin 5.3 H, Globulin 4.3 H, Albumin/Globulin Ratio 1.2 02/27/25 00:44: VBG pH 7.25 L, VBG pCO2 50.4, VBG pO2 43.5 H, VBG HCO3 21.8 L, VBG Total CO2 23.3, VBG O2 Saturation 74.1 H, VBG Base Excess -5.5 L, VBG Lactic Acid 3.3 H 02/27/25 05:35: Lactate 1.6 02/27/25 05:36: NT-Pro-B Natriuret Pep 1120 H 02/27/25 05:57: POC Glucose 198 H 02/27/25 09:30: WBC 9.4 D, RBC 4.99, Hct 35.8 L, MCV 71.7 L, MCH 20.4 L, MCHC 28.5 L, RDW 19.2 H, Plt Count 472 H, MPV 10.6 H, Neut % (Auto) 81.6 H, Lymph % (Auto) 10.0, Laurel % (Auto) 6.7, Eos % (Auto) 0.3, Baso % (Auto) 0.7, Neut # (Auto) 7.6, Lymph # (Auto) 0.9, Laurel # (Auto) 0.6, Eos # (Auto) 0.0, Baso # (Auto) 0.1, Sodium 134 L, Potassium 5.4 H D, Chloride 99, Carbon Dioxide 21 L, Anion Gap 19.4 H, BUN 43 H, Creatinine 1.90 H D, Estimated Creat Clear 26, Estimated GFR 26 L, Est GFR ( Amer) 32 L D, Glucose 229 H, Calcium 9.6, Magnesium 2.0, Total Bilirubin 0.9, AST 149 H D, ALT 79 H D, Alkaline Phosphatase 138 H, Total Protein 8.0, Albumin 4.6 D, Globulin 3.4 H, Albumin/Globulin Ratio 1.4
--- NOTE | 2025-02-27 10:58 | SW/DCPLANNER ---
Vital Signs Pulse Rate 128 H 02/26/25 21:17 Blood Pressure 161/64 H 02/26/25 21:17 02 Sat by Pulse Oximetry 98 02/26/25 21:17 Oxygen Delivery Method Room Air 02/26/25 21:17 Temperature 98.1 F 02/27/25 08:00 Pulse Rate 113 H 02/27/25 08:00 Respiratory Rate 16 02/27/25 08:00 Blood Pressure 110/68 02/27/25 08:00 02 Sat by Pulse Oximetry 93 L 02/27/25 08:00 Oxygen Delivery Method Room Air 02/27/25 08:45 Oxygen Flow Rate (LPM) 1 02/27/25 05:00
[2025-02-27] MEDS: POLYETHYLENE GLYCOL 3350 17 GM PACKET PO (11:03)
--- NOTE | 2025-02-27 11:03 | EXP.CARD.CON ---
Documented by User: DEACON Duval 02/27/25 12:16 History of Present Illness History of Present Illness Consult date: 02/27/25 Requesting physician: Deonte Alicea Consult reason: atrial fibrillation Chief complaint: fall and weakness History of present illness: 69-year-old white female established patient of our office with history of morbid obesity, BMI 48, paroxysmal atrial fibrillation, type 2 diabetes. Patient recently had remainder of her teeth pulled and has had very low appetite and eating only soft foods (sometimes cheese puffs for dinner). Has developed severe weakness at home and yesterday had a trip and fall while leaving the bathroom. She denies syncope as the etiology. On arrival to the emergency room she was found to be in A-fib RVR which is why she was admitted overnight for further workup and observation. Cr 1.9 today, HR 120s. She denies palps. Last heart monitor in November was for 2 weeks and showed SR. Last EKG in office was SR. [facility] Disclaimer: The information contained in this section may have been updated after the patient was seen, as this information can be updated by other users. Medical History (Updated 02/27/25 @ 12:24 by Cassie Liz APRN) Chronic heart failure with preserved ejection fraction (HFpEF) Morbid obesity Abnormal electrocardiogram [ECG] [EKG] Tachycardia Hyperkalemia Encounter for pre-operative cardiovascular clearance Daytime somnolence Dyspnea Pulmonary hypertension Coronary artery disease CVA (cerebral vascular accident) Seizures Bipolar 1 disorder, depressed Hypertension Atrial fibrillation with RVR TOPHER (obstructive sleep apnea) Elevated heart rate with elevated blood pressure and diagnosis of hypertension Palpitations DM2 (diabetes mellitus, type 2) HLD (hyperlipidemia) HTN (hypertension) Atrial fibrillation Vulvar lesion Post-menopausal bleeding Vulvar bleeding Surgical History History of cholecystectomy Family History Other Family history of diabetes mellitus type II Family history of stroke Social History Smoking Status: Never smoker second hand exposure: No alcohol intake: never substance use type: denies use current occupational status: retired Travel in the last 8 weeks?: None household members: spouse housing: house caffeine: Yes Have you lived/traveled outside US in past 30 days?: No Contact w/someone who lives/traveled outside US past 30 days?: No Exposure to someone with infectious disease in past 14 days?: No Do you have a fever (greater than 100.4 F or 38 C)?: No Have you tested positive for COVID-19?: No Exposed to someone with COVID-19 in past 14 days?: No Do you have a sore throat?: No Do you have a cough?: No Do you have any weakness?: No Do you have any diarrhea?: No Are you experiencing any unusual bleeding?: No Do you have any muscle aches/pain?: No Do you have any abdominal pain?: No Are you experiencing loss of taste or smell?: No Review of Systems Constitutional Constitutional: Denies fatigue and Reports weakness Eyes Eyes: Denies loss of vision ENT Ears, Nose, Mouth, and Throat: Denies hearing loss *Cardiovascular Cardiovascular: Denies chest pain and Denies dyspnea *Respiratory Respiratory: Denies cough and Denies dyspnea *Gastrointestinal Gastrointestinal: Denies change in stool character, Denies nausea and Denies vomiting *Musculoskeletal Musculoskeletal: Denies muscle weakness Integumentary/Breasts Skin/Breast: Denies changing lesions *Neurologic Neurologic: Reports as per HPI, Denies loss of vision and Reports weakness Endocrine Endocrine: Denies fatigue Exam Data for Last 24 hours Vital signs and Labs for Last 24 Hours: Temp Pulse Resp BP Pulse Ox O2 Del Method O2 Flow Rate 98.1 F 113 H 16 110/68 93 L Room Air 1 02/27/25 08:00 02/27/25 08:00 02/27/25 08:00 02/27/25 08:00 02/27/25 08:00 02/27/25 08:45 02/27/25 05:00 Laboratory Results - last 24 hr 02/26/25 21:47: WBC 13.4 H, RBC 5.59 H, Hgb 11.4 L, Hct 40.0, MCV 71.6 L, MCH 20.4 L, MCHC 28.5 L, RDW 19.6 H, Plt Count 485 H, MPV 10.8 H, Neut % (Auto) 85.4 H, Lymph % (Auto) 7.9 L, [place] % (Auto) 4.6, Eos % (Auto) 0.1, Baso % (Auto) 0.7, Neut # (Auto) 11.4 H, Lymph # (Auto) 1.1, [place] # (Auto) 0.6, Eos # (Auto) 0.0, Baso # (Auto) 0.1, Sodium 138, Potassium 4.3, Chloride 99, Carbon Dioxide 19 L, Anion Gap 24.3 H, BUN 38 H, Creatinine 1.50 H, Estimated Creat Clear 33, Estimated GFR 34 L, Est GFR ( Amer) 42 L, Glucose 249 H, Calcium 10.3 H, Total Bilirubin 0.6, AST 58 H, ALT 57, Alkaline Phosphatase 128 H, Total Protein 9.6 H, Albumin 5.3 H, Globulin 4.3 H, Albumin/Globulin Ratio 1.2 02/27/25 00:44: VBG pH 7.25 L, VBG pCO2 50.4, VBG pO2 43.5 H, VBG HCO3 21.8 L, VBG Total CO2 23.3, VBG O2 Saturation 74.1 H, VBG Base Excess -5.5 L, VBG Lactic Acid 3.3 H 02/27/25 05:35: Lactate 1.6 02/27/25 05:36: NT-Pro-B Natriuret Pep 1120 H 02/27/25 05:57: POC Glucose 198 H 02/27/25 09:30: WBC 9.4 D, RBC 4.99, Hct 35.8 L, MCV 71.7 L, MCH 20.4 L, MCHC 28.5 L, RDW 19.2 H, Plt Count 472 H, MPV 10.6 H, Neut % (Auto) 81.6 H, Lymph % (Auto) 10.0, [place] % (Auto) 6.7, Eos % (Auto) 0.3, Baso % (Auto) 0.7, Neut # (Auto) 7.6, Lymph # (Auto) 0.9, [place] # (Auto) 0.6, Eos # (Auto) 0.0, Baso # (Auto) 0.1, Sodium 134 L, Potassium 5.4 H D, Chloride 99, Carbon Dioxide 21 L, Anion Gap 19.4 H, BUN 43 H, Creatinine 1.90 H D, Estimated Creat Clear 26, Estimated GFR 26 L, Est GFR ( Amer) 32 L D, Glucose 229 H, Calcium 9.6, Magnesium 2.0, Total Bilirubin 0.9, AST 149 H D, ALT 79 H D, Alkaline Phosphatase 138 H, Total Protein 8.0, Albumin 4.6 D, Globulin 3.4 H, Albumin/Globulin Ratio 1.4 I & O for Last 24 hours: Intake & Output 02/24/25 02/25/25 02/26/25 02/27/25 23:59 23:59 23:59 23:59 Intake Total 360 / 360 Balance 360 / 360 Weight 310 lb 299 lb 4.8 oz Constitutional Constitutional: no acute distress, obese and cooperative *Routine HEENT Exam Eye: Present PERRL *Routine Respiratory Exam Respiratory: Present CTA bilaterally; Absent accessory muscle use, wheezes or crackles *Routine Cardiovascular Exam Cardiovascular: Present RRR, Normal S1 and Normal S2; Absent murmur, gallop or rubs *Routine Abdominal Exam Abdominal: Present soft; Absent tenderness *Routine Extremities Exam Extremities: Present pulses intact; Absent cyanosis or edema *Routine Skin Exam Skin: Present intact; Absent erythema or wounds *Routine Neurological Exam Neurological: Present alert and oriented X3 Routine Psychiatric Exam Psychiatric: Present cooperative Meds Home Medications and Allergies Home Medications ?Medication ?Instructions ?Recorded ?Confirmed ?Type cariprazine 4.5 mg capsule 4.5 mg PO DAILY 09/29/23 02/27/25 History (Vraylar) empagliflozin 25 mg tablet 25 mg PO DAILY 09/29/23 02/27/25 History (Jardiance) flash glucose sensor (FreeStyle #1 ea 09/29/23 02/27/25 History Jose 2 Sensor kit) insulin NPH-regular 70-30 U-100 55 unit SQ HS Diabetes 09/29/23 02/27/25 History insulin 100 unit/mL subcutaneous pen (Humulin 70/30 U-100 KwikPen) levomefolate calcium 15 mg tablet 15 mg PO DAILY 09/29/23 02/27/25 History levomilnacipran 40 mg capsule,24 40 mg PO DAILY 09/29/23 02/27/25 History hr,extended release (Fetzima) levothyroxine 125 mcg tablet 125 mcg PO DAILY 09/29/23 02/27/25 History lisinopril 40 mg tablet 40 mg PO DAILY 09/29/23 02/27/25 History metformin 1,000 mg tablet 1,000 mg PO BIDWMEAL 09/29/23 02/27/25 History modafinil 200 mg tablet 200 mg PO DAILY 09/29/23 02/27/25 History oxcarbazepine 150 mg tablet 150 mg PO BID Seizures 09/29/23 02/27/25 History pen needle, diabetic 31 gauge x #1,200 ea 09/29/23 02/27/25 History 3/16 (BD Ultra-Fine Mini Pen Needle) phenytoin sodium extended 100 mg 300 mg PO HS Seizures 09/29/23 02/27/25 History capsule rosuvastatin 10 mg tablet 10 mg PO HS Cholesterol 09/29/23 02/27/25 History sertraline 100 mg tablet 200 mg PO BID 09/29/23 02/27/25 History lansoprazole 30 mg capsule,delayed 30 mg PO DAILY 10/13/23 02/27/25 History release insulin NPH-regular 70-30 U-100 20 unit SQ .Lunch 12/29/23 02/27/25 History insulin 100 unit/mL subcutaneous pen (Humulin 70/30 U-100 KwikPen) insulin NPH-regular 70-30 U-100 20 unit SQ QPM Diabetes 04/19/24 02/27/25 History insulin 100 unit/mL subcutaneous pen (Humulin 70/30 U-100 KwikPen) trazodone 50 mg tablet 50 mg PO HS PRN Sleep 04/19/24 02/27/25 History amiodarone 100 mg tablet 100 mg PO DAILY #30 tabs 10/17/24 02/27/25 Rx apixaban 5 mg tablet (Eliquis) 5 mg PO BID 10/17/24 02/27/25 History amlodipine 5 mg tablet (Norvasc) 5 mg PO DAILY #30 tabs 02/13/25 02/27/25 Rx diltiazem HCl 120 mg capsule,24 120 mg PO DAILY 02/27/25 02/27/25 History hr,extended release (Tiadylt ER) ferrous sulfate 325 mg (65 mg 325 mg PO DAILY 02/27/25 02/27/25 History iron) tablet (FeroSul) torsemide 20 mg tablet 20 mg PO DAILY 02/27/25 02/27/25 History New Prescriptions to Start Prescriptions: Allergies Allergy/AdvReac Type Severity Reaction Status Date / Time No Known Allergies Allergy Verified 01/16/25 10:57 Assessment and Plan *Assessment and plan (1) Atrial fibrillation with rapid ventricular response: Status: Acute Category: Medical Code(s): I48.91 - Unspecified atrial fibrillation (2) Morbid obesity: Status: Acute Category: Medical Code(s): E66.01 - Morbid (severe) obesity due to excess calories (3) Malnutrition: Status: Acute Qualifiers: Malnutrition type: unspecified type Qualified Code(s): E46 - Unspecified protein-calorie malnutrition Category: Medical Code(s): E46 - Unspecified protein-calorie malnutrition (4) Fall: Status: Acute Qualifiers: Encounter type: initial encounter Qualified Code(s): W19.XXXA - Unspecified fall, initial encounter Category: Medical Code(s): W19.XXXA - Unspecified fall, initial encounter (5) HTN (hypertension): Status: Acute Qualifiers: Hypertension type: primary hypertension Qualified Code(s): I10 - Essential (primary) hypertension Category: Medical Code(s): I10 - Essential (primary) hypertension (6) HLD (hyperlipidemia): Status: Acute Qualifiers: Hyperlipidemia type: mixed hyperlipidemia Qualified Code(s): E78.2 - Mixed hyperlipidemia Category: Medical Code(s): E78.5 - Hyperlipidemia, unspecified (7) DM2 (diabetes mellitus, type 2): Status: Acute Qualifiers: Diabetes mellitus mcfp insulin use: with mcfp use Diabetes mellitus complication status: without complication Qualified Code(s): E11.9 - Type 2 diabetes mellitus without complications; Z79.4 - watermaster (current) use of insulin Category: Medical Code(s): E11.9 - Type 2 diabetes mellitus without complications (8) TOPHER (obstructive sleep apnea): Status: Acute Category: Medical Code(s): G47.33 - Obstructive sleep apnea (adult) (pediatric) (9) Chronic heart failure with preserved ejection fraction (HFpEF): Status: Acute Category: Medical Code(s): I50.32 - Chronic diastolic (congestive) heart failure Plan A-fib RVR - known PAF since 2020, exacerbated in setting of decreased PO intake and dehydration - will increase Amio to 200mg and hydrate with 1L NS - keep NPO and consider DCCV if we cannot rate/rhythm control - cont home dose Eliquis Documented by User: Cassie Liz APRN 02/27/25 12:29 History of Present Illness History of Present Illness History of present illness: 69-year-old white female established patient of our office with history of morbid obesity, BMI 48, paroxysmal atrial fibrillation, type 2 diabetes. Patient recently had remainder of her teeth pulled and has had very low appetite and eating only soft foods (sometimes cheese puffs for dinner). Has developed severe weakness at home and yesterday had a trip and fall while leaving the bathroom. She denies syncope as the etiology. On arrival to the emergency room she was found to be in A-fib RVR which is why she was admitted overnight for further workup and observation. Cr 1.9 today, HR 120s. She denies palps. Last heart monitor in November was for 2 weeks and showed SR. Last EKG in office was SR. Denies chest pain or pressure. Denies Shortness of breath or edema. Denies fever, chills, nausea, vomiting or diarrhea. [facility] Medical History (Updated 02/27/25 @ 12:24 by Cassie Liz APRN) Chronic heart failure with preserved ejection fraction (HFpEF) Morbid obesity Abnormal electrocardiogram [ECG] [EKG] Tachycardia Hyperkalemia Encounter for pre-operative cardiovascular clearance Daytime somnolence Dyspnea Pulmonary hypertension Coronary artery disease CVA (cerebral vascular accident) Seizures Bipolar 1 disorder, depressed Hypertension Atrial fibrillation with RVR TOPHER (obstructive sleep apnea) Elevated heart rate with elevated blood pressure and diagnosis of hypertension Palpitations DM2 (diabetes mellitus, type 2) HLD (hyperlipidemia) HTN (hypertension) Atrial fibrillation Vulvar lesion Post-menopausal bleeding Vulvar bleeding Surgical History History of cholecystectomy Family History Other Family history of diabetes mellitus type II Family history of stroke Social History Smoking Status: Never smoker second hand exposure: No alcohol intake: never substance use type: denies use current occupational status: retired Travel in the last 8 weeks?: None household members: spouse housing: house caffeine: Yes Have you lived/traveled outside [place] in past 30 days?: No Contact w/someone who lives/traveled outside US past 30 days?: No Exposure to someone with infectious disease in past 14 days?: No Do you have a fever (greater than 100.4 F or 38 C)?: No Have you tested positive for COVID-19?: No Exposed to someone with COVID-19 in past 14 days?: No Do you have a sore throat?: No Do you have a cough?: No Do you have any weakness?: No Do you have any diarrhea?: No Are you experiencing any unusual bleeding?: No Do you have any muscle aches/pain?: No Do you have any abdominal pain?: No Are you experiencing loss of taste or smell?: No Review of Systems Review of Systems Review of systems:: pertinent systems reviewed and negative unless documented below Constitutional Constitutional: Reports system reviewed and no additional complaints, except as documented Eyes Eyes: Reports system reviewed and no additional complaints, except as documented ENT Ears, Nose, Mouth, and Throat: Reports system reviewed and no additional complaints, except as documented *Cardiovascular Cardiovascular: Reports system reviewed and no additional complaints, except as documented *Respiratory Respiratory: Reports system reviewed and no additional complaints, except as documented *Gastrointestinal Gastrointestinal: Reports system reviewed and no additional complaints, except as documented *Genitourinary Genitourinary: Reports system reviewed and no additional complaints, except as documented *Musculoskeletal Musculoskeletal: Reports system reviewed and no additional complaints, except as documented Integumentary/Breasts Skin/Breast: Reports system reviewed and no additional complaints, except as documented *Neurologic Neurologic: Reports system reviewed and no additional complaints, except as documented Psychiatric Psychiatric: Reports system reviewed and no additional complaints, except as documented Endocrine Endocrine: Reports system reviewed and no additional complaints, except as documented Hematologic/Lymphatic Hematologic/Lymphatic: Reports system reviewed and no additional complaints, except as documented Allergic/Immunologic Allergic/Immunologic: Reports system reviewed and no additional complaints, except as documented Exam *Routine Cardiovascular Exam Cardiovascular: Present tachycardia and irregularly irregular Meds Home Medications and Allergies Home Medications ?Medication ?Instructions ?Recorded ?Confirmed ?Type cariprazine 4.5 mg capsule 4.5 mg PO DAILY 09/29/23 02/27/25 History (Vraylar) empagliflozin 25 mg tablet 25 mg PO DAILY 09/29/23 02/27/25 History (Jardiance) flash glucose sensor (FreeStyle #1 ea 09/29/23 02/27/25 History Jose 2 Sensor kit) insulin NPH-regular 70-30 U-100 55 unit SQ HS Diabetes 09/29/23 02/27/25 History insulin 100 unit/mL subcutaneous pen (Humulin 70/30 U-100 KwikPen) levomefolate calcium 15 mg tablet 15 mg PO DAILY 09/29/23 02/27/25 History levomilnacipran 40 mg capsule,24 40 mg PO DAILY 09/29/23 02/27/25 History hr,extended release (Fetzima) levothyroxine 125 mcg tablet 125 mcg PO DAILY 09/29/23 02/27/25 History lisinopril 40 mg tablet 40 mg PO DAILY 09/29/23 02/27/25 History metformin 1,000 mg tablet 1,000 mg PO BIDWMEAL 09/29/23 02/27/25 History modafinil 200 mg tablet 200 mg PO DAILY 09/29/23 02/27/25 History oxcarbazepine 150 mg tablet 150 mg PO BID Seizures 09/29/23 02/27/25 History pen needle, diabetic 31 gauge x #1,200 ea 09/29/23 02/27/25 History 3/16 (BD Ultra-Fine Mini Pen Needle) phenytoin sodium extended 100 mg 300 mg PO HS Seizures 09/29/23 02/27/25 History capsule rosuvastatin 10 mg tablet 10 mg PO HS Cholesterol 09/29/23 02/27/25 History sertraline 100 mg tablet 200 mg PO BID 09/29/23 02/27/25 History lansoprazole 30 mg capsule,delayed 30 mg PO DAILY 10/13/23 02/27/25 History release insulin NPH-regular 70-30 U-100 20 unit SQ .Lunch 12/29/23 02/27/25 History insulin 100 unit/mL subcutaneous pen (Humulin 70/30 U-100 KwikPen) insulin NPH-regular 70-30 U-100 20 unit SQ QPM Diabetes 04/19/24 02/27/25 History insulin 100 unit/mL subcutaneous pen (Humulin 70/30 U-100 KwikPen) trazodone 50 mg tablet 50 mg PO HS PRN Sleep 04/19/24 02/27/25 History amiodarone 100 mg tablet 100 mg PO DAILY #30 tabs 10/17/24 02/27/25 Rx apixaban 5 mg tablet (Eliquis) 5 mg PO BID 10/17/24 02/27/25 History amlodipine 5 mg tablet (Norvasc) 5 mg PO DAILY #30 tabs 02/13/25 02/27/25 Rx diltiazem HCl 120 mg capsule,24 120 mg PO DAILY 02/27/25 02/27/25 History hr,extended release (Tiadylt ER) ferrous sulfate 325 mg (65 mg 325 mg PO DAILY 02/27/25 02/27/25 History iron) tablet (FeroSul) torsemide 20 mg tablet 20 mg PO DAILY 02/27/25 02/27/25 History New Prescriptions to Start Prescriptions: Allergies Allergy/AdvReac Type Severity Reaction Status Date / Time No Known Allergies Allergy Verified 01/16/25 10:57 Assessment and Plan *Assessment and plan (1) Atrial fibrillation with rapid ventricular response: Status: Acute Category: Medical Code(s): I48.91 - Unspecified atrial fibrillation (2) Morbid obesity: Status: Acute Category: Medical Code(s): E66.01 - Morbid (severe) obesity due to excess calories (3) Malnutrition: Status: Acute Qualifiers: Malnutrition type: unspecified type Qualified Code(s): E46 - Unspecified protein-calorie malnutrition Category: Medical Code(s): E46 - Unspecified protein-calorie malnutrition (4) Fall: Status: Acute Qualifiers: Encounter type: initial encounter Qualified Code(s): W19.XXXA - Unspecified fall, initial encounter Category: Medical Code(s): W19.XXXA - Unspecified fall, initial encounter (5) HTN (hypertension): Status: Acute Qualifiers: Hypertension type: primary hypertension Qualified Code(s): I10 - Essential (primary) hypertension Category: Medical Code(s): I10 - Essential (primary) hypertension (6) HLD (hyperlipidemia): Status: Acute Qualifiers: Hyperlipidemia type: mixed hyperlipidemia Qualified Code(s): E78.2 - Mixed hyperlipidemia Category: Medical Code(s): E78.5 - Hyperlipidemia, unspecified (7) DM2 (diabetes mellitus, type 2): Status: Acute Qualifiers: Diabetes mellitus mcfp insulin use: with mcfp use Diabetes mellitus complication status: without complication Qualified Code(s): E11.9 - Type 2 diabetes mellitus without complications; Z79.4 - prison (current) use of insulin Category: Medical Code(s): E11.9 - Type 2 diabetes mellitus without complications (8) TOPHER (obstructive sleep apnea): Status: Acute Category: Medical Code(s): G47.33 - Obstructive sleep apnea (adult) (pediatric) (9) Chronic heart failure with preserved ejection fraction (HFpEF): Status: Acute Category: Medical Code(s): I50.32 - Chronic diastolic (congestive) heart failure Plan Plan: 1. Patient was admitted with A-fib RVR, HR now in the 120s. exacerbated in setting of decreased PO intake and dehydration. will increase Amio to 200mg daily and hydrate with 1L NS. 2. Recommend rate control at this time for approximately 1 month. She recently had a tooth extraction where she was likely off of her anticoagulation. We want her to be consistently anticoagulated for 1 month before we consider cardioversion if she does not convert on her own. 3. Her Norvasc has been switched over to diltiazem ER 120 mg p.o. daily for rate control as well. 4. Continue home dose of Eliquis for long-term anticoagulation secondary to atrial fibrillation. 5. She denies any chest pain or pressure. No plans for invasive left cardiac catheterization at this time. 6. Her blood pressure is well-controlled. 7. Her LDL goal is less than 100.. Her LDL is less than 30. On Crestor. 8. Her creatinine is up to 1.9. Her baseline is around 1.3. We will give her some IV fluids today to help with her dehydration. 9. Dietitian consult due to her poor nutrition intake since getting her teeth extracted. 10. Further recommendations will be made pending the patient's response to treatment. Thank you for the opportunity to help participate in the care of this patient. All recommendations and orders are per Dr. Mendoza.
[2025-02-27 11:10] LABS: Hemoglobin 10.2 g/dL (12.2-16.2)
[2025-02-27 11:11] LABS: POC Glucose,Bedside 256 (70-110)
[2025-02-27] MEDS: 0.9 % SODIUM CHLORIDE 1000ML 1,000 ML 300 ML IV (11:11)
[2025-02-27 16:39] LABS: POC Glucose,Bedside 146 (70-110)
[2025-02-27] MEDS: PANTOPRAZOLE 40MG TABLET 40 MG PO (21:50)
[2025-02-27] MEDS: humaLOG MIX 75/25 3ML FLEXPEN 45 UNIT SUBCUT (21:51)
--- NOTE | 2025-02-27 22:35 | EXP.EVENT.NO ---
Problem: Patient's heart rate increasing to 140s., Also patient has requested her regular nighttime medicine of trazodone 50 mg Exam: Patient's heart rate in the 140s on monitor patient in no distress at this point in time, patient is alert oriented asking for her regular sleep medication trazodone at at bedtime Plan: Will give diltiazem 20 mg IV now, also will give the trazodone 50 mg nightly first dose now. Will continue to monitor her heart rate if it remains elevated and blood pressure is not significantly low would go ahead and repeat the Cardizem again in the future if heart rate staying above the 110 120 range
[2025-02-27] MEDS: TRAZODONE 50MG TABLET 50 MG PO (22:56)
[2025-02-27 23:13] LABS: POC Glucose,Bedside 172 (70-110)
[2025-02-28] VITALS: BP 135/58; PULSE 101; PULSE 110; RESP 18; TEMP 36.7; O2SAT 96
--- NOTE | 2025-02-28 02:09 | EXP.EVENT.NO ---
Problem: Atrial fibs with RVR., Patient is on oral long-acting Cardizem. But continues to have periods of time when rate increases back into the 140s. Requiring 20 mg Cardizem to be given IV EXAM: Patient is in no distress no significant peripheral edema no shortness of breath PLAN: Will increase the Cardizem CD 280 mg a day., Continue to use the 20 mg IV Cardizem as needed if heart rate remains above 120. Heart rate will fluctuate from just below 100-120 most time then will slowly climb above 130 going up into the 140s, and then sometimes will drop back down to around 110 but normally has been staying elevated until after Cardizem IV has given.
[2025-02-28 04:00] VITALS: BP 121/76; PULSE 100; PULSE 120; RESP 17; TEMP 36.8; O2SAT 99; BMI 48.0
--- NOTE | 2025-02-28 04:29 | PC.NURSE ---
Pt. is alert and orientated x 4. Pt. is on room air. Pt was admitted 02/27/25 after a fall at home and found to be in Afib RVR . Pt, denies chest pain or SOB. Pt. heart rates 100-150's overnight. Pt. had sustained heart rates 130-140 and got Diltazem IV and heart rates came down to 100-120's. Pt. remains in AFIB. Pt.has purewick in place, draining yellow urine. Pt. has had no needs or c/o's this shift. Pt. sleeping well this shift. Personal items and call bianchi in reach.
[2025-02-28 06:23] LABS: POC Glucose,Bedside 138 (70-110)
[2025-02-28 06:27] LABS: Hematocrit 35.0 % (37.0-47.0); Hemoglobin 10.0 g/dL (12.2-16.2); Immature Granulocytes % 0.8 %; Mean Corpuscular HGB Conc 28.6 g/dL (31.8-35.4); Mean Corpuscular Hemoglobin 20.3 pg (27.0-31.2); Mean Corpuscular Volume 71.0 fl (81-99); Nucleated Red Blood Cells % 0 %; Platelet Count 376 K/mm3 (142-424); Red Blood Count 4.93 M/mm3 (4.20-5.40); Red Cell Distribution Width-SD 47.6 fL; White Blood Count 7.8 K/mm3 (4.8-10.8)
[2025-02-28 06:55] LABS: Alanine Aminotransferase 81 U/L (12-78); Albumin Level 4.2 g/dl (3.5-5.0); Albumin/Globulin Ratio 1.3 (1.1-1.8); Alkaline Phosphatase 153 U/L (38-126); Anion Gap 15.7 mEq/L (5-15); Aspartate Amino Transferase 105 U/L (14-36); Bilirubin,Total 0.6 mg/dl (0.2-1.3); Blood Urea Nitrogen 39 mg/dl (7-17); Calcium 9.3 mg/dl (8.4-10.2); Carbon Dioxide 23 mmol/L (22.0-30.0); Chloride 103 mmol/L (98-107); Cholesterol 134 mg/dl (140-200); Creatinine Clearance Estimated 29 mL/min (50-200); Creatinine,Serum 1.70 mg/dl (0.52-1.04); Estimated Glomerular Filt Rate 30 ml/min (>60); GFR (African American) 36 ML/MIN (>60); Globulin 3.3 g/dL (1.3-3.2); Glucose 147 mg/dl (74-100); HDL Cholesterol 78 mg/dl (40-60); Magnesium 2.2 mg/dl (1.6-2.3); Potassium 4.7 mmoL/L (3.5-5.1); Sodium 137 mmol/L (136-145); Total Protein,Serum 7.5 g/dl (6.3-8.2); Triglycerides 94 mg/dl (30-150)
[2025-02-28 07:54] VITALS: BP 122/67; PULSE 115; RESP 16; TEMP 36.6; O2SAT 98
[2025-02-28 08:00] VITALS: PULSE 115
[2025-02-28 08:15] VITALS: PULSE 115; O2SAT 98
[2025-02-28] MEDS: VRAYLAR 4.5 MG 4.5 EACH PO (08:40)
[2025-02-28] MEDS: APIXABAN 5MG TABLET 5 MG PO (08:41)
[2025-02-28] MEDS: SERTRALINE 100MG TABLET 200 MG PO (08:42)
[2025-02-28] MEDS: dilTIAZem HCL 180MG CAP.ER.24H 180 MG PO (08:42)
[2025-02-28] MEDS: BISACODYL 5MG TABLET 10 MG PO (08:43)
[2025-02-28] MEDS: LEVOTHYROXINE 125 MCG PO (08:47)
--- NOTE | 2025-02-28 10:43 | P.PN_ITS ---
Subjective *Date: 02/28/25 *Time: 10:43 Interval history: patient is seen at bedside, complaining of constipation, no abdominal pain, Chest pain, N/V Exam Data for Last 24 hours Vital signs and Labs for Last 24 Hours: Temp Pulse Resp BP Pulse Ox O2 Del Method O2 Flow Rate 97.9 F 115 H 16 122/67 98 Room Air 2 02/28/25 07:54 02/28/25 08:15 02/28/25 07:54 02/28/25 07:54 02/28/25 08:15 02/28/25 09:00 02/27/25 23:00 Laboratory Results - last 24 hr 02/27/25 09:30: Hgb 10.2 L D 02/27/25 11:01: POC Glucose 256 H 02/27/25 16:29: POC Glucose 146 H 02/27/25 20:04: POC Glucose 172 H 02/28/25 05:32: POC Glucose 138 H 02/28/25 06:00: WBC 7.8, RBC 4.93, Hgb 10.0 L, Hct 35.0 L, MCV 71.0 L, MCH 20.3 L, MCHC 28.6 L, RDW 19.3 H, Plt Count 376, MPV 10.4, Neut % (Auto) 75.2, Lymph % (Auto) 13.8, Perry % (Auto) 7.3, Eos % (Auto) 1.9, Baso % (Auto) 1.0, Neut # (Auto) 5.9, Lymph # (Auto) 1.1, Perry # (Auto) 0.6, Eos # (Auto) 0.2, Baso # (Auto) 0.1, Sodium 137, Potassium 4.7, Chloride 103, Carbon Dioxide 23, Anion Gap 15.7 H, BUN 39 H, Creatinine 1.70 H, Estimated Creat Clear 29, Estimated GFR 30 L, Est GFR ( Amer) 36 L, Glucose 147 H D, Calcium 9.3, Magnesium 2.2, Total Bilirubin 0.6, AST 105 H D, ALT 81 H, Alkaline Phosphatase 153 H, Total Protein 7.5, Albumin 4.2, Globulin 3.3 H, Albumin/Globulin Ratio 1.3, Triglycerides 94, Cholesterol 134 L, LDL Cholesterol Direct < 30.00 L, VLDL Cholesterol 19, HDL Cholesterol 78 H, Cholesterol/HDL Ratio 1.7 I & O for Last 24 hours: Intake & Output 02/25/25 02/26/25 02/27/25 02/28/25 23:59 23:59 23:59 23:59 Intake Total 360 / 360 240 / 240 Output Total 200 / 475 525 / 525 Balance 160 / -115 -285 / -285 Weight 140.614 kg 134.49 kg 135.669 kg Constitutional Constitutional: no acute distress *Routine HEENT Exam Head: Present normocephalic Eye: Present EOMI and PERRL ENT: Present mucous membranes moist *Routine Neck Exam Neck: Present supple; Absent lymphadenopathy *Routine Respiratory Exam Respiratory: Present CTA bilaterally *Routine Cardiovascular Exam Cardiovascular: Present irregularly irregular *Routine Abdominal Exam Abdominal: Present soft and normoactive bowel sounds; Absent tenderness *Routine Extremities Exam Extremities: Absent cyanosis, clubbing or edema *Routine Skin Exam Skin: Present warm; Absent rash *Routine Neurological Exam Neurological: Present alert and oriented X3 Assessment and Plan *Assessment and plan (1) Atrial fibrillation with rapid ventricular response: Status: Acute Category: Medical Code(s): I48.91 - Unspecified atrial fibrillation (2) DKA (diabetic ketoacidosis): Qualifiers: Diabetes mellitus complication detail: without coma Diabetes mellitus type: type 2 Qualified Code(s): E11.10 - Type 2 diabetes mellitus with ketoacidosis without coma Category: Medical Code(s): E11.10 - Type 2 diabetes mellitus with ketoacidosis without coma (3) Fall: Status: Acute Qualifiers: Encounter type: initial encounter Qualified Code(s): W19.XXXA - Unspecified fall, initial encounter Category: Medical Code(s): W19.XXXA - Unspecified fall, initial encounter (4) Tachycardia: Status: Acute Category: Medical Code(s): R00.0 - Tachycardia, unspecified (5) TOPHER (obstructive sleep apnea): Status: Acute Category: Medical Code(s): G47.33 - Obstructive sleep apnea (adult) (pediatric) (6) Morbid obesity: Status: Acute Category: Medical Code(s): E66.01 - Morbid (severe) obesity due to excess calories Plan monitor on telemetry consulted cardiology started on Cardizem, increased dose from 120 to 180mg HR in 110s complains of constipation - started on miralax, docusate continue ISS continue amiodarone, cardizem, lisinopril DVT PPx - ricardo eric dc 1-2 days
[2025-02-28] MEDS: humaLOG 100 UNITS/ML 10ML VIAL (SSI) SUBCUT (11:16)
[2025-02-28 11:43] LABS: POC Glucose,Bedside 247 (70-110)
[2025-02-28 12:00] VITALS: BP 120/68; PULSE 100; PULSE 150; RESP 16; TEMP 36.6; O2SAT 98
--- NOTE | 2025-02-28 13:08 | EXP.CARD.PN ---
Subjective Subjective Date: 02/28/25 Time: 10:00 Principal diagnosis: afib with RVR Interval history: This is a 69-year-old white female who presented to the emergency department for having a very low appetite and only eating soft foods after getting his teeth extracted. She developed severe weakness at home and had a trip falling while leaving the bathroom. Upon arrival to the emergency department the patient was found to be in atrial fibrillation with RVR. She is now rate controlled. She denies any chest pain or pressure. She denies any palpitations or racing of the heart. She denies any shortness of breath or edema. She denies any fever, chills, nausea, vomiting or diarrhea. The patient states that she is very ready to be discharged home. Exam Data for Last 24 hours Vital signs and Labs for Last 24 Hours: Temp Pulse Resp BP Pulse Ox O2 Del Method O2 Flow Rate 98 F 100 H 16 120/68 98 Room Air 2 02/28/25 12:00 02/28/25 12:00 02/28/25 12:00 02/28/25 12:00 02/28/25 12:00 02/28/25 11:05 02/27/25 23:00 Laboratory Results - last 24 hr 02/27/25 16:29: POC Glucose 146 H 02/27/25 20:04: POC Glucose 172 H 02/28/25 05:32: POC Glucose 138 H 02/28/25 06:00: WBC 7.8, RBC 4.93, Hgb 10.0 L, Hct 35.0 L, MCV 71.0 L, MCH 20.3 L, MCHC 28.6 L, RDW 19.3 H, Plt Count 376, MPV 10.4, Neut % (Auto) 75.2, Lymph % (Auto) 13.8, Ashley % (Auto) 7.3, Eos % (Auto) 1.9, Baso % (Auto) 1.0, Neut # (Auto) 5.9, Lymph # (Auto) 1.1, Ashley # (Auto) 0.6, Eos # (Auto) 0.2, Baso # (Auto) 0.1, Sodium 137, Potassium 4.7, Chloride 103, Carbon Dioxide 23, Anion Gap 15.7 H, BUN 39 H, Creatinine 1.70 H, Estimated Creat Clear 29, Estimated GFR 30 L, Est GFR ( Amer) 36 L, Glucose 147 H D, Calcium 9.3, Magnesium 2.2, Total Bilirubin 0.6, AST 105 H D, ALT 81 H, Alkaline Phosphatase 153 H, Total Protein 7.5, Albumin 4.2, Globulin 3.3 H, Albumin/Globulin Ratio 1.3, Triglycerides 94, Cholesterol 134 L, LDL Cholesterol Direct < 30.00 L, VLDL Cholesterol 19, HDL Cholesterol 78 H, Cholesterol/HDL Ratio 1.7 02/28/25 11:08: POC Glucose 247 H I & O for Last 24 hours: Intake & Output 02/25/25 02/26/25 02/27/25 02/28/25 23:59 23:59 23:59 23:59 Intake Total 360 / 360 240 / 240 Output Total 200 / 475 525 / 525 Balance 160 / -115 -285 / -285 Weight 310 lb 296 lb 8 oz 299 lb 1.6 oz Constitutional Constitutional: no acute distress, morbidly obese and cooperative *Routine HEENT Exam Eye: Present PERRL *Routine Respiratory Exam Respiratory: Present CTA bilaterally; Absent accessory muscle use, wheezes or crackles *Routine Cardiovascular Exam Cardiovascular: Present Normal S1, Normal S2 and irregularly irregular; Absent murmur, gallop or rubs *Routine Abdominal Exam Abdominal: Present soft; Absent tenderness *Routine Extremities Exam Extremities: Present pulses intact; Absent cyanosis or edema *Routine Skin Exam Skin: Present intact; Absent erythema or wounds *Routine Neurological Exam Neurological: Present alert and oriented X3 Routine Psychiatric Exam Psychiatric: Present cooperative Progress Note: A&P Assessment and plan (1) Atrial fibrillation with rapid ventricular response: Status: Acute (2) Chronic heart failure with preserved ejection fraction (HFpEF): Status: Acute (3) Fall: Status: Acute (4) Morbid obesity: Status: Acute (5) DM2 (diabetes mellitus, type 2): Status: Acute (6) HLD (hyperlipidemia): Status: Acute (7) HTN (hypertension): Status: Acute (8) Bipolar 1 disorder: Status: Acute (9) Chronic anticoagulation: Status: Acute (10) Malnutrition: Status: Acute Assessment and Plan Assessment and Plan for All Diagnoses:: Plan: 1. Patient was admitted with A-fib RVR. Amiodarone was increased to 200 mg daily and she was started on diltiazem for rate control. Her heart rate is down to 90 to 100 bpm. Will increase her diltiazem ER to 240 mg p.o. daily for better heart rate control. 2. Recommend rate control at this time for approximately 1 month. She recently had a tooth extraction where she was likely off of her anticoagulation. We want her to be consistently anticoagulated for 1 month before we consider cardioversion if she does not convert on her own. Will plan for a cardioversion as an outpatient if she does not convert on her own after 1 month. 3. Discontinue Norvasc. 4. Continue home dose of Eliquis for long-term anticoagulation secondary to atrial fibrillation. 5. She denies any chest pain or pressure. No plans for invasive left cardiac catheterization at this time. 6. Her blood pressure is well-controlled. 7. Her LDL goal is less than 100.. Her LDL is less than 30. On Crestor. 8. Her creatinine is down to 1.7. 9. Dietitian consult due to her poor nutrition intake since getting her teeth extracted. 10. No further recommendations at this time from a cardiac standpoint. The patient can be discharged home today from a cardiac standpoint when she is medically cleared by the hospitalist. She will need to follow-up in cardiology clinic in 1 to 2 weeks on an outpatient basis. 11. The patient will need to be discharged on the following cardiac medications: Amiodarone 200 mg daily Eliquis 5 mg p.o. twice daily Diltiazem ER 240 mg daily Protonix 40 mg daily Torsemide 20 mg daily Crestor 10 mg p.o. nightly Thank you for the opportunity to help participate in the care of this patient. All recommendations and orders are per Dr. Mendoza.
--- NOTE | 2025-02-28 16:44 | EXP.DC.SUM ---
General Admission date:: 02/27/25 Discharge date: 02/28/25 HPI HPI HPI: This 69-year-old woman comes in after falling at home.. Patient and family are unsure if she fell from weakness or just slipping /catching her foot. Patient was found to be in atrial fibs RVR upon arrival. She gives a history of being in atrial for about 2 years ago and requiring an ablation.. Patient is also noted to being diabetic and has the freestyle jose 2 sensor kit. She notes that there has been many changes in her medications over the past 3 weeks. That her doctor was attempting to control blood pressure because she felt heart rate. Patient was noted to be on anticoagulation at home. Review of old records found that patient has coronary artery disease, normal ejection fraction on the last echo, pulmonary hypertension. Also noting that the patient has listed 2 seizure medications. Presently patient has a slightly elevated white count mild anemia. Patient has impressive list of home medications, very extensive. After speaking with the ER provider do agree to place the patient into monitor tonight and have cardiology consult, evaluate atrial fibs with his rapid ventricular response. Evaluate all the medications she is on plan to what she needs to be able to return home. Hospital Course Hospital Course Hospital Course: This 69-year-old woman comes in after falling at home.. Patient and family are unsure if she fell from weakness or just slipping /catching her foot. Patient was found to be in atrial fibs RVR upon arrival. She gives a history of being in atrial for about 2 years ago and requiring an ablation.. Patient is also noted to being diabetic and has the freestyle jose 2 sensor kit. She notes that there has been many changes in her medications over the past 3 weeks. That her doctor was attempting to control blood pressure because she felt heart rate. Patient was noted to be on anticoagulation at home. Review of old records found that patient has coronary artery disease, normal ejection fraction on the last echo, pulmonary hypertension. Also noting that the patient has listed 2 seizure medications. Unspecified atrial fibrillation now rate controlled, evaluated by cariology and follow up as outpatient The patient will be discharged on the following cardiac medications: Amiodarone 200 mg daily Eliquis 5 mg p.o. twice daily Diltiazem ER 240 mg daily Protonix 40 mg daily Torsemide 20 mg daily Crestor 10 mg p.o. nightly Exam Data for Last 24 hours Vital signs and Labs for Last 24 Hours: Temp Pulse Resp BP Pulse Ox O2 Del Method O2 Flow Rate 98 F 100 H 16 120/68 98 Room Air 2 02/28/25 12:00 02/28/25 12:00 02/28/25 12:00 02/28/25 12:00 02/28/25 12:00 02/28/25 13:10 02/27/25 23:00 I & O for Last 24 hours: Intake & Output 02/27/25 02/28/25 03/01/25 03/02/25 23:59 23:59 23:59 23:59 Intake Total 360 / 360 600 / 600 Output Total 200 / 475 525 / 525 Balance 160 / -115 75 / 75 Weight 134.49 kg 135.669 kg DS: Diagnosis Discharge Diagnosis (1) Atrial fibrillation with rapid ventricular response: Status: Acute Code(s): I48.91 - Unspecified atrial fibrillation (2) Chronic heart failure with preserved ejection fraction (HFpEF): Status: Acute Code(s): I50.32 - Chronic diastolic (congestive) heart failure (3) Fall: Status: Acute Code(s): W19.XXXA - Unspecified fall, initial encounter Qualifiers: Encounter type: initial encounter Qualified Code(s): W19.XXXA - Unspecified fall, initial encounter (4) Morbid obesity: Status: Acute Code(s): E66.01 - Morbid (severe) obesity due to excess calories (5) DM2 (diabetes mellitus, type 2): Status: Acute Code(s): E11.9 - Type 2 diabetes mellitus without complications Qualifiers: Diabetes mellitus complication status: without complication 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 insulin use: with penitentiary use Qualified Code(s): E11.9 - Type 2 diabetes mellitus without complications; Z79.4 - residential (current) use of insulin (6) HLD (hyperlipidemia): Status: Acute Code(s): E78.5 - Hyperlipidemia, unspecified Qualifiers: Hyperlipidemia type: mixed hyperlipidemia Qualified Code(s): E78.2 - Mixed hyperlipidemia (7) HTN (hypertension): Status: Acute Code(s): I10 - Essential (primary) hypertension Qualifiers: Hypertension type: primary hypertension Qualified Code(s): I10 - Essential (primary) hypertension (8) Bipolar 1 disorder: Status: Acute Code(s): F31.9 - Bipolar disorder, unspecified (9) Chronic anticoagulation: Status: Acute Code(s): Z79.01 - residential (current) use of anticoagulants (10) Malnutrition: Status: Acute Code(s): E46 - Unspecified protein-calorie malnutrition Qualifiers: Malnutrition type: unspecified type Qualified Code(s): E46 - Unspecified protein-calorie malnutrition Meds Home Medications and Allergies Home Medications ?Medication ?Instructions ?Recorded ?Confirmed ?Type cariprazine 4.5 mg capsule 4.5 mg PO DAILY 09/29/23 02/27/25 History (Vraylar) empagliflozin 25 mg tablet 25 mg PO DAILY 09/29/23 02/27/25 History (Jardiance) flash glucose sensor (FreeStyle #1 ea 09/29/23 02/27/25 History Jose 2 Sensor kit) insulin NPH-regular 70-30 U-100 55 unit SQ DAILY Diabetes 09/29/23 02/28/25 History insulin 100 unit/mL subcutaneous pen (Humulin 70/30 U-100 Mc) levomefolate calcium 15 mg tablet 15 mg PO DAILY 09/29/23 02/27/25 History levomilnacipran 40 mg capsule,24 40 mg PO DAILY 09/29/23 02/27/25 History hr,extended release (Fetzima) levothyroxine 125 mcg tablet 125 mcg PO DAILY 09/29/23 02/27/25 History lisinopril 40 mg tablet 40 mg PO DAILY 09/29/23 02/27/25 History metformin 1,000 mg tablet 1,000 mg PO BIDWMEAL 09/29/23 02/27/25 History modafinil 200 mg tablet 200 mg PO DAILY 09/29/23 02/27/25 History oxcarbazepine 150 mg tablet 150 mg PO BID Seizures 09/29/23 02/27/25 History pen needle, diabetic 31 gauge x #1,200 ea 09/29/23 02/27/25 History 3/16 (BD Ultra-Fine Mini Pen Needle) phenytoin sodium extended 100 mg 300 mg PO HS Seizures 09/29/23 02/27/25 History capsule rosuvastatin 10 mg tablet 10 mg PO HS Cholesterol 09/29/23 02/27/25 History sertraline 100 mg tablet 200 mg PO DAILY 09/29/23 02/27/25 History insulin NPH-regular 70-30 U-100 20 unit SQ .Lunch 12/29/23 02/27/25 History insulin 100 unit/mL subcutaneous pen (Humulin 70/30 U-100 KwikPen) insulin NPH-regular 70-30 U-100 20 unit SQ QPM Diabetes 04/19/24 02/27/25 History insulin 100 unit/mL subcutaneous pen (Humulin 70/30 U-100 KwikPen) trazodone 50 mg tablet 50 mg PO HS PRN Sleep 04/19/24 02/27/25 History apixaban 5 mg tablet (Eliquis) 5 mg PO BID 10/17/24 02/27/25 History amlodipine 5 mg tablet (Norvasc) 5 mg PO DAILY #30 tabs 02/13/25 02/27/25 Rx ferrous sulfate 325 mg (65 mg 325 mg PO DAILY 02/27/25 02/27/25 History iron) tablet (FeroSul) torsemide 20 mg tablet 20 mg PO DAILY 02/27/25 02/27/25 History amiodarone 200 mg tablet 200 mg PO DAILY #14 tabs 02/28/25 Rx diltiazem HCl 240 mg 240 mg PO DAILY #14 caps 02/28/25 Rx capsule,extended release 24 hr (Cardizem CD) pantoprazole 40 mg tablet,delayed 40 mg PO HS 30 days #30 tabs 02/28/25 Rx release New Prescriptions to Start Prescriptions: amiodarone Angelina Colorado diltiazem HCl [Cardizem CD] Angelina Colorado pantoprazole Angelina Colorado Allergies Allergy/AdvReac Type Severity Reaction Status Date / Time No Known Allergies Allergy Verified 01/16/25 10:57 Discharge Plan Disposition Patient Disposition: Home, Self-Care Condition: Good Discharge Order Discharge Orders: Discharge Order (Routine); Ordered 02/28/25 Ordered By: Angelina Colorado Follow up Plan Follow up with: Cassie Liz APRN [Nurse Practitioner, Cardiology] - 03/14/25 1:00 pm Ana Peace PA [Referring, Medical] - 03/07/25 12:00 pm Prescriptions/Medication Reconciliation: New amiodarone 200 mg Tablet 200 mg PO DAILY Qty: 14 0RF diltiazem HCl [Cardizem CD] 240 mg capsule,extended release 24hr 240 mg PO DAILY Qty: 14 0RF pantoprazole 40 mg Tablet,Delayed Release (Dr/Ec) 40 mg PO HS 30 Days Qty: 30 0RF Continued (DME) pen needle, diabetic [BD Ultra-Fine Mini Pen Needle] 31 gauge x 3/16 needle See Rx Instructions .ROUTE .MEDSUPPLY Qty: 1200 Rx Instructions: As directed (DME) FreeStyle Jose 2 Sensor Kit See Rx Instructions .ROUTE .MEDSUPPLY Qty: 1 Rx Instructions: As directed Humulin 70/30 U-100 KwikPen 100 unit/mL (70-30) insulin pen 20 unit SQ .Lunch trazodone 50 mg tablet 50 mg PO HS PRN (Reason: Sleep) Patient Comments: TAKE 1 TABLET BY MOUTH EVERY NIGHT Eliquis 5 mg tablet 5 mg PO BID Patient Comments: TAKE 1 TABLET BY MOUTH EVERY 12 HOURS amlodipine [Norvasc] 5 mg tablet 5 mg PO DAILY Qty: 30 2RF ferrous sulfate [FeroSul] 325 mg (65 mg iron) tablet 325 mg PO DAILY Patient Comments: TAKE 1 TABLET BY MOUTH DAILY WITH BREAKFAST torsemide 20 mg tablet 20 mg PO DAILY oxcarbazepine 150 mg tablet 150 mg PO BID Patient Comments: TAKE 1 TABLET BY MOUTH TWICE DAILY sertraline 100 mg tablet 200 mg PO DAILY Patient Comments: TAKE 2 TABLETS BY MOUTH DAILY phenytoin sodium extended 100 mg capsule 300 mg PO HS Patient Comments: TAKE 3 CAPSULES BY MOUTH EVERY NIGHT modafinil 200 mg tablet 200 mg PO DAILY Patient Comments: TAKE 1 TABLET BY MOUTH EVERY MORNING levothyroxine 125 mcg tablet 125 mcg PO DAILY Patient Comments: TAKE 1 TABLET BY MOUTH DAILY lisinopril 40 mg tablet 40 mg PO DAILY Patient Comments: TAKE 1 TABLET BY MOUTH DAILY rosuvastatin 10 mg tablet 10 mg PO HS Patient Comments: TAKE 1 TABLET BY MOUTH DAILY Humulin 70/30 U-100 KwikPen 100 unit/mL (70-30) insulin pen 55 unit SQ DAILY Patient Comments: ADMINISTER 55UNITS UNDER THE SKIN IN THE MORNING AND 35UNITS IN THE EVENING Fetzima 40 mg capsule,extended release 24 hr 40 mg PO DAILY Patient Comments: TAKE 1 CAPSULE BY MOUTH DAILY Jardiance 25 mg tablet 25 mg PO DAILY Patient Comments: TAKE 1 TABLET BY MOUTH DAILY Vraylar 4.5 mg capsule 4.5 mg PO DAILY Patient Comments: TAKE 1 CAPSULE BY MOUTH DAILY levomefolate calcium 15 mg Tablet 15 mg PO DAILY metformin 1,000 mg Tablet 1,000 mg PO BIDWMEAL Humulin 70/30 U-100 KwikPen 100 unit/mL (70-30) insulin pen 20 unit SQ QPM Patient Comments: ADMINISTER 55UNITS UNDER THE SKIN IN THE MORNING AND 35UNITS IN THE EVENING Discontinued amiodarone 100 mg tablet 100 mg PO DAILY Qty: 30 4RF lansoprazole 30 mg capsule,delayed release(DR/EC) 30 mg PO DAILY Patient Comments: TAKE 1 CAPSULE BY MOUTH DAILY diltiazem HCl [Tiadylt ER] 120 mg capsule,extended release 24 hr 120 mg PO DAILY Patient Comments: TAKE 1 CAPSULE BY MOUTH DAILY Problem Reconciliation Problems Reviewed?: Yes Patient Discharge Instructions ACTIVITY: Continue current activity DIET: continue same diet Patient Instructions: DI for Atrial Fibrillation, How to Prevent Falls, Stop Light Pneumonia, Stop Light Heart Failure Print Language: Argentine Providers Primary Care Provider: Avinash Buck Admit Provider: Perez Velasquez Attending Provider: Perez Velasquez
--- NOTE | 2025-03-02 10:52 | SW/DCPLANNER ---
Spoke with patient on the phone. Patient stated that she is doing good. Patient stated that she is aware of her upcoming appointments. Patient stated that she was able to get her new medicine picked up and that she has already taken out the medicine that they discontinued. Patient stated that she has no concerns or questions at this time. Moriah Cantu
== END 2025-02-28 13:58 | disposition home or self-care (01) | DRG 308 ==
LOC: ER 21:27 → 2ND 02-27 02:27
PROVIDERS: Emergency Medicine; Internal Medicine Adolescent Medicine; Nurse Practitioner Family; Physician Assistant; Admitting Provider Student in an Organized Health Care Education/Training Program; Emergency Provider Emergency Medicine; PCP Family Medicine; Visit Provider Student in an Organized Health Care Education/Training Program
DX: I48.0 Paroxysmal atrial fibrillation (principal); E11.10 Type 2 diabetes mellitus with ketoacidosis without coma; Z68.42 Body mass index [BMI] 45.0-49.9, adult; E46 Unspecified protein-calorie malnutrition; I50.32 Chronic diastolic (congestive) heart failure; I11.0 Hypertensive heart disease with heart failure; E78.2 Mixed hyperlipidemia; E86.0 Dehydration; G47.33 Obstructive sleep apnea (adult) (pediatric); F31.9 Bipolar disorder, unspecified; K59.00 Constipation, unspecified; E66.01 Morbid (severe) obesity due to excess calories; Z79.01 Long term (current) use of anticoagulants; Z79.899 Other long term (current) drug therapy; Z79.4 Long term (current) use of insulin; Z79.84 Long term (current) use of oral hypoglycemic drugs; Z79.890 Hormone replacement therapy; Z90.49 Acquired absence of other specified parts of digestive tract
CPT/HCPCS: 36415; 71250; 72128; 72131; 72192; 74174; 80053; 80061; 82803; 82962; 83605; 83735; 83880; 85025; 93005; 93308; 97110; 97163; 97166; 97530; J2270; J2405; J7030; J7120; Q9967

== ENCOUNTER 2025-03-14 13:49 | Inpatient (IN) | payer MEDICARE, OTHER, SELFPAY ==
--- OUTSIDE RECORDS SUMMARY | 2025-02-06 08:15 | XMS_ITS | Encounter Summary ---
Author Organization [facility] Address [address] [place] [phone] Care Team Providers Care Gravel Inspector Name Role Phone Avinash Buck MD Primary Care Provider + Reason for Visit * Reason Comments Restless Legs Syndrome Hypoglycemia At night Encounter Details Date Type Department Care Team (Late st Contact Info) Description 02/06/2025 8:15 AM EDT Office Visit [facility] [address] [facility] [place] [address] Avinash Buck MD [address] [facility] [place] [address] Restless legs syndrome (Primary Dx); [...] currently using Lovenox injections prescribed by her supervisor dumping while Eliquis is being held. The following [...] Care Team (Late st Contact Info) Description 03/19/2025 11:15 AM EDT Office Visit [facility] [address] [place] [address] Avinash Buck MD [address] [place] [address] 05/01/2025 10:45 AM EDT Office Visit [facility] [address] [place], [place] [address] Avinash Buck MD [address] [place] [address] documented as of this encounter Procedures [...] 02/06/2025 8:32 AM EDT 02/06/2025 Narrative [facility] [employer] [facility] (AMBULATORY) - 02/07/2025 3:07 AM EDT Performed at: [address] [place] [id number] Steno Pool Supervisor: Ishmael Munoz MD, Phone: [phone] Patient Fasting: Y us Avinash Buck MD LAB BLOOD ORDERABLES Fin al Result [facility] (AMBULATORY) [address] [place] [address], [place] [phone] [facility] [address] [place] [address], [place] [phone] * Ferritin (02/06/2025 8:32 AM EDT) Ferritin 19.20 13.00 - 150.00 ng/mL [facility] Comment:Results may be false ly decreased if patient taking Biotin. Blood 02/06/2025 8:32 AM EDT 02/06/2025 Narrative [facility] (AMBULATORY) - 02/07/2025 3:07 AM EDT Performed at: [address] [place] [id number] Steno Pool Supervisor: Ishmael Munoz MD, Phone: [phone] Patient Fasting: Y Avinash Buck MD LAB BLOOD ORDERABLES Fin al Result Performing Organization Address City/[facility]/ZIP Co de Phone Number [facility] [address] [place] [address], [facility] [address] [place] [address], * (ABNORMAL) Iron Profile w/o Ferritin (02/06/2025 8:32 AM EDT) [facility] TIBC 519 mcg/dL [facility] UIBC 498(H) 112 - 346 mcg/dL [facility] Iron 21(L) 37 - 145 mcg/dL [facility] Iron Saturation 4(L) 20 - 50 % [facility] Blood 02/06/2025 8:32 AM EDT 02/06/2025 Narrative [facility] - 02/07/2025 3:07 AM EDT Performed at: [address] [place] [id number] Steno Pool Supervisor: Ishmael Munoz MD, Phone: [phone] Patient Fasting: Y Avinash Buck MD LAB BLOOD ORDERABLES Fin al Result Performing Organization Address [facility] Co de Phone Number [facility] [address] [place] [address], [place] [phone] [facility] [address] [place] [address], * (ABNORMAL) CBC (No Diff) (02/06/2025 8:32 AM EDT) [facility] WBC 9.97 3.40 - 10.80 10*3/mm3 [facility] [...] 02/07/2025 3:07 AM EDT Performed at: [address] [id number] [place] Pool Supervisor: Ishmael Munoz MD, Phone: [phone] Patient Fasting: Y us Avinash Buck MD LAB BLOOD ORDERABLES Fin al Result [facility] ([facility]) [address] [place] [address], [facility] [address] [place] [address], [place] [phone] documented in this encounter Visit Diagnoses Diagnosis Restless legs syndrome- Primary Restless legs syndrome (RLS) Type 2 diabetes mellitus with hypoglycemia without coma, with long-term current use of insulin Bipolar disorder, in partial remission, most recent episode hypomanic Microcytic anemia Unspecified iron deficiency anemia documented in this encounter Care Teams Gravel Inspector Relationship Specialty Start Date End Date Avinash Buck MD [address] [place] [address] PCP - General Family Medicine 12/01/21 documented as of this encounter
[2025-03-14] VITALS (9 sets, daily range): BP systolic 91–141; BP diastolic 52–74; PULSE 89–117; RESP 14–21; TEMP 36.6–37; O2SAT 91–99; BMI 47.0
--- OUTSIDE RECORDS SUMMARY | 2025-03-14 13:55 | XMS_ITS | Encounter Summary ---
Author Organization [facility] Address [address] [place] [address] Care Team Providers Care Tax Form Preparer Name Role Phone Avinash Buck MD Primary Care Provider + Reason for Visit * Reason Onset Date Comments Med Refill 01/07/2024 Encounter Details Date Type Department Care Team (Late st Contact Info) Description 01/07/2024 Refill [facility] [address] [facility] [place] [address] Avinash Buck MD [address] [facility] [place] [address] Gastroesophageal reflux disease without esophagitis [...] Description 03/19/2025 11:15 AM EDT Office Visit [facility] [address] [facility] [place] [address] Avinash Buck MD [address] [place], [place] [address] 05/01/2025 10:45 AM EDT Office Visit [facility] [address] [place], [place] [id number] Avinash Buck MD [address] [place] [address] documented as of this encounter Visit Diagnoses Diagnosis Gastroesophageal reflux disease without esophagitis Esophageal reflux documented in this encounter Additional Health Concerns Assessment Noted Time PHQ-2 Depression Total Score: 2 07/05/20 23 2:06 PM EST documented as of this encounter Care Teams Tax Form Preparer Relationship Specialty Start Date End Date Avinash Buck MD [address] [place] [address] PCP - General Family Medicine 12/01/21 documented as of this encounter
--- OUTSIDE RECORDS SUMMARY | 2025-03-14 13:56 | XMS_ITS | Encounter Summary ---
Author Organization [facility] Address [address] [place] [address] Care Team Providers Care Night Baker Name Role Phone Avinash Buck MD Primary Care Provider + Reason for Visit * Reason Onset Date Comments Med Refill 02/26/2025 Encounter Details Date Type Department Care Team (Late st Contact Info) Description 02/26/2025 Refill [facility] [address] [facility] [place] [address] Avinash Buck MD [address] [facility] [place] [address] Social History Tobacco Use Types [...] Description 03/19/2025 11:15 AM EDT Office Visit [facility] [address] [place] [address] Avinash Buck MD [address] [place] [address] 05/01/2025 10:45 AM EDT Office Visit [facility] [address] [place] [address] Avinash Buck MD [address] [place] [address] documented as of this encounter Visit Diagnoses Not on filedocumented in this encounter Care Teams Night Baker Relationship Specialty Start Date End Date Avinash Buck MD [address] [place] [address] PCP - General Family Medicine 12/01/21 documented as of this encounter
--- OUTSIDE RECORDS SUMMARY | 2025-03-14 13:56 | XMS_ITS | Encounter Summary ---
[facility] Address [address] [place] [address] Care Team Providers Care Bowl Sander Name Role Phone Avinash Buck MD Primary Care Provider + Reason for Visit * Reason Onset Date Comments Med Refill 01/15/2025 Encounter Details Date Type Department Care Team (Late st Contact Info) Description 01/15/2025 Refill [facility] MEDICINE [address] [facility] [place] [address] Avinash Buck MD 210 [facility] [address] Seizure disorder Social History Tobacco [...] Description 03/19/2025 11:15 AM EDT Office Visit [facility] MEDICINE [address] [place] [address] Avinash Buck MD [address] [place] [address] 05/01/2025 10:45 AM EDT Office Visit [facility] [address] [place] [address] Avinash Buck MD [address] [facility] [place] [address] documented as of this encounter Visit Diagnoses Diagnosis Seizure disorder Unspecified epilepsy without mention of intractable epilepsy documented in this encounter Care Teams Bowl Sander Relationship Specialty Start Date End Date Avinash Buck MD [address] [place] [address] PCP - General Family Medicine 12/01/21 documented as of this encounter
--- OUTSIDE RECORDS SUMMARY | 2025-03-14 13:56 | XMS_ITS | Encounter Summary ---
[facility] Address [address] [place] [address] Care Team Providers Care Inbound Customer Service Representative Name Role Phone Avinash Buck MD Primary Care Provider + Reason for Visit * Reason Comments Med Refill Encounter Details Date Type Department Care Team (Late st Contact Info) Description 02/12/2025 Refill [facility] MEDICINE 210 [facility] [place] [address] Avinash Buck MD [address] [place] [address] Social History Tobacco Use Types Packs/Day [...] Description 03/19/2025 11:15 AM EDT Office Visit [facility] MEDICINE [address] [place] [address] Avinash Buck MD [address] [place] [address] 05/01/2025 10:45 AM EDT Office Visit [facility] MED[facility] [address] [place] [phone] Avinash Buck MD [address] [place] [address] documented as of this encounter Visit Diagnoses Not on filedocumented in this encounter Care Teams Inbound Customer Service Representative Relationship Specialty Start Date End Date Avinash Buck MD [address] [place] [address] PCP - General Family Medicine 12/01/21 documented as of this encounter
--- OUTSIDE RECORDS SUMMARY | 2025-03-14 13:56 | XMS_ITS | Encounter Summary ---
[facility] Address [address] [place] [id number] Care Team Providers Care Junior Technical Writer Name Role Phone Avinash Buck MD Primary Care Provider + Encounter Details Date Type Department Care Team (Late Contact Info) Description 02/07/2025 Results Follow-Up [facility] MEDICINE 210 [facility] [place] [address] Avinash Buck MD [address] [place] [address] Social History Tobacco Use Types [...] Department Care Team (Late Contact Info) Description 03/19/2025 11:15 AM EDT Office Visit [facility] MEDICINE [address] [place] [address] Avinash Buck MD [address] [place] [address] 05/01/2025 10:45 AM EDT Office Visit [facility] MED[facility]INE [address] [place] [phone] Avinash Buck MD [address] [place] [address] Scheduled Orders Name Type Priority Associated Diagnoses Orde r Schedule CBC (No Diff) Lab Routine Iron deficiency anemia, unspecified iron deficiency anemia type Expected: 03/23/2025 (Approximate), Expires: 05/10/2026 documented as of this encounter Visit Diagnoses Diagnosis Iron deficiency anemia, unspecified iron deficiency anemia type- Primary documented in this encounter Care Teams Junior Technical Writer Relationship Specialty Start Date End Date Avinash Buck MD [address] [place] [address] PCP - General Family Medicine 12/01/21 documented as of this encounter
--- OUTSIDE RECORDS SUMMARY | 2025-03-14 13:56 | XMS_ITS | Encounter Summary ---
[facility] Address [address] [id number] Care Team Providers Care Monogram Technician Name Role Phone Avinash Buck MD Primary Care Provider + Reason for Visit * Reason Onset Date Comments Med Refill 01/22/2025 Encounter Details Date Type Department Care Team (Late st Contact Info) Description 01/22/2025 Refill [facility] MED[facility]INE 210 [facility] [place] [address] Avinash Buck MD [address] [facility] [place] [address] Type 2 diabetes mellitus with [...] Description 03/19/2025 11:15 AM EDT Office [facility] MEDICINE 210 [facility] [place] [address] Avinash Buck MD [address] [place] [address] 05/01/2025 10:45 AM EDT Office Visit [facility] MEDICINE [address] [place] [address] Avinash Buck MD [address] [place] [address] documented as of this encounter Visit Diagnoses Diagnosis Type 2 diabetes mellitus with hyperglycemia, with long-term current use of insulin documented in this encounter Care Teams Monogram Technician Relationship Specialty Start Date End Date Avinash Buck MD [address] [place] [address] PCP - General Family Medicine 12/01/21 documented as of this encounter
--- OUTSIDE RECORDS SUMMARY | 2025-03-14 13:56 | XMS_ITS | Clinical Summary ---
Author Organization [facility] Address [address] [address] Care Team Providers Care Alarm Installation Technician Name Role Phone Avinash Buck MD Primary Care Provider + Allergies No known active allergies Medications amiodarone (PACERONE) 200 MG tablet Take 0.5 tablets by mouth Daily. 10/04/19 24 Active x-caeiyajatelf-cgo ae (DEPLIN) 15-90.314 MG capsule capsule Take 1 capsule by mouth Daily. 90 capsule 11 01/10/20 24 Active Continuous Glucose Sensor (FreeStyle Jose 2 Sensor) miscIndications:Ty pe 2 diabetes mellitus with hyperglycemia, with long-term current use of insulin,Long-term insulin use Use 1 each Every 14 (Fourteen) Days. 6 each 4 02/16/20 24 Active Fetzima 40 MG capsule sustained-release 24 hr Take 40 mg by mouth Daily. 30 capsule 11 04/03/20 24 Active lansoprazole (PREVACID) 30 MG capsuleIndications :Gastroesophageal reflux disease without esophagitis Take 1 capsule by mouth Daily. 90 capsule 3 04/03/20 24 Active apixaban (ELIQUIS) 5 MG tablet tabletIndications: Permanent atrial fibrillation Take 1 tablet by mouth Every 12 (Twelve) Hours. 180 tablet 3 07/11/20 24 Active rosuvastatin (CRESTOR) 10 MG tabletIndications: Hypercholesterolem ia Take 1 tablet by mouth Daily. 90 tablet 3 08/24/19 25 Active traZODone (DESYREL) 50 MG tabletIndications: Type 2 diabetes mellitus with hyperglycemia, with long-term current use of insulin TAKE 1 TABLET BY MOUTH EVERY NIGHT 90 tablet 3 08/28/19 25 Active levothyroxine (SYNTHROID, LEVOTHROID) 125 MCG tabletIndications: Acquired hypothyroidism Take 1 tablet by mouth Daily. 90 tablet 3 09/13/19 25 Active B-D UF III MINI PEN NEEDLES 31G X 5 MM miscIndications:Ty pe 2 diabetes mellitus with hyperglycemia, with long-term current use of insulin,Long-term insulin use USE DIRECTED TWICE DAILY 100 each 3 11/07/19 25 Active Vraylar 4.5 MG capsule capsuleIndications :Mood disorder TAKE 1 CAPSULE BY MOUTH DAILY 90 capsule 3 11/30/19 25 Active Jardiance 25 MG tablet tabletIndications: Type 2 diabetes mellitus with hyperglycemia, with long-term current use of insulin TAKE 1 TABLET BY MOUTH DAILY 90 tablet 2 12/20/19 25 Active lisinopril (PRINIVIL,ZESTRIL) 40 MG tabletIndications: Essential hypertension TAKE 1 TABLET BY MOUTH DAILY 90 tablet 1 12/20/19 25 Active Tiadylt ER 120 MG 24 hr capsule Take 1 capsule by mouth Daily. 11/17/19 25 Active amLODIPine (NORVASC) 10 MG tablet Take 1 tablet by mouth Daily. Active phenytoin ER (DILANTIN) 100 MG capsuleIndications :Seizure disorder TAKE 3 CAPSULES BY MOUTH EVERY NIGHT 90 capsule 3 01/16/20 25 Active HumuLIN 70/30 KwikPen (70-30) 100 UNIT/ML suspension pen-injectorIndica tions:Type 2 diabetes mellitus with hyperglycemia, with long-term current use of insulin ADMINISTER 55 UNITS IN THE MORNING, 20 UNITS AT NOON, 30 UNITS IN THE EVENING 30 mL 3 01/20/20 25 Active metFORMIN (GLUCOPHAGE) 1000 MG tabletIndications: Type 2 diabetes mellitus with hyperglycemia, with long-term current use of insulin Take 1 tablet by mouth 2 (Two) Times a Day. 180 tablet 3 01/23/20 25 Active ferrous sulfate 325 (65 FE) MG tabletIndications: Iron deficiency anemia, unspecified iron deficiency anemia type Take 1 tablet by mouth Daily With Breakfast. 90 tablet 02/08/20 25 Active torsemide (DEMADEX) 20 MG tablet TAKE 1 TABLET BY MOUTH DAILY 90 tablet 02/13/20 25 Active modafinil (PROVIGIL) 200 MG tabletIndications: Obstructive sleep apnea of adult Take 1 tablet by mouth Every Morning. 90 tablet 1 02/20/20 25 Active OXcarbazepine (TRILEPTAL) 150 MG tabletIndications: Seizure disorder Take 1 tablet by mouth 2 (Two) Times a Day. 180 tablet 3 02/20/20 25 Active sertraline (ZOLOFT) 100 MG tablet Take 2 tablets by mouth Daily. 180 tablet 3 02/27/20 25 Active sertraline (ZOLOFT) 100 MG tablet Take 2 tablets by mouth Daily. 180 tablet 3 02/28/20 24 025 Discontin ued(Reord er) OXcarbazepine (TRILEPTAL) 150 MG tabletIndications: Seizure disorder TAKE 1 TABLET BY MOUTH TWICE DAILY 180 tablet 3 08/28/19 25 025 Discontin ued(Reord er) modafinil (PROVIGIL) 200 MG tabletIndications: Obstructive sleep apnea of adult Take 1 tablet by mouth Every Morning. 90 tablet 1 01/12/20 25 025 Discontin ued(Reord er) Active Problems Problem Noted Date Diagnosed Date [...] treatment regimen. Dietary recommendations for ADA diet. Quarter Backer referral. Diabetes will be reassessed in 3 months. 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 Assessment & Plan [...] Encounters Date Type Department Care Team Description 03/05/2025 Telephone [facility] MEDICINE [address] [place] [address] Avinash Buck MD Constipation 02/26/2025 Refill [facility] [address] [place] [address] Avinash Buck MD 02/19/2025 Refill [facility] [address] [place] [address] Avinash Buck MD Seizure disorder 02/19/2025 Refill [facility] [address] [place] [address] Avinash Buck MD Obstructive sleep apnea of adult 02/16/2025 Telephone [facility] [address] [place] [address] Avinash Buck MD 02/12/2025 Refill [facility] [address] [place] [address] Avinash Buck MD 02/08/2025 Results Follow-Up [facility] [address] [place] [address] Avinash Buck MD 02/07/2025 Results Follow-Up [facility] [address] [place] [address] Avinash Buck MD 02/06/2025 8:15 AM EDT Office Visit [facility] [address] [place] [address] Avinash Buck MD Restless legs syndrome (Primary Dx); Type 2 diabetes mellitus with hypoglycemia without coma, with long-term current use of insulin; Bipolar disorder, in partial remission, most recent episode hypomanic; Microcytic anemia 02/06/2025 Travel 01/22/2025 Refill [facility] [address] [place] [address] Avinash Buck MD Type 2 diabetes mellitus with hyperglycemia, with long-term current use of insulin 01/19/2025 Refill [facility] [address] [place] [address] Avinash Buck MD Type 2 diabetes mellitus with hyperglycemia, with long-term current use of insulin 01/15/2025 Refill [facility] [address] [place] [address] Avinash Buck MD Seizure disorder 01/15/2025 Refill [facility] [address] [place] [address] Avinash Buck MD Seizure disorder 01/11/2025 9:00 AM EDT Office Visit [facility] [address] [place] [address] Avinash Buck MD Type 2 diabetes mellitus with hyperglycemia, with long-term current use of insulin (Primary Dx); Essential hypertension; BMI 50.0-59.9, adult; Fall in home, initial encounter; Functional gait abnormality; Encounter for screening mammogram for malignant neoplasm of breast; Obstructive sleep apnea of adult 01/11/2025 Travel 12/19/2024 Refill [facility] [address] [place] [address] Avinash Buck MD Type 2 diabetes mellitus with hyperglycemia, with long-term current use of insulin; Essential hypertension from Last 3 Months Immunizations Immunization Administration [...] Description 03/19/2025 11:15 AM EDT Office Visit [facility] [address] [place] [phone] Avinash Buck MD [address] [place] [address] 05/01/2025 10:45 AM EDT Office Visit [facility] MEDICINE [address] [place] [address] Avinash Buck MD [address] [place] [address] Health Maintenance Due Date Last Done [...] Procedure Name Priority Date/Time Associated Diagnosis Comments SCANNED EKG 02/27/2025 SCANNED - LABS 02/26/2025 SCANNED - LABS 02/26/2025 SCANNED - IMAGING 02/26/2025 SCANNED - IMAGING 02/26/2025 SCANNED - IMAGING 02/26/2025 SCANNED - IMAGING 02/26/2025 SCANNED - IMAGING 02/26/2025 TSH RFX ON ABNORMAL TO FREE T4 [...] Recently Relevant to Health Maintenance Results * ECG Scan (02/27/2025) Avinash Buck MD ECG ORDERABLES Final Re sult * IMAGING SCANNED (02/26/2025) Only the most recent of5 resultswithin the time period is included. Anatomical Region Laterality Modality Radiographic Brittany ging Avinash Buck MD IMG DIAGNOSTIC IMAGING O RDERABLES Final Result * LABS SCANNED (02/26/2025) Only the most recent of2 resultswithin the time period is included. us Avinash Buck MD LAB BLOOD ORDERABLES Fin al Result * TSH Rfx On Abnormal To Free T4 (02/06/2025 8:32 AM EDT) TSH 1.750 0.270 - 4.200 uIU/mL [facility] Blood 02/06/2025 8:32 AM EDT 02/06/2025 Narrative [facility] ([facility]) - 02/07/2025 3:07 AM EDT Performed at: [address] [place] [id number] Electrical [employer] Aircraft Mechanic: Ishmael Munoz MD, Phone: [phone] Patient Fasting: Y Avinash Buck MD LAB BLOOD ORDERABLES Fin al Result Performing Organization Address City/[facility]/ZIP Co de Phone Number [facility] [address] [place] [address], [facility] [address] [place] [address], * (ABNORMAL) Iron Profile w/o Ferritin (02/06/2025 8:32 AM EDT) [facility] TIBC 519 mcg/dL [facility] UIBC 498(H) 112 - 346 mcg/dL [facility] Iron 21(L) 37 - 145 mcg/dL [facility] Iron Saturation 4(L) 20 - 50 % [facility] Blood 02/06/2025 8:32 AM EDT 02/06/2025 Narrative [facility] - 02/07/2025 3:07 AM EDT Performed at: [address] [place] [id number] Electrical [employer] Aircraft Mechanic: Ishmael Munoz MD, Phone: [phone] Patient Fasting: Y Avinash Buck MD LAB BLOOD ORDERABLES Fin al Result Performing Organization Address [facility] Co de Phone Number [facility] [address] [place] [address], [place] [phone] [facility] [address] [place] [address], * (ABNORMAL) CBC (No Diff) (02/06/2025 8:32 AM EDT) [facility] WBC 9.97 3.40 - 10.80 10*3/mm3 [...] 02/07/2025 3:07 AM EDT Performed at: [address] [place] [address] [address] [place], [place] [id number] Electrical [employer] Radio Aircraft Mechanic: Ishmael Munoz MD, Phone: [phone] Patient Fasting: Y Avinash Buck MD LAB BLOOD ORDERABLES Fin al Result Performing Organization Address [facility] Co de Phone Number [facility] ([facility]UL[facility]) [address] [place] [address], [place] [phone] [facility] [address] [place] [address], [place] [phone] * Ferritin (02/06/2025 8:32 AM EDT) [facility] Ferritin 19.20 13.00 - 150.00 ng/mL [facility] Comment:Results may be false ly decreased if patient taking Biotin. Blood 02/06/2025 8:32 AM EDT 02/06/2025 Narrative [facility] ([facility]) - 02/07/2025 3:07 AM EDT Performed at: [address] [place] [address] [address] [place], [place] [id number] Electrical [employer] Aircraft Mechanic: Ishmael Munoz MD, Phone: [phone] Patient Fasting: Y Avinash Buck MD LAB BLOOD ORDERABLES Fin al Result Performing Organization Address [facility] Co de Phone Number [facility] ([facility]) [address] [place] [address], [place] [phone] [facility] [address] [place] [address], * Mammo Screening Digital Tomosynthesis Bilateral With CAD (02/05/2025) Anatomical Region Laterality Modality Breast N/A Mammography us Avinash Buck MD IMG MAMMOGRAPHY ORDERABL ES Final Result * FOOT EXAM SCANNED (01/25/2025) us Avinash Buck MD CHART REVIEW TABS Fin al Result * FOOT EXAM SCANNED (01/16/2025) us Avinash Buck MD CHART REVIEW TABS Fin al Result * (ABNORMAL) POC Glycosylated Hemoglobin (Hb A1C) (01/11/2025 9:09 AM EDT) Hemoglobin A1C 7.4(A) 4.5 - 5.7 % [facility] Lot Number [id number] [facility] Expiration Date 09/25/2026 [facility] Blood 01/11/2025 9:09 AM EDT us Avinash Buck MD POINT OF CARE TEST ORDER SHAYE Final Result [facility]
[address] [place] [address], * (ABNORMAL) POC Albumin/Creatinine Ratio Urine (10/13/2024 11:38 AM EST) POC ALBUMIN, URINE 30 mg/L POC CREATININE, URINE 50 mg/dL POC Urine Albumin Creatinine Ratio 30-300 mg/g <30 Comment:abnormal Lot Number [id number] Expiration Date 05/08/2025 Urine 10/13/2024 11:3 8 AM EST us Avinash Buck MD POINT OF CARE TEST [...] 9:10 AM EST Performed at: [facility] [address] [place] [id number] Electrical And Radio Aircraft Mechanic: Jonathan Oh PhD, Phone: [phone] Patient Fasting: Y Avinash Buck MD LAB BLOOD ORDERABLES Fin al Result Performing Organization Address City/State/[facility] Co de Phone Number [facility] ([facility]UL[facility]) [address] [phone], [facility] [address] [place] [address], from Last 3 Months or Most Recently Relevant to Health Maintenance Insurance MEDICARE A & B COMMERCIAL Advance Directives Documents on File Type Date Recorded Patient Nick Setter Expl anation LIVING WILL - SCAN 09/28/2023 12:24 PM [facility]ERT [facility] WILL, [facility] [place], 09/07/2023 Care Teams Alarm Installation Technician Relationship Specialty Start Date End Date Avinash Buck MD [address] [place] [address] PCP - General Family Medicine 12/01/21
--- OUTSIDE RECORDS SUMMARY | 2025-03-14 13:56 | XMS_ITS | Encounter Summary ---
[facility] Address [address] [place] [address] Care Team Providers Care Brusher Hand Name Role Phone Avinash Buck MD Primary Care Provider + Reason for Visit * Reason Comments Med Refill Encounter Details Date Type Department Care Team (Late Contact Info) Description 01/15/[address] [facility] MEDICINE [address] [place] [address] Avinash Buck MD [address] [place] [address] Seizure disorder Social History Tobacco Use [...] 03/19/2025 11:15 AM EDT Office Visit [facility] MEDICINE [address] [place] [address] Avinash Buck MD [address] [place] [address] 05/01/2025 10:45 AM EDT Office Visit [facility] [address] [place] [phone] Avinash Buck MD [address] [place] [address] documented as of this encounter Visit Diagnoses Diagnosis Seizure disorder Unspecified epilepsy without mention of intractable epilepsy documented in this encounter Care Teams Brusher Hand Relationship Specialty Start Date End Date Avinash Buck MD [address] [place] [address] PCP - General Family Medicine 12/01/21 documented as of this encounter
--- OUTSIDE RECORDS SUMMARY | 2025-03-14 13:56 | XMS_ITS | Encounter Summary ---
[facility] Address [address] [place] [phone] Care Team Providers Care Supervisor Painting Department Name Role Phone Avinash Buck MD Primary [...] Description 03/19/2025 11:15 AM EDT Office Visit [facility] MEDICINE [address] [place] [address] Avinash Buck MD [address] [place] [address] 05/01/2025 10:45 AM EDT Office Visit [facility] MEDICINE [address] [place] [address] Avinash Buck MD [address] [place] [address] documented as of this encounter Visit Diagnoses Not on filedocumented in this encounter Care Teams Supervisor Painting Department Relationship Specialty Start Date End Date Avinash Buck MD [address] [place] [address] PCP - General Family Medicine 12/01/21 documented as of this encounter
--- OUTSIDE RECORDS SUMMARY | 2025-03-14 13:56 | XMS_ITS | Encounter Summary ---
[facility] Address [address] [place] [address] Care Team Providers Care Teaseler Name Role Phone Avinash Buck MD Primary Care Provider + Reason for Visit * Reason Onset Date Comments Med Refill 02/19/2025 Encounter Details Date Type Department Care Team (Late st Contact Info) Description 02/19/2025 Refill [facility] [address] [facility] [place] [address] Avinash Buck MD [address] [facility] [place] [address] Seizure disorder Social History Tobacco [...] 03/19/2025 11:15 AM EDT Office Visit [facility] [address] [facility] [place] [address] Avinash Buck MD [address] [place] [address] 05/01/2025 10:45 AM EDT Office Visit [facility] MEDICINE [address] [place] [address] Avinash Buck MD [address] [place] [place] [address] documented as of this encounter Visit Diagnoses Diagnosis Seizure disorder Unspecified epilepsy without mention of intractable epilepsy documented in this encounter Care Teams Teaseler Relationship Specialty Start Date End Date Avinash Buck MD [address] [place] [address] PCP - General Family Medicine 12/01/21 documented as of this encounter
--- OUTSIDE RECORDS SUMMARY | 2025-03-14 13:56 | XMS_ITS | Encounter Summary ---
[facility] Address [address] [place] [address] Care Team Providers Care Motor Bike Mechanic Name Role Phone Avinash Buck MD Primary Care Provider + Reason for Visit * Reason Onset Date Comments Med Refill 02/19/2025 Encounter Details Date Type Department Care Team (Late st Contact Info) Description 02/19/2025 Refill [facility] [address] [facility] [place] [address] Avinash Buck MD [address] [facility] [place] [address] Obstructive sleep apnea of adult [...] Description 03/19/2025 11:15 AM EDT Office Visit [facility] [address] [place] [address] Avinash Buck MD [address] [place] [address] 05/01/2025 10:45 AM EDT Office Visit [facility] [address] [place] [phone] Avinash Buck MD [address] [facility] [address] documented as of this encounter Visit Diagnoses Diagnosis Obstructive sleep apnea of adult documented in this encounter Care Teams Motor Bike Mechanic Relationship Specialty Start Date End Date Avinash Buck MD [address] [place] [address] PCP - General Family Medicine 12/01/21 documented as of this encounter
--- OUTSIDE RECORDS SUMMARY | 2025-03-14 13:56 | XMS_ITS | Encounter Summary ---
[facility] Organization [facility] Address [address] [place] [phone] Care Team Providers Care Biology Teacher Name Role Phone Avinash Buck MD Primary Care Provider + Encounter Details Date Type Department Care Team (Late st Contact Info) Description 02/16/2025 Telephone [facility] [address] [place] [address] Avinash Buck MD [address] [place] [address] Social History Tobacco Use Types [...] Caller: [facility] - [phone] - [phone] FX Relationship: Pharmacy Best call back number: [phone] What is the best time to reach [...] Description 03/19/2025 11:15 AM EDT Office Visit [facility] [address] [place] [address] Avinash Buck MD [address] [place] [address] 05/01/2025 10:45 AM EDT Office Visit [facility] [address] [place] [phone] Avinash Buck MD [address] [place] [address] documented as of this encounter Visit Diagnoses Not on filedocumented in this encounter Care Teams Biology Teacher Relationship Specialty Start Date End Date Avinash Buck MD [address] [place] [address] PCP - General Family Medicine 12/01/21 documented as of this encounter
--- OUTSIDE RECORDS SUMMARY | 2025-03-14 13:56 | XMS_ITS | Encounter Summary ---
Author Organization [facility] Address [address] [place] [address] Care Team Providers Care Recreation Worker Name Role Phone Avinash Buck MD Primary Care Provider + Reason for Visit * Reason Onset Date Comments Constipation 03/05/2025 Encounter Details Date Type Department Care Team (Late st Contact Info) Description 03/05/2025 Telephone [facility] [address] [place] [address] Avinash Buck MD [address] [place] [address] Constipation Social History Tobacco Use Types Packs/Day Years [...] Telephone Encounter - Leticia Garibay MA - 03/05/2025 12:08 PM EDT Pt informed me she had been in the hospital most recently for her AFib and has not had a BM for thepast 8 days. She has tried prunes, fiber, Exlax and some Miralax. I informed her to take 1 cap of Miralax TID for the next few days until she has a BM. Pt voiced understanding. * Telephone Encounter - Lauryn Dahl - 03/05/2025 9:40 AM EDT PATIENT IS REQUESTING A CALL BACK FROM THE NURSE IN REGARDS TO CONSTIPATION. CALL BACK NUMBER IS [phone] documented in this encounter Plan of Treatment Upcoming Encounters Date Type Department Care Team (Late st Contact Info) Description 03/19/2025 11:15 AM EDT Office Visit [facility] [address] [place] [address] Avinash Buck MD [address] [place] [address] 05/01/2025 10:45 AM EDT Office Visit [facility] [address] [place] [address] Avinash Buck MD [address] [place] [address] documented as of this encounter Visit Diagnoses Not on filedocumented in this encounter Care Teams Recreation Worker Relationship Specialty Start Date End Date Avinash Buck MD [address] [place] [address] PCP - General Family Medicine 12/01/21 documented as of this encounter
--- OUTSIDE RECORDS SUMMARY | 2025-03-14 13:56 | XMS_ITS | Encounter Summary ---
[facility] [address] [place] [phone] Care Team Providers Care Noc Analyst Name Role Phone Avinash Buck MD Primary Care Provider + Encounter Details Date Type Department Care Team (Late st Contact Info) Description 10/16/2024 Results Follow-Up [facility] MED[facility]INE [address] [facility] [place] [address] Avinash Buck MD [address] [place] [address] Social History Tobacco Use Types [...] Description 03/19/2025 11:15 AM EDT Office Visit [facility] MED[facility]INE [address] [place] [address] Avinash Buck MD [address] [place] [address] 05/01/2025 10:45 AM EDT Office Visit [facility] [address] [place] [address] Avinash Buck MD [address] [place] [address] documented as of this encounter Visit Diagnoses Not on filedocumented in this encounter Care Teams Noc Analyst Relationship Specialty Start Date End Date Avinash Buck MD [address] [place] [address] PCP - General Family Medicine 12/01/21 documented as of this encounter
--- OUTSIDE RECORDS SUMMARY | 2025-03-14 13:56 | XMS_ITS | Encounter Summary ---
[facility] Address [address] [place] [phone] Care Team Providers Care Cloth Laminating Supervisor Name Role Phone Avinash Buck MD Primary Care Provider + Reason for Visit * Reason Onset Date Comments Med Refill 01/19/2025 Encounter Details Date Type Department Care Team (Late st Contact Info) Description 01/19/2025 Refill [facility] [address] [facility] [place] [address] Avinash Buck MD [address] [facility] [place] [place] [address] Type 2 diabetes mellitus with [...] Description 03/19/2025 11:15 AM EDT Office Visit [facility] [address] [facility] [place] [address] Avinash Buck MD [address] [place] [address] 05/01/2025 10:45 AM EDT Office Visit [facility] [address] [place] [address] Avinash Buck MD [address] [place] [address] documented as of this encounter Visit Diagnoses Diagnosis Type 2 diabetes mellitus with hyperglycemia, with long-term current use of insulin documented in this encounter Care Teams Cloth Laminating Supervisor Relationship Specialty Start Date End Date Avinash Buck MD [address] [place] [address] PCP - General Family Medicine 12/01/21 documented as of this encounter
--- OUTSIDE RECORDS SUMMARY | 2025-03-14 13:56 | XMS_ITS | Encounter Summary ---
[facility] [address] [place] [phone] Care Team Providers Care Card Setter Name Role Phone Avinash Buck MD Primary Care Provider + Encounter Details Date Type Department Care Team (Late Contact Info) Description 02/08/2025 Results Follow-Up [facility] MEDICINE [address] [facility] [place] [address] Avinash Buck MD [address] [place] [address] Social History Tobacco Use Types [...] Description 03/19/2025 11:15 AM EDT Office Visit [facility] [address] [place] [address] Avinash Buck MD [address] [place] [address] 05/01/2025 10:45 AM EDT Office Visit [facility] [address] [place] [address] Avinash Buck MD [address] [place] [address] documented as of this encounter Visit Diagnoses Not on filedocumented in this encounter Care Teams Card Setter Relationship Specialty Start Date End Date Avinash Buck MD [address] [place] [address] PCP - General Family Medicine 12/01/21 documented as of this encounter
--- NOTE | 2025-03-14 14:00 | PC.NURSE ---
Pt arrived to the unit by wheelchair with medr staff
--- NOTE | 2025-03-14 14:01 | EXP.HP ---
History of Present Illness *Admission Date: 03/14/25 *Reason for visit:: dyspnea, Afib w/ RVR in clinic *History of present illness: 69-year-old female with A-fib, morbid obesity, HFpEF, diabetes, bipolar, hypothyroid. She was recently admitted for A-fib with RVR and discharged on the of last month. Adjustments have been made to her diltiazem regimen and she is doing better at discharge with improved rate control. Today for postdischarge follow-up with cardiology. States she has been having increased dyspnea with exertion and feeling her heart racing over the past week. States her Apple watch has recorded A-fib for the better part of the past 2 weeks. Had in her [place] rate was controlled on amiodarone and low-dose diltiazem. Initially tolerated the higher dose diltiazem but has not seen good rate control lately. On evaluation in cardiology clinic, heart rate was 130-140. Medicine was consulted for direct admission and further management of her recurrent A-fib RVR that is uncontrolled at this time. On evaluation after arriving to the floor, patient appears at her baseline chronic condition. Heart is tachycardic on exam. She has been hooked up to telemetry and it shows A-fib with RVR. Blood pressure acceptable. On room air. Denies chest pain. Has had some intermittent nausea and vomiting over the past few days. No bowel movement in 4 days. Afebrile. [facility] Disclaimer: The information contained in this section may have been updated after the patient was seen, as this information can be updated by other users. Medical History Chronic heart failure with preserved ejection fraction (HFpEF) Morbid obesity Abnormal electrocardiogram [ECG] [EKG] Tachycardia Hyperkalemia Encounter for pre-operative cardiovascular clearance Daytime somnolence Dyspnea Pulmonary hypertension Coronary artery disease CVA (cerebral vascular accident) Seizures Bipolar 1 disorder, depressed Hypertension Atrial fibrillation with RVR TOPHER (obstructive sleep apnea) Elevated heart rate with elevated blood pressure and diagnosis of hypertension Palpitations DM2 (diabetes mellitus, type 2) HLD (hyperlipidemia) HTN (hypertension) Atrial fibrillation Vulvar lesion Post-menopausal bleeding Vulvar bleeding Surgical History History of cholecystectomy Family History Family history of stroke Family history of diabetes mellitus type II Social History (Updated 03/14/25 @ 15:14 by Nidia Dahl RN) Smoking Status: Never smoker second hand exposure: No alcohol intake: never substance use type: denies use current occupational status: retired Travel in the last 8 weeks?: None household members: spouse housing: house caffeine: Yes Have you lived/traveled outside US in past 30 days?: No Contact w/someone who lives/traveled outside US past 30 days?: No Exposure to someone with infectious disease in past 14 days?: No Do you have a fever (greater than 100.4 F or 38 C)?: No Have you tested positive for COVID-19?: No Exposed to someone with COVID-19 in past 14 days?: No Do you have a sore throat?: No Do you have a cough?: No Do you have any weakness?: No Are you experiencing any nausea/vomitting?: No Do you have any diarrhea?: No Are you experiencing any unusual bleeding?: No Do you have any muscle aches/pain?: No Do you have any abdominal pain?: No Are you experiencing loss of taste or smell?: No Other Medical History Have you received the Flu Vaccine for this season: No Have you received the Pneumonia Vaccine: Yes Review of Systems Review of Systems Review of systems (narrative): 14 point review of systems performed, pertinent positives and negatives as per HPI Meds Home Medications and Allergies Home Medications ?Medication ?Instructions ?Recorded ?Confirmed ?Type cariprazine 4.5 mg capsule 4.5 mg PO DAILY 09/29/23 03/14/25 History (Vraylar) empagliflozin 25 mg tablet 25 mg PO DAILY 09/29/23 03/14/25 History (Jardiance) insulin NPH-regular 70-30 U-100 55 unit SQ DAILY 09/29/23 03/14/25 History insulin 100 unit/mL subcutaneous pen (Humulin 70/30 U-100 KwikPen) levomefolate calcium 15 mg tablet 15 mg PO DAILY 09/29/23 03/14/25 History levomilnacipran 40 mg capsule,24 40 mg PO DAILY 09/29/23 03/14/25 History hr,extended release (Fetzima) levothyroxine 125 mcg tablet 125 mcg PO DAILYDM 09/29/23 03/14/25 History lisinopril 40 mg tablet 40 mg PO DAILY 09/29/23 03/14/25 History metformin 1,000 mg tablet 1,000 mg PO BIDWMEAL 09/29/23 03/14/25 History modafinil 200 mg tablet 200 mg PO DAILY 09/29/23 03/14/25 History oxcarbazepine 150 mg tablet 150 mg PO BID Seizures 09/29/23 03/14/25 History phenytoin sodium extended 100 mg 300 mg PO HS Seizures 09/29/23 03/14/25 History capsule rosuvastatin 10 mg tablet 10 mg PO HS Cholesterol 09/29/23 03/14/25 History sertraline 100 mg tablet 200 mg PO DAILY 09/29/23 03/14/25 History insulin NPH-regular 70-30 U-100 20 unit SQ PM 12/29/23 03/14/25 History insulin 100 unit/mL subcutaneous pen (Humulin 70/30 U-100 KwikPen) insulin NPH-regular 70-30 U-100 20 unit SQ 1200 Diabetes 04/19/24 03/14/25 History insulin 100 unit/mL subcutaneous pen (Humulin 70/30 U-100 KwikPen) trazodone 50 mg tablet 50 mg PO HSP PRN Sleep 04/19/24 03/14/25 History apixaban 5 mg tablet (Eliquis) 5 mg PO BID 10/17/24 03/14/25 History ferrous sulfate 325 mg (65 mg 325 mg PO DAILY 02/27/25 03/14/25 History iron) tablet (FeroSul) torsemide 20 mg tablet 20 mg PO DAILY 02/27/25 03/14/25 History pantoprazole 40 mg tablet,delayed 40 mg PO HS 30 days #30 tabs 02/28/25 03/14/25 Rx release amiodarone 200 mg tablet 200 mg PO DAILY #30 tabs 03/14/25 03/14/25 Rx diltiazem HCl 240 mg 240 mg PO DAILY #60 caps 03/14/25 03/14/25 Rx capsule,extended release 24 hr (Cardizem CD) New Prescriptions to Start Prescriptions: Allergies Allergy/AdvReac Type Severity Reaction Status Date / Time No Known Allergies Allergy Verified 03/14/25 13:09 Exam Constitutional Constitutional: no acute distress, morbidly obese, chronically ill appearing and cooperative *Routine HEENT Exam Head: Present normocephalic Eye: Present EOMI and PERRL ENT: Present mucous membranes moist *Routine Neck Exam Neck: Present supple; Absent lymphadenopathy *Routine Respiratory Exam Respiratory: Present CTA bilaterally; Absent rhonchi, wheezes or crackles *Routine Cardiovascular Exam Cardiovascular: Present tachycardia and irregularly irregular *Routine Abdominal Exam Abdominal: Present soft and normoactive bowel sounds; Absent tenderness *Routine Rectal Exam Rectal:: deferred *Routine Genitalia Exam Genitalia:: deferred *Routine Extremities Exam Extremities: Present edema (1+ to knees); Absent cyanosis or clubbing *Routine Skin Exam Skin: Present intact and warm; Absent rash *Routine Neurological Exam Neurological: Present alert, oriented X3 and moving all extremities; Absent altered mental status Assessment and Plan *Assessment and plan (1) Atrial fibrillation with rapid ventricular response: Status: Acute Category: Medical Code(s): I48.91 - Unspecified atrial fibrillation (2) Morbid obesity: Status: Acute Category: Medical Code(s): E66.01 - Morbid (severe) obesity due to excess calories (3) Fall: Status: Acute Qualifiers: Encounter type: initial encounter Qualified Code(s): W19.XXXA - Unspecified fall, initial encounter Category: Medical Code(s): W19.XXXA - Unspecified fall, initial encounter (4) HTN (hypertension): Status: Acute Qualifiers: Hypertension type: primary hypertension Qualified Code(s): I10 - Essential (primary) hypertension Category: Medical Code(s): I10 - Essential (primary) hypertension (5) HLD (hyperlipidemia): Status: Acute Qualifiers: Hyperlipidemia type: mixed hyperlipidemia Qualified Code(s): E78.2 - Mixed hyperlipidemia Category: Medical Code(s): E78.5 - Hyperlipidemia, unspecified (6) DM2 (diabetes mellitus, type 2): Status: Acute Qualifiers: Diabetes mellitus complication status: without complication Diabetes mellitus alf insulin use: with alf use Qualified Code(s): E11.9 - Type 2 diabetes mellitus without complications; Z79.4 - correction (current) use of insulin Category: Medical Code(s): E11.9 - Type 2 diabetes mellitus without complications (7) TOPHER (obstructive sleep apnea): Status: Acute Category: Medical Code(s): G47.33 - Obstructive sleep apnea (adult) (pediatric) (8) Chronic heart failure with preserved ejection fraction (HFpEF): Status: Acute Category: Medical Code(s): I50.32 - Chronic diastolic (congestive) heart failure Plan 69-year-old female with diabetes, bipolar, morbid obesity, HFpEF, A-fib. Presented to cardiology clinic for follow-up after recent admission for A-fib with RVR. Adjustments were made to her medication regimen at last admission and her diltiazem had been increased to 240 mg extended release once daily. Unfortunately on arrival and evaluation she was in A-fib RVR again with heart rate 130-140. Discussed case with missile mechanic, requests admission for medication adjustment and diltiazem drip given her symptomatic nature of her A-fib RVR and underlying HFpEF. I decided to admit to the stepdown level of care for further management. Initiate diltiazem drip. Initial labs ordered including CBC, CMP, troponin, BNP, magnesium. Will obtain EKG. Chest x-ray to evaluate for volume or airspace disease. Problems addressed as follows: A-fib with RVR Chronic HFpEF Hypertension Hyperlipidemia - Initial labs with sodium 135, potassium 5.8, magnesium 2.3 -Cardiology consulted, will see pt in the morning - EKG per my review showing A-fib RVR. No ST elevations. - Continue amiodarone 200 mg daily - Initiate diltiazem drip. Will load with 15 mg IV once - Continue Eliquis 5 mg twice daily - Transition to diltiazem 360 mg extended release daily, first dose in the morning - Echo obtained 12/27/2024 shows normal BiV systolic function with EF 60%. Mild RV and biatrial dilation. - Continue Crestor 10 mg nightly CKD 3B: BUN 41 creatinine 1.7, this is patient's baseline range. Continue to monitor daily with CBC, CMP, magnesium. Diabetes: - A1c pending. Last A1c well over a year ago. -Glucose on arrival 153. Continue home regimen of 70/30 insulin 3 times a day. Fingersticks ACHS - Continue Jardiance 25 mg daily Bipolar 1 disorder: Continue Vraylar 4.5 mg daily, Zoloft 200 g daily, continue oxcarbazepine 150 mg twice daily Hypothyroid: TSH 1.67 on admission. Continue levothyroxine 125 mcg daily. Morbid obesity complicates all aspects of her care Continue pantoprazole 40 mg nightly for GERD Continue trazodone 50 mg nightly as needed for sleep Full code Continue Eliquis 5 mg twice daily Cardiac/diabetic diet
--- NOTE | 2025-03-14 14:23 | ECG_ITS ---
APPROVED REPORT Exam: Resting ECG HR:122 bpm ECG Measurements Heart Rate 122 AXES QRSd 129 QRS 258 QT 338 T 2 QTc 411 Conclusion ATRIAL FIBRILLATION WITH RAPID VENTRICULAR RESPONSE RIGHT AXIS DEVIATION [QRS AXIS > 100] RIGHT BUNDLE BRANCH BLOCK [120+ ms QRS DURATION, UPRIGHT V1, 40+ ms S IN I/aVL/V4/V5/V6] ABNORMAL ECG UNCONFIRMED REPORT Electronically signed by : Avinash Escoto MD 03/15/2025 09:00:12
[2025-03-14 14:32] LABS: Hematocrit 39.0 % (37.0-47.0); Hemoglobin 10.9 g/dL (12.2-16.2); Immature Granulocytes % 1.3 %; Mean Corpuscular HGB Conc 27.9 g/dL (31.8-35.4); Mean Corpuscular Hemoglobin 20.7 pg (27.0-31.2); Mean Corpuscular Volume 74.0 fl (81-99); Nucleated Red Blood Cells % 0 %; Platelet Count 641 K/mm3 (142-424); Red Blood Count 5.27 M/mm3 (4.20-5.40); Red Cell Distribution Width-SD 59.0 fL; White Blood Count 11.5 K/mm3 (4.8-10.8)
[2025-03-14 14:34] LABS: Albumin Level 4.8 g/dl (3.5-5.0); Chloride 103 mmol/L (98-107); Potassium 5.8 mmoL/L (3.5-5.1); Sodium 135 mmol/L (136-145)
[2025-03-14 14:36] LABS: Blood Urea Nitrogen 41 mg/dl (7-17); Creatinine Clearance Estimated 29 mL/min (50-200); Creatinine,Serum 1.70 mg/dl (0.52-1.04); Estimated Glomerular Filt Rate 30 ml/min (>60); GFR (African American) 36 ML/MIN (>60)
[2025-03-14 14:37] LABS: Alanine Aminotransferase 23 U/L (12-78); Albumin/Globulin Ratio 1.2 (1.1-1.8); Alkaline Phosphatase 154 U/L (38-126); Anion Gap 25.8 mEq/L (5-15); Aspartate Amino Transferase 30 U/L (14-36); Bilirubin,Total 0.2 mg/dl (0.2-1.3); Calcium 9.9 mg/dl (8.4-10.2); Carbon Dioxide 12 mmol/L (22.0-30.0); Globulin 4.1 g/dL (1.3-3.2); Glucose 153 mg/dl (74-100); Magnesium 2.3 mg/dl (1.6-2.3); Total Protein,Serum 8.9 g/dl (6.3-8.2)
[2025-03-14 14:41] LABS: INR 1.12 (0.9-1.1); Prothrombin Time 12.3 seconds (10.1-12.5)
[2025-03-14 14:47] LABS: NT Pro Brain Natriuretic Pep. 677 pg/mL (0-125)
[2025-03-14 14:55] LABS: Troponin I < 0.01 ng/ml (0.00-0.034)
[2025-03-14 15:08] LABS: Thyroid Stimulating Hormone 1.67 uIU/mL (0.465-4.68)
--- NOTE | 2025-03-14 15:23 | HMH.PHAINT1 ---
Pharmacy Intervention Comments: MEDICATION RECONCILIATION COMPLETE USING EXTERNAL PHARMACY FILL HISTORY, RECENT CARDIOLOGY OFFICE VISIT NOTE, AND RECENT HOSPITAL DISCHARGE NOTE.
[2025-03-14 16:10] LABS: Iron 55 ug/dL (37-170)
[2025-03-14 16:20] LABS: Total Iron Binding Capacity 367 ug/dL (265-497)
[2025-03-14 16:21] LABS: POC Glucose,Bedside 142 (70-110)
[2025-03-14] MEDS: 0.9 % SODIUM CHLORIDE 1000ML 1,000 ML 999 ML IV (16:22)
[2025-03-14 16:45] LABS: Ferritin 12.0 ng/ml (11.1-264)
[2025-03-14] MEDS: humaLOG MIX 75/25 3ML FLEXPEN 20 UNIT SUBCUT (17:09)
[2025-03-14 17:46] LABS: Troponin I < 0.01 ng/ml (0.00-0.034)
[2025-03-14 17:57] LABS: Hemoglobin A1C 6.0 % (4.0-6.0)
[2025-03-14] MEDS: MAGNESIUM CITRATE 296ML BOTTLE 296 ML PO (18:55)
[2025-03-14 19:48] LABS: POC Glucose,Bedside 130 (70-110)
[2025-03-14] MEDS: APIXABAN 5MG TABLET 5 MG PO (20:28)
[2025-03-14] MEDS: SENNOSIDES 8.6MG/DOCUSATE 50MG TABLET 1 TAB PO (20:28)
[2025-03-14] MEDS: PANTOPRAZOLE 40MG TABLET 40 MG PO (20:28)
[2025-03-14 20:50] LABS: Troponin I < 0.01 ng/ml (0.00-0.034)
[2025-03-14] MEDS: TRAZODONE 50MG TABLET 50 MG PO (20:50)
[2025-03-15] VITALS (16 sets, daily range): BP systolic 84–124; BP diastolic 49–76; PULSE 90–120; RESP 16–26; TEMP 36.6–37; O2SAT 93–100; BMI 47.5
[2025-03-15] MEDS: ACETAMINOPHEN 325MG TAB 650 MG PO (03:12)
[2025-03-15 06:11] LABS: Albumin Level 4.1 g/dl (3.5-5.0); Chloride 104 mmol/L (98-107); Sodium 134 mmol/L (136-145)
[2025-03-15 06:12] LABS: Hematocrit 36.5 % (37.0-47.0); Hemoglobin 10.2 g/dL (12.2-16.2); Immature Granulocytes % 1.0 %; Mean Corpuscular HGB Conc 27.9 g/dL (31.8-35.4); Mean Corpuscular Hemoglobin 20.9 pg (27.0-31.2); Mean Corpuscular Volume 74.6 fl (81-99); Nucleated Red Blood Cells % 0 %; Platelet Count 486 K/mm3 (142-424); Red Blood Count 4.89 M/mm3 (4.20-5.40); Red Cell Distribution Width-SD 59.7 fL; White Blood Count 11.5 K/mm3 (4.8-10.8)
[2025-03-15 06:13] LABS: Blood Urea Nitrogen 48 mg/dl (7-17); Creatinine Clearance Estimated 29 mL/min (50-200); Creatinine,Serum 1.70 mg/dl (0.52-1.04); Estimated Glomerular Filt Rate 30 ml/min (>60); GFR (African American) 36 ML/MIN (>60)
[2025-03-15 06:14] LABS: Alanine Aminotransferase 21 U/L (12-78); Albumin/Globulin Ratio 1.2 (1.1-1.8); Alkaline Phosphatase 131 U/L (38-126); Anion Gap 23.1 mEq/L (5-15); Aspartate Amino Transferase 37 U/L (14-36); Bilirubin,Total 0.2 mg/dl (0.2-1.3); Calcium 9.1 mg/dl (8.4-10.2); Carbon Dioxide 13 mmol/L (22.0-30.0); Globulin 3.5 g/dL (1.3-3.2); Glucose 187 mg/dl (74-100); Magnesium 2.9 mg/dl (1.6-2.3); Total Protein,Serum 7.6 g/dl (6.3-8.2)
[2025-03-15 06:27] LABS: Potassium 6.1 mmoL/L (3.5-5.1)
[2025-03-15 06:33] LABS: POC Glucose,Bedside 222 (70-110)
[2025-03-15] MEDS: DEXTROSE 50% 50ML SYRINGE (CRASH CART) 50 ML IVP (06:35)
[2025-03-15] MEDS: INSULIN HUMAN REGULAR 100 UNITS/ML 10ML VIAL 10 UNIT IVP (06:35)
--- NOTE | 2025-03-15 06:38 | PC.NURSE ---
critical k level 6.[address] rizo and orders were given to treat with 10u regular insulin iv and d50 with lokelma as well. Will order repeat bmp in 4 hours
[2025-03-15] MEDS: LOKELMA 5GM PACKET 10 GM PO (06:49)
--- NOTE | 2025-03-15 06:50 | ECG_ITS ---
APPROVED REPORT Exam: Resting ECG HR:91 bpm ECG Measurements Heart Rate 91 AXES QRSd 141 QRS -31 QT 384 T 54 QTc 433 Conclusion ATRIAL FIBRILLATION LEFT AXIS DEVIATION [QRS AXIS < -30] RIGHT BUNDLE BRANCH BLOCK [120+ ms QRS DURATION, UPRIGHT V1, 40+ ms S IN I/aVL/V4/V5/V6] ABNORMAL ECG UNCONFIRMED REPORT Electronically signed by : Avinash Escoto MD 03/15/2025 08:59:26
[2025-03-15] MEDS: dilTIAZem ER 180 MG CAPSULE 360 MG PO (07:35)
[2025-03-15] MEDS: LEVOTHYROXINE 125MCG (0.125MG) TAB 125 MCG PO (07:47)
[2025-03-15] MEDS: EMPAGLIFLOZIN 25MG TABLET 25 MG PO (07:48)
[2025-03-15] MEDS: SERTRALINE 100MG TABLET 200 MG PO (07:48)
[2025-03-15] MEDS: METFORMIN 500MG TABLET 1000 MG PO ×2 (07:48→17:17)
[2025-03-15] MEDS: APIXABAN 5MG TABLET 5 MG PO ×2 (07:48→20:13)
[2025-03-15] MEDS: AMIODARONE 200MG TABLET 200 MG PO (07:48)
--- NOTE | 2025-03-15 07:48 | EXP.ACUTE.PN ---
Subjective *Date: 03/15/25 *Time: 13:22 Interval history: Patient feeling less winded today. Heart rate better controlled. Drip overnight with diltiazem at 15. Heart rate 90s to low 100s. Denies chest pain. No nausea or vomiting. Had multiple bowel movements overnight. Afebrile, on room air. Medical Exam Vital signs and Labs for Last 24 Hours: Vital Signs Temp Pulse Pulse Resp BP Pulse Ox O2 Del Method 03/15/25 06:15 100 H 16 109/61 L 99 Room Air 03/15/25 04:17 Room Air 03/15/25 04:00 99 H 03/15/25 04:00 98.6 F 94 H 16 84/50 L 97 Room Air 03/15/25 03:00 Room Air 03/15/25 02:00 97 Room Air 03/15/25 02:00 94 H 16 88/49 L 96 Room Air 03/15/25 00:35 Room Air 03/15/25 00:30 95 H 17 100/51 L 98 03/15/25 00:08 99 H 22 105/66 L 98 03/15/25 00:03 101 H 03/14/25 23:57 97.9 F 99 H 21 113/55 L 99 Room Air 03/14/25 23:00 Room Air 03/14/25 22:00 98 H 14 91/52 L 97 Room Air 03/14/25 20:32 Room Air 03/14/25 20:00 98 Room Air 03/14/25 20:00 89 03/14/25 20:00 98.4 F 106 H 16 103/66 L 96 Room Air 03/14/25 18:49 Room Air 03/14/25 18:00 117 H 19 141/73 H 91 L 03/14/25 17:00 Room Air 03/14/25 16:01 98.6 F 97 H 19 130/74 95 Room Air 03/14/25 16:00 100 H 03/14/25 15:38 104 H Room Air 03/14/25 15:00 Room Air 03/14/25 14:34 98.5 F 100 H 14 103/54 L 97 Room Air 03/14/25 14:24 110 H Intake and Output 03/14/25 03/14/25 03/15/25 15:59 23:59 07:59 Intake Total 659.9 / 1259.9 695.75 / 695.75 Output Total 0 / 0 1 / Balance 659.9 / 1259.9 694.75 / 694.75 Intake: Intake, Oral Amount 105 / 105 Intake, Total IV Amount 554.9 / 1154.9 695.75 / 695.75 0.9 % Sodium Chloride 1000ML 1, 477 / 1077 600 / 600 000 ml @ 999 mls/hr IV .Q1H1M ONE Rx#:[id number] Output: Output, Urine Amount 0 / 0 0 / 0 Output, Stool Amount / Other: Number of Unmeasured Voids 1 1 Number of Bowel Movements 2 1 Weight 132 kg 134 kg Patient Weight 03/15/25 23:59 Weight 134 kg Laboratory Results - last 24 hr 03/14/25 14:12: WBC 11.5 H, RBC 5.27, Hgb 10.9 L, Hct 39.0, MCV 74.0 L, MCH 20.7 L, MCHC 27.9 L, RDW 22.9 H, Plt Count 641 H, MPV 9.6, Neut % (Auto) 75.5, Lymph % (Auto) 16.5, [place] % (Auto) 5.3, Eos % (Auto) 0.5, Baso % (Auto) 0.9, Neut # (Auto) 8.7 H, Lymph # (Auto) 1.9, Gosper # (Auto) 0.6, Eos # (Auto) 0.1, Baso # (Auto) 0.1, PT 12.3, INR 1.12 H, Sodium 135 L, Potassium 5.8 H, Chloride 103, Carbon Dioxide 12 L, Anion Gap 25.8 H, BUN 41 H, Creatinine 1.70 H, Estimated Creat Clear 29, Estimated GFR 30 L, Est GFR ( Amer) 36 L, Glucose 153 H, Hemoglobin A1c 6.0, Calcium 9.9, Magnesium 2.3, Iron 55, TIBC 367, Iron Saturation 14.48614 L, Ferritin 12.0, Total Bilirubin 0.2, AST 30, ALT 23, Alkaline Phosphatase 154 H, Troponin I < 0.01, NT-Pro-B Natriuret Pep 677 H, Total Protein 8.9 H, Albumin 4.8, Globulin 4.1 H, Albumin/Globulin Ratio 1.2, TSH 1.67 03/14/25 16:13: POC Glucose 142 H 03/14/25 16:52: Troponin I < 0.01 03/14/25 19:33: POC Glucose 130 H 03/14/25 20:13: Troponin I < 0.01 03/15/25 04:54: WBC 11.5 H, RBC 4.89, Hgb 10.2 L, Hct 36.5 L, MCV 74.6 L, MCH 20.9 L, MCHC 27.9 L, RDW 22.8 H, Plt Count 486 H, MPV 9.6, Neut % (Auto) 77.8, Lymph % (Auto) 13.9, Gosper % (Auto) 5.9, Eos % (Auto) 0.6, Baso % (Auto) 0.8, Neut # (Auto) 9.0 H, Lymph # (Auto) 1.6, Gosper # (Auto) 0.7, Eos # (Auto) 0.1, Baso # (Auto) 0.1, Sodium 134 L, Potassium 6.1 H*, Chloride 104, Carbon Dioxide 13 L, Anion Gap 23.1 H, BUN 48 H, Creatinine 1.70 H, Estimated Creat Clear 29, Estimated GFR 30 L, Est GFR ( Amer) 36 L, Glucose 187 H D, Calcium 9.1, Magnesium 2.9 H D, Total Bilirubin 0.2, AST 37 H, ALT 21, Alkaline Phosphatase 131 H, Total Protein 7.6, Albumin 4.1 D, Globulin 3.5 H, Albumin/Globulin Ratio 1.2 03/15/25 06:26: POC Glucose 222 H I & O for Labs for Last 24 Hours: Intake & Output 03/12/25 03/13/25 03/14/25 03/15/25 23:59 23:59 23:59 23:59 Intake Total 659.9 / 1259.9 695.75 / 695.75 Output Total 0 / 0 Balance 659.9 / 1259.9 694.75 / 694.75 Weight 132 kg 134 kg Constitutional: Present no acute distress, morbidly obese, chronically ill appearing and cooperative Head: Present atraumatic and normocephalic ENT: Present normal exam Neck: Present normal inspection Respiratory: Absent rhonchi, wheezes or crackles Cardiac: Present Irregularly Regular GI: Present soft and normal bowel sounds; Absent distention or tenderness Extremities: Present normal inspection and full ROM; Absent tenderness or edema Comment:: Chronic lipedema Skin: Present intact; Absent erythema Neuro: Present Grossly Intact, alert, awake, oriented x 3 and moves all extremities Assessment and Plan *Assessment and plan (1) Atrial fibrillation with rapid ventricular response: Status: Acute Category: Medical Code(s): I48.91 - Unspecified atrial fibrillation (2) Morbid obesity: Status: Acute Category: Medical Code(s): E66.01 - Morbid (severe) obesity due to excess calories (3) Fall: Status: Acute Qualifiers: Encounter type: initial encounter Qualified Code(s): W19.XXXA - Unspecified fall, initial encounter Category: Medical Code(s): W19.XXXA - Unspecified fall, initial encounter (4) HTN (hypertension): Status: Acute Qualifiers: Hypertension type: primary hypertension Qualified Code(s): I10 - Essential (primary) hypertension Category: Medical Code(s): I10 - Essential (primary) hypertension (5) HLD (hyperlipidemia): Status: Acute Qualifiers: Hyperlipidemia type: mixed hyperlipidemia Qualified Code(s): E78.2 - Mixed hyperlipidemia Category: Medical Code(s): E78.5 - Hyperlipidemia, unspecified (6) DM2 (diabetes mellitus, type 2): Status: Acute Qualifiers: Diabetes mellitus complication status: without complication Diabetes mellitus longitudinal float operator insulin use: with longitudinal float operator use Qualified Code(s): E11.9 - Type 2 diabetes mellitus without complications; Z79.4 - residential (current) use of insulin Category: Medical Code(s): E11.9 - Type 2 diabetes mellitus without complications (7) TOPHER (obstructive sleep apnea): Status: Acute Category: Medical Code(s): G47.33 - Obstructive sleep apnea (adult) (pediatric) (8) Chronic heart failure with preserved ejection fraction (HFpEF): Status: Acute Category: Medical Code(s): I50.32 - Chronic diastolic (congestive) heart failure (9) Iron deficiency anemia: Status: Acute Category: Medical Code(s): D50.9 - Iron deficiency anemia, unspecified Plan 69-year-old female with diabetes, bipolar, morbid obesity, HFpEF, A-fib. Presented to cardiology clinic for follow-up after recent admission for A-fib with RVR. Adjustments were made to her medication regimen at last admission and her diltiazem had been increased to 240 mg extended release once daily. Unfortunately on arrival and evaluation she was in A-fib RVR again with heart rate 130-140. Discussed case with rn urgent care, requests admission for medication adjustment and diltiazem drip given her symptomatic nature of her A-fib RVR and underlying HFpEF. I decided to admit to the stepdown level of care for further management. Showing response to diltiazem drip. Transition to oral diltiazem today. Cardiology evaluating today. Showing some improvement. Continues to require patient management. Will consider cardioversion tomorrow if remains in A-fib and symptomatic. Problems addressed as follows: A-fib with RVR Chronic HFpEF Hypertension Hyperlipidemia - Sodium 134, potassium 6.1, metabolic acidosis with Bicarb 13. Initiating sodium bicarb p.o. 650 mg twice daily. - Cardiology evaluated today, discussed case. Plan for cardioversion in the morning if still symptomatic A-fib. N.p.o. at midnight. Continue diltiazem 360 mg extended release daily. Off drip today. - Continue amiodarone 200 mg daily - Continue Eliquis 5 mg twice daily - Echo obtained 12/27/2024 shows normal BiV systolic function with EF 60%. Mild RV and biatrial dilation. - Continue Crestor 10 mg nightly CKD 3B: BUN 48, creatinine 1.7. Stable at baseline. Continue to monitor daily with CBC, CMP, magnesium. Hyperkalemia: Potassium 6.1 this morning. Received dextrose, insulin, Lokelma x 1. Repeat BMP ordered for 6 PM to monitor improvement. Diabetes: - A1c 6, well-controlled at this time. Glucose 187 on morning labs. Continue home regimen of 70/30 insulin 3 times a day. Fingersticks ACHS - Continue Jardiance 25 mg daily Bipolar 1 disorder: Continue Vraylar 4.5 mg daily, Zoloft 200 g daily, continue oxcarbazepine 150 mg twice daily Hypothyroid: TSH 1.67 on admission. Continue levothyroxine 125 mcg daily. Morbid obesity complicates all aspects of her care Continue pantoprazole 40 mg nightly for GERD Continue trazodone 50 mg nightly as needed for sleep Full code Continue Eliquis 5 mg twice daily Cardiac/diabetic diet Therapy evaluated today, recommend placement. Social work assisting with referral to [facility].
--- NOTE | 2025-03-15 08:11 | PC.NURSE ---
When patient is standing and holding self up patient becomes labored breathing
--- NOTE | 2025-03-15 08:13 | PC.NURSE ---
Pt has loose formed stool.
--- NOTE | 2025-03-15 08:15 | PC.NURSE ---
Excoriation under breasts, in folds and luis armando area.
[2025-03-15] MEDS: SODIUM BICARBONATE 650MG TABLET 650 MG PO ×3 (08:32→20:13)
[2025-03-15] MEDS: IRON SUCROSE COMPLEX 200 MG in 0.9 % SODIUM CHLORIDE 100 ML 220 MG IV (08:32)
[2025-03-15] MEDS: VRAYLAR 4.5 MG 1 EACH PO (08:33)
[2025-03-15] MEDS: MODAFINIL 200 MG 1 EACH PO (08:34)
[2025-03-15 09:12] LABS: Chloride 101 mmol/L (98-107); Sodium 133 mmol/L (136-145)
[2025-03-15 09:15] LABS: Blood Urea Nitrogen 46 mg/dl (7-17); Creatinine Clearance Estimated 27 mL/min (50-200); Creatinine,Serum 1.80 mg/dl (0.52-1.04); Estimated Glomerular Filt Rate 28 ml/min (>60); GFR (African American) 34 ML/MIN (>60)
[2025-03-15 09:16] LABS: Anion Gap 26.1 mEq/L (5-15); Calcium 9.4 mg/dl (8.4-10.2); Carbon Dioxide 12 mmol/L (22.0-30.0); Glucose 206 mg/dl (74-100)
[2025-03-15 09:23] LABS: Potassium 6.1 mmoL/L (3.5-5.1)
--- NOTE | 2025-03-15 09:33 | HMH.OTEV ---
OT Inpatient Evaluation Rehab OT IP Evaluation Start: 03/14/25 15:12 Freq: ONCE Status: Active Protocol: Document 03/15/25 09:28 [facility] (Rec: 03/15/25 09:33 [facility] [id number]) Rehab OT IP Assessment Subjective History Pt oriented x 3 on arrival. Pt agreeable to engage in therapy evaluation. Pt's present and supportive. Pt admitted on 03/14/25 due to A-fib. History and physical: 69-year-old female with A-fib, morbid obesity, HFpEF, diabetes, bipolar, hypothyroid. She was recently admitted for A-fib with RVR and discharged on the of last month. Adjustments have been made to her diltiazem regimen and she is doing better at discharge with improved rate control. Today for postdischarge follow-up with cardiology. States she has been having increased dyspnea with exertion and feeling her heart racing over the past week. States her Apple watch has recorded A-fib for the better part of the past 2 weeks. Had in her redding rate was controlled on amiodarone and low-dose diltiazem. Initially tolerated the higher dose diltiazem but has not seen good rate control lately. On evaluation in cardiology clinic, heart rate was 130-140. Medicine was consulted for direct admission and further management of her recurrent A-fib RVR that is uncontrolled at this time. On evaluation after arriving to the floor, patient appears at her baseline chronic condition. Heart is tachycardic on exam. She has been hooked up to telemetry and it shows A-fib with RVR. Blood pressure acceptable. On room air. Denies chest pain. Has had some intermittent nausea and vomiting over the past few days. No bowel movement in 4 days. Afebrile. Subjective Prior to being in the hospital, pt lived at home with her . Pt is normally independent with all ADLs. She is dependent upon her for IADLs. She no longer drive due to previous CVA. Pt uses rollator during functional transfers. Objective Patient Orientation Person,Place,Birthday Right Upper WFL Extremity Gross ROM Left Upper Extremity WFL Gross ROM Transfer Training Sit/Stand Transfer,Sit/Stand/Step Transfer Assist Level Minimal x 1 (25% assist) Chair Transfer Minimal x 1 (25% assist) Ability Chair Transfer Sit to/from Ambulatory Technique Chair Transfer Rolling Walker Assistive Devices Rehab OT IP prob,goals,plan Problems Date of Evaluation: 03/15/25 OT IP Problems Bed Mobility,Transfers,Balance,Self care,Safety Rehab Potential Rehab Potential Good Equipment Needs Assistive Devices Rolling / Wheeled Walker Plan OT intervention Plan Bed Mobility,Transfers,Balance,Self care,Safety, Therapeutic Exercise OT Plan Frequency Daily Duration LOS Discharge Goals Bed Mobility Ability Standby Assistance Sit to Stand Chair Contact Guard/Hand Hold Transfer Ability Chair Transfer Contact Guard/Hand Hold Ability Chair Transfer Sit to/from Ambulatory Technique Chair Transfer Rolling Walker Assistive Devices Lower Body Dressing Minimal Assistance Ability Upper Body Dressing Standby Assistance Ability Performing Toilet Minimal Assistance Hygiene Ability Overall Commode/ Contact Guard Toilet Transfer Ability Commode/Toilet Sit to/from Ambulatory Transfer Technique Discharge Plan OT Discharge Plan Pt will continue to be seen for OT services while at [facility]. At this time, pt would benefit most from short term rehab at SNF following discharge. However, if pt' s functional transfers and ADL independence improve significant while in the hospital, she could possibly return home with husbands assist as needed and HH OT evaluation. Continued skilled therapy is important in order for patient to improve strength, safety, endurance, ADL independence, and functional transfers to reach PLOF. Eval Complexity Eval Charge Codes 63162 - Moderate Complexity PHYSICIAN CERTIFICATION: I certify the specified therapy services for Jodee Mendez are required, authorized, and reviewed every 30 days.
[2025-03-15] MEDS: humaLOG MIX 75/25 3ML FLEXPEN 55 UNIT SUBCUT (09:34)
--- NOTE | 2025-03-15 09:53 | HMH.PTEV ---
Physical Therapy Evaluation Rehab PT IP Evaluation Start: 03/14/25 15:12 Freq: ONCE Status: Active Protocol: Document 03/15/25 09:44 [facility] (Rec: 03/15/25 09:52 [facility] [id number]) Subjective/History History History 69-year-old female with A-fib, morbid obesity, HFpEF, diabetes, bipolar, hypothyroid. She was recently admitted for A-fib with RVR and discharged on the of last month. Adjustments have been made to her diltiazem regimen and she is doing better at discharge with improved rate control. Today for postdischarge follow-up with cardiology. States she has been having increased dyspnea with exertion and feeling her heart racing over the past week. States her Apple watch has recorded A-fib for the better part of the past 2 weeks. Had in her [place] rate was controlled on amiodarone and low-dose diltiazem. Initially tolerated the higher dose diltiazem but has not seen good rate control lately. On evaluation in cardiology clinic, heart rate was 130-140. Medicine was consulted for direct admission and further management of her recurrent A-fib RVR that is uncontrolled at this time. Pt reports she lives with her , ramp to enter the home, and she is generally independent with all mobility using a RW. Subjective Subjective Pt reports she feels generally tired and weak, but is agreeable to OOB mobility assessment. [facility] How much help from another person do you currently need... Turning from your None back to your side while in a flat bed without using bedrails? Moving from lying on A little back to sitting on the side of a flat bed without using bedrails? Moving to and from a A little bed to a chair ( including a wheelchair)? Standing up from a A little chair using your arms? (e.g., wheelchair, bedside chair) Walking in hospital A little room? Climbing 3-5 steps A little with a railing? Mobility Score 19 Mobility Level [facility] Mobility 6 Walk 10 steps or more Mobility Calculator Rehab PT IP Eval Objective Appearance Patient Behavior Appropriate Patient Orientation Person,Place,Time Difficulty following none instructions Speech Pattern Clear Ambulation Patient Able to Yes Ambulate Ambulation Observation IP General Gait Wide Based Gait,Shuffling Step Pattern Observation Ambulation Distance 15 (feet) Ambulation Assistive None Device Ambulation Ability Minimal x 1 (25% assist) Balance Ability to Arise Able, uses arms to help Sitting Balance Steady, safe Standing Balance Steady, wide stance Dynamic Sitting Good Balance Ability Dynamic Standing Fair Balance Ability Transfers Bed Transfer Ability Minimal x 1 (25% assist) Chair Transfer Minimal x 1 (25% assist) Ability Sit to Stand Bed Minimal x 1 (25% assist) Transfer Ability Sit to Stand Chair Minimal x 1 (25% assist) Transfer Ability Rehab PT IP prob,goals,plan Problems Date of Evaluation: 03/15/25 PT IP Problems Bed Mobility,Transfers,Gait Rehab Potential Rehab Potential Good Plan PT Intervention Plan Bed Mobility,Transfers,Gait,Therapeutic Exercise PT Plan Frequency Daily Duration LOS Discharge Goals Bed Transfer Ability Contact Guard/Hand Hold Sit to Stand Chair Contact Guard/Hand Hold Transfer Ability Ambulation Assistive Rolling Walker Device Ambulation Distance 30 (feet) Discharge Plan PT Discharge Plan Pt is currently most appropriate for rehab placement once medically stable in order to improve safe transfer and ambulation ability. She may be able to return home with assist from her if she meets all therapy goals prior to d/c. Skilled acute therapy services are indicated in order to imrpove general endurance to activity, transfers and ambulation to aid pt return to [facility]. Eval Complexity Eval Charge Codes 45395 - High Complexity PHYSICIAN CERTIFICATION: I certify the specified therapy services for Jodee Mendez are required, authorized, and reviewed every 30 days.
--- NOTE | 2025-03-15 10:19 | EXP.CARD.CON ---
History of Present Illness History of Present Illness Consult date: 03/15/25 Requesting physician: Deonte Alicea Consult reason: known to you Chief complaint: a-fib, soa History of present illness: 69-year-old white female established patient of our practice with a history of morbid obesity, paroxysmal atrial fibrillation, insulin-dependent diabetes, and HFpEF. She established in our office August of this year had 2D echo and stress test at that time which were both low risk. She had recent exacerbation of A-fib with dehydration and decreased appetite due to having full dental extraction. She was seen in the office yesterday with heart rates 140s on minimal ambulation associated with severe dyspnea on exertion. Symptoms have been worsening for over a week so she was admitted to the hospital for further workup and management. She reports compliance with anticoagulation for over 1 month, amiodarone, Cardizem 240 mg daily. Hospital admission labs indicate CKD, mild leukocytosis, severe hyperkalemia with potassium of 6.1. [facility] Disclaimer: The information contained in this section may have been updated after the patient was seen, as this information can be updated by other users. Medical History Chronic heart failure with preserved ejection fraction (HFpEF) Morbid obesity Abnormal electrocardiogram [ECG] [EKG] Tachycardia Hyperkalemia Encounter for pre-operative cardiovascular clearance Daytime somnolence Dyspnea Pulmonary hypertension Coronary artery disease CVA (cerebral vascular accident) Seizures Bipolar 1 disorder, depressed Hypertension Atrial fibrillation with RVR TOPHER (obstructive sleep apnea) Elevated heart rate with elevated blood pressure and diagnosis of hypertension Palpitations DM2 (diabetes mellitus, type 2) HLD (hyperlipidemia) HTN (hypertension) Atrial fibrillation Vulvar lesion Post-menopausal bleeding Vulvar bleeding Surgical History History of cholecystectomy Family History Other Family history of diabetes mellitus type II Family history of stroke Social History Smoking Status: Never smoker second hand exposure: No alcohol intake: never substance use type: denies use current occupational status: retired Travel in the last 8 weeks?: None household members: spouse housing: house caffeine: Yes Have you lived/traveled outside US in past 30 days?: No Contact w/someone who lives/traveled outside US past 30 days?: No Exposure to someone with infectious disease in past 14 days?: No Do you have a fever (greater than 100.4 F or 38 C)?: No Have you tested positive for COVID-19?: No Exposed to someone with COVID-19 in past 14 days?: No Do you have a sore throat?: No Do you have a cough?: No Do you have any weakness?: No Are you experiencing any nausea/vomitting?: No Do you have any diarrhea?: No Are you experiencing any unusual bleeding?: No Do you have any muscle aches/pain?: No Do you have any abdominal pain?: No Are you experiencing loss of taste or smell?: No Review of Systems Constitutional Constitutional: Reports fatigue and Reports weakness Eyes Eyes: Denies loss of vision ENT Ears, Nose, Mouth, and Throat: Denies hearing loss and Denies vertigo *Cardiovascular Cardiovascular: Denies chest pain, Denies dyspnea, Reports dyspnea on exertion, Reports palpitations and Denies syncope *Respiratory Respiratory: Denies cough, Denies dyspnea and Reports dyspnea on exertion *Gastrointestinal Gastrointestinal: Denies change in stool character, Denies nausea and Denies vomiting *Musculoskeletal Musculoskeletal: Denies muscle weakness Integumentary/Breasts Skin/Breast: Denies changing lesions *Neurologic Neurologic: Denies loss of vision, Denies syncope, Denies vertigo and Reports weakness Endocrine Endocrine: Reports fatigue and Reports palpitations Exam Data for Last 24 hours Vital signs and Labs for Last 24 Hours: Temp Pulse Resp BP Pulse Ox O2 Del Method 98.1 F 90 21 123/61 100 Room Air 03/15/25 08:00 03/15/25 08:00 03/15/25 08:00 03/15/25 08:00 03/15/25 08:00 03/15/25 09:20 Laboratory Results - last 24 hr 03/14/25 14:12: WBC 11.5 H, RBC 5.27, Hgb 10.9 L, Hct 39.0, MCV 74.0 L, MCH 20.7 L, MCHC 27.9 L, RDW 22.9 H, Plt Count 641 H, MPV 9.6, Neut % (Auto) 75.5, Lymph % (Auto) 16.5, [place] % (Auto) 5.3, Eos % (Auto) 0.5, Baso % (Auto) 0.9, Neut # (Auto) 8.7 H, Lymph # (Auto) 1.9, [place] # (Auto) 0.6, Eos # (Auto) 0.1, Baso # (Auto) 0.1, PT 12.3, INR 1.12 H, Sodium 135 L, Potassium 5.8 H, Chloride 103, Carbon Dioxide 12 L, Anion Gap 25.8 H, BUN 41 H, Creatinine 1.70 H, Estimated Creat Clear 29, Estimated GFR 30 L, Est GFR ( Amer) 36 L, Glucose 153 H, Hemoglobin A1c 6.0, Calcium 9.9, Magnesium 2.3, Iron 55, TIBC 367, Iron Saturation 14.70056 L, Ferritin 12.0, Total Bilirubin 0.2, AST 30, ALT 23, Alkaline Phosphatase 154 H, Troponin I < 0.01, NT-Pro-B Natriuret Pep 677 H, Total Protein 8.9 H, Albumin 4.8, Globulin 4.1 H, Albumin/Globulin Ratio 1.2, TSH 1.67 03/14/25 16:13: POC Glucose 142 H 03/14/25 16:52: Troponin I < 0.01 03/14/25 19:33: POC Glucose 130 H 03/14/25 20:13: Troponin I < 0.01 03/15/25 04:54: WBC 11.5 H, RBC 4.89, Hgb 10.2 L, Hct 36.5 L, MCV 74.6 L, MCH 20.9 L, MCHC 27.9 L, RDW 22.8 H, Plt Count 486 H, MPV 9.6, Neut % (Auto) 77.8, Lymph % (Auto) 13.9, [place] % (Auto) 5.9, Eos % (Auto) 0.6, Baso % (Auto) 0.8, Neut # (Auto) 9.0 H, Lymph # (Auto) 1.6, [place] # (Auto) 0.7, Eos # (Auto) 0.1, Baso # (Auto) 0.1, Sodium 134 L, Potassium 6.1 H*, Chloride 104, Carbon Dioxide 13 L, Anion Gap 23.1 H, BUN 48 H, Creatinine 1.70 H, Estimated Creat Clear 29, Estimated GFR 30 L, Est GFR ( Amer) 36 L, Glucose 187 H D, Calcium 9.1, Magnesium 2.9 H D, Total Bilirubin 0.2, AST 37 H, ALT 21, Alkaline Phosphatase 131 H, Total Protein 7.6, Albumin 4.1 D, Globulin 3.5 H, Albumin/Globulin Ratio 1.2 03/15/25 06:26: POC Glucose 222 H 03/15/25 08:58: Sodium 133 L, Potassium 6.1 H*, Chloride 101, Carbon Dioxide 12 L, Anion Gap 26.1 H, BUN 46 H, Creatinine 1.80 H, Estimated Creat Clear 27, Estimated GFR 28 L, Est GFR ( Amer) 34 L, Glucose 206 H, Calcium 9.4 I & O for Last 24 hours: Intake & Output 03/12/25 03/13/25 03/14/25 03/15/25 23:59 23:59 23:59 23:59 Intake Total 659.9 / 1259.9 977.00 / 977.00 Output Total 0 / 0 Balance 659.9 / 1259.9 976.00 / 976.00 Weight 291 lb 0.163 oz 295 lb 6.711 oz Constitutional Constitutional: no acute distress and cooperative *Routine HEENT Exam Eye: Present PERRL *Routine Respiratory Exam Respiratory: Present CTA bilaterally; Absent accessory muscle use, wheezes or crackles *Routine Cardiovascular Exam Cardiovascular: Present RRR, tachycardia and irregular rhythm; Absent murmur, gallop or rubs *Routine Abdominal Exam Abdominal: Present soft; Absent tenderness *Routine Extremities Exam Extremities: Present pulses intact; Absent cyanosis or edema *Routine Skin Exam Skin: Present intact; Absent erythema or wounds *Routine Neurological Exam Neurological: Present alert and oriented X3 Routine Psychiatric Exam Psychiatric: Present cooperative Meds Home Medications and Allergies Home Medications ?Medication ?Instructions ?Recorded ?Confirmed ?Type cariprazine 4.5 mg capsule 4.5 mg PO DAILY 09/29/23 03/14/25 History (Vraylar) empagliflozin 25 mg tablet 25 mg PO DAILY 09/29/23 03/14/25 History (Jardiance) insulin NPH-regular 70-30 U-100 55 unit SQ DAILY 09/29/23 03/14/25 History insulin 100 unit/mL subcutaneous pen (Humulin 70/30 U-100 KwikPen) levomefolate calcium 15 mg tablet 15 mg PO DAILY 09/29/23 03/14/25 History levomilnacipran 40 mg capsule,24 40 mg PO DAILY 09/29/23 03/14/25 History hr,extended release (Fetzima) levothyroxine 125 mcg tablet 125 mcg PO DAILYDM 09/29/23 03/14/25 History lisinopril 40 mg tablet 40 mg PO DAILY 09/29/23 03/14/25 History metformin 1,000 mg tablet 1,000 mg PO BIDWMEAL 09/29/23 03/14/25 History modafinil 200 mg tablet 200 mg PO DAILY 09/29/23 03/14/25 History oxcarbazepine 150 mg tablet 150 mg PO BID Seizures 09/29/23 03/14/25 History phenytoin sodium extended 100 mg 300 mg PO HS Seizures 09/29/23 03/14/25 History capsule rosuvastatin 10 mg tablet 10 mg PO HS Cholesterol 09/29/23 03/14/25 History sertraline 100 mg tablet 200 mg PO DAILY 09/29/23 03/14/25 History insulin NPH-regular 70-30 U-100 20 unit SQ PM 12/29/23 03/14/25 History insulin 100 unit/mL subcutaneous pen (Humulin 70/30 U-100 KwikPen) insulin NPH-regular 70-30 U-100 20 unit SQ 1200 Diabetes 04/19/24 03/14/25 History insulin 100 unit/mL subcutaneous pen (Humulin 70/30 U-100 KwikPen) trazodone 50 mg tablet 50 mg PO HSP PRN Sleep 04/19/24 03/14/25 History apixaban 5 mg tablet (Eliquis) 5 mg PO BID 10/17/24 03/14/25 History ferrous sulfate 325 mg (65 mg 325 mg PO DAILY 02/27/25 03/14/25 History iron) tablet (FeroSul) torsemide 20 mg tablet 20 mg PO DAILY 02/27/25 03/14/25 History pantoprazole 40 mg tablet,delayed 40 mg PO HS 30 days #30 tabs 02/28/25 03/14/25 Rx release amiodarone 200 mg tablet 200 mg PO DAILY #30 tabs 03/14/25 03/14/25 Rx diltiazem HCl 240 mg 240 mg PO DAILY #60 caps 03/14/25 03/14/25 Rx capsule,extended release 24 hr (Cardizem CD) New Prescriptions to Start Prescriptions: Allergies Allergy/AdvReac Type Severity Reaction Status Date / Time No Known Allergies Allergy Verified 03/14/25 13:09 Assessment and Plan *Assessment and plan (1) Atrial fibrillation with rapid ventricular response: Status: Acute Category: Medical Code(s): I48.91 - Unspecified atrial fibrillation (2) Chronic heart failure with preserved ejection fraction (HFpEF): Status: Acute Category: Medical Code(s): I50.32 - Chronic diastolic (congestive) heart failure (3) Iron deficiency anemia: Status: Acute Category: Medical Code(s): D50.9 - Iron deficiency anemia, unspecified (4) Hyperkalemia: Status: Acute Category: Medical Code(s): E87.5 - Hyperkalemia (5) DM2 (diabetes mellitus, type 2): Status: Acute Qualifiers: Diabetes mellitus [facility] insulin use: with [facility] use Diabetes mellitus complication status: without complication Qualified Code(s): E11.9 - Type 2 diabetes mellitus without complications; Z79.4 - [facility] (current) use of insulin Category: Medical Code(s): E11.9 - Type 2 diabetes mellitus without complications Plan A-fib with RVR - now 110 at rest, 120s+ with using bedside commode - long standing history of rate controlled A-fib - worsening rate control and and symptoms recently despite Amio 200, Cardizem 240, severe ÁLVAREZ on DOA - Contributing factors - CKD, Morbid Obesity, Severe hyperkalemia, LA Dilation (60mL). Sleep study negative for TOPHER per pt. - Plan: Continue Eliquis and Amio. Increase Cardizem to 360, Cardizem GTT PRN consistent rate >120, hydrate, correct K. NPO after midnight, if still RVR/symptomatic in AM will DCCV. Pt reports after last DCCV she was asymptomatic and SR for 1.5 years. HFpEF - due to morbid obesity and atrial fibrillation - ECHO 12/31/24 - nml bi-v function, mild RV dilation, mild biatrial dilation (LA is 60mL) - check CXR and ProBNP - continue Jardiance and PRN diuretics Morbid Obesity, BMI 47 - pt as severe deconditioning, PT eval recommended possible rehab/home health at [place] - consider addition of GLP-1 outpatient DM-II - well controlled with A1C of 6 on 03/14/25 - continue Jardiance, consider GLP-1 outpatient - glucose control with Insulin per Hospitalist Chol - well controlled with LDL <30 - continue Statin Leukocytosis - mild, no fever - trend Hypothyroidism - well controlled per labs here on 03/14 - continue Levothyroxine *CV stable/improving - check CXR, ProBNP, correct K, hydrate. NPO after midnight with possible DCCV tomorrow.
--- NOTE | 2025-03-15 10:32 | XR_ITS ---
FINAL REPORT CLINICAL HISTORY: hfpef, perez COMPARISON: 09/29/2023 FINDINGS: The heart size is normal. The mediastinum is normal. There is no focal infiltrate or edema. There are mild chronic changes at the lung bases. There are no pleural effusions. There is no pneumothorax. There is no osseous abnormality. IMPRESSION: No acute cardiopulmonary process Reviewed, Interpreted and Dictated by Jacob Garcia MD Transcribed by Josefina Chapman Authenticated and [facility]
--- NOTE | 2025-03-15 10:46 | PC.NURSE ---
All patient care and documentation provided by Shawna UPTON/Mechanical Maintenance Worker was completed under my direct supervision. Cindy Branham RN
[2025-03-15 10:51] LABS: NT Pro Brain Natriuretic Pep. 525 pg/mL (0-125)
--- NOTE | 2025-03-15 10:55 | SW/DCPLANNER ---
Addendum entered by Bina Duran 03/16/25 10:02: Per Jaxon patient can admit Wednesday or Wednesday if medically stable for discharge. Addendum entered by Bina Duran 03/16/25 08:16: Per Jaxon w/ [facility] patient can be accepted SNF level of care starting tomorrow 03/17. Original Note: I spoke w/ patient and her this AM regarding plans once medically stable for discharge. PT/OT evaluated patient and recommended SNF level of care. Patient is currently established w/ [facility] but is agreeable to placement. Patient prefers [facility] or [facility]. I will fax patient information to both facilities. Discharge date is unknown at this time. I will continue to follow up.
[2025-03-15 11:23] LABS: POC Glucose,Bedside 132 (70-110)
--- NOTE | 2025-03-15 11:37 | DIET.NUTRFU ---
Saw patient today. tolerating soft diet. She had all her teeth pulled, in the process of getting dentures. Reviewed ground textures also available and wants to stay on soft. present. Had some nausea today, zofran was effective. Takes meds at home for constipation, denied any discomfort. Patient does drink glucerna at home to help meet protein needs, will continue here
[2025-03-15] MEDS: humaLOG MIX 75/25 3ML FLEXPEN 20 UNIT SUBCUT (12:40)
[2025-03-15 17:17] LABS: POC Glucose,Bedside 128 (70-110)
--- NOTE | 2025-03-15 17:39 | PC.NURSE ---
pt arrived to med surg from ICU at 1500. a &ox4. a fib on tele. standby assistance to bedside commode. tolerating ra with sats >90%. pt to be NPO at midnight for cardioverison tomorrow. no complaints of pain. no needs at this time. call light within reach.
[2025-03-15] MEDS: ATORVASTATIN 40MG TABLET 40 MG PO (20:13)
[2025-03-15] MEDS: PANTOPRAZOLE 40MG TABLET 40 MG PO (20:13)
[2025-03-15] MEDS: TRAZODONE 50MG TABLET 50 MG PO (20:15)
[2025-03-16] VITALS (7 sets, daily range): BP systolic 112–173; BP diastolic 52–80; PULSE 90–130; RESP 16–20; TEMP 36.6–36.9; O2SAT 95–100; BMI 48.5
[2025-03-16 01:22] LABS: Anion Gap 20.4 mEq/L (5-15); Blood Urea Nitrogen 45 mg/dl (7-17); Calcium 9.2 mg/dl (8.4-10.2); Carbon Dioxide 14 mmol/L (22.0-30.0); Chloride 105 mmol/L (98-107); Creatinine Clearance Estimated 27 mL/min (50-200); Creatinine,Serum 1.80 mg/dl (0.52-1.04); Estimated Glomerular Filt Rate 28 ml/min (>60); GFR (African American) 34 ML/MIN (>60); Glucose 112 mg/dl (74-100); Sodium 133 mmol/L (136-145)
[2025-03-16 01:25] LABS: Potassium 6.4 mmoL/L (3.5-5.1)
--- NOTE | 2025-03-16 01:30 | PC.NURSE ---
Critical Lab Value of Potassium 6.4 reported to
[2025-03-16] MEDS: LOKELMA 5GM PACKET 10 GM PO ×2 (02:21→08:56)
[2025-03-16] MEDS: SODIUM POLY SULFON 15GM/60ML ORAL.SUSP 15 GM PO ×4 (02:21→16:25)
[2025-03-16 02:23] LABS: Creatine Kinase < 20 U/L (30-135)
--- NOTE | 2025-03-16 04:19 | PC.NURSE ---
Pt A&O x4. Pt is on RA. Pt VSS. Pt has been Afib on tele wth an occasional acceleration of the heart rate to 110's-120's. Pt defies any symptoms. expect for being weak. Pt's potassium of 6.4, was called a s a critical and reported to MD. See interventions on OCT. Pt has gotten up a few times to use BSC. Pt not voicing any concerns at this time. Pt resting with call light in reach.. POC ongoing.
[2025-03-16 05:28] LABS: POC Glucose,Bedside 143 (70-110)
[2025-03-16 05:43] LABS: Albumin Level 4.4 g/dl (3.5-5.0); Chloride 102 mmol/L (98-107); Sodium 133 mmol/L (136-145)
[2025-03-16 05:45] LABS: Potassium 6.1 mmoL/L (3.5-5.1)
[2025-03-16 05:46] LABS: Alanine Aminotransferase 21 U/L (12-78); Albumin/Globulin Ratio 1.3 (1.1-1.8); Alkaline Phosphatase 135 U/L (38-126); Anion Gap 26.1 mEq/L (5-15); Aspartate Amino Transferase 41 U/L (14-36); Bilirubin,Total 0.4 mg/dl (0.2-1.3); Calcium 9.4 mg/dl (8.4-10.2); Carbon Dioxide 11 mmol/L (22.0-30.0); Globulin 3.5 g/dL (1.3-3.2); Glucose 132 mg/dl (74-100); Total Protein,Serum 7.9 g/dl (6.3-8.2)
[2025-03-16 05:47] LABS: Magnesium 3.3 mg/dl (1.6-2.3); Salicylate < 1.0 mg/dL (2.0-20.0)
--- NOTE | 2025-03-16 05:47 | PC.NURSE ---
Lab called at 05:44 to report a critical potassium value of 6.1 for the patient. Dominique Velasquez MD was paged at this time to inform him about the critical lab value. Lokelma and Kayexalate were administered previously during the night per MD orders (see MAR).
[2025-03-16 05:51] LABS: Blood Urea Nitrogen 47 mg/dl (7-17); Creatinine Clearance Estimated 29 mL/min (50-200); Creatinine,Serum 1.70 mg/dl (0.52-1.04); Estimated Glomerular Filt Rate 30 ml/min (>60); GFR (African American) 36 ML/MIN (>60)
[2025-03-16 06:06] LABS: Hematocrit 40.7 % (37.0-47.0); Hemoglobin 10.9 g/dL (12.2-16.2); Immature Granulocytes % 1.0 %; Mean Corpuscular HGB Conc 26.8 g/dL (31.8-35.4); Mean Corpuscular Hemoglobin 20.4 pg (27.0-31.2); Mean Corpuscular Volume 76.2 fl (81-99); Nucleated Red Blood Cells % 0 %; Platelet Count 475 K/mm3 (142-424); Red Blood Count 5.34 M/mm3 (4.20-5.40); Red Cell Distribution Width-SD 62.3 fL; White Blood Count 12.6 K/mm3 (4.8-10.8)
[2025-03-16] MEDS: LEVOTHYROXINE 125MCG (0.125MG) TAB 125 MCG PO (06:19)
[2025-03-16 06:32] LABS: Acetone, Serum (Rapid) None Detected (None Detect)
--- NOTE | 2025-03-16 08:02 | P.PN_ITS ---
Subjective *Date: 03/16/25 *Time: 11:44 Interval history: Patient stable on this morning. Heart rate jumps into the 130s when she gets up to work with nursing or therapy. Otherwise, controlled less than 110 at rest on current regimen. Dyspnea stable if not improved. On room air. Afebrile. No nausea or vomiting Medical Exam Vital signs and Labs for Last 24 Hours: Vital Signs Temp Pulse Pulse Resp BP BP Pulse Ox 03/16/25 06:43 03/16/25 05:00 03/16/25 04:00 98.5 F 104 H 20 121/61 99 03/16/25 04:00 110 H 03/16/25 03:00 03/16/25 01:00 03/16/25 00:00 95 H 03/16/25 00:00 98.0 F 90 18 113/52 L 97 03/15/25 23:00 03/15/25 23:00 03/15/25 21:00 03/15/25 20:00 120 H 03/15/25 19:51 98.3 F 100 H 20 120/52 L 99 03/15/25 19:35 03/15/25 18:45 03/15/25 17:00 03/15/25 16:00 97.8 F 102 H 16 105/58 L 93 L 03/15/25 16:00 90 03/15/25 14:49 03/15/25 14:41 95 H 98 03/15/25 14:00 105 H 19 117/54 L 97 03/15/25 13:42 03/15/25 12:04 102 H 03/15/25 12:00 98.5 F 109 H 25 H 120/66 99 03/15/25 11:08 03/15/25 10:00 114 H 18 124/76 99 03/15/25 09:20 O2 Del Method 03/16/25 06:43 Room Air 03/16/25 05:00 Room Air 03/16/25 04:00 Room Air 03/16/25 04:00 03/16/25 03:00 Room Air 03/16/25 01:00 Room Air 03/16/25 00:00 03/16/25 00:00 Room Air 03/15/25 23:00 Room Air 03/15/25 23:00 Room Air 03/15/25 21:00 Room Air 03/15/25 20:00 03/15/25 19:51 Room Air 03/15/25 19:35 Room Air 03/15/25 18:45 Room Air 03/15/25 17:00 Room Air 03/15/25 16:00 Room Air 03/15/25 16:00 03/15/25 14:49 Room Air 03/15/25 14:41 Room Air 03/15/25 14:00 Room Air 03/15/25 13:42 Room Air 03/15/25 12:04 03/15/25 12:00 Room Air 03/15/25 11:08 Room Air 03/15/25 10:00 Room Air 03/15/25 09:20 Room Air Intake and Output 03/15/25 03/16/25 03/16/25 23:59 07:59 15:59 Intake Total 360 / 1793.00 240 / 240 Output Total 350 / 401 250 / 250 Balance 10 / 1392.00 -10 -10 Intake: Intake, Oral Amount 360 / 1021 240 / 240 Output: Output, Urine Amount 350 / 400 250 / 250 Other: Number of Unmeasured Voids 0 Number of Bowel Movements 1 Weight 136.94 kg Patient Weight 03/16/25 23:59 Weight 136.94 kg Laboratory Results - last 24 hr 03/15/25 08:58: Sodium 133 L, Potassium 6.1 H*, Chloride 101, Carbon Dioxide 12 L, Anion Gap 26.1 H, BUN 46 H, Creatinine 1.80 H, Estimated Creat Clear 27, Estimated GFR 28 L, Est GFR ( Amer) 34 L, Glucose 206 H, Calcium 9.4, NT-Pro-B Natriuret Pep 525 H 03/15/25 11:16: POC Glucose 132 H 03/15/25 17:05: POC Glucose 128 H 03/16/25 00:58: Sodium 133 L, Potassium 6.4 H*, Chloride 105, Carbon Dioxide 14 L, Anion Gap 20.4 H, BUN 45 H, Creatinine 1.80 H, Estimated Creat Clear 27, Yissel mated GFR 28 L, Est GFR ( Amer) 34 L, Glucose 112 H D, Calcium 9.2, Total Creatine Kinase < 20 L 03/16/25 05:20: POC Glucose 143 H 03/16/25 05:25: WBC 12.6 H, RBC 5.34, Hgb 10.9 L, Hct 40.7, MCV 76.2 L, MCH 20.4 L, MCHC 26.8 L, RDW 23.6 H, Plt Count 475 H, MPV 9.5, Neut % (Auto) 69.2, Lymph % (Auto) 21.3, [place] % (Auto) 6.1, Eos % (Auto) 1.4, Baso % (Auto) 1.0, Neut # (Auto) 8.7 H, Lymph # (Auto) 2.7, [place] # (Auto) 0.8, Eos # (Auto) 0.2, Baso # (Auto) 0.1, Sodium 133 L, Potassium 6.1 H*, Chloride 102, Carbon Dioxide 11 L, Anion Gap 26.1 H, BUN 47 H, Creatinine 1.70 H, Estimated Creat Clear 29, Estimated GFR 30 L, Est GFR ( Amer) 36 L, Glucose 132 H, Lactate 1.7, Calcium 9.4, Magnesium 3.3 H D, Total Bilirubin 0.4, AST 41 H, ALT 21, Alkaline Phosphatase 135 H, Total Protein 7.9, Albumin 4.4, Globulin 3.5 H, Albumin/Globulin Ratio 1.3, Salicylates < 1.0 L 03/16/25 06:10: Acetone Level None detected I & O for Labs for Last 24 Hours: Intake & Output 03/13/25 03/14/25 03/15/25 03/16/25 23:59 23:59 23:59 23:59 Intake Total 659.9 / 1259.9 1553.00 / 1793.00 240 / 240 Output Total 0 / 0 401 / 401 250 / 250 Balance 659.9 / 1259.9 1152.00 / 1392.00 -10 / -10 Weight 132 kg 134 kg 136.94 kg Constitutional: Present no acute distress, morbidly obese, chronically ill appearing and cooperative Head: Present atraumatic and normocephalic ENT: Present normal exam Neck: Present normal inspection Respiratory: Absent rhonchi, wheezes or crackles Cardiac: Present Irregularly Regular GI: Present soft and normal bowel sounds; Absent distention or tenderness Extremities: Present normal inspection and full ROM; Absent tenderness or edema Comment:: Chronic lipedema Skin: Present intact; Absent erythema Neuro: Present Grossly Intact, alert, awake, oriented x 3 and moves all extremities Assessment and Plan *Assessment and plan (1) Atrial fibrillation with rapid ventricular response: Status: Acute Category: Medical Code(s): I48.91 - Unspecified atrial fibrillation (2) Morbid obesity: Status: Acute Category: Medical Code(s): E66.01 - Morbid (severe) obesity due to excess calories (3) Fall: Status: Acute Qualifiers: Encounter type: initial encounter Qualified Code(s): W19.XXXA - Unspecified fall, initial encounter Category: Medical Code(s): W19.XXXA - Unspecified fall, initial encounter (4) HTN (hypertension): Status: Acute Qualifiers: Hypertension type: primary hypertension Qualified Code(s): I10 - Essential (primary) hypertension Category: Medical Code(s): I10 - Essential (primary) hypertension (5) HLD (hyperlipidemia): Status: Acute Qualifiers: Hyperlipidemia type: mixed hyperlipidemia Qualified Code(s): E78.2 - Mixed hyperlipidemia Category: Medical Code(s): E78.5 - Hyperlipidemia, unspecified (6) DM2 (diabetes mellitus, type 2): Status: Acute Qualifiers: 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: with care home use Diabetes mellitus complication status: without complication Qualified Code(s): E11.9 - Type 2 diabetes mellitus without complications; 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 Presented to cardiology clinic for follow-up after recent admission for A-fib with RVR. Adjustments were made to her medication regimen at last admission and her diltiazem had been increased to 240 mg extended release once daily. Unfortunately on arrival and evaluation she was in A-fib RVR again with heart rate 130-140. 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 I decided to admit to the stepdown level of care for further management. Showing response to diltiazem drip. Transition to oral diltiazem today. Cardiology evaluating today. Showing some improvement. Continues to require in-patient management. Problems addressed as follows: A-fib with RVR Chronic HFpEF Hypertension Hyperlipidemia -Sodium 133, chloride 102. Bicarb 11. Suspect component of metabolic acidosis due to chronic kidney disease. Continue replacement with p.o. bicarbonate increased to mg twice daily. - Discussed case with cardiology, recommend goal heart rate less than 120. Will transition today to extended release Cardizem to 40 twice daily. No plan for cardioversion at this time. Stable discharge to rehab from a cardiac standpoint once deemed medically stable by primary team. - Continue amiodarone 200 mg daily - Continue Eliquis 5 mg twice daily - Echo obtained 12/27/2024 shows normal BiV systolic function with EF 60%. Mild RV and biatrial dilation. - Continue Crestor 10 mg nightly - Resume Bumex per home regimen 1 mg twice daily as conversion from her home torsemide CKD 3B: BUN 48, creatinine 1.7. Stable at baseline. Continue to monitor daily with CBC, CMP, magnesium. Hyperkalemia: Potassium remains elevated. Again 6.1 today on morning labs. Continue scheduled Kayexalate 4 times a day. Goal potassium less than 5.4. Repeat BMP ordered for 4 PM to monitor improvement. Diabetes: - A1c 6, well-controlled at this time. Glucose 132 on morning labs. Continue home regimen of 70/30 insulin 3 times a day. Fingersticks ACHS - Continue Jardiance 25 mg daily Bipolar 1 disorder: Continue Vraylar 4.5 mg daily, Zoloft 200 g daily, continue oxcarbazepine 150 mg twice daily Hypothyroid: TSH 1.67 on admission. Continue levothyroxine 125 mcg daily. Morbid obesity complicates all aspects of her care Continue pantoprazole 40 mg nightly for GERD Continue trazodone 50 mg nightly as needed for sleep Full code Continue Eliquis 5 mg twice daily Cardiac/diabetic diet Therapy working with patient daily. Awaiting placement for rehab. Excepted to [facility] for admission as soon as tomorrow if medically appropriate. Reevaluating daily
[2025-03-16] MEDS: AMIODARONE 200MG TABLET 200 MG PO (08:44)
[2025-03-16] MEDS: APIXABAN 5MG TABLET 5 MG PO ×2 (08:44→20:29)
[2025-03-16] MEDS: dilTIAZem ER 180 MG CAPSULE 360 MG PO (08:46)
[2025-03-16] MEDS: EMPAGLIFLOZIN 25MG TABLET 25 MG PO (08:47)
[2025-03-16] MEDS: humaLOG MIX 75/25 3ML FLEXPEN 55 UNIT SUBCUT (08:47)
[2025-03-16] MEDS: MODAFINIL 200 MG 1 EACH PO (08:53)
[2025-03-16] MEDS: VRAYLAR 4.5 MG 1 EACH PO (08:53)
[2025-03-16] MEDS: SODIUM BICARBONATE 650MG TABLET 650 MG PO (08:54)
[2025-03-16] MEDS: SERTRALINE 100MG TABLET 200 MG PO (08:54)
--- NOTE | 2025-03-16 09:03 | ECG_ITS ---
APPROVED REPORT Exam: Resting ECG HR:114 bpm ECG Measurements Heart Rate 114 AXES QRSd 146 QRS -84 QT 310 T 35 QTc 377 Conclusion ATRIAL FIBRILLATION WITH RAPID VENTRICULAR RESPONSE LEFT AXIS DEVIATION [QRS AXIS < -30] RIGHT BUNDLE BRANCH BLOCK [120+ ms QRS DURATION, UPRIGHT V1, 40+ ms S IN I/aVL/V4/V5/V6] ABNORMAL ECG UNCONFIRMED REPORT Electronically signed by : Avinash Escoto MD 03/17/2025 09:00:59
[2025-03-16 09:15] LABS: POC Glucose,Bedside 147 (70-110)
--- NOTE | 2025-03-16 09:44 | ECG_ITS ---
APPROVED REPORT Exam: Resting ECG HR:110 bpm ECG Measurements Heart Rate 110 AXES QRSd 132 QRS -63 QT 300 T 19 QTc 365 Conclusion ATRIAL FIBRILLATION WITH RAPID VENTRICULAR RESPONSE LEFT AXIS DEVIATION [QRS AXIS < -30] RIGHT BUNDLE BRANCH BLOCK [120+ ms QRS DURATION, UPRIGHT V1, 40+ ms S IN I/aVL/V4/V5/V6] ABNORMAL ECG UNCONFIRMED REPORT Electronically signed by : Avinash Escoto MD 03/17/2025 09:00:55
--- NOTE | 2025-03-16 09:50 | P.PN_ITS ---
Subjective Subjective Date: 03/16/25 Time: 09:30 Interval history: K remains severely elevated at 6.4 last night, 6.1 this am. Starting Kayexalate She remains in A-fib HR 110-120 Mild SOA Exam Data for Last 24 hours Vital signs and Labs for Last 24 Hours: Temp Pulse Resp BP Pulse Ox O2 Del Method 97.8 F 122 H 18 155/80 H 100 Room Air 03/16/25 08:00 03/16/25 08:00 03/16/25 08:00 03/16/25 08:00 03/16/25 08:00 03/16/25 08:00 Laboratory Results - last 24 hr 03/15/25 08:58: NT-Pro-B Natriuret Pep 525 H 03/15/25 11:16: POC Glucose 132 H 03/15/25 17:05: POC Glucose 128 H 03/16/25 00:58: Sodium 133 L, Potassium 6.4 H*, Chloride 105, Carbon Dioxide 14 L, Anion Gap 20.4 H, BUN 45 H, Creatinine 1.80 H, Estimated Creat Clear 27, Estimated GFR 28 L, Est GFR ( Amer) 34 L, Glucose 112 H D, Calcium 9.2, Total Creatine Kinase < 20 L 03/16/25 05:20: POC Glucose 143 H 03/16/25 05:25: WBC 12.6 H, RBC 5.34, Hgb 10.9 L, Hct 40.7, MCV 76.2 L, MCH 20.4 L, MCHC 26.8 L, RDW 23.6 H, Plt Count 475 H, MPV 9.5, Neut % (Auto) 69.2, Lymph % (Auto) 21.3, [place] % (Auto) 6.1, Eos % (Auto) 1.4, Baso % (Auto) 1.0, Neut # (Auto) 8.7 H, Lymph # (Auto) 2.7, [place] # (Auto) 0.8, Eos # (Auto) 0.2, Baso # (Auto) 0.1, Sodium 133 L, Potassium 6.1 H*, Chloride 102, Carbon Dioxide 11 L, Anion Gap 26.1 H, BUN 47 H, Creatinine 1.70 H, Estimated Creat Clear 29, Estimated GFR 30 L, Est GFR ( Amer) 36 L, Glucose 132 H, Lactate 1.7, Calcium 9.4, Magnesium 3.3 H D, Total Bilirubin 0.4, AST 41 H, ALT 21, Alkaline Phosphatase 135 H, Total Protein 7.9, Albumin 4.4, Globulin 3.5 H, Albumi n/Globulin Ratio 1.3, Salicylates < 1.0 L 03/16/25 06:10: Acetone Level None detected 03/16/25 08:50: POC Glucose 147 H I & O for Last 24 hours: Intake & Output 03/13/25 03/14/25 03/15/25 03/16/25 23:59 23:59 23:59 23:59 Intake Total 659.9 / 1259.9 1553.00 / 1793.00 240 / 240 Output Total 0 / 0 401 / 401 600 / 600 Balance 659.9 / 1259.9 1152.00 / 1392.00 -360 / -360 Weight 291 lb 0.163 oz 295 lb 6.711 oz 301 lb 14.4 oz Constitutional Constitutional: no acute distress, obese and cooperative *Routine HEENT Exam Eye: Present PERRL *Routine Respiratory Exam Respiratory: Present CTA bilaterally; Absent accessory muscle use, wheezes or crackles *Routine Cardiovascular Exam Cardiovascular: Present RRR, Normal S1 and Normal S2; Absent murmur, gallop or rubs *Routine Abdominal Exam Abdominal: Present soft; Absent tenderness *Routine Extremities Exam Extremities: Present pulses intact; Absent cyanosis or edema *Routine Skin Exam Skin: Present intact; Absent erythema or wounds *Routine Neurological Exam Neurological: Present alert and oriented X3 Routine Psychiatric Exam Psychiatric: Present cooperative Progress Note: A&P Assessment and plan (1) Atrial fibrillation with rapid ventricular response: Status: Acute (2) Morbid obesity: Status: Acute (3) Fall: Status: Acute (4) HTN (hypertension): Status: Acute (5) HLD (hyperlipidemia): Status: Acute (6) DM2 (diabetes mellitus, type 2): Status: Acute (7) TOPHER (obstructive sleep apnea): Status: Acute (8) Chronic heart failure with preserved ejection fraction (HFpEF): Status: Acute (9) Iron deficiency anemia: Status: Acute Assessment and Plan Assessment and Plan for All Diagnoses:: A-fib with RVR - now 110 at rest, 120s+ with using bedside commode - long standing history of rate controlled A-fib - worsening rate control and and symptoms recently despite Amio 200, Cardizem 240, severe ÁLVAREZ on DOA - Contributing factors - CKD, Morbid Obesity, Severe hyperkalemia, LA Dilation (60mL). Sleep study negative for TOPHER per pt. - Plan: Continue Eliquis and Amio. Increase Cardizem to 360, Cardizem GTT PRN consistent rate >120, hydrate, correct K. NPO after midnight, if still RVR/symptomatic in AM will DCCV. Pt reports after last DCCV she was asymptomatic and SR for 1.5 years. - 03/16: Remains RVR but K still 6.4, 6.1. Will not DCCV unless emergent in that setting. Severe Hyperkalemia - 6.1, 6.4, 6.1 despite Lokelma - unclear etiology, workup in progress by Hospitalist - 03/16: Rx changed to Kayexalate HFpEF - due to morbid obesity and atrial fibrillation - ECHO 12/31/24 - nml bi-v function, mild RV dilation, mild biatrial dilation (LA is 60mL) - check CXR and ProBNP - continue Jardiance and PRN diuretics - 03/16: ProBNP 525, CXR no acute process. Cont home meds. Morbid Obesity, BMI 47 - pt as severe deconditioning, PT eval recommended possible rehab/home health at [place] - consider addition of GLP-1 outpatient DM-II - well controlled with A1C of 6 on 03/14/25 - continue Jardiance, consider GLP-1 outpatient - glucose control with Insulin per Hospitalist Chol - well controlled with LDL <30 - continue Statin Leukocytosis - mild, no fever - trend Hypothyroidism - well controlled per labs here on 03/14 - continue Levothyroxine CV status: A-fib largely unchanged but in setting of ongoing severe hyperkalemia. Will not attempt cardioversion in that setting unless emergent. Continue efforts at rate control.
[2025-03-16 11:37] LABS: POC Glucose,Bedside 148 (70-110)
[2025-03-16] MEDS: SODIUM BICARBONATE 650MG TABLET 1300 MG PO ×2 (12:16→20:28)
[2025-03-16] MEDS: BUMETANIDE 1MG/4ML VIAL 1 MG IV ×2 (12:17→16:25)
[2025-03-16 12:19] LABS: POC Glucose,Bedside 138 (70-110)
[2025-03-16] MEDS: humaLOG MIX 75/25 3ML FLEXPEN 20 UNIT SUBCUT (12:19)
--- NOTE | 2025-03-16 15:37 | PC.NURSE ---
Pt remains in afib. HR has been as high as 160s this shift. Multiple EKGs obtained. MDs aware. Medication administered per mar/ MD order. See chart for EKGs. Pt potassium remains elevated. Cardioversion placed on hold. She has been upt o BSC. has had small stools this shift. Voiding via purewick, BSC and brief. Call light within reach.
[2025-03-16 15:59] LABS: Anion Gap 22.4 mEq/L (5-15); Blood Urea Nitrogen 42 mg/dl (7-17); Calcium 9.3 mg/dl (8.4-10.2); Carbon Dioxide 17 mmol/L (22.0-30.0); Chloride 103 mmol/L (98-107); Creatinine Clearance Estimated 31 mL/min (50-200); Creatinine,Serum 1.60 mg/dl (0.52-1.04); Estimated Glomerular Filt Rate 32 ml/min (>60); GFR (African American) 39 ML/MIN (>60); Glucose 104 mg/dl (74-100); Potassium 5.4 mmoL/L (3.5-5.1); Sodium 137 mmol/L (136-145)
[2025-03-16 19:03] LABS: Anion Gap 22.8 mEq/L (5-15); Blood Urea Nitrogen 42 mg/dl (7-17); Calcium 9.2 mg/dl (8.4-10.2); Carbon Dioxide 19 mmol/L (22.0-30.0); Chloride 102 mmol/L (98-107); Creatinine Clearance Estimated 33 mL/min (50-200); Creatinine,Serum 1.50 mg/dl (0.52-1.04); Estimated Glomerular Filt Rate 34 ml/min (>60); GFR (African American) 42 ML/MIN (>60); Glucose 162 mg/dl (74-100); Potassium 5.8 mmoL/L (3.5-5.1); Sodium 138 mmol/L (136-145)
[2025-03-16] MEDS: PANTOPRAZOLE 40MG TABLET 40 MG PO (20:28)
[2025-03-16] MEDS: ATORVASTATIN 40MG TABLET 40 MG PO (20:28)
[2025-03-16] MEDS: dilTIAZem ER 240MG CAPSULE 240 MG PO (20:29)
[2025-03-16] MEDS: TRAZODONE 50MG TABLET 50 MG PO (20:33)
[2025-03-16 20:39] LABS: POC Glucose,Bedside 225 (70-110)
--- NOTE | 2025-03-16 22:13 | PC.NURSE ---
right abd fold
[2025-03-17] VITALS: BP 115/70; PULSE 106; PULSE 110; RESP 18; TEMP 36.6; O2SAT 92
[2025-03-17 04:00] VITALS: BP 108/57; PULSE 110; RESP 16; TEMP 36.6; O2SAT 100; BMI 48.0
[2025-03-17] MEDS: LEVOTHYROXINE 125MCG (0.125MG) TAB 125 MCG PO (06:13)
[2025-03-17] MEDS: humaLOG 100 UNITS/ML 10ML VIAL (SSI) SUBCUT ×2 (06:16→11:22)
[2025-03-17 06:28] LABS: Hematocrit 34.6 % (37.0-47.0); Hemoglobin 10.1 g/dL (12.2-16.2); Immature Granulocytes % 0.7 %; Mean Corpuscular HGB Conc 29.2 g/dL (31.8-35.4); Mean Corpuscular Hemoglobin 20.9 pg (27.0-31.2); Mean Corpuscular Volume 71.5 fl (81-99); Nucleated Red Blood Cells % 0 %; Platelet Count 472 K/mm3 (142-424); Red Blood Count 4.84 M/mm3 (4.20-5.40); Red Cell Distribution Width-SD 57.3 fL; White Blood Count 9.0 K/mm3 (4.8-10.8)
[2025-03-17 06:33] LABS: Albumin Level 4.1 g/dl (3.5-5.0); Chloride 101 mmol/L (98-107); Potassium 5.2 mmoL/L (3.5-5.1); Sodium 135 mmol/L (136-145)
[2025-03-17 06:35] LABS: Blood Urea Nitrogen 40 mg/dl (7-17); Creatinine Clearance Estimated 38 mL/min (50-200); Creatinine,Serum 1.30 mg/dl (0.52-1.04); Estimated Glomerular Filt Rate 40 ml/min (>60); GFR (African American) 49 ML/MIN (>60)
[2025-03-17 06:36] LABS: Alanine Aminotransferase 22 U/L (12-78); Albumin/Globulin Ratio 1.2 (1.1-1.8); Alkaline Phosphatase 133 U/L (38-126); Anion Gap 18.2 mEq/L (5-15); Aspartate Amino Transferase 32 U/L (14-36); Bilirubin,Total 0.3 mg/dl (0.2-1.3); Calcium 8.6 mg/dl (8.4-10.2); Carbon Dioxide 21 mmol/L (22.0-30.0); Globulin 3.4 g/dL (1.3-3.2); Glucose 157 mg/dl (74-100); Magnesium 3.0 mg/dl (1.6-2.3); Total Protein,Serum 7.5 g/dl (6.3-8.2)
--- NOTE | 2025-03-17 07:05 | EXP.DC.SUM ---
General Admission date:: 03/14/25 Discharge date: 03/17/25 HPI HPI HPI: 69-year-old female with A-fib, morbid obesity, HFpEF, diabetes, bipolar, hypothyroid. She was recently admitted for A-fib with RVR and discharged on the of last month. Adjustments have been made to her diltiazem regimen and she is doing better at discharge with improved rate control. Today for postdischarge follow-up with cardiology. States she has been having increased dyspnea with exertion and feeling her heart racing over the past week. States her Apple watch has recorded A-fib for the better part of the past 2 weeks. Had in her inupiat rate was controlled on amiodarone and low-dose diltiazem. Initially tolerated the higher dose diltiazem but has not seen good rate control lately. On evaluation in cardiology clinic, heart rate was 130-140. Medicine was consulted for direct admission and further management of her recurrent A-fib RVR that is uncontrolled at this time. On evaluation after arriving to the floor, patient appears at her baseline chronic condition. Heart is tachycardic on exam. She has been hooked up to telemetry and it shows A-fib with RVR. Blood pressure acceptable. On room air. Denies chest pain. Has had some intermittent nausea and vomiting over the past few days. No bowel movement in 4 days. Afebrile. Hospital Course Hospital Course Hospital Course: 69-year-old female with diabetes, bipolar, morbid obesity, HFpEF, A-fib. Presented to cardiology clinic for follow-up after recent admission for A-fib with RVR. Adjustments were made to her medication regimen at last admission and her diltiazem had been increased to 240 mg extended release once daily. Unfortunately on arrival and evaluation she was in A-fib RVR again with heart rate 130-140. 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 I decided to admit to the stepdown level of care for further management. Responded to diltiazem drip. Transitioned to oral diltiazem. Continuing to 40 mg extended release twice daily. Cardiology assisted with care. Stable to discharge to rehab for further management with improvement in her A-fib control. Will need close follow-up with cardiology for continued medication adjustments. Heart rate does go up with exertion as expected but improves back to baseline at rest. Stable to discharge to [facility] for further management. Problems addressed as follows: A-fib with RVR Chronic HFpEF Hypertension Hyperlipidemia - Presented with A-fib with RVR in the setting of her chronic HFpEF. Heart rate was in the 130s to 150s. Continued her amiodarone 200 mg daily. Continued her Eliquis 5 mg twice daily. Cardiology was consulted to assist with management. Recommend goal heart rate less than 120. Transitioned to extended release Cardizem 240 mg twice daily. No plan for cardioversion at this time. Would like patient to be consistently on anticoagulation for at least a month prior to cardioversion consideration. Stable to discharge to rehab from a cardiac standpoint. - Echo obtained 12/27/2024 shows normal BiV systolic function with EF 60%. Mild RV and biatrial dilation. - Continue Crestor 10 mg nightly - Treated with Bumex during admission. Resume her home torsemide at discharge to address fluid management CKD 3B: BUN improved to better than baseline at 40 with creatinine 1.3. Overall pleased with her improvement in kidney function. Hyperkalemia: - Potassium elevated initially on admission. Peaked at 6.4. Responded well to Lokelma and Kayexalate. Has remained stable for 24 hours in the low 5 range without further augmentation or treatment. Has improved as her metabolic acidosis has improved. Anticipate continued improvement. Would benefit from repeat BMP, CBC, magnesium in 1 week to monitor electrolyte stability. Potassium at time of discharge at 5.2. Magnesium 3.0. Kidney function better with BUN 40, creatinine 1.3. Bicarb improved to 21 Diabetes: - A1c 6, well-controlled at this time. Glucose 132 on morning labs. Continue home regimen of 70/30 insulin 3 times a day. Fingersticks ACHS. Continue Jardiance 25 mg daily. Holding metformin in the setting of metabolic acidosis. Reevaluate need as an outpatient. Bipolar 1 disorder: Continue Vraylar 4.5 mg daily, Zoloft 200 g daily, continue oxcarbazepine 150 mg twice daily Hypothyroid: TSH 1.67 on admission. Continue levothyroxine 125 mcg daily. Morbid obesity complicates all aspects of her care Continue pantoprazole 40 mg nightly for GERD Continue trazodone 50 mg nightly as needed for sleep Therapy working with patient daily. Was excepted to [facility] for further care. Medically stable at this time to discharge for further rehab. Total time spent on discharge 35 minutes in counseling, documentation, chart review, and direct care with patient. Exam Data for Last 24 hours Vital signs and Labs for Last 24 Hours: Temp Pulse Resp BP Pulse Ox O2 Del Method 97.9 F 110 H 16 108/57 L 100 Room Air 03/17/25 04:00 03/17/25 04:00 03/17/25 04:00 03/17/25 04:00 03/17/25 04:00 03/17/25 06:19 Laboratory Results - last 24 hr 03/15/25 20:08: POC Glucose 148 H 03/16/25 08:50: POC Glucose 147 H 03/16/25 12:11: POC Glucose 138 H 03/16/25 15:35: Sodium 137, Potassium 5.4 H, Chloride 103, Carbon Dioxide 17 L, Anion Gap 22.4 H, BUN 42 H, Creatinine 1.60 H, Estimated Creat Clear 31, Estimated GFR 32 L, Est GFR ( Amer) 39 L, Glucose 104 H D, Calcium 9.3 03/16/25 18:42: Sodium 138, Potassium 5.8 H, Chloride 102, Carbon Dioxide 19 L, Anion Gap 22.8 H, BUN 42 H, Creatinine 1.50 H, Estimated Creat Clear 33, Estimated GFR 34 L, Est GFR ( Amer) 42 L, Glucose 162 H D, Calcium 9.2 03/16/25 20:30: POC Glucose 225 H 03/17/25 06:10: WBC 9.0 D, RBC 4.84, Hgb 10.1 L, Hct 34.6 L, MCV 71.5 L, MCH 20.9 L, MCHC 29.2 L, RDW 23.0 H, Plt Count 472 H, MPV 9.5, Neut % (Auto) 73.3, Lymph % (Auto) 17.5, [place] % (Auto) 6.4, Eos % (Auto) 1.2, Baso % (Auto) 0.9, Neut # (Auto) 6.6, Lymph # (Auto) 1.6, [place] # (Auto) 0.6, Eos # (Auto) 0.1, Baso # (Auto) 0.1, Sodium 135 L, Potassium 5.2 H, Chloride 101, Carbon Dioxide 21 L, Anion Gap 18.2 H, BUN 40 H, Creatinine 1.30 H, Estimated Creat Clear 38, Estimated GFR 40 L, Est GFR ( Amer) 49 L, Glucose 157 H, Calcium 8.6, Magnesium 3.0 H, Total Bilirubin 0.3, AST 32, ALT 22, Alkaline Phosphatase 133 H, Total Protein 7.5, Albumin 4.1, Globulin 3.4 H, Albumin/Globulin Ratio 1.2 I & O for Last 24 hours: Intake & Output 03/14/25 03/15/25 03/16/25 03/17/25 23:59 23:59 23:59 23:59 Intake Total 659.9 / 1259.9 1553.00 / 1793.00 600 / 600 Output Total 0 / 0 401 / 401 800 / 800 Balance 659.9 / 1259.9 1152.00 / 1392.00 -200 / -200 Weight 132 kg 134 kg 136.94 kg 135.579 kg Constitutional Constitutional: no acute distress, morbidly obese, chronically ill appearing and cooperative *Routine HEENT Exam Head: Present normocephalic Eye: Present EOMI and PERRL ENT: Present mucous membranes moist *Routine Neck Exam Neck: Present supple; Absent lymphadenopathy *Routine Respiratory Exam Respiratory: Present CTA bilaterally; Absent rhonchi, wheezes or crackles *Routine Cardiovascular Exam Cardiovascular: Present irregularly irregular *Routine Abdominal Exam Abdominal: Present soft and normoactive bowel sounds; Absent tenderness *Routine Rectal Exam Patient deferred: visual exam *Routine Exam Patient deferred: external exam *Routine Extremities Exam Extremities: Present edema (Trace in ankles, chronic lipedema); Absent cyanosis or clubbing *Routine Skin Exam Skin: Present intact and warm; Absent rash *Routine Neurological Exam Neurological: Present alert, oriented X3 and moving all extremities; Absent altered mental status Results Data Completed and Pending Labs on day of discharge: Labs from last 24 hours 03/17/25 03/16/25 03/16/25 06:10 20:30 18:42 WBC 9.0 D RBC 4.84 Hgb 10.1 L Hct 34.6 L MCV 71.5 L MCH 20.9 L MCHC 29.2 L RDW 23.0 H Plt Count 472 H MPV 9.5 Neut % (Auto) 73.3 Lymph % (Auto) 17.5 [place] % (Auto) 6.4 Eos % (Auto) 1.2 Baso % (Auto) 0.9 Neut # (Auto) 6.6 Lymph # (Auto) 1.6 [place] # (Auto) 0.6 Eos # (Auto) 0.1 Baso # (Auto) 0.1 Sodium 135 L 138 Potassium 5.2 H 5.8 H Chloride 101 102 Carbon Dioxide 21 L 19 L Anion Gap 18.2 H 22.8 H BUN 40 H 42 H Creatinine 1.30 H 1.50 H Estimated Creat Clear 38 33 Estimated GFR 40 L 34 L Est GFR ( Amer) 49 L 42 L Glucose 157 H 162 H D POC Glucose 225 H Calcium 8.6 9.2 Magnesium 3.0 H Total Bilirubin 0.3 AST 32 ALT 22 Alkaline Phosphatase 133 H Total Protein 7.5 Albumin 4.1 Globulin 3.4 H Albumin/Globulin Ratio 1.2 03/16/25 03/16/25 03/16/25 15:35 12:11 08:50 WBC RBC Hgb Hct MCV MCH MCHC RDW Plt Count MPV Neut % (Auto) Lymph % (Auto) [place] % (Auto) Eos % (Auto) Baso % (Auto) Neut # (Auto) Lymph # (Auto) [place] # (Auto) Eos # (Auto) Baso # (Auto) Sodium 137 Potassium 5.4 H Chloride 103 Carbon Dioxide 17 L Anion Gap 22.4 H BUN 42 H Creatinine 1.60 H Estimated Creat Clear 31 Estimated GFR 32 L Est GFR ( Amer) 39 L Glucose 104 H D POC Glucose 138 H 147 H Calcium 9.3 Magnesium Total Bilirubin AST ALT Alkaline Phosphatase Total Protein Albumin Globulin Albumin/Globulin Ratio 03/15/25 20:08 WBC RBC Hgb Hct MCV MCH MCHC RDW Plt Count MPV Neut % (Auto) Lymph % (Auto) [place] % (Auto) Eos % (Auto) Baso % (Auto) Neut # (Auto) Lymph # (Auto) [place] # (Auto) Eos # (Auto) Baso # (Auto) Sodium Potassium Chloride Carbon Dioxide Anion Gap BUN Creatinine Estimated Creat Clear Estimated GFR Est GFR ( Amer) Glucose POC Glucose 148 H Calcium Magnesium Total Bilirubin AST ALT Alkaline Phosphatase Total Protein Albumin Globulin Albumin/Globulin Ratio DS: Diagnosis Discharge Diagnosis (1) Atrial fibrillation with rapid ventricular response: Status: Acute Code(s): I48.91 - Unspecified atrial fibrillation (2) Morbid obesity: Status: Acute Code(s): E66.01 - Morbid (severe) obesity due to excess calories (3) Fall: Status: Acute Code(s): W19.XXXA - Unspecified fall, initial encounter Qualifiers: Encounter type: initial encounter Qualified Code(s): W19.XXXA - Unspecified fall, initial encounter (4) HTN (hypertension): Status: Acute Code(s): I10 - Essential (primary) hypertension Qualifiers: Hypertension type: primary hypertension Qualified Code(s): I10 - Essential (primary) hypertension (5) HLD (hyperlipidemia): Status: Acute Code(s): E78.5 - Hyperlipidemia, unspecified Qualifiers: Hyperlipidemia type: mixed hyperlipidemia Qualified Code(s): E78.2 - Mixed hyperlipidemia (6) DM2 (diabetes mellitus, type 2): Status: Acute Code(s): E11.9 - Type 2 diabetes mellitus without complications Qualifiers: Diabetes mellitus complication status: without complication Diabetes mellitus oil heaterman insulin use: with oil heaterman use Qualified Code(s): E11.9 - Type 2 diabetes mellitus without complications; Z79.4 - terminal carman (current) use of insulin (7) TOPHER (obstructive sleep apnea): Status: Acute Code(s): G47.33 - Obstructive sleep apnea (adult) (pediatric) (8) Chronic heart failure with preserved ejection fraction (HFpEF): Status: Acute Code(s): I50.32 - Chronic diastolic (congestive) heart failure (9) Iron deficiency anemia: Status: Acute Code(s): D50.9 - Iron deficiency anemia, unspecified Meds Home Medications and Allergies Home Medications ?Medication ?Instructions ?Recorded ?Confirmed ?Type cariprazine 4.5 mg capsule 4.5 mg PO DAILY 09/29/23 03/14/25 History (Vraylar) empagliflozin 25 mg tablet 25 mg PO DAILY 09/29/23 03/14/25 History (Jardiance) insulin NPH-regular 70-30 U-100 55 unit SQ DAILY 09/29/23 03/14/25 History insulin 100 unit/mL subcutaneous pen (Humulin 70/30 U-100 MiguelikPen) levomefolate calcium 15 mg tablet 15 mg PO DAILY 09/29/23 03/14/25 History levomilnacipran 40 mg capsule,24 40 mg PO DAILY 09/29/23 03/14/25 History hr,extended release (Fetzima) levothyroxine 125 mcg tablet 125 mcg PO DAILYDM 09/29/23 03/14/25 History modafinil 200 mg tablet 200 mg PO DAILY 09/29/23 03/14/25 History oxcarbazepine 150 mg tablet 150 mg PO BID Seizures 09/29/23 03/14/25 History phenytoin sodium extended 100 mg 300 mg PO HS Seizures 09/29/23 03/14/25 History capsule rosuvastatin 10 mg tablet 10 mg PO HS Cholesterol 09/29/23 03/14/25 History sertraline 100 mg tablet 200 mg PO DAILY 09/29/23 03/14/25 History insulin NPH-regular 70-30 U-100 20 unit SQ PM 12/29/23 03/14/25 History insulin 100 unit/mL subcutaneous pen (Humulin 70/30 U-100 KwikPen) insulin NPH-regular 70-30 U-100 20 unit SQ 1200 Diabetes 04/19/24 03/14/25 History insulin 100 unit/mL subcutaneous pen (Humulin 70/30 U-100 KwikPen) trazodone 50 mg tablet 50 mg PO HSP PRN Sleep 04/19/24 03/14/25 History apixaban 5 mg tablet (Eliquis) 5 mg PO BID 10/17/24 03/14/25 History ferrous sulfate 325 mg (65 mg 325 mg PO DAILY 02/27/25 03/14/25 History iron) tablet (FeroSul) pantoprazole 40 mg tablet,delayed 40 mg PO HS 30 days #30 tabs 02/28/25 03/14/25 Rx release amiodarone 200 mg tablet 200 mg PO DAILY #30 tabs 03/14/25 03/14/25 Rx diltiazem HCl 240 mg 240 mg PO BID 30 days #60 caps 03/17/25 Rx capsule,extended release 24 hr nystatin 100,000 unit/gram topical 1 applic topical QID 14 days #60 03/17/25 Rx powder grams sodium bicarbonate 650 mg tablet 1,300 mg (2 x 650 mg) PO BIDWMEAL 03/17/25 Rx 14 days #56 tabs torsemide 20 mg tablet 40 mg (2 x 20 mg) PO DAILY 30 days 03/17/25 03/14/25 Rx #0 tabs New Prescriptions to Start Prescriptions: diltiazem HCl Deonte Alicea nystatin Deonte Alicea sodium bicarbonate Deonte Alicea Allergies Allergy/AdvReac Type Severity Reaction Status Date / Time No Known Allergies Allergy Verified 03/14/25 13:09 Discharge Plan Disposition Patient Disposition: Xfer SNF Condition: Good Discharge Order Discharge Orders: Discharge Order (Routine); Ordered 03/17/25 Ordered By: Deonte Alicea Follow up Plan Follow up with: Cassie Liz APRN [Nurse Practitioner, Cardiology] - 03/20/25 10:45 am Prescriptions/Medication Reconciliation: New diltiazem HCl 240 mg Capsule,Extended Release 24hr 240 mg PO BID 30 Days Qty: 60 0RF nystatin 100,000 unit/gram Powder 1 applic topical QID 14 Days Qty: 60 0RF sodium bicarbonate 650 mg Tablet 1,300 mg PO BIDWMEAL 14 Days Qty: 56 0RF Continued Humulin 70/30 U-100 KwikPen 100 unit/mL (70-30) insulin pen 20 unit SQ PM trazodone 50 mg tablet 50 mg PO HSP PRN (Reason: Sleep) Patient Comments: TAKE 1 TABLET BY MOUTH EVERY NIGHT Eliquis 5 mg tablet 5 mg PO BID Patient Comments: TAKE 1 TABLET BY MOUTH EVERY 12 HOURS amiodarone 200 mg tablet 200 mg PO DAILY Qty: 30 5RF ferrous sulfate [FeroSul] 325 mg (65 mg iron) tablet 325 mg PO DAILY Patient Comments: TAKE 1 TABLET BY MOUTH DAILY WITH BREAKFAST pantoprazole 40 mg Tablet,Delayed Release (Dr/Ec) 40 mg PO HS 30 Days Qty: 30 0RF oxcarbazepine 150 mg tablet 150 mg PO BID Patient Comments: TAKE 1 TABLET BY MOUTH TWICE DAILY sertraline 100 mg tablet 200 mg PO DAILY Patient Comments: TAKE 2 TABLETS BY MOUTH DAILY phenytoin sodium extended 100 mg capsule 300 mg PO HS Patient Comments: TAKE 3 CAPSULES BY MOUTH EVERY NIGHT modafinil 200 mg tablet 200 mg PO DAILY Patient Comments: TAKE 1 TABLET BY MOUTH EVERY MORNING levothyroxine 125 mcg tablet 125 mcg PO DAILYDM Patient Comments: TAKE 1 TABLET BY MOUTH DAILY rosuvastatin 10 mg tablet 10 mg PO HS Patient Comments: TAKE 1 TABLET BY MOUTH DAILY Humulin 70/30 U-100 KwikPen 100 unit/mL (70-30) insulin pen 55 unit SQ DAILY Patient Comments: ADMINISTER 55UNITS UNDER THE SKIN IN THE MORNING AND 35UNITS IN THE EVENING Fetzima 40 mg capsule,extended release 24 hr 40 mg PO DAILY Patient Comments: TAKE 1 CAPSULE BY MOUTH DAILY Jardiance 25 mg tablet 25 mg PO DAILY Patient Comments: TAKE 1 TABLET BY MOUTH DAILY Vraylar 4.5 mg capsule 4.5 mg PO DAILY Patient Comments: TAKE 1 CAPSULE BY MOUTH DAILY levomefolate calcium 15 mg Tablet 15 mg PO DAILY Humulin 70/30 U-100 KwikPen 100 unit/mL (70-30) insulin pen 20 unit SQ 1200 Patient Comments: ADMINISTER 55UNITS UNDER THE SKIN IN THE MORNING AND 35UNITS IN THE EVENING Changed torsemide 20 mg tablet 40 mg PO DAILY 30 Days Qty: 0 0RF Discontinued diltiazem HCl [Cardizem CD] 240 mg capsule,extended release 24hr 240 mg PO DAILY Qty: 60 5RF lisinopril 40 mg tablet 40 mg PO DAILY Patient Comments: TAKE 1 TABLET BY MOUTH DAILY metformin 1,000 mg Tablet 1,000 mg PO BIDWMEAL Problem Reconciliation Problems Reviewed?: Yes Patient Discharge Instructions ACTIVITY: Continue current activity DIET: continue same diet and diabetic diet Patient Instructions: Heart Failure, Atrial Fibrillation, DI for Atrial Fibrillation, DI for Hyperkalemia, Stop Light Heart Failure Print Language: Faroese Providers Primary Care Provider: Avinash Buck Admit Provider: Deonte Alicea Attending Provider: Deonte Alicea
[2025-03-17 08:00] VITALS: BP 106/72; PULSE 111; PULSE 120; RESP 16; TEMP 36.7; O2SAT 94
[2025-03-17] MEDS: NYSTATIN TOPICAL POWDER 30GM TP (09:08)
[2025-03-17] MEDS: SODIUM BICARBONATE 650MG TABLET 1300 MG PO ×2 (09:09→13:39)
[2025-03-17] MEDS: METOPROLOL TARTRATE 5MG/5ML VIAL 5 MG IV (09:09)
[2025-03-17] MEDS: APIXABAN 5MG TABLET 5 MG PO (09:10)
[2025-03-17] MEDS: SERTRALINE 100MG TABLET 200 MG PO (09:10)
[2025-03-17] MEDS: dilTIAZem ER 240MG CAPSULE 240 MG PO (09:10)
[2025-03-17] MEDS: AMIODARONE 200MG TABLET 200 MG PO (09:10)
[2025-03-17] MEDS: EMPAGLIFLOZIN 25MG TABLET 25 MG PO (09:10)
[2025-03-17] MEDS: humaLOG MIX 75/25 3ML FLEXPEN 55 UNIT SUBCUT (09:11)
[2025-03-17] MEDS: BUMETANIDE 1MG/4ML VIAL 1 MG IV (09:11)
[2025-03-17] MEDS: VRAYLAR 4.5 MG 1 EACH PO (09:12)
[2025-03-17] MEDS: MODAFINIL 200 MG 1 EACH PO (09:12)
[2025-03-17] MEDS: ACETAMINOPHEN 325MG TAB 650 MG PO (09:15)
[2025-03-17 09:38] LABS: POC Glucose,Bedside 297 (70-110)
[2025-03-17 09:38] LABS: POC Glucose,Bedside 99 (70-110)
[2025-03-17 09:38] LABS: POC Glucose,Bedside 169 (70-110)
[2025-03-17] MEDS: humaLOG MIX 75/25 3ML FLEXPEN 20 UNIT SUBCUT (11:22)
[2025-03-17 11:42] LABS: POC Glucose,Bedside 208 (70-110)
[2025-03-17 12:00] VITALS: BP 104/67; PULSE 100; PULSE 102; RESP 16; TEMP 36.8; O2SAT 95
--- NOTE | 2025-03-17 16:10 | PC.NURSE ---
Patient discharged to [facility], Report called to JOSE Davila. Patient asymptomatic, in a. fib when cardiac rehab nurse taken off, heart rate of 112. Patient took all belongings, walker, and medications with her to [facility] by personal vehicle with and daughter by her side.
== END 2025-03-17 15:35 | disposition home or self-care (01) | DRG 309 ==
LOC: ICU 03-15 14:19 → 2ND 03-15 14:46
PROVIDERS: Physician Assistant; Student in an Organized Health Care Education/Training Program; Admitting Provider Internal Medicine Adolescent Medicine; PCP Family Medicine; Visit Provider Internal Medicine Adolescent Medicine
DX: I48.0 Paroxysmal atrial fibrillation (principal); E87.20 Acidosis, unspecified; I13.0 Hypertensive heart and chronic kidney disease with heart failure and stage 1 through stage 4 chronic kidney disease, or unspecified chronic kidney disease; I50.32 Chronic diastolic (congestive) heart failure; Z68.42 Body mass index [BMI] 45.0-49.9, adult; E78.5 Hyperlipidemia, unspecified; N18.32 Chronic kidney disease, stage 3b; E87.5 Hyperkalemia; E11.22 Type 2 diabetes mellitus with diabetic chronic kidney disease; F31.9 Bipolar disorder, unspecified; E03.9 Hypothyroidism, unspecified; E66.01 Morbid (severe) obesity due to excess calories; K21.9 Gastro-esophageal reflux disease without esophagitis; D50.9 Iron deficiency anemia, unspecified; D72.829 Elevated white blood cell count, unspecified; Z79.4 Long term (current) use of insulin; Z79.3 Long term (current) use of hormonal contraceptives; Z79.84 Long term (current) use of oral hypoglycemic drugs; Z79.01 Long term (current) use of anticoagulants; Z79.899 Other long term (current) drug therapy
CPT/HCPCS: 36415; 71045; 80048; 80053; 80329; 82009; 82550; 82728; 82962; 83036; 83540; 83550; 83605; 83735; 83880; 84443; 84484; 85025; 85610; 93005; 97110; 97116; 97163; 97166; 97530; J1756; J1939; J7030

== ENCOUNTER 2025-03-27 07:20 | Day surgery (SDC) | payer MEDICARE, OTHER, SELFPAY ==
[2025-03-27] VITALS (7 sets, daily range): BP systolic 113–134; BP diastolic 62–77; PULSE 65–116; RESP 20–22; O2SAT 94–954; BMI 47.1
[2025-03-27] MEDS: APIXABAN 5MG TABLET 5 MG PO (07:51)
[2025-03-27] MEDS: 0.9 % SODIUM CHLORIDE 500 ML 25 ML IV (08:00)
[2025-03-27] MEDS: MIDAZOLAM HCL 1MG/ML 5ML VIAL 1 MG IV (08:13)
[2025-03-27] MEDS: FENTANYL 100MCG/2ML VIAL 25 MCG IV (08:13)
--- NOTE | 2025-03-27 08:14 | SUR.PREOP ---
RT obtaining 12 lead EKG post cardioversion
--- NOTE | 2025-03-27 08:15 | ECG_ITS ---
APPROVED REPORT Exam: Resting ECG HR:75 bpm ECG Measurements Heart Rate 75 AXES NM 192 P 75 QRSd 158 QRS -17 QT 438 T 21 QTc 467 Conclusion SINUS RHYTHM with 1st degree AV block RIGHT BUNDLE BRANCH BLOCK [120+ ms QRS DURATION, UPRIGHT V1, 40+ ms S IN I/aVL/V4/V5/V6] ABNORMAL ECG UNCONFIRMED REPORT Electronically signed by : Avinash Escoto MD 03/27/2025 17:06:25
--- NOTE | 2025-03-27 08:24 | SUR.PHASEII ---
report called to yolanda raza, nurse Alyssa
--- NOTE | 2025-03-27 08:30 | EXP.CARDIOVE ---
[facility] Cardioversion Cardioversion Date: 03/27/25 Provider:: DEACON Nix Procedure Performed:: Synchronized electrical cardioversion Diagnosis:: Paroxysmal atrial fibrillation Procedure Summary:: Patient was brought to the cardiac [facility] as an outpatient. After informed consent was obtained, IV sedation using a combination of Versed and Phenergan was given to obtain adequate sedation. The patient then underwent a single synchronized 200 J shock which converted to her to sinus rhythm. Patient tolerated procedure without complications. Complications:: None Conculsion:: Successful electrical cardioversion from atrial fibrillation to normal sinus rhythm.
== END 2025-03-27 08:52 | disposition home or self-care (01) ==
PROVIDERS: PCP Family Medicine; Visit Provider Internal Medicine
PROC: 5A2204Z Restoration of Cardiac Rhythm, Single (ICD-10-PCS; principal; 2025-03-27 08:45)
DX: I48.91 Unspecified atrial fibrillation (principal); R94.31 Abnormal electrocardiogram [ECG] [EKG]; I25.10 Atherosclerotic heart disease of native coronary artery without angina pectoris; E78.2 Mixed hyperlipidemia; E11.9 Type 2 diabetes mellitus without complications; R00.2 Palpitations; I11.0 Hypertensive heart disease with heart failure; I50.30 Unspecified diastolic (congestive) heart failure; I27.20 Pulmonary hypertension, unspecified; E66.01 Morbid (severe) obesity due to excess calories; Z68.42 Body mass index [BMI] 45.0-49.9, adult; G47.33 Obstructive sleep apnea (adult) (pediatric); Z86.73 Personal history of transient ischemic attack (TIA), and cerebral infarction without residual deficits; Z79.01 Long term (current) use of anticoagulants; Z79.4 Long term (current) use of insulin; Z79.890 Hormone replacement therapy; Z79.899 Other long term (current) drug therapy; Z82.3 Family history of stroke
CPT/HCPCS: 92960; 93005; J3010; J7040